=== PATIENT | male | born 1985 | race African-American/Black ===

== ENCOUNTER 2020-06-13 15:42 | Emergency (ER) | payer SELFPAY ==
--- NOTE | ~2020-06-13 | CT_ITS ---
EXAMINATION: CT abdomen pelvis wo con EXAM DATE: 06/13/2020 17:40 INDICATION: Left flank pain. TECHNIQUE: Spiral CT of the abdomen and pelvis was performed without contrast. Axial, coronal and sag ittal images were reviewed. The dose-length product (DLP) for this examination was 284.46 mGy-cm. T he exposure was tailored according to patient size (auto mA exposure control), and iterative reconstr uction (ASIR) was used as additional dose reduction technique. There is no prior study for compariso n. FINDINGS: Along the inner gluteal folds, buttock there is skin thickening. On the right this extends laterally along the posterior aspect of the subcutaneous fat, phlegmon and possibly with early develo ping fluid collection/abscess. This region measures about 1.5 cm in thickness by about 8 cm in transv erse dimensions, please clinically correlate. There is no nephrolithiasis or hydronephrosis. The prostate is unremarkable. The bladder is unrem arkable. The liver, spleen, adrenal glands and pancreas are unremarkable. Gallbladder is unremarkab le. No biliary obstruction. There is no retroperitoneal or pelvic lymphadenopathy. The appendix is normal. The stomach and small bowel are unremarkable. There is mild sigmoid colonic diverticulosis. There is no adjacent inflammatory change to suggest diverticulitis. No free intrape ritoneal gas. The heart is normal in size. There are no pericardial or pleural effusions. The delano g bases are unremarkable. The bones are unremarkable. IMPRESSION: 1. No nephrolithiasis, hydronephrosis or acute intra-abdominal findings. 2. Induration along the inner gluteal folds extending on the right posterior aspect of the pelvis nixon bcutaneous fat, phlegmon with possible developing early abscess. Clinical correlation. Reviewed, dictated and finalized at location [facility]. IMPRESSION: 1. No nephrolithiasis, hydronephrosis or acute intra-abdominal findings. 2. Induration along the inner gluteal folds extending on the right posterior a spect of the pelvis subcutaneous fat, phlegmon with possible developing early a bscess. Clinical correlation.
[2020-06-13 15:54] VITALS: BP 146/92; PULSE 93; RESP 16; TEMP 37.1; O2SAT 99
--- NOTE | 2020-06-13 16:18 | ED.BACK ---
HPI - Back Pain/Injury General Chief Complaint: Back Pain/Injury Stated Complaint: back pain Time Seen by Provider: 06/13/20 16:02 Source: patient Mode of arrival: ambulatory Limitations: no limitations History of Present Illness HPI Narrative: Patient is a 34-year-old male who presents complaining of left lower back pain that radiated to the left leg. He reports pain x1 week increasing today. He reports pain increases with movement. He denies known injury, but reports that he does lift frequently. He denies taking [id number] medications for pain. He denies problems with urination. MD elicited complaint: back pain Related Data Allergies Allergy/AdvReac Type Severity Reaction Status Date / Time Opioids - Morphine Analogues Allergy Intermediate Rash Verified 06/13/20 16:35 tramadol Allergy Intermediate Rash Verified 06/13/20 16:35 Review of Systems Review of Systems: Narrative: CONSTITUTIONAL: Denies fever, chills, or sweats. EYES: Denies visual changes, redness, or discharge. ENT: Denies rhinorrhea, congestion, sore throat, or otalgia. CARDIOVASCULAR: Denies chest pain, palpitations, or edema. RESPIRATORY: Denies cough or dyspnea. GASTROINTESTINAL: Denies abdominal pain, nausea, vomiting, or diarrhea. GENITOURINARY: Denies dysuria or hematuria. SKIN: Denies rash or itching. MUSCULOSKELETAL: Reports left lower back pain, denies joint pain, or myalgia. NEUROLOGIC: Denies headache, numbness, dizziness, or weakness. PSYCHIATRIC: Denies anxiety or depression. PMFSH Past Medical History Medical History No significant past medical history Surgical History Surgical History No significant past surgical history Family History Family History Other Hypertension Social History Social History (Updated 06/13/20 @ 16:23 by CHRISTIE Klein) Smoking status: Current every day smoker Tobacco type: cigarettes Alcohol intake: current Alcohol use details: occasional Substance use: never Living arrangements: with family Exam Narrative: Exam Narrative: GENERAL: Well-appearing, well-nourished, and in no acute distress. HEAD: Normocephalic, atraumatic. EYES: No redness or drainage. ENT: Mucous membranes pink and moist. N CHEST: No respiratory distress. Clear to auscultation. HEART: Regular rate and rhythm. No murmur appreciated. Normal peripheral pulses. GI: Soft, nontender without rebound, or guarding. No distention. Bowel sounds normal in all quadrants. MUSCULOSKELETAL: Left paraspinous tenderness with palpation. EXTREMITIES: Normal range of motion. No edema. SKIN: Warm, dry, no rash. NEURO: No focal deficits. Alert and oriented x3. Gait steady. PSYCH: Normal affect. No signs of depression or anxiety. Course Vital Signs Vital signs: Vital Signs Temperature 37.1 C 06/13/20 15:54 Pulse Rate 93 06/13/20 15:54 Respiratory Rate 16 06/13/20 15:54 Blood Pressure 146/92 H 06/13/20 15:54 Pulse Oximetry 99 06/13/20 15:54 Temperature 37.1 C 06/13/20 15:54 Pulse Rate 93 06/13/20 15:54 Respiratory Rate 16 06/13/20 15:54 Blood Pressure 146/92 H 06/13/20 15:54 Pulse Oximetry 99 06/13/20 15:54 MDM - Back Pain/Injury MDM Narrative Medical decision making narrative: Patient CT scan shows no abnormalities. Patient to be treated for UTI because of urine results. Discussed with patient the need to follow-up with PCP for repeat UA. Patient verbalizes agreement. Patient is stable for discharge to home with outpatient follow-up. Lab Data Result diagrams: 06/13/20 17:58 06/13/20 17:58 Labs: Lab Results 06/13/20 06/13/20 06/13/20 Range/Units 17:13 17:58 17:58 WBC 5.1 (4.5-10.0) K/mm3 RBC 4.29 L (4.6-6.20) M/mm3 Hgb 14.1 (14.0-18.0) g/dL Hct 40.6 L
[2020-06-13] MEDS: KETOROLAC (*BKC) 60 MG/2 ML VIAL IM (16:35)
[2020-06-13 17:24] LABS: Add Urine Microscopic? YES; Appearance Urine Clear (Clear); Bacteria Urine Trace /hpf; Bilirubin Urine Negative (Negative); Blood Urine 3+ (Negative); Color Urine Yellow (Yellow); Glucose Urine UA Negative (Negative); Ketones Urine Negative (Negative); Leukocyte Esterase Ur Trace LEU/UL (Negative); Mucus Urine Rare /lpf; Nitrate Urine Negative (Negative); Protein Urine Negative (Negative); RBC Urine 21-50 /hpf (0-2); Specific Grav Ur 1.014 (1.001-1.035); Squamous Epithelial Cell Urine Rare /hpf (Few); Urobilinogen Urine Negative mg/dL (<2.0)
[2020-06-13] MEDS: SODIUM CHLORIDE 0.9% IV 1,000 ML 999 ML IV CONT (17:59)
[2020-06-13 18:09] LABS: Basophils Percent Auto 0.4 % (0.2-1.2); Eosinophils Absolute Auto 0.1 K/mm3 (0-0.3); Eosinophils Percent Auto 1.4 % (0-4.4); Hematocrit 40.6 % (42.0-52.0); Hemoglobin 14.1 g/dL (14.0-18.0); Immature Granulocyte Absolute 0.02 K/mm3 (0.00-0.031); Immature Granulocyte Percent A 0.4 % (0-0.5); Lymphocytes Absolute Auto 1.43 K/mm3 (0.9-3.2); Lymphocytes Percent Auto 27.9 % (18.3-44.2); Mean Corpuscular HGB Conc 34.7 g/dl (32-36); Mean Corpuscular Hemoglobin 32.9 pg (26-34); Mean Corpuscular Volume 94.6 fl (80-100); Mean Platelet Volume 9.3 fl (7.4-10.4); Monocytes Absolute Auto 0.4 K/mm3 (0.1-0.6); Monocytes Percent Auto 7.4 % (2.6-8.5); Neutrophils Absolute Auto 3.2 K/mm3 (1.3-6.7); Neutrophils Percent Auto 62.5 % (45.5-73.1); Platelet Count Result 209 k/mm3 (150-375); Red Blood Count 4.29 M/mm3 (4.6-6.20); White Blood Count 5.1 K/mm3 (4.5-10.0)
[2020-06-13 18:19] LABS: Potassium 3.9 mmol/L (3.4-5.0)
[2020-06-13 18:22] LABS: Alanine Aminotransferase 15 U/L (4-50); Alkaline Phosphatase 78 U/L (38-126); Anion Gap 5 mmol/L (8-16); Aspartate Amino Transferase 32 U/L (17-59); Bilirubin,Total 0.4 mg/dL (0.2-1.3); Blood Urea Nitrogen 9 mg/dL (9-20); Carbon Dioxide 32 mmol/L (22-30); Chloride 102 mmol/L (98-107); Estimated CRCL calculation 97 ml/min; Estimated Glomerular Filt Rate > 60; Glucose 71 mg/dL (75-110); Sodium 139 mmol/L (137-145)
[2020-06-13 19:02] VITALS: BP 133/74; PULSE 63; RESP 17; O2SAT 100
== END 2020-06-13 19:04 | disposition home or self-care (01) ==
PROVIDERS: Emergency Provider Nurse Practitioner
DX: M54.16 Radiculopathy, lumbar region (principal); N39.0 Urinary tract infection, site not specified; M54.42 Lumbago with sciatica, left side
CPT/HCPCS: 36415; 74176; 80053; 81001; 85025; 87086; 96360; 96372; 99284; J1885; J7030

== ENCOUNTER 2020-06-24 16:32 | Emergency (ER) | payer SELFPAY ==
[2020-06-24 16:35] VITALS: BP 132/82; PULSE 94; RESP 16; TEMP 36.1; O2SAT 100
--- NOTE | 2020-06-24 16:49 | PC.NURSE ---
patient reports intermitted hives and shortness of breath since starting bactim last week. no symptoms now
--- NOTE | 2020-06-24 17:01 | ED.GENADULT ---
HPI - General Adult General Chief complaint: Allergic Reaction Stated complaint: allergic reaction to antibiotic Time Seen by Provider: 06/24/20 16:46 History of Present Illness HPI narrative: Patient is a 34-year-old male who presents ER with concerns for allergic reaction. Patient was prescribed Bactrim last week for a urinary infection. After taking for couple days he began to develop red raised rash that was pruritic. This would improve with Benadryl. He stopped the medication right away. He still has intermittent flares in the morning. No fevers or chills or sweats. No nausea/vomiting. Mild shortness of breath this morning but went away with Benadryl. No residual urinary symptoms. Had to miss work because of his symptoms. Related Data Allergies Allergy/AdvReac Type Severity Reaction Status Date / Time Opioids - Morphine Analogues Allergy Intermediate Rash Verified 06/13/20 16:35 tramadol Allergy Intermediate Rash Verified 06/13/20 16:35 sulfamethoxazole Allergy Rash Verified 06/24/20 16:41 [From Bactrim] trimethoprim [From Bactrim] Allergy Rash Verified 06/24/20 16:41 Review of Systems Constitutional: Constitutional: Denies chills and Denies fever(s) ENT: Denies nasal congestion and Denies sore throat Respiratory: Respiratory: Denies cough, Reports dyspnea and Denies wheezing Integumentary/Breasts: Skin/Breast: Reports pruritus, Denies erythema and Reports rash PMFSH Past Medical History Medical History (Updated 06/24/20 @ 17:14 by Nathaniel Bentley MD) Kidney stones Surgical History Surgical History No significant past surgical history Family History Family History Other Hypertension Social History Social History (Updated 06/13/20 @ 16:23 by CHRISTIE Klein) Smoking status: Current every day smoker Tobacco type: cigarettes Alcohol intake: current Substance use: never Gender identity (if verbalized by the patient): Male Exam Narrative: Exam Narrative: GENERAL: Well-appearing, well-nourished, and in no acute distress. HEAD: Normocephalic, atraumatic. ENT: Mucous membranes moist. No pharyngeal erythema, tonsillar hypertrophy or exudate. CHEST: Clear to auscultation. No respiratory distress. HEART: Regular rate and rhythm. Normal peripheral pulses. EXTREMITIES: Normal range of motion. No edema. SKIN: Warm, dry, right arm dark scabs and hair follicles itching. No red rash.. NEURO: Alert and oriented x3. Course Course Emergency Course: Recommended [id number] Benadryl or Claritin daily as well as twice a day Pepcid. No evidence of anaphylaxis or rash at this time. Patient has made no changes to his home laundry detergents or fabric softeners. No new soaps when bathing. Vital Signs Vital signs: Vital Signs Temperature 97 F L 06/24/20 16:35 Pulse Rate 94 06/24/20 16:35 Respiratory Rate 16 06/24/20 16:35 Blood Pressure 132/82 06/24/20 16:35 Pulse Oximetry 100 06/24/20 16:35 Temperature 97 F L 06/24/20 16:35 Pulse Rate 94 06/24/20 16:35 Respiratory Rate 16 06/24/20 16:35 Blood Pressure 132/82 06/24/20 16:35 Pulse Oximetry 100 06/24/20 16:35 Medical Decision Making Vital Signs Vital Signs: Vital Signs Temperature 97 F L 06/24/20 16:35 Pulse Rate 94 06/24/20 16:35 Respiratory Rate 16 06/24/20 16:35 Blood Pressure 132/82 06/24/20 16:35 Pulse Oximetry 100 06/24/20 16:35 Temperature 97 F L 06/24/20 16:35 Pulse Rate 94 06/24/20 16:35 Respiratory Rate 16 06/24/20 16:35 Blood Pressure 132/82 06/24/20 16:35 Pulse Oximetry 100 06/24/20 16:35 Discharge Plan Discharge Clinical Impression: Allergic reaction Patient Disposition: Home, Self-Care Condition: Stable Instructions: Antibiotic Medication Allergy (ED) Additional Instructions: Return the ER if you cannot
== END 2020-06-24 17:21 | disposition home or self-care (01) ==
PROVIDERS: Emergency Provider Emergency Medicine
DX: T78.40XA Allergy, unspecified, initial encounter (principal); Z87.442 Personal history of urinary calculi; Z87.440 Personal history of urinary (tract) infections
CPT/HCPCS: 99283

== ENCOUNTER 2020-06-27 04:07 | Inpatient (IN) | payer SELFPAY ==
[2020-06-27] VITALS (17 sets, daily range): BP systolic 96–138; BP diastolic 53–84; PULSE 97–146; RESP 14–20; TEMP 37.2–39.2; O2SAT 93–100; BMI 25.5; BMI 25.2
--- NOTE | ~2020-06-27 | CT_ITS ---
EXAMINATION: CT abdomen pelvis w con DATE: 06/27/2020 04:40 INDICATION: Severe abdominal pain. Fever. History of sickle cell disease. TECHNIQUE: Computed tomography (CT) of the abdomen and pelvis was performed with 100 cc Omnipaque 350 intravenous contrast. Automated exposure control and iterative reconstruction technique were employe d. Exam dose: 516.36 mGy-cm total exam DLP. COMPARISON: 06/13/2020 CT abdomen pelvis FINDINGS: The lung bases are clear. Normal heart size. No pericardial or pleural effusion. The liver, gallbladder, bile ducts, spleen, pancreas, pancreatic duct, and adrenal glands and kidneys are unremarkable. Normal caliber of the abdominal aorta. No intraperitoneal or retroperitoneal or pe lvic mass lesion or adenopathy or ascites. Normal caliber of the abdominal aorta. No intraperitoneal or retroperitoneal or pelvic mass lesion or adenopathy or ascites. No bowel obstruction, bowel wall thickening, pneumatosis or intraperitoneal free air. Normal appendix . The urinary bladder is unremarkable. Again noted is soft tissue thickening along the right gluteal fold and particularly prominent subcuta neous soft tissue thickening along the medial aspect of the right buttock, with subjacent fat strandi ng. Infection and cellulitis are suggested. IMPRESSION: Little interval change of prominent subcutaneous soft tissue thickening and fat strandin g along the right gluteal fold and medial aspect of the right buttock since 06/13/2020 Reviewed, dictated and finalized at [facility]. Reviewed, dictated and finalized at location [facility]. IMPRESSION: Little interval change of prominent subcutaneous soft tissue thick ening and fat stranding along the right gluteal fold and medial aspect of the r ight buttock since 06/13/2020
--- NOTE | ~2020-06-27 | XR_ITS ---
XR chest 2V DATE: 06/27/2020 04:46 INDICATION: Tachycardia, fever. Midline upper abdominal pain. History of sickle cell disease. TECHNIQUE: AP and lateral views COMPARISON: None FINDINGS: Normal heart size. No pulmonary infiltrate or consolidation, pleural effusion or pulmonary vascular congestion or pneumothorax. IMPRESSION: No active cardiopulmonary disease Reviewed, dictated and finalized at location [facility].
--- NOTE | ~2020-06-27 | US_ITS ---
US right upper quadrant DATE: 06/27/2020 09:28 INDICATION: Right upper quadrant abdominal pain. Sepsis. TECHNIQUE: Real-time imaging of liver, pancreas, gallbladder COMPARISON: 06/27/2020 CT abdomen pelvis FINDINGS: No hepatic or pancreatic space-occupying mass lesion is evident. No evidence of gallstones or gallbladder wall thickening or abnormal pericholecystic fluid collection. Negative sonographic Mur phy's sign. Common bile duct is of normal caliber. IMPRESSION: No significant abnormality; no evidence of cholelithiasis Reviewed, dictated and finalized at [facility]. Reviewed, dictated and finalized at location [facility].
--- NOTE | ~2020-06-27 | XR_ITS ---
XR UGI water soluble w sbs DATE: 06/28/2020 10:42 INDICATION: Abdominal pain TECHNIQUE: Single contrast examination with water-soluble contrast material (100 cc Omnipaque 350) DAP: 44.50; 2.1 minutes fluoroscopy time 57 images COMPARISON: None FINDINGS: Normal deglutition and esophageal peristalsis. No esophageal stricture, mucosal fold thicke tyrone or intraluminal mass lesion. There is mucosal fold thickening of the distal antrum with suggestion of small erosions. Likewise there are multiple prominent mucosal folds and suggestion of small erosions in apex of the d uodenal bulb. Contrast material reaches the colon within 90 minutes. No small bowel stricture, dilatation, obstruct ion, mucosal fold thickening. The terminal ileum appears normal. IMPRESSION: Mucosal fold thickening and small erosions are suggested at the distal antrum and the duo denal bulb apex Reviewed, dictated and finalized at [facility]. Reviewed, dictated and finalized at location [facility]. IMPRESSION: Mucosal fold thickening and small erosions are suggested at the dis genaro antrum and the duodenal bulb apex
--- NOTE | 2020-06-27 04:05 | ED.ABDPAIN ---
HPI - Abdominal Pain General Chief Complaint: Abdominal Pain Stated Complaint: ABD PAIN Source: patient and EMS Mode of arrival: EMS Limitations: no limitations History of Present Illness HPI narrative: Patient is a 34-year-old male who presents for evaluation of severe abdominal pain. Patient reports severe pain throughout his abdomen that awakened him suddenly from sleep approximately 1 hour ago. Described as sharp, cramping in nature throughout his abdomen, worse on the right side. He has had associated fever, denies nausea or vomiting. He denies history of abdominal surgeries. He denies diarrhea or constipation. Patient was recently seen in this emergency department for urinary tract infection on June 13 and started on Bactrim. Subsequently, patient developed a rash and was seen again in this emergency department and discharged home in stable condition. Patient denies any current cough, chest pain or shortness of breath. No pain history such as this in the past. Patient does report that he has a history of sickle cell trait and hidranitis suppuritiva, but this was not reported to other providers at previous visits to this facility. 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 He is not on any chronic pain medications. Related Data Allergies Allergy/AdvReac Type Severity Reaction Status Date / Time Opioids - Morphine Analogues Allergy Intermediate Rash Verified 06/13/20 16:35 tramadol Allergy Intermediate Rash Verified 06/13/20 16:35 sulfamethoxazole Allergy Rash Verified 06/24/20 16:41 [From Bactrim] trimethoprim [From Bactrim] Allergy Rash Verified 06/24/20 16:41 Review of Systems Review of Systems: Narrative: CONSTITUTIONAL: Reports fever and chills ENT: Denies rhinorrhea, congestion, sore throat, or otalgia. CARDIOVASCULAR: Denies chest pain RESPIRATORY: Denies cough or dyspnea. GASTROINTESTINAL: Reports abdominal pain GENITOURINARY: Denies dysuria or hematuria. SKIN: Denies rash or itching. MUSCULOSKELETAL: Denies back pain, joint pain, or myalgia. NEUROLOGIC: Denies headache, numbness, or weakness. [facility] Past Medical History Medical History (Updated 06/27/20 @ 07:29 by Yakelin Thomas MD) Abscess and cellulitis of gluteal region Hidradenitis suppurativa Kidney stones Sickle cell trait Surgical History Surgical History No significant past surgical history Family History Family History Other Hypertension Social History Social History Smoking status: Current every day smoker Tobacco type: cigarettes Alcohol intake: current Substance use: never Gender identity (if verbalized by the patient): Male Exam Narrative: Exam Narrative: GENERAL: Awake, alert, uncomfortable appearing, tearful HEAD: Normocephalic, atraumatic. EYES: PERRLA and EOMI. ENT: Nares clear, no rhinorrhea or epistaxis. Mucous membranes moist. NECK: Supple. CHEST: No respiratory distress, breathing even and non labored, lung sounds clear bilaterally HEART: Tachycardic rate, sinus rhythm ABDOMEN:Non distended, severe tenderness in all 4 quadrants even with light palpation, guarding present throughout : Induration overlying the right gluteus, incision sites clean, dry, intact, no erythema, no purulent discharge, no crepitus, mild tenderness with palpation EXTREMITIES: Normal range of motion. No edema. SKIN: Warm, dry, no rash. NEURO:No focal deficits. Alert and oriented x3 Course Vital Signs Vital signs: Vital Signs Temperature 39.2 C H 06/27/20 04:07 Pulse Rate 146 H 06/27/20 04:07 Respiratory Rate 18 06/27/20 04:07 Blood Pressure 138/78 06/27/20 04:07 Pulse Oximetry 100 06/27/20 04:07 Temperature 38.0 C H 06/27/20 06:17 Pulse Rate 131 H 06/27/20 05:47 Respiratory Rate 14 06/27/20 05:47 Blood Pressure 130/67 06/27/20
--- NOTE | 2020-06-27 04:14 | ECG_ITS ---
Measurements Intervals [place] Rate: 134 P: 77 [place]: 168 QRS: 88 QRSD: 86 T: 5 QT: 278 QTc: 416 Interpretive Statements SINUS TACHYCARDIA NONSPECIFIC T-WAVE ABNORMALITY- INFERIOR LEADS BASELINE ARTIFACT- V5 ABNORMAL ECG Electronically Signed On 06-27-2020 7:16:41 CDT by Tai Chaparro D.O.
[2020-06-27] MEDS: ONDANSETRON INJ 4 MG/2 ML VIAL IV PUSH (04:22)
[2020-06-27] MEDS: HYDROmorphone HCL INJ (*CRX) 1 MG/ML SYR IV PUSH (04:22)
[2020-06-27 04:41] LABS: Basophils Percent Auto 0.3 % (0.2-1.2); Eosinophils Percent Auto 0.5 % (0-4.4); Hematocrit 38.5 % (42.0-52.0); Hemoglobin 13.6 g/dL (14.0-18.0); Immature Granulocyte Absolute 0.02 K/mm3 (0.00-0.031); Immature Granulocyte Percent A 0.3 % (0-0.5); Lymphocytes Absolute Auto 0.48 K/mm3 (0.9-3.2); Lymphocytes Percent Auto 6.3 % (18.3-44.2); Mean Corpuscular HGB Conc 35.3 g/dl (32-36); Mean Corpuscular Hemoglobin 32.5 pg (26-34); Mean Corpuscular Volume 92.1 fl (80-100); Mean Platelet Volume 8.7 fl (7.4-10.4); Monocytes Absolute Auto 0.1 K/mm3 (0.1-0.6); Monocytes Percent Auto 1.1 % (2.6-8.5); Neutrophils Absolute Auto 6.9 K/mm3 (1.3-6.7); Neutrophils Percent Auto 91.5 % (45.5-73.1); Platelet Count Result 231 k/mm3 (150-375); Red Blood Count 4.18 M/mm3 (4.6-6.20); Red Cell Distribution Width 12.6 % (11.5-14.5); White Blood Count 7.6 K/mm3 (4.5-10.0)
[2020-06-27 04:46] LABS: Immature Reticulocyte Fraction 10.8 % (3.0-15.9); Reticulocyte Hemoglobin Conten 36.9 pg (28.2-35.7); Reticulocyte Percent 1.47 % (0.7-4.3); Reticulocytes Absolute 0.06 B/L (32.2-175.7)
[2020-06-27 04:50] LABS: Prothrombin Time 13.3 Seconds (11.1-14.7)
[2020-06-27 04:54] LABS: Lactate Dehydrogenase 615 U/L (313-618); Lactic Acid Reflex 2.4 mmol/L (0.7-2.1)
[2020-06-27 04:56] LABS: Alanine Aminotransferase 63 U/L (4-50); Albumin Level 4.1 g/dL (3.5-5.1); Alkaline Phosphatase 86 U/L (38-126); Anion Gap 13 mmol/L (8-16); Aspartate Amino Transferase 114 U/L (17-59); Bilirubin,Total 0.4 mg/dL (0.2-1.3); Blood Urea Nitrogen 10 mg/dL (9-20); CRP 4.1 mg/dL (<1.0); Calcium 8.9 mg/dL (8.4-10.2); Carbon Dioxide 26 mmol/L (22-30); Chloride 99 mmol/L (98-107); Estimated CRCL calculation 108 ml/min; Estimated Glomerular Filt Rate > 60; Glucose 96 mg/dL (75-110); Lipase 34 U/L (23-300); Sodium 138 mmol/L (137-145)
[2020-06-27] MEDS: SODIUM CHLORIDE 0.9% IV 2,300 ML/1,000 ML BAG 999 ML IV CONT (05:02)
[2020-06-27] MEDS: HYDROmorphone HCL INJ (*CRX) 1 MG/ML SYR 0.5 MG IV PUSH (05:45)
[2020-06-27 05:49] LABS: Add Urine Microscopic? YES; Appearance Urine Clear (Clear); Bilirubin Urine Negative (Negative); Blood Urine 1+ (Negative); Color Urine Yellow (Yellow); Glucose Urine UA Negative (Negative); Ketones Urine Negative (Negative); Leukocyte Esterase Ur Negative LEU/UL (Negative); Nitrate Urine Negative (Negative); Protein Urine Negative (Negative); RBC Urine 0-2 /hpf (0-2); WBC Urine 0-3 /hpf
[2020-06-27 07:38] LABS: Reflex Lactic Acid Yes or No Add Lactic
[2020-06-27 08:01] LABS: Lactic Acid 0.6 mmol/L (0.7-2.1)
--- NOTE | 2020-06-27 08:43 | PM.CNGS ---
Assessment and Plan Assessment and plan (1) Abdominal pain: Onset Date: ~06/27/20 Code(s): R10.9 - Unspecified abdominal pain Status: Acute Assessment and Plan: I have examined the patient in the emergency room and interviewed him and his . At this time is abdominal pain is somewhat of a pause 0. However, after some fluid resuscitation and some pain medicine his pain seems of localized in the right upper quadrant. Since he has sickle cell trait this is concerning for the possibility of gallstones which may have not been picked up by CT. Therefore, we will proceed with admission antibiotics and an ultrasound this morning to see if this shows shows anything regarding a probable the gallbladder. This seems to fit with his symptoms in view of a fatty meal 2-3 hours before his hep episode of severe abdominal pain and chills. Will await results of these blood cultures, labs, and a urine culture we sent before he got antibiotics. We have discussed this with in the ED and then also with Dr. Dumont from hospitalist service. Dr. Dumont will have the team do a COVID test because of the patient's fever and other symptoms. At some point it may be appropriate to get a consultation from the infectious disease service if we are having trouble determine the source of the patient's signs of sepsis. (2) Sepsis: Onset Date: ~06/27/20 Code(s): A41.9 - Sepsis, unspecified organism Status: Acute Assessment and Plan: This is suggested by his chills and fever. Blood cultures and urine culture been sent. We will start antibiotics and per Acosta and admit the patient for fluid resuscitation and following his lactic acid levels. Appreciate medicines help in evaluating for other sources. (3) Hidradenitis suppurativa: Onset Date: Unknown Code(s): L73.2 - Hidradenitis suppurativa Status: Inactive Assessment and Plan: Apparently this has been present for some time. Patient does have 1 area on the right buttock which seems to be somewhat indurated tender to touch and has only a small opening where there is some purulent drainage. If he can tolerate it we may use a little local anesthetic and consider opening this wider for better drainage and doing a culture. Will wait till his heart rate comes down and we know the results of the ultrasound. History of Present Illness Consult details Consult date: 06/27/20 Reason for consult: abdominal pain Requesting physician: Iglesia Ríos MD Narrative: This patient is a 34-year-old black male who presented To the [facility] early this morning for evaluation of severe abdominal pain, fever and chills. Patient reports severe pain throughout his abdomen that awakened him suddenly from sleep at approximately 3 - 4 AM. This is described as sharp, cramping in nature throughout his abdomen, worse on the right side. He has had associated fever. His who is with him states he did have 1 severe bout of nausea or vomiting prior to them: The ambulance and getting him to the hospital. He denies history of any previous abdominal surgeries. He denies diarrhea or constipation. Patient was recently seen in this emergency department for a possible urinary tract infection on June 13 final C & S was no growth and was started on Bactrim. Subsequently, patient developed a rash and was seen again in this emergency departmentm again, given a steroid injection, and discharged home in stable condition. Patient denies any current cough, chest pain or shortness of breath. does not believe he has been exposed to anybody with COVID. 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 None of them of been sick. No abdominal pain history such as this in the past. Patient does report that he has a history of sickle cell trait and hidranitis suppuritiva, but this was not reported to other p
[2020-06-27 08:56] LABS: Triglycerides 286 mg/dL (<150)
[2020-06-27] MEDS: SODIUM CHLORIDE 0.9% IV 1,000 ML 125 ML IV CONT ×2 (10:29→20:46)
--- NOTE | 2020-06-27 10:40 | ADMGEN ---
This patient, Sorin Barnhart, was admitted to 3 [facility] Surg Room 327-01. Patient/family oriented to hospital policies and general routines including ID bracelet, bed and alarms, visiting hours, pain management, procedures, bathroom and other care routines, personal items, smoking policy, room service/diet, and visiting hours. Information on how to activate the Rapid Response Team has been discussed. Patient/Family are encouraged to report perceived risks to care and to ask questions if they do not understand what they are told or what they should do.
[2020-06-27 17:44] LABS: SARS-CoV-2 RNA PCR Negative
--- NOTE | 2020-06-27 18:14 | PC.NURSE ---
1600 pt assisted up to shower, right buttocks cleansed and clean dry dressing applied
--- NOTE | 2020-06-27 19:00 | PM.IMHP ---
H&P: HPI History of Present Illness Date/Time: 06/27/20 19:00 Chief complaint: Abdominal pain. Narrative: Sorin Barnhart is a 34 year old male smoker with history of hidradenitis suppurativa and sickle cell trait presented to the emergency department earlier this morning via EMS from home for evaluation of abdominal pain and fever. He seemed to be in his usual state of health last evening and approximately 4 hours after eating dinner he developed acute chills, body aches, and right upper quadrant abdominal pain, which woke him from sleep. The pain is described as severe and cramping in nature, mainly in the right upper quadrant but did radiate somewhat throughout the abdomen. Associated symptoms include nausea and emesis. He was so weak that he was unable to get up to come to the hospital and EMS was summoned. On their arrival his temperature was 105.9?. He continues to have low-grade fevers but has chills are gone and his abdominal pain is significantly improved. His significant other ate the same dinner as he did, and had no similar symptoms. He no longer has nausea and fact he reports being hungry at this time. He has no history of GERD, peptic ulcers, gallbladder disease, or pancreatitis. He denies urinary tract symptoms but it is noted that he was treated for a possible UTI a couple of weeks ago however urine culture demonstrated no growth. Of note, he has a chronically enlarged area on his right buttock due to his hidradenitis which will drain on occasion. He denies any new symptoms with regards to that and denies purulence drainage. No recent travel or sick contacts. Review of Systems Review of Systems: Narrative: Twelve systems were reviewed with pertinent positives and negatives as per HPI. No headache or neck ache. He denies sinus congestion, rhinorrhea, otalgia, and odynophagia. No cough or shortness of breath. He denies chest pain. No diarrhea, in fact he has not had a bowel movement for nearly a week which is unusual for him. He denies UTI symptoms. As mentioned HPI he has a chronic area on his right buttock related to his hidradenitis suppurativa, which does have occasional serosanguineous drainage. He continues to Sitz baths with dressing changes. No history of MRSA. Except as documented, all other systems were reviewed and are negative. [facility] Past Medical History Medical History Abscess and cellulitis of gluteal region Hidradenitis suppurativa (Unknown) Sickle cell trait Tobacco use Surgical History Surgical History No significant past surgical history Family History Family History Mother Hypertension Social History Social History (Updated 06/27/20 @ 23:23 by Isabela Matias PA-C) Social History: Surrogate decision maker: Shanon English, significant other. Code status: Full code. Smoking packs per day: 1 Smoking cigarettes per day: 20.0 Smoking status: Current every day smoker Tobacco type: cigarettes Alcohol intake: current Drinks per week: 4 Substance use: never Substance use type: does not use Additional living arrangements comments: Lives with significant other in [place], [place]. 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 Gender identity (if verbalized by the patient): Male Spiritual care concerns: No Meds Home Medications and Allergies Home Medications Medication Instructions Recorded Confirmed Type No Home Medications 06/27/20 06/27/20 History Allergies Allergy/AdvReac Type Severity Reaction Status Date / Time Opioids - Morphine Analogues Allergy Intermediate Rash Verified 06/27/20 11:17 tramadol Allergy Intermediate Rash Verified 06/27/20 11:17 sulfamethoxazole Allergy Rash Verified 06/27/20 11:17 [From Bactrim] trimethoprim [From Bactrim] Allergy Rash Verified 06/27/20 11:17 Vital Signs V
[2020-06-28] VITALS (12 sets, daily range): BP systolic 117–132; BP diastolic 62–86; PULSE 68–84; RESP 18; TEMP 36.4–37.8; O2SAT 97–99
[2020-06-28] MEDS: SODIUM CHLORIDE 0.9% IV 1,000 ML 125 ML IV CONT ×2 (03:47→17:34)
[2020-06-28 06:13] LABS: Basophils Percent Auto 0.2 % (0.2-1.2); Eosinophils Absolute Auto 0.1 K/mm3 (0-0.3); Hematocrit 33.8 % (42.0-52.0); Hemoglobin 11.6 g/dL (14.0-18.0); Immature Granulocyte Absolute 0.03 K/mm3 (0.00-0.031); Immature Granulocyte Percent A 0.3 % (0-0.5); Lymphocytes Absolute Auto 1.36 K/mm3 (0.9-3.2); Lymphocytes Percent Auto 15.1 % (18.3-44.2); Mean Corpuscular HGB Conc 34.3 g/dl (32-36); Mean Corpuscular Volume 93.1 fl (80-100); Mean Platelet Volume 9.5 fl (7.4-10.4); Monocytes Absolute Auto 0.8 K/mm3 (0.1-0.6); Monocytes Percent Auto 8.6 % (2.6-8.5); Neutrophils Absolute Auto 6.7 K/mm3 (1.3-6.7); Neutrophils Percent Auto 74.8 % (45.5-73.1); Platelet Count Result 196 k/mm3 (150-375); Red Blood Count 3.63 M/mm3 (4.6-6.20); Red Cell Distribution Width 12.7 % (11.5-14.5)
[2020-06-28 06:26] LABS: Alanine Aminotransferase 62 U/L (4-50); Albumin Level 3.1 g/dL (3.5-5.1); Alkaline Phosphatase 72 U/L (38-126); Anion Gap 6 mmol/L (8-16); Aspartate Amino Transferase 88 U/L (17-59); Bilirubin,Total 0.4 mg/dL (0.2-1.3); Blood Urea Nitrogen 7 mg/dL (9-20); Calcium 7.8 mg/dL (8.4-10.2); Carbon Dioxide 30 mmol/L (22-30); Chloride 103 mmol/L (98-107); Estimated CRCL calculation 88 ml/min; Estimated Glomerular Filt Rate > 60; Glucose 94 mg/dL (75-110); Lipase 22 U/L (23-300); Magnesium 1.8 mg/dL (1.6-2.3); Potassium 3.1 mmol/L (3.4-5.0); Sodium 139 mmol/L (137-145)
--- NOTE | 2020-06-28 09:15 | PM.IMPN ---
Progress Note: A&P Assessment and Plan (1) Abdominal pain: Onset Date: ~06/27/20 Code(s): R10.9 - Unspecified abdominal pain Status: Acute Assessment and Plan: CT scan thickening of some of the small bowel wall in about the mid small bowel (findings of possible enteritis) Gastrografin upper GI and small-bowel follow-through to rule out a gastric or duodenal ulcer and any small bowel abnormalities. COVID test is negative small-bowel follow-through an upper GI were reviewed. b.i.d. Pepcid GI consultation upper GI endoscopy and/or colonoscopy may be needed. right upper quadrant ultrasound clear chest x-ray clear UA clear LFTs improving, AST down to 88, ALT down to 62, this may have been from dehydration. CRP 4.1, white count 9.0, no chills at this time, last known fever was 6:00 a.m. this morning No vomiting or acid reflux or diarrhea at this time. Right upper quadrant tenderness with palpation only. (2) Sepsis: Onset Date: ~06/27/20 Code(s): A41.9 - Sepsis, unspecified organism Status: Acute Assessment and Plan: Unknown etiology viral versus bacterial. high fever, tachycardia, and elevated lactic acid level with IV fluid rehydration his lactic acid level has normalized possible buttock wound and GI ulcerations causing fever CRP 4.1, white count 9.0, no chills at this time, last known fever was 6:00 a.m. this morning consider check a swab for strep and/or mononucleosis if not improving normal UA hemodynamically stable at this time blood cultures pending (3) Hidradenitis suppurativa: Onset Date: Unknown Code(s): L73.2 - Hidradenitis suppurativa Status: Acute Assessment and Plan: chronic problem. CT of the abdomen and pelvis does show suggestive of an infection cellulitis along the right gluteal fold in the region of hidradenitis suppurativa, which may be a source of infection. area of induration and drainage on the right buttock Continue empiric Zosyn, get wound cultures from I & D, as the wound was closed and dry and nursing staff was unable to get a culture. supportive care including IV fluid rehydration, antipyretics, and analgesics as needed. surgery planning to open and pack buttock wound and do a culture pain meds for comfort (4) Tobacco use: Code(s): Z72.0 - Tobacco use Status: Acute Assessment and Plan: completed patient Education encourage smoking cessation discussed how smoking affects the GI tract greatly increases risk of ulcerations may have nicotine patches p.r.n. Subjective Date/time seen: 06/28/20 09:15 Sorin and his for sitting on the bed when I entered to speak with and examine him this afternoon. I did inform them of the radiology findings and updated them as to the plan of care. His CT scan showed Nursing staff informed me that Dr. Arizmendi would be completing a bedside I&D on the patient's buttock wound. I also informed the patient that GI physician has been consulted due to ulcers found in the small bowel and that the GI physician may want to complete an EGD and/or colonoscopy. His COVID test is negative; his urinalysis is clear. His vital signs are hemodynamically stable. His hemoglobin is 11.6 and hematocrit 33.8. His triglycerides were elevated to 86. He and his admit to him having a poor diet, as well as smoking. Review of Systems Constitutional: Constitutional: Reports as per HPI, Reports no additional constitutional complaints, Reports chills ( Brief several days ago and then also with the onset of this abdominal harley) and Denies headache(s) Eyes: Eyes: Denies loss of vision and Denies eye pain ENT: Reports Normal hearing present, Denies change in voice, Denies dizziness, Denies headache(s) and Reports other (Mucous Membranes moist.) Cardiovascular: Cardiovascular: Denies chest pain and Denies dyspnea Respiratory: Respiratory: Denies pain on inspiration, Denies
--- NOTE | 2020-06-28 12:53 | PM.PNGS ---
Progress Note: A&P Assessment and Plan (1) Abdominal pain: Onset Date: ~06/27/20 Code(s): R10.9 - Unspecified abdominal pain Status: Acute Assessment and Plan: Unknown etiology. Of the seems to the resolved at this time. The only other thing slightly unusual on his CT scan was little bit of thickening of some of the small bowel wall in about the mid small bowel. Therefore, today I discussed with the patient possibly doing a Gastrografin upper GI and small-bowel follow-through to rule out a gastric or duodenal ulcer and any small bowel abnormalities. He was willing to proceed. COVID test is negative therefore he should be able to move about the hospital so we will do this this morning. The results of today's small-bowel follow-through an upper GI were reviewed. Will place a paced on b.i.d. Pepcid and would ask the hospitalist to consider GI consultation and possibly having him do a upper GI endoscopy prior to discharge to see if we can explain the patient's abdominal pain. (2) Sepsis: Onset Date: ~06/27/20 Code(s): A41.9 - Sepsis, unspecified organism Status: Acute Assessment and Plan: Unknown etiology viral versus bacterial. Patient still running a fever. Will leave it up to medicine whether not to check a swab for strep and/or mononucleosis. Still waiting preliminary results on the blood cultures and I do not see that a urine culture was done which may be reasonable. (Although he had a fairly normal UA at the time of admission). (3) Hidradenitis suppurativa: Onset Date: Unknown Code(s): L73.2 - Hidradenitis suppurativa Status: Acute Assessment and Plan: This is a chronic problem. The patient has a area of induration and drainage on the right buttock. As long as things are continue to go well I will try to probe this small opening and open it wider plus do a culture of that wound at the time will probably packed this with quarter-inch iodoform Nu Gauze. (4) Tobacco use: Code(s): Z72.0 - Tobacco use Status: Acute Subjective Subjective Date/Time Seen: 06/28/20 07:53 Patient lying in bed when I entered the room. He awakened easily. He denies abdominal pain today. He has not had a bowel movement since entering the hospital. He tolerated some liquids last night. Is still running a fever other than the last recorded temperature prior to which he had received some Tylenol. I discussed with the patient possibly this afternoon in opening up the small abscess area on his right buttock cheek wider since there is a small opening in still some purulent drainage. Try to do this under local anesthetic at the bedside and he consented to the same. Review of Systems Constitutional: Constitutional: Reports no additional constitutional complaints ENT: Reports other (Mucous Membranes moist.) Cardiovascular: Cardiovascular: Denies dyspnea Respiratory: Respiratory: Denies pain on inspiration and Denies dyspnea Gastrointestinal: Gastrointestinal: Reports as per HPI, Denies abdominal pain, Denies nausea and Denies vomiting Musculoskeletal: Musculoskeletal: Reports other (No calf swelling or edema) Integumentary/Breasts: Skin/Breast: Reports system reviewed and no additional complaints, except as docu Exam Const: General: cooperative, no acute distress, alert and awake Orientation/consciousness: patient oriented x3 HENMT: Mouth: Yes moist mucous membranes Neck: Neck: normal visual inspection Chest: Chest palpation & inspection: normal inspection of the chest Resp: Effort & Inspection: normal respiratory effort Auscultation: clear to auscultation bilaterally Cardio: Jugular venous distension: no JVD Rate: regular rate Rhythm: regular rhythm GI: Inspection: normal to inspection GI Palp: Yes Soft to palpation Auscultation: normal bowel sounds Rectal Exam: deferred Neuro: General: patient oriented x3 and moves all extremities
[2020-06-28] MEDS: SILVER NITRATE (*SP) STICK 1 EACH TOPICAL (17:27)
[2020-06-28] MEDS: HYDROmorphone HCL INJ (*CRX) 1 MG/ML SYR 0.5 MG IV PUSH ×2 (17:27→21:34)
--- NOTE | 2020-06-28 17:44 | P.OP_ITS ---
Procedure Note - Detailed Date of procedure: 06/28/20 Pre-op diagnosis: Abdominal pain. abscess of Right buttock evidence of hidradenitis Procedure performed: Incision and drainage of abscess of the right buttock area Description of procedure: The area of the abscess was marked and time-out performed confirming patient and site of required I and D. patient gave verbal and written permission for the procedure and was performed at bedside in his room on 3rd floor medical surgical unit. Patient was positioned lying on his left side well exposing the area of induration and suspected underlying abscess on the right buttock. Following this the area was prepped with Betadine. The area was draped and local anesthetic infiltrated directly over the area of swelling and abscess formation. I used approximately 5 cc of 2% xylocaine with epinephrine. Careful inspection of the area before the procedure revealed a small opening that I had seen purulence coming from when he 1st came in yesterday. An also on the dressing inferiorly where there was a scar there was some bloody colored thin drainage. I suspected there is some type of a indurated connection or tunnel between the 2 areas. After allowing the local anesthetic to work I probed the opening where I had seen purulence coming from more superiorly and this probed about 1 cm deep and an incision was made at this site with an 11 blade to open it further but there was no immediate gush of any certain amount of unusual, just some mild bleeding. I then infiltrated more local anesthetic around this and I started to see a little bit of fluid come out inferiorly at the site described above. This was about 5 cm inferiorly so I put local anesthetic between the 2 areas and I probed the area where the fluid was coming out inferiorly. It also seemed to probe about 1 cm deep superiorly so I then made a 1 cm incision in that area. Once an opening was established here a swab was used to obtain a Gram stain and C&S. Then I connected the 2 incisoin sites with an incision and the subcutaneous tissue was found to be very thick, scarred and indurated but there was no true abscess cavity found. The area bled easily and silver nitrate was used to stop bleeding. I held pressure on the area when it was bleeding and then when it seemed to be fairly well controlled, I packed it with some back and forth packing of quarter-inch iodoform Nu Gauze. I then ply a pressure dressing of 2 4x4s that were folded over in half and held in place by 3 pieces of Medipore tape. I think we should let this heal in by 2nd intention and tomorrow will have the patient shower than have the nurses put a silver gel dressing in the incision followed by covering it with 4x4s and tape. View of the patient's continuing hidradenitis if seems appropriate would be nice to send him home on doxycycline for 2 weeks as an antibiotic but will leave this up to the hospitalists since they will need to check the blood cultures this weekend before discharging him. Implants: none Anesthesia: local ( 2% xylocaine with epinephrine) Surgeon: Tirso Arizmendi MD Auto Glass Worker: Lori, floor nurse Estimated blood loss (mL): 10 Drains: No Packing: Yes ( quarter-inch iodoform, approximately 12 in.) Pathology: none sent Complications: No immediate complications Condition: stable Disposition: other ( patient remained in his room lying on his left side and the nurse will check him again 15 minutes to be sure there is not continuing bleeding.) Findings: Thick indurated soft tissue underneath skin and subcutaneous tissue affected by hidradenitis suppurativa.
[2020-06-28] MEDS: FAMOTIDINE 20 MG TABLET 40 MG PO (21:35)
[2020-06-29] VITALS (12 sets, daily range): BP systolic 116–144; BP diastolic 60–90; PULSE 63–94; RESP 16–21; TEMP 36.8–37.6; O2SAT 94–100
[2020-06-29] MEDS: HYDROmorphone HCL INJ (*CRX) 1 MG/ML SYR 0.5 MG IV PUSH ×3 (03:09→21:07)
[2020-06-29] MEDS: SODIUM CHLORIDE 0.9% IV 1,000 ML 125 ML IV CONT ×3 (03:10→21:07)
[2020-06-29 06:16] LABS: Hematocrit 33.6 % (42.0-52.0); Hemoglobin 11.5 g/dL (14.0-18.0); Mean Corpuscular HGB Conc 34.2 g/dl (32-36); Mean Corpuscular Hemoglobin 31.6 pg (26-34); Mean Corpuscular Volume 92.3 fl (80-100); Mean Platelet Volume 9.7 fl (7.4-10.4); Platelet Count Result 218 k/mm3 (150-375); Red Blood Count 3.64 M/mm3 (4.6-6.20); Red Cell Distribution Width 12.5 % (11.5-14.5); White Blood Count 7.2 K/mm3 (4.5-10.0)
[2020-06-29 06:32] LABS: Alanine Aminotransferase 57 U/L (4-50); Alkaline Phosphatase 68 U/L (38-126); Anion Gap 4 mmol/L (8-16); Aspartate Amino Transferase 51 U/L (17-59); Bilirubin,Total 0.3 mg/dL (0.2-1.3); Blood Urea Nitrogen 4 mg/dL (9-20); Calcium 8.3 mg/dL (8.4-10.2); Carbon Dioxide 31 mmol/L (22-30); Chloride 104 mmol/L (98-107); Estimated CRCL calculation 88 ml/min; Estimated Glomerular Filt Rate > 60; Glucose 93 mg/dL (75-110); Potassium 3.7 mmol/L (3.4-5.0); Sodium 139 mmol/L (137-145)
--- NOTE | 2020-06-29 07:08 | WPDANESEPP ---
Anes - Eval Pre Procedure Procedure: Operation Date: 06/29/20 07:30 Proposed Procedures p Esophagogastroduodenoscopy - Júnior New MD Date/Time: 06/29/20 07:08 Surgeon: Virgen Pre Op Diagnosis: Abdominal pain. Patient Data Age: 34 Gender: M Height: 1.7 m Weight: 73.1 kg Last Vital Signs Temp 37.3 C 06/29/20 06:00 Pulse 83 06/29/20 06:00 Resp 18 06/29/20 06:00 BP 121/81 06/29/20 06:00 Pulse Ox 94 06/29/20 06:00 Allergies Allergy/AdvReac Type Severity Reaction Status Date / Time Opioids - Morphine Analogues Allergy Intermediate Rash Verified 06/29/20 07:06 tramadol Allergy Intermediate Rash Verified 06/29/20 07:06 sulfamethoxazole Allergy Rash Verified 06/29/20 07:06 [From Bactrim] trimethoprim [From Bactrim] Allergy Rash Verified 06/29/20 07:06 Home Medications Medication Instructions Recorded Confirmed Type No Home Medications 06/27/20 06/27/20 History Laboratory Tests 06/29/20 06/29/20 05:20 05:20 WBC 7.2 K/mm3 K/mm3 (4.5-10.0) RBC 3.64 M/mm3 L M/mm3 (4.6-6.20) Hgb 11.5 g/dL L g/dL (14.0-18.0) Hct 33.6 % L % (42.0-52.0) MCV 92.3 fl fl (80-100) MCH 31.6 pg pg (26-34) MCHC 34.2 g/dl g/dl (32-36) RDW 12.5 % % (11.5-14.5) Plt Count 218 k/mm3 k/mm3 (150-375) MPV 9.7 fl fl (7.4-10.4) Sodium 139 mmol/L mmol/L (137-145) Potassium 3.7 mmol/L mmol/L (3.4-5.0) Chloride 104 mmol/L mmol/L (98-107) Carbon Dioxide 31 mmol/L H mmol/L (22-30) Anion Gap 4 mmol/L L mmol/L (8-16) BUN 4 mg/dL L mg/dL (9-20) Creatinine 1.00 mg/dL mg/dL (0.7-1.3) Estim Creat Clear Calc 88 ml/min ml/min Estimated GFR > 60 (59 - ) Glucose 93 mg/dL mg/dL (75-110) Calcium 8.3 mg/dL L mg/dL (8.4-10.2) Total Bilirubin 0.3 mg/dL mg/dL (0.2-1.3) AST 51 U/L U/L (17-59) ALT 57 U/L H U/L (4-50) Alkaline Phosphatase 68 U/L U/L (38-126) Total Protein 6.0 g/dL L g/dL (6.3-8.2) Albumin 3.0 g/dL L g/dL (3.5-5.1) Patient hx anesthesia problems: none Family hx anesthesia problems: none PMFSH Past Medical History Medical History Abscess and cellulitis of gluteal region Hidradenitis suppurativa (Unknown) Sickle cell trait Tobacco use Surgical History Surgical History No significant past surgical history Family History Family History Mother Hypertension Social History Social History (Updated 06/27/20 @ 23:23 by Isabela Matias PA-C) Social History: Surrogate decision maker: Shanon English, significant other. Code status: Full code. Smoking packs per day: 1 Smoking cigarettes per day: 20.0 Smoking status: Current every day smoker Tobacco type: cigarettes Alcohol intake: current Drinks per week: 4 Substance use: never Substance use type: does not use Additional living arrangements comments: Lives with significant other in [place], [place]. 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 Gender identity (if verbalized by the patient): Male Spiritual care concerns: No Exam Day of Procedure 06/29/20 07:08
--- NOTE | 2020-06-29 07:17 | WPDANESEFPP ---
Anes - Eval Final PreProcedure Day of Procedure 06/29/20 07:17 Patient weight: overweight Heart: regular rate and rhythm Lungs: clear to auscultation and normal air movement Airway: Mallampati scale class II Neurological: alert and oriented Last oral intake: >/= 8 hours ASA classification: III Emergent: yes Anesthetic plan: proceed Anesthesia type and monitoring: general GIVS and standard monitoring Informed Consent: The patient's anesthetic plan and its attendant risks and benefits were discussed with the patient/family/POA. Questions were solicited and answers provided to the satisfaction of the patient/family/POA.
[2020-06-29] MEDS: LACTATED RINGERS 1,000 ML 150 ML IV CONT (07:19)
--- NOTE | 2020-06-29 07:24 | SUR.PREOP ---
DR BARRAZA IN TO SPEAK WITH PT
--- NOTE | 2020-06-29 07:28 | WPDGICN ---
Assessment and Plan Assessment and plan (1) Abdominal pain: Onset Date: ~06/27/20 Code(s): R10.9 - Unspecified abdominal pain Status: Acute Assessment and Plan: Abdominal pain is improved. Plan is to continue proton pump inhibitor allow bland diet. Further recommendations after endoscopy. (2) Abnormal UGI series: Code(s): R93.3 - Abnormal findings on diagnostic imaging of other parts of digestive tract Status: Acute Assessment and Plan: Gastric erosions identified by upper GI. Plan is for bland diet avoid nonsteroidal anti-inflammatory agents proton pump inhibitor encouraged an EGD is been requested will be performed. (3) Hidradenitis suppurativa: Onset Date: Unknown Code(s): L73.2 - Hidradenitis suppurativa Status: Acute Assessment and Plan: Status post drainage of abscess by Dr. Arizmendi. GI Consult Note Consult date/time: 06/29/20 07:28 HPI: Sorin Barnhart is a 34 year old maleSeen in evaluation at the request of Dr. Thong Arizmendi. Surgery. Patient admitted to the hospital with abdominal pain. This gradually improved since admission. Upper GI was performed revealing thickening in erosions in the antrum of the stomach. An EGD is requested. Patient states pain is gradually improved. Patient has a history of sickle cell trait. He also has a history of hidradenitis Suppurativa. He underwent drainage of a perirectal abscess under the direction of Dr. Arizmendi yesterday. Request is made for endoscopy to evaluate for source of pain. Recent ultrasound of the right upper quadrant was unremarkable. Review of Systems Review of Systems: All systems reviewed & are unremarkable except as noted in HPI and below PMFSH Past Medical History Medical History Abscess and cellulitis of gluteal region Hidradenitis suppurativa (Unknown) Sickle cell trait Tobacco use Surgical History Surgical History No significant past surgical history Family History Family History Mother Hypertension Social History Social History (Updated 06/27/20 @ 23:23 by Isabela Matias PA-C) Social History: Surrogate decision maker: Shanon English, significant other. Code status: Full code. Smoking packs per day: 1 Smoking cigarettes per day: 20.0 Smoking status: Current every day smoker Tobacco type: cigarettes Alcohol intake: current Drinks per week: 4 Substance use: never Substance use type: does not use Additional living arrangements comments: Lives with significant other in [place], [place]. 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 Gender identity (if verbalized by the patient): Male Spiritual care concerns: No Meds Home Medications and Allergies Home Medications Medication Instructions Recorded Confirmed Type No Home Medications 06/27/20 06/27/20 History Allergies Allergy/AdvReac Type Severity Reaction Status Date / Time Opioids - Morphine Analogues Allergy Intermediate Rash Verified 06/29/20 07:06 tramadol Allergy Intermediate Rash Verified 06/29/20 07:06 sulfamethoxazole Allergy Rash Verified 06/29/20 07:06 [From Bactrim] trimethoprim [From Bactrim] Allergy Rash Verified 06/29/20 07:06 Vital Signs Vital Signs - 24 hr 06/28/20 08:00 06/28/20 12:00 06/28/20 14:00 Temperature 98.1 F Pulse Rate 73 84 80 Respiratory Rate 18 Blood Pressure 128/72 Pulse Oximetry 98 06/28/20 16:00 06/28/20 20:00 06/28/20 22:00 Temperature 97.5 F L Pulse Rate 77 72 69 Respiratory Rate 18 Blood Pressure 132/86 Pulse Oximetry 99 06/29/20 00:00 06/29/20 04:00 06/29/20 06:00 Temperature 99.1 F Pulse Rate 71 90 83 Respiratory Rate 18 Blood Pressure 121/81 Pulse Oximetry 94 06/29/20 07:15 Temperature 99.6 F Pulse Rate 71 Respiratory Rate
[2020-06-29] MEDS: BENZOCAINE (*SP) 60 ML SPRAY CAN (HURRICAINE) 1 SPRAY MUCOUS MEM (07:37)
[2020-06-29] MEDS: PANTOPRAZOLE 40 MG TABLET PO (09:50)
--- NOTE | 2020-06-29 10:35 | PM.IMPN ---
Progress Note: A&P Assessment and Plan (1) Gastric ulceration: Qualifiers: Gastric ulcer chronicity: acute Gastric ulcer complication status: without hemorrhage or perforation Qualified Code(s): K25.3 - Acute gastric ulcer without hemorrhage or perforation Code(s): K25.9 - Gastric ulcer, unspecified as acute or chronic, without hemorrhage or perforation Status: Acute Assessment and Plan: Possibly home (2) Tobacco use: Code(s): Z72.0 - Tobacco use Status: Acute Assessment and Plan: Encourage smoking cessation (3) Hidradenitis suppurativa: Onset Date: Unknown Code(s): L73.2 - Hidradenitis suppurativa Status: Acute Assessment and Plan: Doing well after I/D 06/28 Stop Zosyn 06/29 No outpatient antibx required (4) Sepsis: Onset Date: ~06/27/20 Qualifiers: Sepsis acute organ dysfunction status: without acute organ dysfunction Sepsis type: sepsis due to unspecified organism Qualified Code(s): A41.9 - Sepsis, unspecified organism Code(s): A41.9 - Sepsis, unspecified organism Status: Acute Assessment and Plan: Resolved (5) Elevated LFTs: Code(s): R79.89 - Other specified abnormal findings of blood chemistry Status: Acute Assessment and Plan: Likely due to sepsis Resolving Screen for Hep B & C (6) Anemia due to acute blood loss: Code(s): D62 - Acute posthemorrhagic anemia Status: Acute Assessment and Plan: No further evidence of acute GI bleeding Subjective Date/time seen: 06/29/20 10:35 Interval history: 06/29: Denied abd pain. Denied bleeding. Denied nausea. No diarrhea. No fever. No cough. Tolerated clear liquids this AM. Review of Systems Review of Systems: All systems reviewed & are unremarkable except as noted in HPI and below Exam Narrative: Exam Narrative: HEENT: PERRL, sclerae nonicteric, pharyngeal mucosa pink and intact NECK: No JVD, adenopathy, or thyromegaly CHEST: Clear to auscultation. Normal effort. HEART: NL S1/S2, regular, no murmur ABDOMEN: BS+, soft, nontender, no mass, no bruits EXTREMITIES: No cyanosis, edema, or clubbing NEUROLOGIC: CN intact and symmetric to inspection. MUSCULOSKELETAL: Tone and strength symmetric. PSYCH: Alert. Oriented to person, place, and time. Objective Data Vital Signs Vital Signs: Vital Signs - 24 hr 06/28/20 12:00 06/28/20 14:00 06/28/20 16:00 Temperature 98.1 F Pulse Rate 84 80 77 Respiratory Rate 18 Blood Pressure 128/72 Pulse Oximetry 98 06/28/20 20:00 06/28/20 22:00 06/29/20 00:00 Temperature 97.5 F L Pulse Rate 72 69 71 Respiratory Rate 18 Blood Pressure 132/86 Pulse Oximetry 99 06/29/20 04:00 06/29/20 06:00 06/29/20 07:15 Temperature 99.1 F 99.6 F Pulse Rate 90 83 71 Respiratory Rate 18 16 Blood Pressure 121/81 144/90 H Pulse Oximetry 94 96 06/29/20 07:38 06/29/20 07:48 06/29/20 07:58 Temperature Pulse Rate 84 94 74 Respiratory Rate 16 21 H 16 Blood Pressure 135/81 118/75 119/60 Pulse Oximetry 100 98 97 06/29/20 08:10 Temperature 98.6 F Pulse Rate 83 Respiratory Rate 20 Blood Pressure 121/86 Pulse Oximetry 99 Intake/Output Intake/Output: Intake & Output 06/26/20 06/27/20 06/28/20 06/29/20 23:59 23:59 23:59 23:59 Intake Total 2400 3940 2280 Output Total 800 1100 Balance 1600 2840 2280 Meds/Results Medications: Active Medications Generic Name Dose Route Start Last Admin Trade Name Freq PRN Reason Stop Dose Admin Acetaminophen 1,000 mg 06/28/20 18:00 Acetaminophen 500 Mg Tablet PO Q6H PRN Mild Pain (1-3) or Fever Hydrocodone Bitart/Acetaminophen 1 tab 06/28/20 18:00 Hydrocodone/Acetaminophen (*Crx) 5-325 Mg Tablet PO Q6H PRN Pain Rated 4-6 Hydromorphone HCl 0.5 mg 06/27/20 06:39 06/29/20 08:54 Hydromorphone Hcl Inj (*Crx) 1 Mg/Ml Syr IV PUSH 0.5 mg Q4H PRN
--- NOTE | 2020-06-29 14:21 | PM.PNGS ---
Progress Note: A&P Assessment and Plan (1) Hidradenitis suppurativa: Onset Date: Unknown Code(s): L73.2 - Hidradenitis suppurativa Status: Acute Assessment and Plan: Wound looks good after bedside incision and drainage of abscess yesterday by Dr. Arizmendi. Start showers and silver gel dressings daily. Patient can go home on this regimen when okay with other physicians. See Dr. Arizmendi in 2 weeks. No antibiotics necessary in regards to buttocks abscess. (2) Gastric ulceration: Qualifiers: Gastric ulcer chronicity: acute Gastric ulcer complication status: without hemorrhage or perforation Qualified Code(s): K25.3 - Acute gastric ulcer without hemorrhage or perforation Code(s): K25.9 - Gastric ulcer, unspecified as acute or chronic, without hemorrhage or perforation Status: Acute Assessment and Plan: Plan is to be discharged on Protonix as recommended by Dr. New. Possibly home tomorrow. Subjective Subjective Date/Time Seen: 06/29/20 14:21 Patient reports: no new complaints, pain is less, nausea and vomiting Interval history: Patient had EGD this morning which showed distal gastric erosions. Will probably go home on Protonix. Abdominal pain improved and he is anxious to eat. No complaints regarding abscess incision and drainage. A little sore but not bad. Review of Systems Review of Systems: All systems reviewed & are unremarkable except as noted in HPI and below Constitutional: Constitutional: Denies chills, Denies fever(s) and Denies headache(s) Gastrointestinal: Gastrointestinal: Reports as per HPI, Denies abdominal pain, Denies dyspepsia, Denies nausea and Denies vomiting Neurologic: Denies confusion and Denies headache(s) Exam Const: General: comfortable and no acute distress; No confusion Orientation/consciousness: patient oriented x3 and No confusion GI: GI Palp: Yes Soft to palpation, No Tenderness to palpation present (GI), No Guarding due to palpation present (GI) and No Rebound tenderness present Rectal Exam: other ( Right buttocks wound clean with no purulence and no necrotic tissue. ) Other: Packing removed from right buttocks wound as well. Healing well. Neuro: General: patient oriented x3, no focal motor deficits and No confusion Extrem: General: no calf tenderness and no edema Psych: Affect: normal affect Insight: Good insight present (Psych) Judgement: Good judgement present (Psych) Objective Data Vital Signs Vital Signs: Vital Signs - 24 hr 06/28/20 16:00 06/28/20 20:00 06/28/20 22:00 Temperature 36.4 C L Pulse Rate 77 72 69 Respiratory Rate 18 Blood Pressure 132/86 Pulse Oximetry 99 06/29/20 00:00 06/29/20 04:00 06/29/20 06:00 Temperature 37.3 C Pulse Rate 71 90 83 Respiratory Rate 18 Blood Pressure 121/81 Pulse Oximetry 94 06/29/20 07:15 06/29/20 07:38 06/29/20 07:48 Temperature 37.6 C Pulse Rate 71 84 94 Respiratory Rate 16 16 21 H Blood Pressure 144/90 H 135/81 118/75 Pulse Oximetry 96 100 98 06/29/20 07:58 06/29/20 08:00 06/29/20 08:10 Temperature 37.0 C Pulse Rate 74 83 83 Respiratory Rate 16 20 20 Blood Pressure 119/60 121/86 Pulse Oximetry 97 99 99 06/29/20 12:00 Temperature Pulse Rate 85 Respiratory Rate Blood Pressure Pulse Oximetry Intake/Output Intake/Output: Intake & Output 06/26/20 06/27/20 06/28/20 06/29/20 23:59 23:59 23:59 23:59 Intake Total 2400 3940 2330 Output Total 800 1100 Balance 1600 2840 2330 Meds/Results Medications: Active Medications Generic Name Dose Route Start Last Admin Trade Name Freq PRN Reason Stop Dose Admin Acetaminophen 1,000 mg 06/28/20 18:00 Acetaminophen 500 Mg Tablet PO Q6H PRN Mild Pain (1-3) or Fever Hydrocodone Bitart/Acetaminophen 1 tab 06/28/20 18:00 Hydrocodone/Acetaminophen (*Crx) 5-325 Mg Tablet PO Q6H PRN Pain Rated 4-6 Hydromorphone HCl 0.5 mg 10
[2020-06-29] MEDS: HYDROcodone/acetaminophen (*CRX) 5-325 MG TABLET 1 TAB PO (16:00)
[2020-06-29 17:35] LABS: Hepatitis B Surface Antigen Negative (Negative)
--- NOTE | 2020-06-29 19:29 | PC.NURSE ---
[address] Dunbar because pt is allergic to opioids,needed to verify what the doctor wanted to use as pain medication. Dr. Dunbar said it was ok to use hydromorphone and hydrocodone as they are ordered on the prn medication list. Pt stated he gets hives with morphine,hot skin with tramadol.He had no problems with the medications ordered for prn pain.Will continue to monitor.
[2020-06-30] MEDS: HYDROcodone/acetaminophen (*CRX) 5-325 MG TABLET 1 TAB PO (00:33)
--- NOTE | 2020-06-30 01:47 | PC.NURSE ---
Daylight Savings Time For Daylight Savings Time Ending in the Fall - Clocks are moved back. For Daylight Savings Time Beginning in the Spring - Clocks are moved ahead. For [facility], the time of change occurs at 0200 hrs. Time is taken from the a operator. This entry on the patient's chart recognizes the change in time reflected during documentation. Example: 2 entries for vital signs may be charted for 0200 hrs.
[2020-06-30 06:00] VITALS: BP 146/79; PULSE 52; RESP 20; TEMP 36.9; O2SAT 99
[2020-06-30 06:28] LABS: Hematocrit 31.8 % (42.0-52.0); Hemoglobin 10.8 g/dL (14.0-18.0); Mean Corpuscular Hemoglobin 31.5 pg (26-34); Mean Corpuscular Volume 92.7 fl (80-100); Mean Platelet Volume 9.5 fl (7.4-10.4); Platelet Count Result 219 k/mm3 (150-375); Red Blood Count 3.43 M/mm3 (4.6-6.20); Red Cell Distribution Width 12.5 % (11.5-14.5); White Blood Count 5.2 K/mm3 (4.5-10.0)
[2020-06-30] MEDS: SODIUM CHLORIDE 0.9% IV 1,000 ML 125 ML IV CONT (06:34)
[2020-06-30] MEDS: ACETAMINOPHEN 500 MG TABLET 1000 MG PO (06:35)
[2020-06-30 06:51] LABS: Alanine Aminotransferase 36 U/L (4-50); Albumin Level 2.8 g/dL (3.5-5.1); Alkaline Phosphatase 59 U/L (38-126); Anion Gap 4 mmol/L (8-16); Aspartate Amino Transferase 33 U/L (17-59); Bilirubin,Total 0.1 mg/dL (0.2-1.3); Blood Urea Nitrogen 3 mg/dL (9-20); Calcium 8.1 mg/dL (8.4-10.2); Carbon Dioxide 30 mmol/L (22-30); Chloride 105 mmol/L (98-107); Estimated CRCL calculation 108 ml/min; Estimated Glomerular Filt Rate > 60; Glucose 120 mg/dL (75-110); Potassium 3.8 mmol/L (3.4-5.0); Sodium 139 mmol/L (137-145)
[2020-06-30] MEDS: PANTOPRAZOLE 40 MG TABLET PO (09:03)
--- NOTE | 2020-06-30 09:26 | WPDGIPROGNO ---
Progress Note: A&P Additional Plan Patient alert and comfortable this morning. Tolerating diet with no pain or bleeding. Physical exam reveals patient to be alert. Vital signs stable. HEENT exam unremarkable. Lungs are clear. Heart without murmur. Abdomen is soft and nontender. Bandaged drain is noted in buttocks. Impression 1. Gastric erosions. Identified by EGD. Likely account for some of his discomfort. Plan is to continue proton pump inhibitors for at least 2 months. Avoid nonsteroidal anti-inflammatory agents. Diet as tolerated. Discharge today fall agree. 2. Hidradenitis suppurative. Status post drainage by Dr. Arizmendi. Disposition per surgical service. Subjective Date/time seen: 06/30/20 09:26 Objective Data Vital Signs Vital Signs: Vital Signs - 24 hr 06/29/20 12:00 06/29/20 14:00 06/29/20 22:00 Temperature 98.4 F 98.3 F Pulse Rate 85 80 63 Respiratory Rate 18 20 Blood Pressure 116/67 143/88 H Pulse Oximetry 97 100 06/30/20 06:00 Temperature 98.4 F Pulse Rate 52 L Respiratory Rate 20 Blood Pressure 146/79 H Pulse Oximetry 99 Intake/Output Intake/Output: Intake & Output 06/27/20 06/28/20 06/29/20 06/30/20 23:59 23:59 23:59 22:59 Intake Total 2400 3940 5650 2720 Output Total 800 1100 Balance 1600 2840 5650 2720 Meds/Results Medications: Active Medications Generic Name Dose Route Start Last Admin Trade Name Freq PRN Reason Stop Dose Admin Acetaminophen 1,000 mg 06/28/20 18:00 06/30/20 06:35 Acetaminophen 500 Mg Tablet PO 1,000 mg Q6H PRN Administration Mild Pain (1-3) or Fever Hydrocodone Bitart/Acetaminophen 1 tab 06/28/20 18:00 06/30/20 00:33 Hydrocodone/Acetaminophen (*Crx) 5-325 Mg Tablet PO 1 tab Q6H PRN Administration Pain Rated 4-6 Hydromorphone HCl 0.5 mg 06/27/20 06:39 06/29/20 21:07 Hydromorphone Hcl Inj (*Crx) 1 Mg/Ml Syr IV PUSH 0.5 mg Q4H PRN Administration Pain Rated 7-10 Ondansetron HCl 4 mg 06/27/20 06:39 Ondansetron Inj 4 Mg/2 Ml Vial IV PUSH Q4H PRN Nausea Pantoprazole Sodium 40 mg 06/29/20 09:00 06/30/20 09:03 Pantoprazole 40 Mg Tablet PO 40 mg QAM RADHA Administration Silver Nitrate 1 applic 06/28/20 09:00 06/28/20 18:57 Silvergel (Elta) 45 Ml TOPICAL Not Given Q72HR [facility] Radiology Results: ITS Impressions Abdomen/Pelvis CT 06/27/20 07:42 IMPRESSION: Little interval change of prominent subcutaneous soft tissue thickening and fat stranding along the right gluteal fold and medial aspect of the right buttock since 06/13/2020 Chest X-Ray 06/27/20 08:09 IMPRESSION: No active cardiopulmonary disease Upper Quadrant Ultrasound 06/27/20 09:33 IMPRESSION: No significant abnormality; no evidence of cholelithiasis Upper GI Series 06/28/20 12:33 IMPRESSION: Mucosal fold thickening and small erosions are suggested at the distal antrum and the duodenal bulb apex Labs Labs: Laboratory Results - last 24 hr 06/29/20 06/30/20 06/30/20 16:21 05:49 05:49 WBC 5.2 RBC 3.43 L Hgb 10.8 L Hct 31.8 L MCV 92.7 MCH 31.5 MCHC 34.0 RDW 12.5 Plt Count 219 MPV 9.5 Sodium 139 Potassium 3.8 Chloride 105 Carbon Dioxide 30 Anion Gap 4 L BUN 3 L Creatinine 0.80 Estim Creat Clear Calc 108 Estimated GFR > 60 Glucose 120 H Calcium 8.1 L Total Bilirubin 0.1 L AST 33 ALT 36 Alkaline Phosphatase 59 Total Protein 6.0 L Albumin 2.8 L Hep Bs Antigen Negative
--- NOTE | 2020-06-30 11:09 | PM.DS ---
DS: Admitting Diagnosis Admitting Diagnosis Admitting Diagnosis: Abdominal pain. DS: Discharge Diagnosis Discharge Diagnosis (1) Gastric ulceration: Qualifiers: Gastric ulcer chronicity: acute Gastric ulcer complication status: without hemorrhage or perforation Qualified Code(s): K25.3 - Acute gastric ulcer without hemorrhage or perforation Code(s): K25.9 - Gastric ulcer, unspecified as acute or chronic, without hemorrhage or perforation Status: Acute Assessment and Plan: Possibly home (2) Tobacco use: Code(s): Z72.0 - Tobacco use Status: Acute Assessment and Plan: Encourage smoking cessation (3) Hidradenitis suppurativa: Onset Date: Unknown Code(s): L73.2 - Hidradenitis suppurativa Status: Acute Assessment and Plan: Doing well after I/D 06/28 Stop Zosyn 06/29 No outpatient antibx required (4) Sepsis: Onset Date: ~06/27/20 Qualifiers: Sepsis acute organ dysfunction status: without acute organ dysfunction Sepsis type: sepsis due to unspecified organism Qualified Code(s): A41.9 - Sepsis, unspecified organism Code(s): A41.9 - Sepsis, unspecified organism Status: Acute Assessment and Plan: Resolved (5) Elevated LFTs: Code(s): R79.89 - Other specified abnormal findings of blood chemistry Status: Acute Assessment and Plan: Likely due to sepsis Resolving Screen for Hep B & C (6) Anemia due to acute blood loss: Code(s): D62 - Acute posthemorrhagic anemia Status: Acute Assessment and Plan: No further evidence of acute GI bleeding DS: Summary Time Spent with Patient Time attestation: Total time spent providing and/or coordinating discharge services: Exam Narrative: Exam Narrative: HEENT: PERRL, sclerae nonicteric, pharyngeal mucosa pink and intact NECK: No JVD, adenopathy, or thyromegaly CHEST: Clear to auscultation. Normal effort. HEART: NL S1/S2, regular, no murmur ABDOMEN: BS+, soft, nontender, no mass, no bruits EXTREMITIES: No cyanosis, edema, or clubbing NEUROLOGIC: CN intact and symmetric to inspection. MUSCULOSKELETAL: Tone and strength symmetric. PSYCH: Alert. Oriented to person, place, and time. Const: General: cooperative, comfortable, no acute distress, alert and awake; No confusion Nutritional Appearance: well nourished Orientation/consciousness: patient oriented x3 and No confusion Limitations: no limitations HENMT: Head: normal to inspection, normocephalic and atraumatic Ears: hearing grossly normal bilaterally General nose exam: Normal external nose present Face and sinus: normal facial exam Mouth: Yes Normal oral and palatal mucosa present, Yes tongue normal and Yes moist mucous membranes Eyes: General: appearance normal, both eyes and all related structures Pupils: Equal, round and reactive pupils present EOM: EOMs intact bilaterally Neck: Neck: normal visual inspection, no lymphadenopathy, trachea midline and supple Lymphatic: no lymphadenopathy noted Chest: Chest palpation & inspection: normal inspection of the chest Resp: Effort & Inspection: normal respiratory effort and able to speak in complete sentences Auscultation: clear to auscultation bilaterally Cardio: Jugular venous distension: no JVD Rate: regular rate Rhythm: regular rhythm Heart sounds: S1 normal heart sound present and S2 normal heart sound present GI: Inspection: normal to inspection Auscultation: normal bowel sounds Rectal Exam: deferred and other ( Right buttocks wound clean with no purulence and no necrotic tissue. ) Other: Packing removed from right buttocks wound as well. Healing well. : General: Yes no CVA tenderness Other: No burning with urination or urinary frequency. Back/Spine/Pelvis: Back: no CVA tenderness and No mass Cervical Spine: cervical ROM normal Skin: General skin exam: normal color and no rashes or lesions n
[2020-06-30 11:49] LABS: Hepatitis C Virus Antibody Negative (Negative)
--- NOTE | 2020-06-30 12:51 | PC.NURSE ---
at bedside, patient showered, instructed on dressing change w/silver cream and secure dressing, verbalizes understanding.
[2020-07-02 18:07] LABS: Hepatitis B Core Ab Total Nonreactive (Nonreactive)
[2020-07-03 07:42] LABS: H pylori Ag Stool Not Detected (Not Detected)
== END 2020-06-30 13:00 | disposition home or self-care (01) | DRG 720 ==
LOC: ANHED 08:28 → ANH3MEDSUR 09:31
PROVIDERS: Internal Medicine; Internal Medicine Gastroenterology; Nurse Practitioner; Surgery; Admitting Provider Family Medicine; Emergency Provider Emergency Medicine; Visit Provider Internal Medicine
PROC: 0DJ08ZZ Inspection of Upper Intestinal Tract, Via Natural or Artificial Opening Endoscopic (ICD-10-PCS; CPT 43235; principal; 2020-06-29 07:30)
DX: A41.9 Sepsis, unspecified organism (principal); L73.2 Hidradenitis suppurativa; F17.210 Nicotine dependence, cigarettes, uncomplicated; Z20.828 Contact with and (suspected) exposure to other viral communicable diseases; K25.3 Acute gastric ulcer without hemorrhage or perforation; D62 Acute posthemorrhagic anemia
CPT/HCPCS: 36415; 71046; 74177; 74240; 74248; 76705; 80053; 81001; 83605; 83615; 83690; 83735; 84478; 85025; 85027; 85046; 85610; 85730; 86140; 86704; 86803; 87040; 87070; 87081; 87205; 87338; 87340; 87635; 93005; 96361; 96365; 96375; 96376; 99285; A9270; C9803; G0378; G0379; J0131; J1170; J2001; J2405; J2543; J2704; J7030; J7120; Q9967; U0003

== ENCOUNTER 2021-02-09 23:57 | Emergency (ER) | payer SELFPAY ==
--- NOTE | ~2021-02-09 | CT_ITS ---
EXAMINATION: CTA chest PE protocol DATE: 02/10/2021 07:49 CDT INDICATION: Right-sided chest pain. Elevated d-dimer. TECHNIQUE: Computed tomographic angiography (CTA) of the chest was performed with 100 mL Omnipaque-35 0 intravenous contrast. The dose-length product was 281.28 mGy-cm. Maximum intensity projection 3D-re constructions of the aorta and other arteries were constructed by the technologist on a separate work station. Automated exposure control and iterative reconstruction technique were employed. COMPARISON: None. FINDINGS: Study is technically adequate without evidence for pulmonary embolism. No thoracic lymphade nopathy. Heart size normal. No significant pleural or pericardial effusion. The upper abdomen is unre markable. No pneumothorax. No endobronchial lesion. No focal airspace disease. No endobronchial lesio ns. No suspicious pulmonary nodules or masses. No evidence for thoracic aortic aneurysm or dissection . No acute osseous abnormality. IMPRESSION: 1. No acute cardiopulmonary disease. No evidence for pulmonary embolism. Reviewed, dictated and finalized at location A.
--- NOTE | ~2021-02-09 | XR_ITS ---
EXAMINATION: XR chest 2V 02/10/2021 00:32 INDICATION: Chest pain PROCEDURE: PA and lateral views of the chest COMPARISON: 06/27/2020 FINDINGS: The lungs are clear. The cardiomediastinal silhouette is within normal limits. There are no pleural effusions. There is no pneumothorax suspected. IMPRESSION: 1: NO ACUTE CARDIOPULMONARY DISEASE. Reviewed, dictated and finalized at location A.
[2021-02-10 00:07] VITALS: BP 137/95; PULSE 103; RESP 17; TEMP 36.7; O2SAT 98
--- NOTE | 2021-02-10 00:18 | ECG_ITS ---
Measurements Intervals [place] Rate: 110 P: 62 TX: 158 QRS: 62 QRSD: 93 T: 7 QT: 319 QTc: 433 Interpretive Statements SINUS TACHYCARDIA BORDERLINE ST-T WAVE ABNORMALITY- INFERIOR LEADS BASELINE ARTIFACT- I, II, III, AVL, AVF ABNORMAL ECG Electronically Signed On 02-10-2021 5:47:04 CDT by Tai Chaparro D.O.
[2021-02-10 00:22] VITALS: PULSE 98
[2021-02-10 00:33] VITALS: PULSE 100
[2021-02-10 00:34] LABS: Basophils Percent Auto 0.5 % (0.2-1.2); Eosinophils Absolute Auto 0.1 K/mm3 (0-0.3); Eosinophils Percent Auto 2.1 % (0-4.4); Hematocrit 38.3 % (42.0-52.0); Hemoglobin 12.8 g/dL (14.0-18.0); Immature Granulocyte Absolute 0.01 K/mm3 (0.00-0.031); Immature Granulocyte Percent A 0.2 % (0-0.5); Lymphocytes Absolute Auto 2.91 K/mm3 (0.9-3.2); Lymphocytes Percent Auto 44.4 % (18.3-44.2); Mean Corpuscular HGB Conc 33.4 g/dl (32-36); Mean Corpuscular Hemoglobin 31.8 pg (26-34); Monocytes Absolute Auto 0.6 K/mm3 (0.1-0.6); Monocytes Percent Auto 9.2 % (2.6-8.5); Neutrophils Absolute Auto 2.9 K/mm3 (1.3-6.7); Neutrophils Percent Auto 43.6 % (45.5-73.1); Platelet Count Result 209 k/mm3 (150-375); Red Blood Count 4.03 M/mm3 (4.6-6.20); Red Cell Distribution Width 13.8 % (11.5-14.5); White Blood Count 6.6 K/mm3 (4.5-10.0)
[2021-02-10 00:42] LABS: Alanine Aminotransferase 55 U/L (4-50); Albumin Level 4.1 g/dL (3.5-5.1); Alkaline Phosphatase 90 U/L (38-126); Anion Gap 12 mmol/L (8-16); Aspartate Amino Transferase 67 U/L (17-59); Bilirubin,Total 0.2 mg/dL (0.2-1.3); Blood Urea Nitrogen 10 mg/dL (9-20); Calcium 9.2 mg/dL (8.4-10.2); Carbon Dioxide 24 mmol/L (22-30); Chloride 108 mmol/L (98-107); Estimated Glomerular Filt Rate > 60; Glucose 98 mg/dL (75-110); Lipase 51 U/L (23-300); Potassium 3.6 mmol/L (3.4-5.0); Sodium 144 mmol/L (137-145)
[2021-02-10 00:43] LABS: INR 0.9; Lactic Acid Reflex 1.3 mmol/L (0.7-2.1)
[2021-02-10 00:44] LABS: Partial Thromboplastin Time 28.1 SECONDS (22.3-36.8)
--- NOTE | 2021-02-10 00:44 | ED.GENADULT ---
HPI - General Adult General Chief complaint: Chest Pain Stated complaint: chest pain, i have an infection somewhere. Time Seen by Provider: 02/10/21 00:01 History of Present Illness HPI narrative: Patient 35-year-old gentleman who presents the emergency department chief complaint of right-sided chest pain. Patient states that for several weeks has been having pain on the right side of his chest states is worse with inspiration and worse with movement. Patient states that he also thinks he has an infection somewhere states he has history of hidradenitis he had an incision and drainage in the right gluteal area that is followed by Dr. Arizmendi and also by plastic surgeon. Patient states that areas become tender and denies any drainage from the area. Patient states that he thinks like it is starting get infected again. Patient states symptoms are not improved by anything. Related Data Allergies Allergy/AdvReac Type Severity Reaction Status Date / Time Opioids - Morphine Analogues Allergy Intermediate Rash Verified 10/17/20 14:18 sulfamethoxazole Allergy Intermediate Rash Verified 02/10/21 00:31 [From Bactrim] tramadol Allergy Intermediate Rash Verified 10/17/20 14:18 trimethoprim [From Bactrim] Allergy Intermediate Rash Verified 02/10/21 00:31 Review of Systems Review of Systems: Narrative: A 10 system review of systems was completed on the patient and is negative except for what is stated in the HPI. Nursing and ancillary documentation was reviewed. [facility] Past Medical History Medical History Abscess and cellulitis of gluteal region Hidradenitis suppurativa (Unknown) Sickle cell trait Tobacco use Surgical History Surgical History Abscess on right buttock area Family History Family History Mother Hypertension Social History Social History Social History: Surrogate decision maker: Shanon English significant other. Code status: Full code. Smoking packs per day: 1 Smoking cigarettes per day: 20.0 Smoking status: Current every day smoker Tobacco type: cigarettes Alcohol intake: current Drinks per week: 4 Substance use: never Substance use type: does not use Additional living arrangements comments: Lives with significant other in [place], [place]. 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 Gender identity (if verbalized by the patient): Male Spiritual care concerns: No Exam Narrative: Exam Narrative: GENERAL: Well-appearing, well-nourished, and in no acute distress. HEAD: Normocephalic, atraumatic. EYES: PERRLA and EOMI. ENT: Nares clear, no rhinorrhea or epistaxis. Mucous membranes moist. NECK: Supple. CHEST: Clear to auscultation. No respiratory distress. Chest wall is tender to palpation on the right chest just inferior to the nipple line. HEART: Regular rate and rhythm. No murmur heard. Normal peripheral pulses. ABDOMEN: Soft, nontender, nondistended, normal active bowel sounds. EXTREMITIES: Normal range of motion. No edema. : There is an area of induration in the right gluteal region there is no fluctuance noted SKIN: Warm, dry, no rash. NEURO: No focal deficits. Alert and oriented x3. PSYCH: Normal mood and affect. Course Vital Signs Vital signs: Vital Signs Temperature 36.7 C 02/10/21 00:07 Pulse Rate 103 H 02/10/21 00:07 Respiratory Rate 17 02/10/21 00:07 Blood Pressure 137/95 H 02/10/21 00:07 Pulse Oximetry 98 02/10/21 00:07 Temperature 36.7 C 02/10/21 00:07 Pulse Rate 89 02/10/21 01:45 Respiratory Rate 18 02/10/21 01:45 Blood Pressure 126/82 02/10/21 01:45 Pulse Oximetry 97 02/10/21 01:45 Medical Decision Making Vital Signs Vital Signs: Vital Signs Temperature 36.7 C 02/10/21 00:07 Pulse Rate 10
[2021-02-10 00:46] LABS: D Dimer 1.04 ug/mL (<0.48)
[2021-02-10 00:54] LABS: Troponin I < 0.012 ng/mL (0.000-0.034)
[2021-02-10] MEDS: KETOROLAC 30 MG/ML VIAL (*BKC) IV PUSH (01:40)
[2021-02-10 01:45] VITALS: BP 126/82; PULSE 89; RESP 18; O2SAT 97
[2021-02-10] MEDS: CLINDAMYCIN HCL 150 MG CAP 300 MG PO (02:33)
[2021-02-10 02:38] VITALS: BP 108/78; PULSE 83; RESP 15; O2SAT 97
== END 2021-02-10 02:38 | disposition home or self-care (01) ==
PROVIDERS: Emergency Provider Emergency Medicine
DX: R07.89 Other chest pain (principal); L03.317 Cellulitis of buttock; F17.210 Nicotine dependence, cigarettes, uncomplicated
CPT/HCPCS: 36415; 71046; 71275; 80053; 83605; 83690; 84484; 85025; 85380; 85610; 85730; 93005; 96374; 99284; A9270; J1885; Q9967

== ENCOUNTER 2022-08-18 03:16 | Emergency (ER) | payer BC, SELFPAY ==
--- NOTE | ~2022-08-18 | XR_ITS ---
EXAMINATION: XR chest 2V DATE: 08/18/2022 04:17 INDICATION: Chest pain. TECHNIQUE: Frontal and lateral views of the chest were obtained. COMPARISON: Chest 2 views 02/10/2021, chest CT 02/10/2021 FINDINGS: The chest demonstrates clear lungs without pneumonia, pleural effusion, or pneumothorax. Th e heart size is normal. IMPRESSION: 1. No acute cardiopulmonary disease. Reviewed, dictated and finalized at location A. E ROOFER
--- NOTE | ~2022-08-18 | CT_ITS ---
EXAMINATION: CT chest abdomen pelvis w con DATE: 08/18/2022 07:48 INDICATION: Chest pain. Epigastric abdominal pain. TECHNIQUE: Computed tomography (CT) of the chest, abdomen, and pelvis was performed with 100 mL Omnip aque 350 intravenous contrast. Automated exposure control and iterative reconstruction technique were employed. The dose-length product was 436.63 mGy-cm. COMPARISON: Chest CT 02/10/2021, CT abdomen and pelvis 06/27/2020 FINDINGS: CHEST CT: There is mild dependent atelectasis bilaterally. There is a pneumatocele in left lower lobe. No pleur al effusion. The heart size is normal. No pericardial effusion. The thoracic aorta is normal. There i s mild bilateral gynecomastia. ABDOMEN/PELVIS CT: The liver demonstrates focal steatosis adjacent to the falciform ligament. The gallbladder, spleen, p ancreas, adrenal glands, and kidneys are normal. There are no dilated loops of bowel. The appendix is normal. There are no pathologically enlarged lymph nodes. There is no free intraperitoneal fluid. Th ere is subcutaneous fat stranding and soft tissue in the right buttock. Abdominal aorta is normal. Th ere is no significant stenosis of the mesenteric arteries or renal arteries. There is skin thickening in the anterior pelvis. There is a benign bone island in right parasymphyseal pubis. IMPRESSION: 1. Worsened chronic subcutaneous fat stranding and soft tissue in the right buttock and stable skin t hickening in the anterior pelvis, consistent with inflammation versus scarring. Reviewed, dictated and finalized at location A. RPRISE PROJECT MANAGER IMPRESSION: 1. Worsened chronic subcutaneous fat stranding and soft tissue in the right but tock and stable skin thickening in the anterior pelvis, consistent with inflamm ation versus scarring.
[2022-08-18] MEDS: ASPIRIN 81 MG CHEWABLE TABLET 324 MG PO (03:20)
--- NOTE | 2022-08-18 03:20 | ECG_ITS ---
Measurements Intervals [place] Rate: 71 P: 68 SD: 179 QRS: 66 QRSD: 85 T: 29 QT: 367 QTc: 401 Interpretive Statements SINUS RHYTHM WITH SINUS ARRHYTHMIA MINIMAL VOLTAGE CRITERIA FOR LVH, CONSIDER NORMAL VARIANT [MEETS CRITERIA IN ONE OF: R(aVL), S(V1), R(V5), R(V5/V6)+S(V1)] NONSPECIFIC ST ABNORMALITY ABNORMAL ECG Electronically Signed On 08-18-2022 15:31:42 MONITORING TECH by Chandana Lucero M.D.
[2022-08-18 03:23] VITALS: BP 150/93; PULSE 71; RESP 14; TEMP 37; O2SAT 99
[2022-08-18 03:42] LABS: Basophils Percent Auto 0.3 % (0.2-1.2); Eosinophils Absolute Auto 0.1 K/mm3 (0-0.3); Eosinophils Percent Auto 2.2 % (0-4.4); Hematocrit 39.5 % (42.0-52.0); Hemoglobin 13.2 g/dL (14.0-18.0); Immature Granulocyte Absolute 0.01 K/mm3 (0.00-0.031); Immature Granulocyte Percent A 0.2 % (0-0.5); Lymphocytes Absolute Auto 2.61 K/mm3 (0.9-3.2); Lymphocytes Percent Auto 40.8 % (18.3-44.2); Mean Corpuscular HGB Conc 33.4 g/dl (32-36); Mean Corpuscular Hemoglobin 31.8 pg (26-34); Mean Corpuscular Volume 95.2 fl (80-100); Monocytes Absolute Auto 0.5 K/mm3 (0.1-0.6); Monocytes Percent Auto 7.8 % (2.6-8.5); Neutrophils Absolute Auto 3.1 K/mm3 (1.3-6.7); Neutrophils Percent Auto 48.7 % (45.5-73.1); Platelet Count Result 236 k/mm3 (150-375); Red Blood Count 4.15 M/mm3 (4.6-6.20); White Blood Count 6.4 K/mm3 (4.5-10.0)
[2022-08-18 03:52] LABS: Alanine Aminotransferase 16 U/L (6-50); Albumin Level 4.2 g/dL (3.5-5.1); Alkaline Phosphatase 82 U/L (38-126); Anion Gap 3 mmol/L (8-16); Aspartate Amino Transferase 35 U/L (17-59); Bilirubin,Total 0.3 mg/dL (0.2-1.3); Blood Urea Nitrogen 9 mg/dL (9-20); Calcium 8.7 mg/dL (8.4-10.2); Carbon Dioxide 29 mmol/L (22-30); Chloride 103 mmol/L (98-107); Estimated CRCL calculation 106 ml/min; Estimated Glomerular Filt Rate > 60; Glucose 103 mg/dL (65-110); Lipase 81 U/L (23-300); Potassium 3.6 mmol/L (3.4-5.0); Sodium 135 mmol/L (137-145)
[2022-08-18 03:56] LABS: INR 1.1; Prothrombin Time 13.4 Seconds (11.1-14.7)
[2022-08-18 04:03] LABS: Troponin I < 0.012 ng/mL (0.000-0.034)
[2022-08-18 06:42] LABS: Troponin I < 0.012 ng/mL (0.000-0.034)
[2022-08-18 07:00] VITALS: PULSE 79; RESP 17
[2022-08-18 07:01] VITALS: BP 129/81; PULSE 63; RESP 14
[2022-08-18 07:07] LABS: Influenza A QL RT-PCR Negative (Negative); Influenza B QL RT-PCR Negative (Negative); SARS-CoV-2 RNA PCR Negative
[2022-08-18 07:15] VITALS: PULSE 61; RESP 14
[2022-08-18 07:16] VITALS: BP 128/82; PULSE 67; RESP 13
--- NOTE | 2022-08-18 07:18 | ED.CHESTPAIN ---
HPI - Chest Pain General Chief Complaint: Chest Pain Stated Complaint: epigastric pain/chest pain x 4 days Time Seen by Provider: 08/18/22 07:03 Source: patient Mode of arrival: ambulatory Limitations: no limitations History of Present Illness HPI narrative: Patient is a 36-year-old male with a history of hydradenitis suppurativa, peptic ulcer disease, history of GI bleed and anemia, presenting to the emergency department for evaluation of lower chest pain, upper abdominal pain as well as right-sided abdominal pain. Patient reports pain is moderate to severe and exacerbated with movement. Patient reports pain has been present over the past 48 hours, worsening in nature, described as sharp and cramping in the right upper quadrant and right lower quadrant. Patient reports radiation of pain to the back, but also states he has chronic back pain. He denies saddle anesthesia, difficulty with ambulation, focal numbness or weakness. He denies dysuria, hematuria, constipation or diarrhea. He denies fever, chills, nausea or vomiting. Patient denies history of pain such as this in the past. He denies history of pancreatitis or alcohol use. Per chart review, patient has followed with gastroenterology and seen Dr. New in the past. Related Data Allergies Allergy/AdvReac Type Severity Reaction Status Date / Time Opioids - Morphine Analogues Allergy Intermediate Rash Verified 08/18/22 03:18 sulfamethoxazole Allergy Intermediate Rash Verified 08/18/22 03:18 [From Bactrim] tramadol Allergy Intermediate Rash Verified 08/18/22 03:18 trimethoprim [From Bactrim] Allergy Intermediate Rash Verified 08/18/22 03:18 Review of Systems Review of Systems: CONSTITUTIONAL: Denies fever, chills, or sweats. EYES: Denies visual changes, redness, or discharge. ENT: Denies rhinorrhea, congestion, sore throat, or otalgia. CARDIOVASCULAR: Denies central chest pain, palpitations, or edema. RESPIRATORY: Denies cough or dyspnea. GASTROINTESTINAL: Reports upper abdominal pain, right upper quadrant pain, denies nausea, vomiting or diarrhea GENITOURINARY: Denies dysuria or hematuria. SKIN: Denies rash or itching. MUSCULOSKELETAL: Denies flank pain currently, denies other joint pain, or myalgia. NEUROLOGIC: Denies headache, numbness, or weakness. FOR[facility]LY [facility], [facility] Past Medical History Medical History Abscess and cellulitis of gluteal region Hidradenitis suppurativa (Unknown) Sickle cell trait Tobacco use Surgical History Surgical History Abscess on right buttock area Family History Family History Mother Hypertension Social History Social History Social History: Surrogate decision maker: Shanon English, significant other. Code status: Full code. Smoking packs per day: 1 Smoking cigarettes per day: 20.0 Smoking status: Current every day smoker Tobacco type: cigarettes Alcohol intake: current Drinks per week: 4 Alcohol use details: occasional Substance use: never Substance use type: does not use Additional living arrangements comments: Lives with significant other in [place], [place]. 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 Gender identity (if verbalized by the patient): Male Spiritual care concerns: No Exam Narrative: GENERAL: Awake, alert, conversant HEAD: Normocephalic, atraumatic. EYES: PERRLA and EOMI. ENT: Nares clear, no rhinorrhea or epistaxis. Mucous membranes moist. NECK: Supple. CHEST: No respiratory distress, breathing even and non labored HEART: Regular rate, sinus rhythm ABDOMEN:Non distended, tender in the right upper quadrant, epigastrium, right lower quadrant with guarding, no rebound, negative Rovsing sign, negative psoas sign Right buttock: Area of induration without crepitus or ecchymoses; two areas where wound is drainin
[2022-08-18] MEDS: SODIUM CHLORIDE 0.9% IV 1,000 ML 999 ML IV CONT (07:53)
[2022-08-18] MEDS: FAMOTIDINE 20 MG/2 ML VIAL IV PUSH (07:53)
[2022-08-18] MEDS: ONDANSETRON INJ 4 MG/2 ML VIAL IV PUSH (07:53)
[2022-08-18] MEDS: DICYCLOMINE HCL 10 MG CAPSULE PO (07:55)
== END 2022-08-18 10:03 | disposition home or self-care (01) ==
PROVIDERS: Emergency Medicine; Emergency Provider Emergency Medicine; PCP Nurse Practitioner Family
DX: R07.89 Other chest pain (principal); L03.317 Cellulitis of buttock; Z20.822 Contact with and (suspected) exposure to COVID-19; D64.9 Anemia, unspecified; Z87.11 Personal history of peptic ulcer disease; R94.31 Abnormal electrocardiogram [ECG] [EKG]; D57.3 Sickle-cell trait; F17.210 Nicotine dependence, cigarettes, uncomplicated
CPT/HCPCS: 36415; 71046; 71260; 74177; 80053; 83690; 84484; 85025; 85610; 85730; 87070; 87077; 87205; 87636; 93005; 96361; 96374; 96375; 99284; A9270; J2405; J7030; Q9967

== ENCOUNTER 2023-03-24 03:59 | Emergency (ER) | payer OTHER, SELFPAY ==
--- NOTE | ~2023-03-24 | CT_ITS ---
Clinical Indication: Pulmonary embolus CT Scan of the Chest with Contrast: Technique: Contiguous sections were acquired throughout the chest after intravenous administration of 100 cc of Omnipaque 350. Dose reduction technique was used on this scan by utilizing automated expos ure control and iterative reconstruction technique. The dose-length product (DLP) was 423.11 mGy-cm. COMPARISON: 08/18/2022 Findings: There is no evidence of any significant mediastinal, hilar or axillary lymphadenopathy. There is no f illing defect in the pulmonary arterial tree to suggest pulmonary embolus. There is no evidence of ao rtic dissection or aneurysm. There is no evidence of pleural or pericardial effusion. The lungs are clear. No pulmonary nodules or infiltrates are noted. Images through the upper abdomen reveal no abnormalities. Impression: No evidence of pulmonary embolus, aortic dissection, or aortic aneurysm. Clear lungs. Reviewed, dictated and finalized at [facility]. Impression: No evidence of pulmonary embolus, aortic dissection, or aortic aneurysm. Clear lungs.
--- NOTE | ~2023-03-24 | XR_ITS ---
Clinical Indication: Pain PA and lateral views of the chest: Comparison: 08/18/2022 Findings: The lungs are clear, without evidence of focal consolidation or pleural effusion. Cardiome diastinal silhouette is within normal limits. Bones and soft tissues are unremarkable. Impression: Normal chest. Reviewed, dictated and finalized at location . Impression: Normal chest.
[2023-03-24 04:02] VITALS: BP 139/84; PULSE 79; RESP 16; TEMP 37.1; O2SAT 98
--- NOTE | 2023-03-24 05:04 | ED.GENADULT ---
HPI - General Adult General Chief complaint: Abdominal Pain Stated complaint: abd pain Time Seen by Provider: 03/24/23 04:54 History of Present Illness HPI narrative: 37 year old male history of sickle cell trait presented with right upper quadrant abdominal pain. Per patient, he has been having right upper quadrant abdominal pain for the past week, non radiating, worsened with movement and direct palpation and with deep inspiration. Denied fevers/chills, chest pain, shortness of breath, hemoptysis, nausea/vomiting, hematuria, dysuria, sick contacts. Related Data Allergies Allergy/AdvReac Type Severity Reaction Status Date / Time Opioids - Morphine Analogues Allergy Intermediate Rash Verified 08/18/22 03:18 sulfamethoxazole Allergy Intermediate Rash Verified 08/18/22 03:18 [From Bactrim] tramadol Allergy Intermediate Rash Verified 08/18/22 03:18 trimethoprim [From Bactrim] Allergy Intermediate Rash Verified 08/18/22 03:18 PMFSH Past Medical History Medical History Abscess and cellulitis of gluteal region Hidradenitis suppurativa (Unknown) Sickle cell trait Tobacco use Surgical History Surgical History Abscess on right buttock area Family History Family History Mother Hypertension Social History Social History Social History: Surrogate decision maker: Shanon English, significant other. Code status: Full code. Smoking packs per day: 1 Smoking cigarettes per day: 20.0 Smoking status: Current every day smoker Tobacco type: cigarettes Alcohol intake: current Drinks per week: 4 Alcohol use details: occasional Substance use: never Substance use type: does not use Living arrangements: with family Additional living arrangements comments: Lives with significant other in [place], [place]. 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 Gender identity (if verbalized by the patient): Male Spiritual care concerns: No Exam Narrative: General: Alert, calm and cooperative, no acute distress, phonating, sitting comfortably during visit HEENT: Pupils equal round and reactive to light, extra ocular movements intact, no conjunctival injection, head atraumatic, neck supple without meningismus Cardiovascular: Regular rate and rhythm, no visible jugular venous distension Respiratory: Lungs clear to auscultation bilaterally, no wheezing/rales/rhonchi Abdominal: soft, non-tender, non-distended, no guarding, no rebound/peritoneal signs, no costovertebral tenderness to palpation Back: no midline tenderness to palpation, no step offs Extremities: No edema, palpable peripheral pulses, warm, well perfused, no tenderness to bilateral calves Neurological: Alert, moving all extremities symmetrically, ambulating without deficit Course Reevaluation(s) Reevaluation #1: Patient reassessed; reporting resolution of all symptoms. Physical exam benign, sitting comfortably, vitals stable. Date: 03/24/23 Time: 06:22 Vital Signs Vital signs: Vital Signs Temperature 98.8 F 03/24/23 04:02 Pulse Rate 79 03/24/23 04:02 Respiratory Rate 16 03/24/23 04:02 Blood Pressure 139/84 03/24/23 04:02 Pulse Oximetry 98 03/24/23 04:02 Oxygen Delivery Room Air 03/24/23 04:02 Temperature 98.8 F 03/24/23 04:02 Pulse Rate 59 L 03/24/23 07:15 Respiratory Rate 18 03/24/23 07:15 Blood Pressure 117/76 03/24/23 07:15 Pulse Oximetry 98 03/24/23 07:15 Oxygen Delivery Room Air 03/24/23 04:02 Medical Decision Making MDM Narrative Medical decision making narrative: 37 year old male history of sickle cell trait presented with left upper quadrant abdominal pain. Physical exam benign, abdomen soft, vitals stable. Differential diagnosis includes but not limited to: cholecystitis vs pancreatitis vs PE vs pneumonia. CXR juanjose
[2023-03-24] MEDS: KETOROLAC 15 MG/ML VIAL (*BKC) IV PUSH (05:16)
[2023-03-24] MEDS: ACETAMINOPHEN 500 MG TABLET 1000 MG PO (05:16)
[2023-03-24 05:33] LABS: Basophils Percent Auto 0.3 % (0.2-1.2); Eosinophils Absolute Auto 0.1 K/mm3 (0-0.3); Eosinophils Percent Auto 2.1 % (0-4.4); Hematocrit 40.1 % (42.0-52.0); Hemoglobin 13.4 g/dL (14.0-18.0); Immature Granulocyte Absolute 0.01 K/mm3 (0.00-0.031); Immature Granulocyte Percent A 0.2 % (0-0.5); Lymphocytes Absolute Auto 2.32 K/mm3 (0.9-3.2); Lymphocytes Percent Auto 36.8 % (18.3-44.2); Mean Corpuscular HGB Conc 33.4 g/dl (32-36); Mean Corpuscular Hemoglobin 31.5 pg (26-34); Mean Corpuscular Volume 94.1 fl (80-100); Mean Platelet Volume 9.2 fl (7.4-10.4); Monocytes Absolute Auto 0.5 K/mm3 (0.1-0.6); Monocytes Percent Auto 8.1 % (2.6-8.5); Neutrophils Absolute Auto 3.3 K/mm3 (1.3-6.7); Neutrophils Percent Auto 52.5 % (45.5-73.1); Platelet Count Result 283 k/mm3 (150-375); Red Blood Count 4.26 M/mm3 (4.6-6.20); Red Cell Distribution Width 14.1 % (11.5-14.5); White Blood Count 6.3 K/mm3 (4.5-10.0)
[2023-03-24 05:42] LABS: Alanine Aminotransferase 25 U/L (6-50); Albumin Level 4.1 g/dL (3.5-5.1); Alkaline Phosphatase 101 U/L (38-126); Anion Gap 7 mmol/L (8-16); Aspartate Amino Transferase 32 U/L (17-59); Bilirubin,Total 0.3 mg/dL (0.2-1.3); Blood Urea Nitrogen 10 mg/dL (9-20); Calcium 8.8 mg/dL (8.4-10.2); Carbon Dioxide 27 mmol/L (22-30); Chloride 104 mmol/L (98-107); Estimated CRCL calculation 105 ml/min; Estimated Glomerular Filt Rate > 60; Glucose 102 mg/dL (65-110); Lipase 60 U/L (23-300); Potassium 3.7 mmol/L (3.4-5.0); Sodium 138 mmol/L (137-145)
[2023-03-24] MEDS: MAG HYDROX/AL HYDROX/SIMETH 30 ML UDC PO (05:50)
[2023-03-24 06:19] VITALS: BP 124/91; PULSE 67; RESP 14; O2SAT 96
[2023-03-24 07:15] VITALS: BP 117/76; PULSE 59; RESP 18; O2SAT 98
--- NOTE | 2023-03-24 07:15 | PC.NURSE ---
Assumed care from Ana Paula at this time. Pt resting comfortably in bed at this time.
[2023-03-24 08:32] VITALS: BP 110/87; PULSE 69; RESP 19; O2SAT 98
== END 2023-03-24 08:35 | disposition home or self-care (01) ==
PROVIDERS: Emergency Provider Emergency Medicine; PCP Nurse Practitioner Family
DX: R10.11 Right upper quadrant pain (principal); F17.210 Nicotine dependence, cigarettes, uncomplicated
CPT/HCPCS: 36415; 71046; 71275; 80048; 80076; 83690; 85025; 85380; 96374; 99284; A9270; J1885; Q9967

== ENCOUNTER 2023-08-11 23:03 | Emergency (ER) | payer OTHER, SELFPAY ==
[2023-08-11 23:05] VITALS: BP 140/91; PULSE 88; RESP 16; TEMP 37.1; O2SAT 99
[2023-08-12] MEDS: ORPHENADRINE CITRATE 100 MG TABLET.ER PO (00:24)
[2023-08-12] MEDS: KETOROLAC (*BKC) 60 MG/2 ML VIAL IM (00:25)
--- NOTE | 2023-08-12 01:58 | ED.GENADULT ---
HPI - General Adult General Chief complaint: Extremity Problem,Nontraumatic Stated complaint: Right hip pain Time Seen by Provider: 08/11/23 23:48 History of Present Illness HPI narrative: patient is a 37-year-old gentleman who presents to emergency department with chief complaint of right hip pain. Patient reports that he started having pain several weeks ago and reports the pain has gotten progressively worse he did report there is a little bit of a tingly sensation but denies bowel or bladder dysfunction denies saddle anesthesia denies footdrop. The patient reports that he has seen his primary care provider and has actually had MRI of his lumbar spine the patient does not have the results of this the patient denies trauma does report that he had surgery on her right foot and ankle area and that was the trigger for these episodes. Related Data Allergies Allergy/AdvReac Type Severity Reaction Status Date / Time Opioids - Morphine Analogues Allergy Intermediate Rash Verified 08/11/23 23:18 sulfamethoxazole Allergy Intermediate Rash Verified 08/11/23 23:18 [From Bactrim] tramadol Allergy Intermediate Rash Verified 08/11/23 23:18 trimethoprim [From Bactrim] Allergy Intermediate Rash Verified 08/11/23 23:18 Review of Systems Review of Systems: A 10 system review of systems was completed on the patient and is negative except for what is stated in the HPI. Nursing and ancillary documentation was reviewed. [facility] Past Medical History Medical History Abscess and cellulitis of gluteal region Hidradenitis suppurativa (Unknown) Sickle cell trait Tobacco use Surgical History Surgical History Abscess on right buttock area Family History Family History Mother Hypertension Social History Social History Social History: Surrogate decision maker: Shanon English, significant other. Code status: Full code. Smoking packs per day: 1 Smoking cigarettes per day: 20.0 Smoking status: Current every day smoker Tobacco type: cigarettes Alcohol intake: current Drinks per week: 4 Alcohol use details: occasional Substance use: never Substance use type: does not use Living arrangements: with family Additional living arrangements comments: Lives with significant other in [place], [place]. 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 Gender identity (if verbalized by the patient): Male Spiritual care concerns: No Exam Narrative: GENERAL: Well-appearing, well-nourished, and in no acute distress. HEAD: Normocephalic, atraumatic. EYES: PERRLA and EOMI. ENT: Nares clear, no rhinorrhea or epistaxis. Mucous membranes moist. NECK: Supple. CHEST: Clear to auscultation. No respiratory distress. HEART: Regular rate and rhythm. No murmur heard. Normal peripheral pulses. ABDOMEN: Soft, nontender, nondistended, normal active bowel sounds. : No saddle anesthesia EXTREMITIES: Normal range of motion. No edema. No footdrop SKIN: Warm, dry, no rash. NEURO: No focal deficits. Alert and oriented x3. PSYCH: Normal mood and affect. Course Vital Signs Vital signs: Vital Signs Temperature 37.1 C 08/11/23 23:05 Pulse Rate 88 08/11/23 23:05 Respiratory Rate 16 08/11/23 23:05 Blood Pressure 140/91 H 08/11/23 23:05 Pulse Oximetry 99 08/11/23 23:05 Oxygen Delivery Room Air 08/11/23 23:05 Temperature 37.1 C 08/11/23 23:05 Pulse Rate 88 08/11/23 23:05 Respiratory Rate 16 08/11/23 23:05 Blood Pressure 140/91 H 08/11/23 23:05 Pulse Oximetry 99 08/11/23 23:05 Oxygen Delivery Room Air 08/11/23 23:05 Medical Decision Making [facility] Narrative Medical decision making narrative: differential diagnosis includes sciatica, lumbar radiculopathy, musculoskeletal
== END 2023-08-12 02:13 | disposition home or self-care (01) ==
PROVIDERS: Emergency Provider Emergency Medicine; PCP Nurse Practitioner Family
DX: M54.31 Sciatica, right side (principal); D57.3 Sickle-cell trait; F17.210 Nicotine dependence, cigarettes, uncomplicated
CPT/HCPCS: 96372; 99284; A9270; J1100; J1885

== ENCOUNTER 2024-02-24 19:45 | Emergency (ER) | payer OTHER, SELFPAY ==
[2024-02-24 20:04] VITALS: BP 150/86; PULSE 76; RESP 15; TEMP 36.6; O2SAT 98
--- NOTE | 2024-02-24 20:39 | ECG_ITS ---
Test Date: 2024-02-24 20:59:55 Measurements Intervals [place] Rate: 62 P: 53 HI: 189 QRS: 52 QRSD: 88 T: 10 QT: 365 QTc: 373 Interpretive Statements SINUS RHYTHM NORMAL ELECTROCARDIOGRAM No previous ECG available for comparison Electronically Signed On 02-25-2024 07:23:21 CDT by Jhonathan Mederos M.D.
[2024-02-24] MEDS: KETOROLAC 15 MG/ML VIAL (*BKC) IM (21:00)
--- NOTE | 2024-02-24 21:09 | ED.BACK ---
HPI - Back Pain/Injury General Chief Complaint: Back Pain/Injury Stated Complaint: back pain, dental pain Time Seen by Provider: 02/24/24 20:33 History of Present Illness HPI Narrative: Patient is a 41-year-old male who presents to the emergency department this evening complaining of worsening of his chronic back pain. Patient admits that he has multiple herniated lumbar disc and is currently pending as surgery which is yet to be scheduled for his chronic back pain. Patient states that within the last few days he has been having a flare-up of a toothache and his chronic back pain and today it has gotten so bad making it harder for him to catch his breath. patient denies any recent falls or trauma, denies any urinary symptoms, any flank pain, and denies any fevers or chills at home. No additional symptoms or concerns at this time. Related Data Allergies Allergy/AdvReac Type Severity Reaction Status Date / Time Opioids - Morphine Analogues Allergy Intermediate Rash Verified 02/24/24 21:01 sulfamethoxazole Allergy Intermediate Rash Verified 02/24/24 21:01 [From Bactrim] tramadol Allergy Intermediate Rash Verified 02/24/24 21:01 trimethoprim [From Bactrim] Allergy Intermediate Rash Verified 02/24/24 21:01 Review of Systems Review of Systems: All systems are reviewed and are negative unless stated otherwise in the HPI. [facility] Past Medical History Medical History Abscess and cellulitis of gluteal region Hidradenitis suppurativa (Unknown) Sickle cell trait Tobacco use Surgical History Surgical History Abscess on right buttock area Family History Family History Mother Hypertension Social History Social History Social History: Surrogate decision maker: Shanon English, significant other. Code status: Full code. Smoking packs per day: 1 Smoking cigarettes per day: 20.0 Smoking status: Current every day smoker Tobacco type: cigarettes Alcohol intake: current Drinks per week: 4 Alcohol use details: occasional Substance use: never Substance use type: does not use Living arrangements: with family Additional living arrangements comments: Lives with significant other in [place], [place]. 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 Gender identity (if verbalized by the patient): Male Spiritual care concerns: No Exam Narrative: General: Alert, awake, afebrile, in no acute distress, anxious. HEENT: PERRL, no rhinorrhea, no post nasal drip, oropharynx clear. Cardiovascular: Regular rate and rhythm, no murmurs, rubs or gallops, no peripheral edema. Respiratory: Clear to auscultation bilaterally, no tachypnea, no wheezing, no rhonchi, no rubs, no respiratory distress. Abdomen: Soft, nontender, nondistended, no rebound, no guarding, no peritoneal signs. Musculoskeletal: No joint swelling or deformity, normal muscle tone. Back: Midline lumbar spine tenderness to palpation. Skin: No rashes or petechia, no signs of infection. Neurological: Alert and oriented to person, place, and time. Follows all commands. No focal deficits, speech is clear and fluent. Course Vital Signs Vital signs: Vital Signs Temperature 97.8 F 02/24/24 20:04 Pulse Rate 76 02/24/24 20:04 Respiratory Rate 15 02/24/24 20:04 Blood Pressure 150/86 H 02/24/24 20:04 Pulse Oximetry 98 02/24/24 20:04 Oxygen Delivery Room Air 02/24/24 20:04 Temperature 97.8 F 02/24/24 20:04 Pulse Rate 76 02/24/24 20:04 Respiratory Rate 15 02/24/24 20:04 Blood Pressure 150/86 H 02/24/24 20:04 Pulse Oximetry 98 02/24/24 20:04 Oxygen Delivery Room Air 02/24/24 20:04 MDM - Back Pain/Injury MDM Narrative Medical decision making narrative: The patient was evaluated by myself in the emergency department.
== END 2024-02-24 21:14 | disposition home or self-care (01) ==
PROVIDERS: Emergency Provider Emergency Medicine; PCP Nurse Practitioner Family
DX: M54.50 Low back pain, unspecified (principal); G89.29 Other chronic pain; D57.3 Sickle-cell trait; F17.210 Nicotine dependence, cigarettes, uncomplicated
CPT/HCPCS: 93005; 96372; 99283; J1885

== ENCOUNTER 2024-09-13 17:30 | Emergency (ER) | payer OTHER, SELFPAY ==
--- NOTE | ~2024-09-13 | XR_ITS ---
EXAMINATION: XR chest 1V portable 09/13/2024 18:24 INDICATION: Sepsis PROCEDURE: AP portable chest COMPARISON: Comparison to multiple prior studies sequentially, with oldest reviewed study dated 05/31. FINDINGS: The lungs are clear. The cardiomediastinal silhouette is within normal limits. There are no pleural effusions. There is no pneumothorax suspected. IMPRESSION: 1: NO ACUTE CARDIOPULMONARY DISEASE. Reviewed, dictated and finalized at location A. 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
[2024-09-13 17:36] VITALS: BP 118/55; PULSE 117; RESP 22; TEMP 39.5; O2SAT 96
--- NOTE | 2024-09-13 17:42 | ECG_ITS ---
Test Date: 2024-09-13 17:43:40 Measurements Intervals [place] Rate: 118 P: 139 MA: 148 QRS: 148 QRSD: 88 T: -31 QT: 302 QTc: 424 Interpretive Statements SINUS TACHYCARDIA possible limb lead reversal MARKED RIGHT AXIS DEVIATION [QRS AXIS > 100] NONSPECIFIC T-WAVE ABNORMALITY Compared to ECG 02/24/2024 20:59:55 Right-axis deviation now present T-wave abnormality now present Sinus rhythm no longer present Electronically Signed On 09-14-2024 09:18:53 RATE ANALYST by Jamie Sahu M.D.
[2024-09-13 17:56] LABS: Basophils Percent Auto 0.3 % (0.2-1.2); Eosinophils Percent Auto 0.4 % (0-4.4); Hematocrit 37.3 % (42.0-52.0); Hemoglobin 12.7 g/dL (14.0-18.0); Immature Granulocyte Absolute 0.03 K/mm3 (0.00-0.031); Immature Granulocyte Percent A 0.3 % (0-0.5); Lymphocytes Absolute Auto 1.17 K/mm3 (0.9-3.2); Lymphocytes Percent Auto 11.9 % (18.3-44.2); Mean Corpuscular Hemoglobin 30.2 pg (26-34); Mean Corpuscular Volume 88.8 fl (80-100); Mean Platelet Volume 8.9 fl (7.4-10.4); Monocytes Absolute Auto 0.1 K/mm3 (0.1-0.6); Monocytes Percent Auto 1.3 % (2.6-8.5); Neutrophils Absolute Auto 8.5 K/mm3 (1.3-6.7); Neutrophils Percent Auto 85.8 % (45.5-73.1); Platelet Count Result 245 k/mm3 (150-375); Red Cell Distribution Width 14.9 % (11.5-14.5); White Blood Count 9.9 K/mm3 (4.5-10.0)
[2024-09-13 18:00] VITALS: O2SAT 100
[2024-09-13 18:06] LABS: Alanine Aminotransferase 55 U/L (6-50); Albumin Level 4.3 g/dL (3.5-5.1); Alkaline Phosphatase 89 U/L (38-126); Anion Gap 7 mmol/L (4-12); Aspartate Amino Transferase 61 U/L (17-59); Bilirubin,Total 0.8 mg/dL (0.2-1.3); Blood Urea Nitrogen 12 mg/dL (9-20); Calcium 8.8 mg/dL (8.4-10.2); Carbon Dioxide 29 mmol/L (22-30); Chloride 102 mmol/L (98-107); Estimated CRCL calculation 76 ml/min; Estimated Glomerular Filt Rate > 60; Glucose 113 mg/dL (65-110); Potassium 3.5 mmol/L (3.4-5.0); Sodium 138 mmol/L (137-145)
[2024-09-13] MEDS: ACETAMINOPHEN 500 MG TABLET 1000 MG PO (18:10)
[2024-09-13] MEDS: SODIUM CHLORIDE 0.9% IV 1,000 ML 999 ML IV CONT ×3 (18:11→21:10)
[2024-09-13 18:13] LABS: INR 1.1; Prothrombin Time 14.8 Seconds (11.1-14.7)
[2024-09-13 18:14] LABS: Partial Thromboplastin Time 26.7 Seconds (22.3-36.8)
[2024-09-13 18:34] LABS: Lactic Acid Reflex 1.3 mmol/L (0.7-2.0)
--- NOTE | 2024-09-13 18:43 | PC.NURSE ---
Pt. states I don't have to pee. Bladder scan revealed 0mL in bladder. IV fluids currently infusing.
[2024-09-13 19:00] LABS: Influenza A QL RT-PCR Negative (Negative); Influenza B QL RT-PCR Negative (Negative); RSV RNA, RT-PCR Negative (Negative); SARS-CoV-2 RNA PCR Negative (Negative)
[2024-09-13 19:39] VITALS: BP 109/67; PULSE 104; RESP 16; TEMP 39.1; O2SAT 100
--- NOTE | 2024-09-13 20:54 | ED.GENADULT ---
HPI - General Adult General Chief complaint: Altered Mental Status Stated complaint: confused with sickle cell pain Time Seen by Provider: 09/13/24 18:04 Source: patient and family Mode of arrival: EMS Limitations: altered mental status History of Present Illness HPI narrative: 38-year-old with a history of sickle cell was brought in from home by EMS with the complaints of altered mental status, fever since last night. are adamant about of shaking. Upon arrival patient was febrile. He complains of generalized pain. Denies any head injury. Onset (ago): hour(s) (1) Severity: moderate Pain Consistency: constant Relieving factors: none Exacerbating factors: none Associated symptoms: denies other symptoms Treatments prior to arrival: none Related Data Allergies Allergy/AdvReac Type Severity Reaction Status Date / Time Opioids - Morphine Analogues Allergy Intermediate Rash Verified 02/24/24 21:01 sulfamethoxazole (From Allergy Intermediate Rash Verified 02/24/24 21:01 Bactrim) tramadol Allergy Intermediate Rash Verified 02/24/24 21:01 trimethoprim (From Bactrim) Allergy Intermediate Rash Verified 02/24/24 21:01 Review of Systems Review of Systems: All systems reviewed & are unremarkable except as noted in HPI and below Constitutional: Constitutional: Reports no additional constitutional complaints Eyes: Eyes: Reports no additional eye complaints ENT: Reports system reviewed and no additional complaints, except as documented Cardiovascular: Cardiovascular: Reports no additional cardiovascular complaints Respiratory: Respiratory: Reports no additional respiratory complaints Gastrointestinal: Gastrointestinal: Reports no additional gastrointestinal complaints Musculoskeletal: Musculoskeletal: Reports as per HPI Integumentary/Breasts: Skin/Breast: Reports system reviewed and no additional complaints, except as docu Neurologic: Reports system reviewed and no additional complaints, except as documented Psychiatric: Psychiatric: Reports no additional psychiatric complaints [facility]LY [facility], [facility] Past Medical History Medical History Tobacco use Abscess and cellulitis of gluteal region Sickle cell trait Hidradenitis suppurativa (Unknown) Surgical History Surgical History Abscess on right buttock area Family History Family History Mother Hypertension Social History Social History Social History: Surrogate decision maker: Shanon English, significant other. Code status: Full code. Smoking packs per day: 1 Smoking cigarettes per day: 20.0 Smoking status: Current every day smoker Tobacco type: cigarettes Alcohol intake: current Drinks per week: 4 Alcohol use details: occasional Substance use: never Substance use type: does not use Living arrangements: with family Additional living arrangements comments: Lives with significant other in [place], [place]. 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 Gender identity (if verbalized by the patient): Male Spiritual care concerns: No Exam Narrative: GENERAL: Well-appearing, well-nourished, febrile , confused HEAD: Normocephalic, atraumatic. EYES: PERRLA and EOMI. ENT: Nares clear, NECK: Supple. CHEST: Clear to auscultation. No respiratory distress. HEART: Regular rate and rhythm. No murmur heard. Normal peripheral pulses. ABDOMEN: Soft, nontender, nondistended, normal active bowel sounds. EXTREMITIES: Normal range of motion. No edema. SKIN: Warm, dry, no rash. NEURO: No focal deficits. Alert and oriented x3. PSYCH: Normal mood and affect. Course Course Emergency Course: Patient was given IV fluids, Tylenol his temperature has come down. He is much more alert states he is feeling fine. I did inform her about his lab work and x-ray findings to him and his . Vital Signs Vital signs: Vital Signs Temperature 39.5 C H 09/13/24 17:36 Pulse Rate 117 H 09/13/24 17:36 Respiratory Rate 22 H 09/13/24 17:36 Blood Pressure 118/55 L 09/13/24 17:36 Pulse Oximetry 96 09/13/24 17:36 Oxygen Delivery Room Air 09/13/24 17:36 Temperature 39.1 C H 09/13/24 19:39 Pulse Rate 104 H 09/13/24 19:39 Respiratory Rate 16 09/13/24 19:39 Blood Pressure 109/67 09/13/24 19:39 Pulse Oximetry 100 09/13/24 19:39 Oxygen Delivery Nasal Cannula 09/13/24 18:00 Oxygen Flow Rate 2 09/13/24 18:00 Medical Decision Making Medical Records Medical records reviewed: Yes I reviewed the external patient's medical records. Vital Signs Vital Signs: Vital Signs Temperature 39.5 C H 09/13/24 17:36 Pulse Rate 117 H 09/13/24 17:36 Respiratory Rate 22 H 09/13/24 17:36 Blood Pressure 118/55 L 09/13/24 17:36 Pulse Oximetry 96 09/13/24 17:36 Oxygen Delivery Room Air 09/13/24 17:36 Temperature 39.1 C H 09/13/24 19:39 Pulse Rate 104 H 09/13/24 19:39 Respiratory Rate 16 09/13/24 19:39 Blood Pressure 109/67 09/13/24 19:39 Pulse Oximetry 100 09/13/24 19:39 Oxygen Delivery Nasal Cannula 09/13/24 18:00 Oxygen Flow Rate 2 09/13/24 18:00 Lab Data 09/13/24 17:51 09/13/24 17:51 Labs: Lab Results 09/13/24 09/13/24 Range/Units 17:51 18:20 WBC 9.9 (4.5-10.0) K/mm3 RBC 4.20 L (4.6-6.20) M/mm3 Hgb 12.7 L (14.0-18.0) g/dL Hct 37.3 L (42.0-52.0) % MCV 88.8 (80-100) fl MCH 30.2 (26-34) pg MCHC 34.0 (32-36) g/dl RDW 14.9 H (11.5-14.5) % Plt Count 245 (150-375) k/mm3 MPV 8.9 (7.4-10.4) fl Immature Gran % (Auto) 0.3 (0-0.5) % Neut % (Auto) 85.8 H (45.5-73.1) % Lymph % (Auto) 11.9 L (18.3-44.2) % [place] % (Auto) 1.3 L (2.6-8.5) % Eos % (Auto) 0.4 (0-4.4) % Baso % (Auto) 0.3 (0.2-1.2) % Lymph # (Auto) 1.17 (0.9-3.2) K/mm3 [place] # (Auto) 0.1 (0.1-0.6) K/mm3 Eos # (Auto) 0.0 (0-0.3) K/mm3 Baso # (Auto) 0.0 (0.0-0.1) K/mm3 Abs Immat Gran (auto) 0.03 (0.00-0.031) K/mm3 Absolute Neuts (auto) 8.5 H (1.3-6.7) K/mm3 Absolute Nucleated RBC 0.000 (0.0-0.012) K/mm3 Nucleated RBC % 0.0 (0.0-0.2) % PT 14.8 H (11.1-14.7) Seconds INR 1.1 APTT 26.7 (22.3-36.8) Seconds Sodium 138 (137-145) mmol/L Potassium 3.5 (3.4-5.0) mmol/L Chloride 102 (98-107) mmol/L Carbon Dioxide 29 (22-30) mmol/L Anion Gap 7 (4-12) mmol/L BUN 12 (9-20) mg/dL Creatinine 1.11 (0.7-1.3) mg/dL Estim Creat Clear Calc 76 ml/min Estimated GFR > 60 (59 - ) Glucose 113 H (65-110) mg/dL Lactic Acid 1.3 (0.7-2.0) mmol/L Calcium 8.8 (8.4-10.2) mg/dL Total Bilirubin 0.8 (0.2-1.3) mg/dL AST 61 H (17-59) U/L ALT 55 H (6-50) U/L Alkaline Phosphatase 89 (38-126) U/L Total Protein 8.0 (6.3-8.2) g/dL Albumin 4.3 (3.5-5.1) g/dL Influenza A (RT-PCR) Negative (Negative) Influenza B (RT-PCR) Negative (Negative) RSV (RT-PCR) Negative (Negative) SARS-CoV-2 RNA (RT-PCR) Negative (Negative) Imaging Data Radiologist's impression: ITS Impressions Chest X-Ray 09/13/24 18:26 IMPRESSION: 1: NO ACUTE CARDIOPULMONARY DISEASE. Discharge Plan Discharge Clinical Impression: Acute viral syndrome Patient Disposition: Home, Self-Care Condition: Stable Instructions: Fever in Adults (ED), Viral Syndrome (ED) Patient Language: Kittitian Prescriptions: No Action silver 200 mcg/gram gel 1 applic topical DAILY 14 Days Qty: 45 0RF Rx Instructions: Apply to right buttock wound after daily shower. Dress with dry gauze & tape. Over the counter medicine. acetaminophen 500 mg Tablet 1,000 mg PO Q6H PRN (Reason: Mild Pain (1-3) Or Fever) 14 Days 0RF ibuprofen 800 mg tablet 800 mg PO TID PRN (Reason: pain) Qty: 30 0RF clindamycin HCl 300 mg capsule 300 mg PO Q6H 10 Days Qty: 40 0RF doxycycline hyclate 100 mg capsule 100 mg PO Q12H 10 Days Qty: 20 0RF diclofenac potassium 50 mg tablet 50 mg PO TID PRN (Reason: pain) Qty: 30 0RF cyclobenzaprine 10 mg tablet 10 mg PO TID PRN (Reason: muscle spasm) Qty: 21 0RF prednisone 20 mg tablet 40 mg PO DAILY 5 Days Qty: 10 0RF hydrocodone-acetaminophen 5-325 mg tablet 1 tablet PO Q8H PRN (Reason: pain) Qty: 10 0RF Follow-up/Referrals: Rehan,Camelia Kapadia, [facility] REPORT DEVELOPER[employer] [Primary Care Provider] -
[2024-09-13 21:12] VITALS: BP 106/76; PULSE 100; RESP 18; TEMP 37.3; O2SAT 96
--- NOTE | 2024-09-13 21:12 | PC.NURSE ---
Pt. able to stand at bedside independently.
[2024-09-13 21:28] LABS: Add Urine Microscopic? YES; Appearance Urine Clear (Clear); Bacteria Urine None Seen /hpf; Bilirubin Urine Negative (Negative); Blood Urine Negative (Negative); Color Urine Yellow (Yellow); Glucose Urine UA Negative (Negative); Hyaline Casts Urine Present /lpf; Ketones Urine 1+ mg/dL (Negative); Leukocyte Esterase Ur Negative LEU/UL (Negative); Need Manual Microscopic Reviewed; Nitrate Urine Negative (Negative); Protein Urine Trace mg/dL (Negative); RBC Urine 0-2 /hpf (0-2); Specific Grav Ur 1.021 (1.001-1.035); Squamous Epithelial Cell Urine Occasional /hpf (Few); WBC Urine 0-5 /hpf (0-3); pH Urine 5.5 (5.0-9.0)
[2024-09-13 22:20] VITALS: BP 110/78; PULSE 90; RESP 16; O2SAT 98
== END 2024-09-13 22:23 | disposition home or self-care (01) ==
PROVIDERS: Emergency Medicine; Emergency Provider Family Medicine; PCP Nurse Practitioner Family
DX: B34.9 Viral infection, unspecified (principal); Z20.822 Contact with and (suspected) exposure to COVID-19; F17.210 Nicotine dependence, cigarettes, uncomplicated
CPT/HCPCS: 36415; 71045; 80053; 81001; 83605; 85025; 85610; 85730; 87637; 93005; 96361; 96374; 99284; A9270; J7030; J7120

== ENCOUNTER 2025-01-28 08:09 | Emergency (ER) | payer OTHER, SELFPAY ==
[2025-01-28] VITALS (7 sets, daily range): BP systolic 127–139; BP diastolic 79–91; PULSE 74–80; RESP 13–19; O2SAT 97–100
--- NOTE | ~2025-01-28 | XR_ITS ---
EXAMINATION: XR chest 1V portable DATE: 01/28/2025 08:53 INDICATION: Chest pain and shortness of breath TECHNIQUE: frontal view of the chest was obtained. COMPARISON: Chest radiograph dated 09/13/2024 FINDINGS: The lungs remain clear with no focal airspace opacities, pulmonary edema, pleural effusion or pneumot horax. The cardiomediastinal silhouette is normal. Visualized bones and soft tissues are unremarkable . IMPRESSION: 1. No acute cardiopulmonary disease. Reviewed, dictated and finalized at location A.
--- NOTE | ~2025-01-28 | CT_ITS ---
EXAMINATION: CTA chest abdomen pelvis DATE: 01/28/2025 09:08 INDICATION: Sickle cell anemia. Right chest and right upper quadrant pain. TECHNIQUE: Computed tomographic angiography (CTA) of the chest, abdomen and pelvis was performed with 150 cc of Omnipaque-350 intravenous contrast. Automated exposure control and iterative reconstructio n technique were employed. The dose-length product was 782.39 mGy-cm. COMPARISON: CT studies dated 03/24/2023 and 08/18/2022 FINDINGS: Chest: Small pneumatocele in the left lower lobe. Minimal dependent atelectasis in bilateral lower lobes. No suspicious pulmonary nodules, pneumonia, pulmonary edema pleural effusion or pneumothorax. Heart siz e is normal. No pericardial effusion. Thoracic aorta is normal in caliber with no dissection. No path ologically enlarged thoracic lymphadenopathy. Bones are unremarkable. Abdomen and pelvis: Liver, gallbladder, spleen, pancreas, bilateral adrenal glands and kidneys are normal. Bowels includi ng the appendix are normal. Bladder is normal. Abdominal aorta is normal in caliber with no dissectio n. No free intraperitoneal gas or fluid. There is a large region of skin thickening and underlying nixon bcutaneous soft tissue density with hyperemia at the right buttock which could be infectious, inflamm atory or potentially malignant in etiology. There are a couple mildly enlarged lymph nodes at the rig ht inguinal region and along the right external iliac chains measuring up to 1.5 cm maximal short axi s diameter which could be either reactive or metastatic in the appropriate clinical setting. No other pathologically enlarged abdominal or pelvic lymphadenopathy. IMPRESSION: 1. No acute cardiopulmonary disease or acute intra-abdominal/pelvic process. 2. Large region of skin thickening and subcutaneous soft tissue density with associated hyperemia at the right buttock most likely infectious/inflammatory in etiology although differential includes kelin gnancy. Correlate with clinical history and physical exam. 3. Mild right inguinal and right external iliac chain lymphadenopathy most likely secondary reactive lymphadenopathy although differential would include metastatic disease in the setting of known primar y malignancy. Reviewed, dictated and finalized at location A. IMPRESSION: 1. No acute cardiopulmonary disease or acute intra-abdominal/pelvic process. 2. Large region of skin thickening and subcutaneous soft tissue density with as sociated hyperemia at the right buttock most likely infectious/inflammatory in etiology although differential includes malignancy. Correlate with clinical his tory and physical exam. 3. Mild right inguinal and right external iliac chain lymphadenopathy most like ly secondary reactive lymphadenopathy although differential would include metas tatic disease in the setting of known primary malignancy.
--- OUTSIDE RECORDS SUMMARY | 2025-01-28 08:12 | XMS_ITS | Continuity of Care Document ---
Author Organization [facility] Address [address] [place] [address] Phone Care Team Providers Care Quality Internship Name Role Phone Benjie WHITE MD, Dean [...] Date Provider Providers Copied on Encounter [facility], [address] [place] [address], [id number], tel:[phone] [facility] No Information Benjie rodriguez. [address] [facility], [place], [place], [id number] , [place]. tel:[phone] [employer], [address] [place] [address], [id number], tel:[phone] [facility] No Information 4 Benjie WHITE Armaan er. [address], [address], [place], [place], [id number] , [place]. tel: [phone] [facility] [employer] [facility], [address] [facility] [address], [place], [place], [id number], [place] [phone] [facility] Lumbar (chief complaint) Low back pain, unspecified 4 Benjie Crook er. [address], [address], [place], [place], [id number] , [place]. tel: [phone] [facility] [employer] [facility], [address] [address], [place], [place], [id number], [place] tel:[phone] [facility] No Information 4 Benjie WHITE [facility] er. [address] [place] [address], [place], [place], [id number] , [place]. tel: [phone] Family History Family Member Type Diagnosis Age At Onset No Information Immunizations Vaccine Date Status Comments Pneumo (2 yrs or older)(PPV) administered Note: pt declined ; Source: Source Unspecified influenza, injectable, quadrivalent, (3 years or older) administered Note: pt declined ; Source: Source Unspecified Payers Payer name Insurance type Covered republican ID Authoriza tion(s) No Information Social History [...]
--- OUTSIDE RECORDS SUMMARY | 2025-01-28 08:12 | XMS_ITS | Referral Summary ---
Author Organization [facility] Address [address] [place] [address] Care Team Providers Care Sprayer Leather Name Role Phone Unknown, Notinfile Primary Care Provider Unavail able Encounters Date Type Department Care Team Description 01/24/2025 2:18 PM CDT - 01/24/2025 4:40 PM CDT Emergency [facility] Emergency Department [address] [place] [address] Júnior Callaway MD Nguyen, Sheila Read MD Chest pain, unspecified type (Primary Dx) Discharge Disposition: Discharge to home or self care from Last 3 Months Allergies Active Allergy Reactions Criticality Noted Date Comments Morphine Itching Low 12/02/2021 Tramadol Hives Medium 12/02/2021 Medications cyclobenzaprine (FLEXERIL) 10 mg tablet Take 1 tablet (10 mg total) by mouth 2 (two) times a day as needed for muscle spasms 20 tablet 12/03/2021 Active ibuprofen (ADVIL,MOTRIN) 400 mg tablet Take 1.5 tablets (600 mg total) by mouth every 6 (six) hours as needed for pain 120 tablet 01/24/2025 Active Social History Tobacco Use Types Packs/Day Years Used Date Smoking Tobacco: Never Assessed Personal Safety Answer Date Recorded Have you ever been in or are you currently in a harmful physical or emotional relationship or is someone making you feel afraid or unsafe? 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 Gender Identity Not on file Sexual Orientation Not on file Last Filed Vital Signs Vital Sign Reading Time Taken Comments Blood Pressure 147/91 01/24/2025 2:35 PM CDT Pulse 76 01/24/2025 2:35 PM CDT Temperature 36.1 C (96.9 F) 01/24/2025 1:02 PM CDT Respiratory Rate 16 01/24/2025 2:35 PM CDT Oxygen Saturation 98% 01/24/2025 1:02 PM CDT Inhaled Oxygen Concentration - - Weight 77.1 kg (170 lb) 01/24/2025 1:02 PM CDT Height 172 cm (5' 7.72) 01/24/2025 1:02 PM CDT Body Mass Index 26.06 01/24/2025 1:02 PM CDT Plan of Treatment Not on file Procedures Procedure Name Priority Date/Time Associated Diagnosis Comments XR CHEST PA LATERAL 2 VIEWS ED 01/24/2025 2:52 PM CDT POCT RAPID HIV ANTIBODY COMMUNITY SCREENING-STEFANY ELIGIBLE Routine 01/24/2025 2:41 PM CDT EGFR STAT 01/24/2025 2:37 PM CDT DIFFERENTIAL AUTO STAT 01/24/2025 2:3 7 PM CDT TROPONIN I HIGH-SENSITIVITY SERIES (BASELINE, 2HR, 4HR, 6HR) STAT 01/24/2025 2:37 PM CDT BASIC METABOLIC PANEL STAT 01/24/2025 2:37 PM CDT CBC WITH AUTO DIFFERENTIAL STAT 01/24/2025 2:37 PM CDT ECG 12-LEAD STAT 01/24/2025 1:46 PM CDT from Last 3 Months Results * XR Chest Pa Lateral 2 Vw (01/24/2025 2:52 PM CDT) Anatomical Region Laterality Modality Body, Chest N/A Computed Radiogr aphy 01/24/2025 4:41 PM CDT Impressions 01/24/2025 5:59 PM CDT No prior radiographs are available for comparison. The heart and mediastinal contours are normal. Small lung volumes. Peribronchial thickening suggestive of bronchitis. No consolidation or pulmonary edema. No pleural effusion or pneumothorax.. Dictated by: Zak Case M.D. The radiology attending physician has personally reviewed this study, and had reviewed and/or edited this written report and agrees with it. Electronically signed by: Noemí Cohen M.D. Narrative 01/24/2025 5:59 PM CDT EXAMINATION: 2 view chest radiograph Procedure Note Noemí Cohen MD - 01/24/2025 EXAMINATION: 2 view chest radiograph IMPRESSION: No prior radiographs are available for comparison. The heart and mediastinal contours are normal. Small lung volumes. Peribronchial thickening suggestive of bronchitis. No consolidation or pulmonary edema. No pleural effusion or pneumothorax.. Dictated by: Zak Case M.D. The radiology attending physician has personally reviewed this study, and had reviewed and/or edited this written report and agrees with it. Electronically signed by: Noemí Cohen M.D. Juvencio Gonzalez MD IMG XR PROCEDURES Fin al Result * POCT Rapid HIV Antibody Community Screening-Stefany Eligible (01/24/2025 2:41 PM CDT) [facility] Rapid HIV, POC Negative Negative Lot Number [id number] QC Control Line Acceptable Blood 01/24/2025 2:41 PM CDT us Vargas Griffiths MD POINT OF CARE TEST ORDE AVNI Final Result * Troponin I high-sensitivity series (baseline, 2hr, 4hr, 6hr) (01/24/2025 2:37 PM CDT) Trop I hs 14 <=35 ng/L Comment: Interpretive Data For further hscTnI resources including the diagnostic algorithm and an aid in interpretation, copy and paste this link: [email or web address].testcatalog.org/show/[email or web address] Current Interpretive Data last revised 2020. Blood 01/24/2025 2:37 PM CDT 01/24/2025 3:02 PM CDT Juvencio Gonzalez MD LAB BLOOD ORDERABLES Final Result [facility] [employer] [place] [address] * eGFR (01/24/2025 2:37 PM CDT) eGFR >90 >=60 mL/min/1. 73 m2 Comment: Interpretive Data Reference Interval Normal >/= 90 mL/min/1.73m2 Mildly decreased* 60 - 89 mL/min/1.73m2 Mildly to moderately decreased 45 - 59 mL/min/1.73m2 Moderately to severely decreased 30 - 44 mL/min/1.73m2 Severely decreased 15 - 29 mL/min/1.73m2 Kidney Failure < 15 mL/min/1.73m2 *Relative to young adult level Estimated glomerular filtration rate is determined by the 2020 CKD-EPI equation recommended by the National Kidney Foundation (A Unifying Approach to GFR Estimation: Recommendations of the NKF-ASK Task Force on Reassessing the Inclusion of Race in Diagnosing Kidney Disease, JASN 2020). The CKD-EPI equation should not be used for patients with unstable renal function and has not been validated in children and those over 70. Current interpretive data was last reviewed 2021. Blood 01/24/2025 2:37 PM CDT 01/24/2025 3:02 PM CDT Juvencio Gonzalez MD LAB BLOOD ORDERABLES Final Result Performing Organization Address City/[facility]/ZIP Co de Phone Number [facility] [place] [address] * Differential, auto (01/24/2025 2:37 PM CDT) Neutrophil abs 5.51 1.50 - 6.50 K/cumm Imm gran abs 0.04 0.00 - 0.10 K/cumm [facility] Lymphocyte abs 2.06 0.80 - 3.30 K/cumm [facility] Monocyte abs 0.52 0.20 - 0.80 K/cumm [facility] Eosinophil abs 0.07 0.00 - 0.50 K/cumm [facility] Basophil abs 0.03 0.00 - 0.10 K/cumm [facility] Neutrophil pct 66.9 % [facility] Comment: Interpretive Data Percent cell count reference ranges are not reported, since discordance with absolute values may lead to misinterpretation of CBC data. Current Interpretive Data was last revised on 2017. Imm gran pct 0.5 % [facility] Comment: Interpretive Data Percent cell count reference ranges are not reported, since discordance with absolute values may lead to misinterpretation of CBC data. Current Interpretive Data was last revised on 2017. Lymphocyte pct 25.0 % [facility] Comment: Interpretive Data Percent cell count reference ranges are not reported, since discordance with absolute values may lead to misinterpretation of CBC data. Current Interpretive Data was last revised on 2017. Monocyte pct 6.3 % [facility] Comment: Interpretive Data Percent cell count reference ranges are not reported, since discordance with absolute values may lead to misinterpretation of CBC data. Current Interpretive Data was last revised on 2017. Eosinophil pct 0.9 % [facility] Comment: Interpretive Data Percent cell count reference ranges are not reported, since discordance with absolute values may lead to misinterpretation of CBC data. Current Interpretive Data was last revised on 2017. Basophil pct 0.4 % [facility] Comment: Interpretive Data Percent cell count reference ranges are not reported, since discordance with absolute values may lead to misinterpretation of CBC data. Current Interpretive Data was last revised on 2017. Blood 01/24/2025 2:37 PM CDT 01/24/2025 3:02 PM CDT Juvencio Gonzalez MD LAB BLOOD ORDERABLES Final Result Performing Organization Address City/[facility]/ZIP Co de Phone Number [facility] Department [place] [address] * (ABNORMAL) CBC with auto differential (01/24/2025 2:37 PM CDT) [facility] WBC 8.23 3.80 - 9.90 K/cumm Hgb 12.3(L) 13.0 - 17.5 g/dL [facility] Hct 36.3(L) 38.9 - 50.3 % [facility] Plt 331 150 - 400 K/cumm [facility] MPV 8.3(L) 9.1 - 12.[address] [facility] RBC 4.16(L) 4.30 - 5.80 M/cumm [facility] MCV 87.3 81.3 - 96.[address] [facility] MCH 29.6 27.1 - 33.[address] [facility] MCHC 33.9 32.3 - 35.7 g/dL [facility] RDW CV 15.2(H) 11.1 - 14.9 % [facility] RDW SD 48.9(H) 35.7 - 48.[address] [facility] NRBC abs 0.02(H) 0.00 - 0.01 K/cumm [facility] Blood 01/24/2025 2:37 PM CDT 01/24/2025 3:02 PM CDT Juvencio Gonzalez MD LAB BLOOD ORDERABLES Final Result [facility] Department of Laboratories [place], [place] [id number] * (ABNORMAL) Basic metabolic panel (01/24/2025 2:37 PM CDT) Pathologist [facility] Sodium 140 135 - 145 mmol/L Potassium, pl 3.9 3.3 - 4.9 mmol/L [facility] Chloride 103 97 - 110 mmol/L [facility] CO2 29 22 - 32 mmol/L [facility] Anion gap 8 2 - 15 mmol/L [facility] BUN 8 6 - 25 mg/dL [facility] Creatinine 0.77(L) 0.80 - 1.30 mg/dL [facility] Glucose 89 70 - 199 mg/dL [facility] Comment: Interpretive Data Fasting glucose >/= 126 mg/dl is diagnostic for diabetes. Fasting is defined as no caloric intake for at least 8 hours. Fasting glucose between 100 mg/dl to 125 mg/dl is diagnostic of prediabetes. In a patient with classic symptoms of hyperglycemia or hyperglycemic crisis, a random glucose >/= 200 mg/dl is diagnostic for diabetes. In the absence of unequivocal hyperglycemia, results should be confirmed by repeat testing. The classification and Diagnosis of Diabetes Diabetes Care 2021; 46: S19-S40. Current interpretive data was last revised 2022. Calcium 9.3 8.5 - 10.3 mg/dL [facility] Blood 01/24/2025 2:37 PM CDT 01/24/2025 3:02 PM CDT Juvencio Gonzalez MD LAB BLOOD ORDERABLES Final Result [facility] [place] [address] * ECG 12-LEAD (01/24/2025 1:46 PM CDT) Narrative [facility] - 01/24/2025 1:46 PM CDT Te Morgan MD 01/24/2025 1:46 PM ECG 12 lead Date/Time: 01/24/2025 1:46 PM Performed by: Te Morgan MD Authorized by: Ximena Parker MD Rate: ECG rate: 82 beats per minute ECG rate assessment: normal Rhythm: Rhythm: sinus rhythm Ectopy: Ectopy: none QRS: QRS axis: Normal QRS intervals: Normal Conduction: Conduction: normal ST segments: ST segments: Normal T waves: T waves: normal Previous ECG: Previous ECG: Unavailable Interpretation: Interpretation: No acute injury pattern Recommended Follow-up: Recommended follow up: further workup in the ED us Júnior Callaway MD ECG ORDERABLES Final Result [facility] from Last 3 Months Insurance [facility] Care Teams Sprayer Leather Relationship Specialty Start Date End Date Unknown, Notinfile PCP - General 07/05/17
--- OUTSIDE RECORDS SUMMARY | 2025-01-28 08:12 | XMS_ITS | Clinical Summary ---
Author Organization [facility] Address [address] [place] [address] Care Team Providers Care Dental Professional Name Role Phone Unavailable Primary Care Provider Unavailabl e Source Comments [facility],non-owned Affiliates and Associated Physician Practices is amultiple site organization consisting of ambulatory clinics and hospital sitesin [place], [place], [place] and [place]. This disclosure is being madepursuant to the Care Everywhere program and may not contain all information available regarding this patient. Last updated 18.[facility] Allergies Active Allergy Reactions Criticality Noted Date Comments Morphine Urticaria Medium 07/23/2018 Sulfamethoxazole W-Trimethoprim Urticaria Medium 11/29 Tramadol Urticaria Medium 07/23/2018 Medications * Be aware that medications may not be up to date on this document. Alwaysverify current medications with the patient. HYDROcodone-acet aminophen (NORCO) 5-325 MG tablet Take 1 tablet by mouth every 4 hours as needed for Pain 12 tablet 0 Active amLODIPine (Norvasc) 10 MG tablet Take 1 (one) tablet by mouth 3 Active clobetasol (Temovate) 0.05 % ointment 3 Active doxycycline monohydrate 100 MG capsuleIndicatio ns:Hidradenitis suppurativa TAKE 1 CAPSULE BY MOUTH EVERY 12 HOURS 180 capsule 1 4 Active doxycycline hyclate 100 MG tabletIndication s:Hidradenitis suppurativa Take 1 (one) tablet by mouth every 12 hours 60 tablet 11 5 Active clindamycin (Cleocin T) 1 % solutionIndicati ons:Hidradenitis suppurativa Apply to affected area 2 times daily 60 mL 5 Active clindamycin (Cleocin) 1 % lotionIndication s:Hidradenitis suppurativa Apply to affected area on buttock daily. 30 day supply. 60 mL 11 5 Active Active Problems Problem Noted Date Diagnosed Date Eczema 04/24/2022 07/28/2023 History of sickle cell anemia 12/05/2021 Hidradenitis suppurativa 11/03/2019 Overview (11/03/2019): 34 y/o male with persistent induration and sinus tracts of hidradenitis in right buttocks. Patient has had the area I&D'd previously and still has induration of 5 cm x 4 cm x 1 cm. Three sinus tract openings in which a small amount of purulence can be expressed. The rest of the are is indurated without fluctuance. Lb Mcgill MD 11/03/2019 9:54 AM Dept. Of Surgery, [facility] phone: [phone] Beeper: [phone] Abscess 09/01/2019 Overview (09/01/2019): 33 y/o male with chronic right medial buttocks abscess with significant induration who he states has been present for ~5 years--a carbuncle/folliculitis with induration and sinus tracts. Area of involvement with induration 8 cm x 8 cm x 4 cm (deep). Obtained a permit. Infiltrated area with 1% lidocaine, opened up two area overlying cavities (depth ~4 cm), irrigated, and packed with iodoform. Patient has been instructed to begin sitting in bath in warm water tomorrow and then twice or three times a day for ~10 minutes. First bath, removed iodoform from both areas. After bath, pat dry, and dress with 4x4s, ABDs, and medipore tape. Lb Mcgill MD 09/01/2019 10:10 AM Dept. Of Surgery, [facility] phone: [phone] Beeper: [phone] Encounters Date Type Department Care Team Description 12/22/2024 Telephone [facility] - Dermatology [address] [place] [id number] Zak Elliott MD Med Question 12/21/2024 1:30 PM CDT Office Visit [facility] - Dermatology [address] [place] [phone] Colin Alvarez MD Hidradenitis suppurativa (Primary Dx); Other acne 12/21/2024 Travel 11/22/2024 Telephone [facility] - Dermatology [address] [place] [phone] Colin Alvarez MD Question from Last 3 Months Social History Tobacco Use Types Packs/Day Years Used Date Smoking Tobacco: Every Day Cigarettes Smokeless Tobacco: Never Alcohol Use Standard Drinks/Week Comments Yes 0 (1 standard drink = 0.6 oz pur e alcohol) occasionally Sex and Gender Information Value Date Recorded Sex Assigned at Not on file Legal Sex Male 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 Gender Identity Not on file Sexual Orientation Not on file Last Filed Vital Signs Vital Sign Reading Time Taken Comments Blood Pressure 121/74 11/03/2019 9:10 AM PAINTER SPRAY Pulse 77 11/03/2019 9:10 AM PAINTER SPRAY Temperature 36.2 C (97.1 F) 11/03/2019 9:10 AM PAINTER SPRAY Respiratory Rate 18 07/31/2019 5:24 PM PAINTER SPRAY Oxygen Saturation 96% 11/03/2019 9:10 AM PAINTER SPRAY Inhaled Oxygen Concentration - - Weight 71.7 kg (158 lb) 11/03/2019 9:10 AM PAINTER SPRAY Height 170.2 cm (5' 7) 11/03/2019 9:10 AM PAINTER SPRAY Body Mass Index 24.75 11/03/2019 9:10 AM PAINTER SPRAY Plan of Treatment Health Maintenance Due Date Last Done Comments HIV SCREENING 2002 HEPATITIS C SCREENING 09/14/2005 DTAP/TDAP/TD VACCINES (1 - Tdap) 2006 HEPATITIS B VACCINE (1 of 3 - 19+ 3-dose series) 2006 PNEUMOCOCCAL VACCINE (1 of 2 - PCV) 2006 COVID-19 VACCINE (3 - 2023-2 5 season) 2024 06/12/2021, 03/22/2021 DEPRESSION SCREENING 08/30/2024 INFLUENZA VACCINE (Season Ended) 2025 02/18/2024 ZOSTER VACCINE (1 of 2) 2037 HIB VACCINE Aged Out No longer eligi ble based on patient's age to complete this topic HPV VACCINE Aged Out No longer eligi ble based on patient's age to complete this topic MENINGOCOCCAL (Group B) VACCINE SHARED DECISION-MAKING Aged Out No longer eligible based on patient's age to complete this topic MENINGOCOCCAL GROUPS A/C/Y/W VACCINE Aged Out No longer eligible b ased on patient's age to complete this topic Insurance [facility]
--- OUTSIDE RECORDS SUMMARY | 2025-01-28 08:12 | XMS_ITS | Clinical Summary ---
Author Organization [facility] Address [address] [place] [address] Care Team Providers Care Bulb Brander Name Role Phone Unavailable Primary Care Provider Unavailabl e Immunizations Immunization Administration Dates Next Due Covid-19, Mrna, Lnp-s, Pf, 30 Mcg/0.3 Ml Dose (P rosy) 06/12/2021 Social History Tobacco Use Types Packs/Day Years Used Date Smoking Tobacco: Never Assessed Sex and Gender Information Value Date Recorded Sex Assigned at Not on file Legal Sex Male 9:20 AM CDT Gender Identity Not on file Sexual Orientation Not on file Plan of Treatment Health Maintenance Due Date Last Done Comments Hepatitis C Virus (HCV) Screening 1987 TdaP Immunization 1987 Influenza Immunization (#1) 2024 SARS-COV-2 Immunization ( season) 2024 06/12/2021, 03/22/2021 Respiratory Syncytial Virus (RSV) Immunization (Adult) (1 - 1-dose 75+ series) 2062 DTaP/Tdap/Td Immunization Discontinued 1995, 08/28/1993, 07/04/1990, Additional history exists Hepatitis B Immunization Completed 997, 06/12/1996, 03/23/1996 Meningococcal Immunization (ACWY) Aged Out No longer eligible based on patient's age to complete this topic Pneumococcal Immunization Combined Aged Out No longer eligible based on patient's age to complete this topic Rotavirus Immunization Aged Out No lo nger eligible based on patient's age to complete this topic
--- OUTSIDE RECORDS SUMMARY | 2025-01-28 08:12 | XMS_ITS | Clinical Summary ---
Author Organization [facility] Address [address] [place] [address] Care Team Providers Care Desilverizer Name Role Phone Unknown, Notinfile Primary Care Provider Unavail able Allergies Active Allergy Reactions Criticality Noted Date [...] needed for pain 120 tablet 01/24/2025 Active Encounters Date Type Department Care Team Description 01/24/2025 2:18 PM CDT - 01/24/2025 4:40 PM CDT Emergency [facility] Emergency Department [address] [place] [address] Júnior Callaway MD Nguyen, Kim-Long Richard, MD Chest pain, unspecified type (Primary Dx) Discharge Disposition: Discharge to home or self care from Last 3 Months Social History Tobacco [...] on file 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 Gender Identity Not on file Sexual Orientation Not on file Obstetrics History Last Filed Vital Signs Vital Sign Reading [...] 01/24/2025 1:02 PM CDT Plan of Treatment Health Maintenance Due Date Last Done Comments Depression Screening 1987 Hepatitis C Screening 1987 Varicella Vaccines (1 of 2 - 13+ 2-dose series) 2000 Regular Well Visit/Exam 18-64 2005 Covid-19 Vaccine ( - season) 2024 06/12/2021, 03/22/2021 Influenza Vaccine (Season Ended) 2025 02/18/2024 DTaP/Tdap/Td Vaccine (7 - Td or Tdap) 06/18/2032 06/18/2022, 03/23/1996, 08/28/1993, Additional history exists Hepatitis B Screening Completed 11/06/1996 , 11/06/1996, 06/12/1996, Additional history exists Pneumococcal vaccine <65 Aged Out 02/18/2024 No longer eligible based on patient's age to complete this topic HPV Vaccines Aged Out No longer eligi ble based on patient's age to complete this topic Procedures Procedure Name Priority Date/Time Associated Diagnosis [...] pleural effusion or pneumothorax.. Dictated by: Zak Case, M.D. The radiology attending physician has personally reviewed this study, and had reviewed and/or edited this written report and agrees with it. Electronically signed by: Noemí Cohen M.D. us Juvencio Gonzalez MD IMG XR PROCEDURES Fin al Result * POCT Rapid HIV Antibody Community Screening-Stefany Eligible (01/24/2025 2:41 PM CDT) Pathologist [facility] Rapid HIV, POC Negative Negative Lot Number [id number] QC Control Line Acceptable Blood 01/24/2025 2:41 PM CDT Vargas Griffiths MD POINT OF CARE TEST ORDE AVNI Final Result * Troponin I high-sensitivity series (baseline, 2hr, 4hr, 6hr) (01/24/2025 2:37 PM CDT) [facility] Trop I hs 14 <=35 ng/L Comment: Interpretive Data For further hscTnI resources including the diagnostic algorithm and an aid in interpretation, copy and paste this link: https://bjhlab.testcatalog.org/show/[email or web address] Current Interpretive Data last revised 2020. Blood 01/24/2025 2:37 PM CDT 01/24/2025 3:02 PM CDT Juvencio Gonzalez MD LAB BLOOD ORDERABLES Final Result Performing Organization Address City/State/ZIP Co ok Phone Number [facility] [place] [address] * eGFR (01/24/2025 2:37 PM CDT) [facility] eGFR >90 >=60 mL/min/1. 73 m2 Comment: [...] 2:37 PM CDT 01/24/2025 3:02 PM CDT us Juvencio Gonzalez MD LAB BLOOD ORDERABLES Final Result [facility] [place] [address] * Differential, auto (01/24/2025 2:37 PM CDT) Pathologist [facility] Neutrophil abs 5.51 1.50 - 6.50 K/cumm Imm gran abs 0.04 0.00 - 0.10 K/cumm [facility] Lymphocyte abs 2.06 0.80 - 3.30 K/cumm [facility] Monocyte abs 0.52 0.20 - 0.80 K/cumm [facility] Eosinophil abs 0.07 0.00 - 0.50 K/cumm [facility] Basophil abs 0.03 0.00 - 0.10 K/cumm [facility] Neutrophil pct 66.9 % [facility] Comment: Interpretive Data Percent cell count reference ranges are not reported, since discordance with absolute values may lead to misinterpretation of CBC data. Current Interpretive Data was last revised on 2017. Imm gran pct 0.5 % [facility] Comment: Interpretive Data Percent cell count reference ranges are not reported, since discordance with absolute values may lead to misinterpretation of CBC data. Current Interpretive Data was last revised on 2017. Lymphocyte pct 25.0 % [facility] Comment: Interpretive Data Percent cell count reference ranges are not reported, since discordance with absolute values may lead to misinterpretation of CBC data. Current Interpretive Data was last revised on 2017. Monocyte pct 6.3 % [facility] Comment: Interpretive Data Percent cell count reference ranges are not reported, since discordance with absolute values may lead to misinterpretation of CBC data. Current Interpretive Data was last revised on 2017. Eosinophil pct 0.9 % [facility] Comment: Interpretive Data Percent cell count reference ranges are not reported, since discordance with absolute values may lead to misinterpretation of CBC data. Current Interpretive Data was last revised on 2017. Basophil pct 0.4 % [facility] Comment: Interpretive Data Percent cell count reference ranges are not reported, since discordance with absolute values may lead to misinterpretation of CBC data. Current Interpretive Data was last revised on 2017. Blood 01/24/2025 2:37 PM CDT 01/24/2025 3:02 PM CDT Juvencio Gonzalez MD LAB BLOOD ORDERABLES Final Result [facility] [place] [address] * (ABNORMAL) CBC with auto differential (01/24/2025 2:37 PM CDT) WBC 8.23 3.80 - 9.90 K/cumm Hgb 12.3(L) 13.0 - 17.5 g/dL [facility] Hct 36.3(L) 38.9 - 50.3 % [facility] Plt 331 150 - 400 K/cumm [facility] MPV 8.3(L) 9.1 - 12.3 fL [facility] RBC 4.16(L) 4.30 - 5.80 M/cumm [facility] MCV 87.3 81.3 - 96.4 fL [facility] MCH 29.6 27.1 - 33.3 pg [facility] MCHC 33.9 32.3 - 35.7 g/dL [facility] RDW CV 15.2(H) 11.1 - 14.9 % [facility] RDW SD 48.9(H) 35.7 - 48.1 fL [facility] NRBC abs 0.02(H) 0.00 - 0.01 K/cumm [facility] Blood 01/24/2025 2:37 PM CDT 01/24/2025 3:02 PM CDT Juvencio Gonzalez MD LAB BLOOD ORDERABLES Final Result [facility] [place] [address] * (ABNORMAL) Basic metabolic panel (01/24/2025 2:37 PM CDT) Sodium 140 135 - 145 mmol/L Potassium, pl 3.9 3.3 - 4.9 mmol/L [facility] Chloride 103 97 - 110 mmol/L [facility] CO2 29 22 - 32 mmol/L [facility] Anion gap 8 2 - 15 mmol/L [facility] BUN 8 6 - 25 mg/dL [facility] Creatinine 0.77(L) 0.80 - 1.30 mg/dL [facility] Glucose 89 70 - 199 mg/dL [facility] Comment: Interpretive Data Fasting glucose >/= 126 [...] 2022. Calcium 9.3 8.5 - 10.3 mg/dL [facility] Blood 01/24/2025 2:37 PM CDT 01/24/2025 3:02 PM CDT Juvnecio Gonzalez MD LAB BLOOD ORDERABLES Final Result [facility] [place] [address] * ECG 12-LEAD (01/24/2025 1:46 PM CDT) Narrative [facility] - 01/24/2025 1:46 PM CDT Te [...] Júnior Callaway MD ECG ORDERABLES Final Result [facility] from Last 3 Months Insurance [facility] Care Teams Desilverizer Relationship Specialty Start Date End Date Unknown, Notinfile PCP - General 07/05/17
--- OUTSIDE RECORDS SUMMARY | 2025-01-28 08:12 | XMS_ITS | CONTINUITY OF CARE DOCUMENT ---
Author Name stacey ibarra Address Unknown Organization [facility] Address [address] [place] [address] Phone [phone] Care Team Providers Care Bridge Engineer Name Role Phone David Sosa MD Unavailable [phone] David Sosa MD Unavailable [phone] INSURANCE PROVIDERS Payer name Policy type / Coverage type Tommie red green party ID [place] [employer] Medicaid [id number]
--- OUTSIDE RECORDS SUMMARY | 2025-01-28 08:13 | XMS_ITS | Data Portability ---
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 Continue regimen. had imaging done at imaging place in [place] d/t increasing hip pain. Having such now and requesting records Signs and symptoms of when to seek further care reviewed with patient/caregive r/family/facilit y staff. Patient to follow up with primary care provider or return to clinic for any worsening signs and symptoms. Always present to ER or Urgent Care with any progression of/alarming symptoms, significant changes in symptoms or any concerning or urgent matters. Patient/caregive r/family/facilit y staff verbalized agreement and understanding of treatment plan. F/U 6 months, sooner if needed My total encounter time was 30 minutes which was spent in the activities documented in the note. This includes time spent prior to the visit, performing a medically appropriate examination with evaluation, and after the visit in direct care of the patient (history and exam; ordering prescriptions/la bs/imaging/home health/therapy/s pecialists; communicating results to patient and/or other relative individuals; counseling/educa ting patient; documenting clinical information in patient s chart; coordination of care for the patient). This time does not include time spent in any separately reportable services. Not available 08/05/2023 12:39:39 11/29/2023 11/29/2023 Medication Changes labs taken. BP doing good on medication. Signs and symptoms of when to seek further care reviewed with patient/caregive r/family/facilit y staff. Patient to follow up with primary care provider or return to clinic for any worsening signs and symptoms. Always present to ER or Urgent Care with any progression of/alarming symptoms, significant changes in symptoms or any concerning or urgent matters. Patient/caregive r/family/facilit y staff verbalized agreement and understanding of treatment plan. F/U 6 months, sooner if needed [email or web address] Not available 11/29/2023 15:06:04 02/22/2024 02/22/2024 Medication Changes Doxycycline - Antibiotics are used to decrease inflammation in acne. - You can take this medication with food but avoid milk and milk products an hour or so before and after you take doxycycline. - Taking with food can decrease the chances of getting nausea and/or heartburn. - Common side effects: - Do not lie down for 1 hour after you take the medication because it can irritate your esophagus (swallowing tube). - Up to 40% of patients on become more sensitive to the sun than before and therefore could sunburn easier. The higher the dose, the higher the risk. Please practice good sun protection and reapply sunblock frequently. Hidradenitis Suppurativa Hidradenitis suppurativa (or-afdw-bd-NI-t is mmz-r-oj-TI-va, HS) is a chronic skin inflammation in the skin around oil (sebaceous) glands and hair follicles featuring blackheads and one or more red, tender bumps. The bumps often enlarge, break open and drain pus. Scarring may result after several recurrences. Some consider HS to be a severe form of acne, because acne also involves sebaceous glands and people with HS often have acne. The cause of HS is unclear, but a number of factors -- including hormones, genetics, cigarette smoking and excess weight -- may all play a role. Based on what's currently known, the other following factors are more commonly associated with the disease: Being female. Women are more likely to develop hidradenitis suppurativa. Why this occurs is unknown. Being between puberty and age 40. Hidradenitis suppurativa rarely affects children, but can occur in adults older than 40. Family history. Having a family history of hidradenitis suppurativa increases your risk of developing the disease. Treatments depend on the extent of the affected areas and whether the sores are painful or infected. Mild cases can be controlled with prevention and self-care measures, but these are safe approaches that can help anyone with HS. These include: low glycemic diet and weight loss avoid exposure to cigarette smoke warm compresses regular use of a gentle antibacterial cleansing product minimize friction avoid complex topical products (e.g. scented deodorants) Moderate-severe cases may require medications, such as those applied directly to affected areas (topical medications) or those you take by mouth (oral medications). Possible medications include: Antibiotics (e.g. doxycycline) taken on a daily basis. If standard-dose doxycycline causes stomache upset, alternative formulations might be more well-tolerated: 20 mg twice a day, or a long-acting/ente miguel ángel-coated product (e.g. Acticlate). Note: these products can be more expensive. Oral retinoid medication (e.g. isotretinoin); this medication is a very effective treatment for severe acne, less so for HS. It is taken once a day for several months and requires regular blood test monitoring. Nonsteroidal anti-inflammator y drugs (e.g. Advil, Aleve, and/or Motrin) taken as needed to help alleviate pain and swelling. Biologics (e.g. anti-tumor necrosis factor- alpha medications Enbrel, Humira or Remicade; anti-IL1 medications anakinra or canakinumab; anti IL-12/23 ustekinumab). These newer medications show promise in the treatment of HS but are very expensive and may not be covered by insurance. Hormonal therapy (e.g. control pills such as Twyla); this type of medication may be most helpful for young women who also have infrequent and irregular periods, and also helps acne. For severe or persistent cases or for deep lesions, surgical treatment is an option. Incision and drainage. Surgical drainage or removal of the lesions may be an option when the disease involves a single small area. However, this treatment won't prevent the disease from returning and is generally used for short-term relief. Uncovering the tunnels or tracts. Cutting away skin and flesh that cover any tunnels or tracts can increase healing of the lesions and minimize scarring. This doesn't prevent the disease from returning in the treated area or another area of the body, however. Surgical removal. Surgical treatment of recurrent or severe symptoms involves removal of all involved skin followed by direct closure with skin flaps or with skin grafting (removing skin from one area of your body and attaching it to another). Full surgical removal of the affected areas can treat the disease that is present but doesn't prevent the disease from occurring in other areas. Liposuction. Surgical suction removal of affected glands is a newer of treatment that may be effective. Insurance rarely covers this procedure. Signs and symptoms of when to seek further care reviewed with patient/caregive r/family/facilit y staff. Patient to follow up with primary care provider or return to clinic for any worsening signs and symptoms. Always present to ER or Urgent Care with any progression of/alarming symptoms, significant changes in symptoms or any concerning or urgent matters. Patient/caregive r/family/facilit y staff verbalized agreement and understanding of treatment plan. F/U 6 months, sooner if needed My total encounter time was 30 minutes which was spent in the activities documented in the note. This includes time spent prior to the visit, performing a medically appropriate examination with evaluation, and after the visit in direct care of the patient (history and exam; ordering prescriptions/la bs/imaging/home health/therapy/s pecialists; communicating results to patient and/or other relative individuals; counseling/educa ting patient; documenting clinical information in patient s chart; coordination of care for the patient). This time does not include time spent in any separately reportable services. [email or web address] Not available 02/22/2024 18:57:22 09/11/2024 09/11/2024 Eczema flare-up: - Patient reports a recent severe flare-up with involvement of arms, back, and stomach, causing skin pain. - Prescribed six refills of clobetasol cream. Patient reported improvement within 2 days of using the medication. Hidradenitis suppurativa: - Patient completed six months of doxycycline treatment. - Instructed the patient to call [facility] for a follow-up appointment with dermatology to discuss further treatment options, including potential new medications. Number for [facility] given to Sorin. Hypertension: - Patient reports high blood pressure during a recent visit to a surgeon in [place]. Current BP reading of 128/85 noted as acceptable. - Continue amlodipine for blood pressure management. Encouraged the patient to follow up with the specialist and surgeon for workers' comp-related issues. Pain management: - Follow up with specialist regarding pain. Sleep disturbance: - Patient reports difficulty sleeping, staying up for 3 days at a time, and taking melatonin 10 mg without success. - Instructed the patient to take melatonin 2-3 hours before bedtime to allow time for it to take effect. Encouraged the patient to establish a consistent sleep schedule. Workers' compensation: - Patient reports winning their case, with a 30-day appeal period in effect. - Advised the patient to follow up with the workers' comp doctor and surgeon regarding ongoing pain management and potential surgery. No medication changes Signs and symptoms of when to seek further care reviewed with patient/caregive r/family/facilit y staff. Patient to follow up with primary care provider or return to clinic for any worsening signs and symptoms. Always present to ER or Urgent Care with any progression of/alarming symptoms, significant changes in symptoms or any concerning or urgent matters. Patient/caregive r/family/facilit y staff verbalized agreement and understanding of treatment plan. F/U 6 months, sooner if needed My total encounter time was 30 minutes which was spent in the activities documented in the note. This includes time spent prior to the visit, performing a medically appropriate examination with evaluation, and after the visit in direct care of the patient (history and exam; ordering prescriptions/la bs/imaging/home health/therapy/s pecialists; communicating results to patient and/or other relative individuals; counseling/educa ting patient; documenting clinical information in patient s chart; coordination of care for the patient). This time does not include time spent in any separately reportable services. [email or web address] Not available 09/11/2024 16:39:19 11/28/2024 11/28/2024 Hypertension: - Patient reports elevated blood pressure (170/101 mmHg) on the day of scheduled surgery, leading to cancellation. - Taking amlodipine as prescribed. - Blood pressure readings have been variable, with recent home readings of 170/90 mmHg, but in-office measurement today was 109/72. - Previous clinic visits and ER visits have shown normal blood pressure readings. - Elevated blood pressure may be related to pre-surgical anxiety or stress. - Continue current amlodipine regimen. - Advise patient to follow up with surgical team to reschedule surgery. - Recommend home blood pressure monitoring and keeping a log. - Educate on stress management techniques. Headaches - Recommend combination of Tylenol and Aleve (naproxen) for pain management. - Educate patient on migraine triggers and lifestyle modifications. Decrease stress - Consider prophylactic treatment if worsens. Return to office if no improvement. Signs and symptoms of when to seek further care reviewed with patient/caregive r/family/facilit y staff. Patient to follow up with primary care provider or return to clinic for any worsening signs and symptoms. Always present to ER or Urgent Care with any progression of/alarming symptoms, significant changes in symptoms or any concerning or urgent matters. Patient/caregive r/family/facilit y staff verbalized agreement and understanding of treatment plan. F/U as directed, sooner if needed My total encounter time was 30-39 minutes which was spent in the activities documented in the note. This includes time spent prior to the visit, performing a medically appropriate examination with evaluation, and after the visit in direct care of the patient (history and exam; ordering prescriptions/la bs/imaging/home health/therapy/s pecialists; communicating results to patient and/or other relative individuals; counseling/educa ting patient; documenting clinical information in patient s chart; coordination of care for the patient). This time does not include time spent in any separately reportable services. [email or web address] Not available 11/28/2024 15:46:30 Plan of Treatment Reminders Order Date Submit Date Provider Last Modified By Organization Details Last Modified Time Details Appointments F/U 15 - Primary Care 2024 01:55P M Crystal Stone, ACTIVITY DIRECTOR-BC Not available Not available Not available Lab CMP, serum or plasma 2024 025 [facility], [address] [place], [address], 09/12/2024 12:28:43 CBC 2024 025 [email or web address] [facility], [address] [place], [address], 09/12/2024 12:36:37 magnesium , serum or plasma 2024 025 [email or web address], [address] [place], [address], 09/12/2024 12:28:42 CMP, serum or plasma 2023 024 [email or web address] [facility], [address] [place] [address], [id number], 11/30/2023 09:53:22 magnesium , serum or plasma 2023 024 [facility], [address] [place] [address], [id number], 11/30/2023 09:53:21 CBC 2023 024 [facility], [address] [place] [address], [id number], 11/30/2023 08:05:54 HIV 1+2 Ab + HIV1 p24 Ag, quantitat christine immunoass ay, serum 2023 024 [email or web address] [facility], [address] [place] [address], [id number], 11/30/2023 11:41:50 RPR (rapid plasma reagin), serum 2023 024 [facility], [address] [place] [address], [id number], 11/30/2023 12:06:01 genetic screen, unspecifi ed specimen 2023 024 [facility], [address], [address], 12/01/2023 08:26:31 lipid panel, serum 2023 024 [email or web address], [address] [place] [address], [address], 11/30/2023 09:53:20 HbA1c (hemoglob in A1c), blood 2023 024 [email or web address], [address] [place], [address], 11/30/2023 11:24:34 TSH, serum or plasma 2023 024 [email or web address] [facility], [address] [place] [address], [address], 11/30/2023 11:41:51 vitamin D, 25-hydrox y, total, serum 2023 024 [email or web address] [facility], [address] [place] [address], [id number], 11/30/2023 10:56:59 vitamin B12 + folate, serum or blood 2023 024 [email or web address], [address] [place] [address], [id number], 11/30/2023 11:41:50 iron + TIBC + ferritin, serum 2023 024 [email or web address] [facility], [address] [place] [address], [id number], 11/30/2023 09:53:20 Referral None recorded. Procedures None recorded. Surgeries None recorded. Imaging None recorded. Medication Orders amlodipin e 10 mg tablet 2024 025 [facility] #[facility]365, [address] [place], [place], [id number], 09/11/2024 15:16:58 clobetaso l 0.05 % topical ointment 2024 025 [facility]92445, [address] [place], [place], [id number], 09/11/2024 15:16:26 doxycycli ne hyclate 100 mg tablet 2023 025 ahmet Bryan [facility] #87853, [address] [place] [address], [id number], 11/28/2024 14:11:52 amlodipin e 10 mg tablet 2023 024 [facility] #00243, [address] [place] [address], [id number], 02/22/2024 19:00:05 clobetaso l 0.05 % topical ointment 2023 024 [facility] #90517, [address], [place], [id number], 02/22/2024 19:00:06 amlodipin e 10 mg tablet 2023 024 [facility] #82618, [address], [place], [id number], 11/29/2023 15:59:59 amlodipin e 10 mg tablet [address] [facility] #[facility]313, [address] [place] [address], [id number], 08/05/2023 12:00:40 Patient TargetsNo targets recorded. Patient Instructions Encounter Date Encounter Id Patient Instructions Last Modified By Organization Details Last Modified Time 11/29/2023 [id number] safer sex: care instructions Not available 11/29/2023 15:07:09 resistance training with free weights: exercises [email or web address] Not available 11/29/2023 15:07:09 learning about dietary guidelines [email or web address] Not available 11/29/2023 15:07:10 nutrition tips - healthy start on eating smart [email or web address] Not available 11/29/2023 15:07:09 Reason for Referral None Reported. Results Created Date Observation Date Name Description Value Unit Range Abnormal Flag Note LastModifiedBy Organization Detail LastModifiedTime 11/29/19 24 11/30/2023 IRON, TIBC AND SAURAV TIN PANEL iron, total 92 mcg/d L 50-180 normal Not Available [address], [address], 11/30/2023 12:01:59 11/29/19 24 11/30/2023 IRON, TIBC AND SAURAV TIN PANEL iron binding capacity 259 mcg/d L_(ca lc) 250-42 5 normal Not Available [address], [address], 11/30/2023 12:01:59 11/29/19 24 11/30/2023 IRON, TIBC AND SAURAV TIN PANEL % saturation 36 %_(ca lc) 20-48 normal Not Available [address], [address], 11/30/2023 12:01:59 11/29/19 24 11/30/2023 IRON, TIBC AND SAURAV TIN PANEL ferritin 61 NG/mL 38-380 normal Not Available [address], [address], 11/30/2023 12:01:59 11/29/19 24 11/30/2023 LIPID PANEL , STAND PATY cholesterol, total 172 mg/dL <200 normal Not Available [address], [address], 11/30/2023 10:53:24 11/29/19 24 11/30/2023 LIPID PANEL , STAND PATY HDL cholesterol 59 mg/dL > or = 40 normal Not Available [address], [address], 11/30/2023 10:53:24 11/29/19 24 11/30/2023 LIPID PANEL , STAND PATY triglyceride s 145 mg/dL <150 normal Not Available [address], [address], 11/30/2023 10:53:24 11/29/19 24 11/30/2023 LIPID PANEL , STAND PATY LDL-choleste rol 88 mg/dL _(avtar c) normal Refer ence range : <100 Wilder able range <100 mg/dL for prima ry preve ntion ; <70 mg/dL for patie nts with CHD or diabe tic patie nts with > or = 2 CHD risk facto rs. LDL-C is now calcu lated using the Mel n-Hop kins calcu latio n, which is a valid ated novel metho d provi ding sierra r accur acy than the Fried ricardo equat ion in the estim ation of LDL-C . Mel miles SS et al. BRANDI. 2013; 310(1 9): 2061- 2068 (http ://ed ucati on.[employer]. Tu Otro Super/f aq/FA Q164) Not Available [facility] [address] [address] [place], [address], 11/30/2023 10:53:24 11/29/19 24 11/30/2023 LIPID PANEL , STAND PATY chol/HDLC ratio 2.9 (calc ) <5.0 normal Not Available [facility] [address] [place], [address], 11/30/2023 10:53:24 11/29/19 24 11/30/2023 LIPID PANEL , STAND PATY non HDL cholesterol 113 mg/dL _(avtar c) <130 normal For patie nts with diabe wayne plus 1 major ASCVD risk facto r, treat ing to a non-H DL-C goal of <100 mg/dL (LDL- C of <70 mg/dL ) is makenzie earl c optio n. Not Available [facility] [address] [place], [address], 11/30/2023 10:53:24 11/29/19 24 11/30/2023 HIV 1/2 ANTIG EN/AN TIBOD Y,FOU RTH GENER ATION W/RFL HIV Ag/Ab, 4TH gen NON-RE ACTIVE non-re active normal HIV-1 antig en and HIV-1 /HIV- 2 antib odies were not detec marine. There is no labor atory evide nce of HIV infec tion. PLEAS E NOTE: This infor matio n has been discl osed to you from recor ds whose confi denti ality may be prote cted by state law. If your state requi res such prote ction , then the state law prohi bits you from jairo belcher lara furth er discl osure of the infor matio n witho ut the speci fic writt en conse nt of the perso n to whom it perta ins, or as other manning permi tted by law. A gener al autho rizat ion for the relea se of medic al or other infor matio n is NOT suffi cient for this purpo se. For addit ional infor matio n pleas e refer to http: //[facility] brad bergque stdia gnost ics.c om/fa q/FAQ 106 (This link is being provi ded for infor matio nal/ educa nazario l purpo ses only. ) The perfo rmanc e of this assay has not been clini usman valid ated in patie nts less than 2 years old. Not Available [address] [address] [place], [address], 11/30/2023 12:02:05 11/29/19 24 11/30/2023 MAGNE SIUM magnesium 1.8 mg/dL 1.5-2. 5 normal Not Available [facility] [address] [address] [place], [address], 11/30/2023 10:53:25 11/29/19 24 11/30/2023 COMPR EHENS CHRISTINE METAB OLIC PANEL glucose 88 mg/dL 65-99 normal Fasti ng refer ence inter yun Not Available [facility] [address] [address] [place], [address], 11/30/2023 10:53:26 11/29/19 24 11/30/2023 COMPR EHENS CHRISTINE METAB OLIC PANEL urea nitrogen (BUN) 9 mg/dL 7-25 normal Not Available [address], [address], 11/30/2023 10:53:26 11/29/19 24 11/30/2023 COMPR EHENS CHRISTINE METAB OLIC PANEL creatinine 0.94 mg/dL 0.60-1 .26 normal Not Available [address], [address], 11/30/2023 10:53:26 11/29/19 24 11/30/2023 COMPR EHENS CHRISTINE METAB OLIC PANEL eGFR 108 mL/mi n/1.7 3m2 > or = 60 normal Not Available [address], [address], 11/30/2023 10:53:26 11/29/19 24 11/30/2023 COMPR EHENS CHRISTINE METAB OLIC PANEL BUN/creatini ne ratio SEE NOTE: (calc ) 6-22 Not Repor marine: BUN and Creat inine are withi n refer ence range . Not Available [address], [address], 11/30/2023 10:53:26 11/29/19 24 11/30/2023 COMPR EHENS CHRISTINE METAB OLIC PANEL sodium 140 mmol/ L 135-14 6 normal Not Available [address], [address], 11/30/2023 10:53:26 11/29/19 24 11/30/2023 COMPR EHENS CHRISTINE METAB OLIC PANEL potassium 3.7 mmol/ L 3.5-5. 3 normal Not Available [address], [address], 11/30/2023 10:53:26 11/29/19 24 11/30/2023 COMPR EHENS CHRISTINE METAB OLIC PANEL chloride 103 mmol/ L 98-110 normal Not Available [address], [address], 11/30/2023 10:53:26 11/29/19 24 11/30/2023 COMPR EHENS CHRISTINE METAB OLIC PANEL carbon dioxide 26 mmol/ L 20-32 normal Not Available [address], [address], 11/30/2023 10:53:26 11/29/19 24 11/30/2023 COMPR EHENS CHRISTINE METAB OLIC PANEL calcium 9.4 mg/dL 8.6-10 .3 normal Not Available [address], [address], 11/30/2023 10:53:26 11/29/19 24 11/30/2023 COMPR EHENS CHRISTINE METAB OLIC PANEL protein, total 7.3 g/dL 6.1-8. 1 normal Not Available [address], [address], 11/30/2023 10:53:26 11/29/19 24 11/30/2023 COMPR EHENS CHRISTINE METAB OLIC PANEL albumin 4.3 g/dL 3.6-5. 1 normal Not Available [address], [address], 11/30/2023 10:53:26 11/29/19 24 11/30/2023 COMPR EHENS CHRISTINE METAB OLIC PANEL globulin 3.0 g/dL_ (calc ) 1.9-3. 7 normal Not Available [address], [address], 11/30/2023 10:53:26 11/29/19 24 11/30/2023 COMPR EHENS CHRISTINE METAB OLIC PANEL albumin/glob ulin ratio 1.4 (calc ) 1.0-2. 5 normal Not Available [address], [address], 11/30/2023 10:53:26 11/29/19 24 11/30/2023 COMPR EHENS CHRISTINE METAB OLIC PANEL bilirubin, total 0.3 mg/dL 0.2-1. 2 normal Not Available [address], [address], 11/30/2023 10:53:26 11/29/19 24 11/30/2023 COMPR EHENS CHRISTINE METAB OLIC PANEL alkaline phosphatase 80 U/L 36-130 normal Not Available [facility] [address], [address], 11/30/2023 10:53:26 11/29/19 24 11/30/2023 COMPR EHENS CHRISTINE METAB OLIC PANEL AST 22 U/L 10-40 normal Not Available [address], [address], 11/30/2023 10:53:26 11/29/19 24 11/30/2023 COMPR EHENS CHRISTINE METAB OLIC PANEL ALT 17 U/L 9-46 normal Not Available [address], [address], 11/30/2023 10:53:26 11/29/19 24 11/30/2023 CBC (H/H, RBC, INDIC ES, WBC, PLT) white blood cell count 6.8 thous and/u L 3.8-10 .8 normal Not Available [address], [address], 11/30/2023 09:38:25 11/29/19 24 11/30/2023 CBC (H/H, RBC, INDIC ES, WBC, PLT) red blood cell count 4.42 mariola on/uL 4.20-5 .80 normal Not Available [address], [address], 11/30/2023 09:38:25 11/29/19 24 11/30/2023 CBC (H/H, RBC, INDIC ES, WBC, PLT) hemoglobin 14.9 g/dL 13.2-1 7.1 normal Not Available [address], [address], 11/30/2023 09:38:25 11/29/19 24 11/30/2023 CBC (H/H, RBC, INDIC ES, WBC, PLT) hematocrit 42.8 % 38.5-5 0.0 normal Not Available [address], [address], 11/30/2023 09:38:25 11/29/19 24 11/30/2023 CBC (H/H, RBC, INDIC ES, WBC, PLT) MCV 96.8 fL 80.0-1 00.0 normal Not Available [address], [address], 11/30/2023 09:38:25 11/29/19 24 11/30/2023 CBC (H/H, RBC, INDIC ES, WBC, PLT) MCH 33.7 pg 27.0-3 3.0 high Not Available [address], [address], 11/30/2023 09:38:25 11/29/19 24 11/30/2023 CBC (H/H, RBC, INDIC ES, WBC, PLT) MCHC 34.8 g/dL 32.0-3 6.0 normal Not Available [address], [address], 11/30/2023 09:38:25 11/29/19 24 11/30/2023 CBC (H/H, RBC, INDIC ES, WBC, PLT) RDW 14.4 % 11.0-1 5.0 normal Not Available [facility] [address], [address], 11/30/2023 09:38:25 11/29/19 24 11/30/2023 CBC (H/H, RBC, INDIC ES, WBC, PLT) platelet count 336 thous and/u L 140-40 0 normal Not Available [address], [address], 11/30/2023 09:38:25 11/29/19 24 11/30/2023 CBC (H/H, RBC, INDIC ES, WBC, PLT) MPV 9.3 fL 7.5-12 .5 normal Not Available [facility] [address], [address], 11/30/2023 09:38:25 11/29/19 24 11/30/2023 EXTRA URINE SPECI MEN extra urine specimen Not Available [address], [address], 11/30/2023 11:19:30 11/29/19 24 11/30/2023 EXTRA URINE SPECI MEN comment An extra tube was recei keith witho ut a test speci fied. We will hold this speci men in our cold stora ge in the event addit ional testi ng is reque sted. Pleas e conta ct your local clien t servi ce repre senta tive for [facility] aline tangeraldo withi n 72 hours due to speci men stabi lity. Not Available [address], [address], 11/30/2023 11:19:30 11/29/19 24 11/30/2023 VITAM IN B12/F OLATE , SERUM PANEL vitamin B12 414 pg/mL 200-11 00 normal Not Available [facility] [address], [address], 11/30/2023 12:02:11 11/29/19 24 11/30/2023 VITAM IN B12/F OLATE , SERUM PANEL folate, serum 10.1 NG/mL normal Refer ence Range Low: <3.4 Borde rline : 3.4-5 .4 Elena l: >5.4 Not Available [facility] [address] [place], [address], 11/30/2023 12:02:11 11/29/19 24 11/30/2023 TSH W/REF MATIAS TO FT4 TSH w/reflex to FT4 0.75 mIU/L 0.40-4 .50 normal Not Available [facility] [address], [place], [address], 11/30/2023 12:02:12 11/29/19 24 11/30/2023 HEMOG LOBIN A1C hemoglobin A1C 5.4 %_of_ total _HGB <5.7 normal For the purpo se of scree tyrone for the prese nce of diabe wayne: <5.7% Consi stent with the absen ce of diabe wayne 5.7-6 .4% Consi stent with incre ased risk for diabe wayne (pred iabet es) > or =6.5% Consi stent with diabe wayne This assay resul t is consi stent with a decre ased risk of diabe wayne. Curre ntly, no conse nsus exist s starr burroughs use of hemog lobin A1c for diagn osis of diabe wayne in child ying. Accor ding to Ameri can Diabe wayne Assoc iatio n (ADA) guide lines , hemog lobin A1c <7.0% repre sents optim al contr ol in non-p regna nt diabe tic patie nts. Diffe rent metri cs may apply to speci fic patie nt popul ation s. Stand ards of Medic al Care in Diabe wayne(A DA). This test was perfo rmed on the Jeff carrol c503 platf orm. Effec tive , a dasha butler in test platf orms from the [facility] Ar[facility] tect to the Jeff carrol c503 may have shift ed HbA1c resul ts ken red to histo rical resul ts. Based on labor atory valid ation testi ng condu cted at [facility] , the Jeff platf orm relat christine to the [facility] platf orm had an avera ge incre ase in HbA1c value of < or = 0.3%. This diffe rence is withi n accep marine varia bilit y estab lishe d by the Joaquin gomez Glyco hemog lobin Stand reena alcarazion Progr am. Note that not all indiv idual s will have had a shift in their resul ts and direc t ken rison s betwe en histo rical and curre nt resul ts for testi ng condu cted on diffe rent platf orms is not recom dontae d. Not Available [facility] [address] [place], [address], 11/30/2023 11:39:09 11/29/19 24 11/30/2023 RPR (DX) W/REF L TITER AND T. PALLI DUM AB, IA RPR (DX) w/refl titer and confirmatory testing NON-RE ACTIVE non-re active normal No labor atory evide nce of syphi lis. If recen t expos ure is suspe cted, submi t a new sampl e in 2-4 weeks . Not Available [facility] [address] [address] [place], [address], 11/30/2023 16:16:39 11/29/19 24 12/01/2023 TEST AUTHO RIZAT ION test name: URINAL YSIS, COMPLE TE Not Available [facility] [address] [address] [place], [address], 12/01/2023 15:29:57 11/29/19 24 12/01/2023 TEST AUTHO RIZAT ION test code: 5463SB Not Available [facility] [address] [place], [address], 12/01/2023 15:29:57 11/29/19 24 12/01/2023 TEST AUTHO RIZAT ION client contact: ESTEPHANIA COOPER ON Not Available [facility] [address] [address] [place], [address], 12/01/2023 15:29:57 11/29/19 24 12/01/2023 TEST AUTHO RIZAT ION report always message signature The labor atory testi ng on this patie nt was verba lly reque sted or confi rmed by the order ing physi sergey or his or her autho rized repre senta tive after conta ct with an emplo [facility]ristofer Esha al regul ation s requi re that we maint ain on file writt en autho rizat ion for all labor atory testi ng. Accor dingl y we are askin g that the order ing physi sergey or his or her autho rized repre senta tive sign a copy of this repor t and promp tly retur n it to the clien t servi ce repre senta tive. Signa ture: __ Not Available [facility] [address] [address] [place], [address], 12/01/2023 15:29:57 11/29/19 24 12/01/2023 TEST AUTHO RIZAT ION comment Fax minerva r: [phone] Not Available [facility] [address] [place], [address], 12/01/2023 15:29:57 11/29/19 24 12/02/2023 URINA LYSIS , COMPL ETE color YELLOW yellow normal Not Available [facility] [address] [address] [place], [address], 12/02/2023 03:39:09 11/29/19 24 12/02/2023 URINA LYSIS , COMPL ETE appearance CLEAR clear normal Not Available [facility] [address] [address] [place], [address], 12/02/2023 03:39:09 11/29/19 24 12/02/2023 URINA LYSIS , COMPL ETE specific gravity 1.013 1.001- 1.035 normal Not Available [address], [address], 12/02/2023 03:39:09 11/29/19 24 12/02/2023 URINA LYSIS , COMPL ETE pH 5.5 5.0-8. 0 normal Not Available [address], [address], 12/02/2023 03:39:09 11/29/19 24 12/02/2023 URINA LYSIS , COMPL ETE glucose NEGATI VE negati ve normal Not Available [address], [address], 12/02/2023 03:39:09 11/29/19 24 12/02/2023 URINA LYSIS , COMPL ETE bilirubin NEGATI VE negati ve normal Not Available [facility] [address], [address], 12/02/2023 03:39:09 11/29/19 24 12/02/2023 URINA LYSIS , COMPL ETE ketones NEGATI VE negati ve normal Not Available [facility] [address], [address], 12/02/2023 03:39:09 11/29/19 24 12/02/2023 URINA LYSIS , COMPL ETE occult blood NEGATI VE negati ve normal Not Available [facility] [address], [address], 12/02/2023 03:39:09 11/29/19 24 12/02/2023 URINA LYSIS , COMPL ETE protein NEGATI VE negati ve normal Not Available [facility] [address], [address], 12/02/2023 03:39:09 11/29/19 24 12/02/2023 URINA LYSIS , COMPL ETE nitrite NEGATI VE negati ve normal Not Available [address], [address], 12/02/2023 03:39:09 11/29/19 24 12/02/2023 URINA LYSIS , COMPL ETE leukocyte esterase NEGATI VE negati ve normal Not Available [address], [address], 12/02/2023 03:39:09 11/29/19 24 12/02/2023 URINA LYSIS , COMPL ETE WBC NONE SEEN /hpf < or = 5 normal Not Available [address], [address], 12/02/2023 03:39:09 11/29/19 24 12/02/2023 URINA LYSIS , COMPL ETE RBC NONE SEEN /hpf < or = 2 normal Not Available [address], [address], 12/02/2023 03:39:09 11/29/19 24 12/02/2023 URINA LYSIS , COMPL ETE squamous epithelial cells NONE SEEN /hpf < or = 5 normal Not Available [address], [address], 12/02/2023 03:39:09 11/29/19 24 12/02/2023 URINA LYSIS , COMPL ETE bacteria NONE SEEN /hpf none seen normal Not Available [address], [address], 12/02/2023 03:39:09 11/29/19 24 12/02/2023 URINA LYSIS , COMPL ETE hyaline cast NONE SEEN /lpf none seen normal Not Available [address], [address], 12/02/2023 03:39:09 09/11/19 25 09/12/2024 MAGNE SIUM magnesium 2.0 mg/dL 1.5-2. 5 normal Not Available [address], [address], 09/12/2024 12:28:41 09/11/19 25 09/12/2024 COMPR EHENS CHRISTINE METAB OLIC PANEL glucose 100 mg/dL 65-99 high Fasti ng refer ence inter yun For someo ne witho ut known diabe wayne, a gluco se value betwe en 100 and 125 mg/dL is consi stent with predi abete s and shoul d be confi rmed with a follo w-up test. Not Available [address], [address], 09/12/2024 12:28:43 09/11/19 25 09/12/2024 COMPR EHENS CHRISTINE METAB OLIC PANEL urea nitrogen (BUN) 9 mg/dL 7-25 normal Not Available [address], [address], 09/12/2024 12:28:43 09/11/19 25 09/12/2024 COMPR EHENS CHRISTINE METAB OLIC PANEL creatinine 0.82 mg/dL 0.60-1 .26 normal Not Available [address], [address], 09/12/2024 12:28:43 09/11/19 25 09/12/2024 COMPR EHENS CHRISTINE METAB OLIC PANEL eGFR 117 mL/mi n/1.7 3m2 > or = 60 normal Not Available [address], [address], 09/12/2024 12:28:43 09/11/19 25 09/12/2024 COMPR EHENS CHRISTINE METAB OLIC PANEL BUN/creatini ne ratio SEE NOTE: (calc ) 6-22 Not Repor marine: BUN and Creat inine are withi n refer ence range . Not Available [address], [address], 09/12/2024 12:28:43 09/11/1909/12/2024 COMPR EHENS CHRISTINE METAB OLIC PANEL sodium 139 mmol/ L 135-14 6 normal Not Available [address], [address], 09/12/2024 12:28:43 09/11/1909/12/2024 COMPR EHENS CHRISTINE METAB OLIC PANEL potassium 4.0 mmol/ L 3.5-5. 3 normal Not Available [address], [address], 09/12/2024 12:28:43 09/11/1909/12/2024 COMPR EHENS CHRISTINE METAB OLIC PANEL chloride 105 mmol/ L 98-110 normal Not Available [address], [address], 09/12/2024 12:28:43 09/11/1909/12/2024 COMPR EHENS CHRISTINE METAB OLIC PANEL carbon dioxide 26 mmol/ L 20-32 normal Not Available [address], [address], 09/12/2024 12:28:43 09/11/19 25 09/12/2024 COMPR EHENS CHRISTINE METAB OLIC PANEL calcium 9.4 mg/dL 8.6-10 .3 normal Not Available [address], [address], 09/12/2024 12:28:43 09/11/1909/12/2024 COMPR EHENS CHRISTINE METAB OLIC PANEL protein, total 7.7 g/dL 6.1-8. 1 normal Not Available [address], [address], 09/12/2024 12:28:43 09/11/19 09/12/2024 COMPR EHENS CHRISTINE METAB OLIC PANEL albumin 4.6 g/dL 3.6-5. 1 normal Not Available [address], [address], 09/12/2024 12:28:43 09/11/19 25 09/12/2024 COMPR EHENS CHRISTINE METAB OLIC PANEL globulin 3.1 g/dL_ (calc ) 1.9-3. 7 normal Not Available [address], [address], 09/12/2024 12:28:43 09/11/1909/12/2024 COMPR EHENS CHRISTINE METAB OLIC PANEL albumin/glob ulin ratio 1.5 (calc ) 1.0-2. 5 normal Not Available [address], [address], 09/12/2024 12:28:43 09/11/19 25 09/12/2024 COMPR EHENS CHRISTINE METAB OLIC PANEL bilirubin, total 0.3 mg/dL 0.2-1. 2 normal Not Available [address], [address], 09/12/2024 12:28:43 09/11/19 25 09/12/2024 COMPR EHENS CHRISTINE METAB OLIC PANEL alkaline phosphatase 100 U/L 36-130 normal Not Available [address], [address], 09/12/2024 12:28:43 09/11/19 25 09/12/2024 COMPR EHENS CHRISTINE METAB OLIC PANEL AST 22 U/L 10-40 normal Not Available [address], [address], 09/12/2024 12:28:43 09/11/19 25 09/12/2024 COMPR EHENS CHRISTINE METAB OLIC PANEL ALT 20 U/L 9-46 normal Not Available [address] [place], [address], 09/12/2024 12:28:43 09/11/1909/12/2024 CBC (H/H, RBC, INDIC ES, WBC, PLT) white blood cell count 6.0 thous and/u L 3.8-10 .8 normal Not Available [facility] [address], [address], 09/12/2024 13:37:01 09/11/1909/12/2024 CBC (H/H, RBC, INDIC ES, WBC, PLT) red blood cell count 4.21 mariola on/uL 4.20-5 .80 normal Not Available [facility] [address], [address], 09/12/2024 13:37:01 09/11/1909/12/2024 CBC (H/H, RBC, INDIC ES, WBC, PLT) hemoglobin 12.9 g/dL 13.2-1 7.1 low Not Available [facility] [address], [address], 09/12/2024 13:37:09/11/1909/12/2024 CBC (H/H, RBC, INDIC ES, WBC, PLT) hematocrit 37.0 % 38.5-5 0.0 low Not Available [facility] [address], [address], 09/12/2024 13:37:01 09/11/1909/12/2024 CBC (H/H, RBC, INDIC ES, WBC, PLT) MCV 87.9 fL 80.0-1 00.0 normal Not Available [facility] [address], [address], 09/12/2024 13:37:01 09/11/19 25 09/12/2024 CBC (H/H, RBC, INDIC ES, WBC, PLT) MCH 30.6 pg 27.0-3 3.0 normal Not Available [facility] [address] [address], [place], [address], 09/12/2024 13:37:09/11/1909/12/2024 CBC (H/H, RBC, INDIC ES, WBC, PLT) MCHC 34.9 g/dL 32.0-3 6.0 normal For adult s, a sligh t decre ase in the calcu lated MCHC value (in the range of 30 to 32 g/dL) is most likel y not clini usman signi fican t; viral er, it shoul d be inter prete d with cauti on in corre lat n with other red cell ana eters and the patie nt's clini avtar condi tion. Not Available [address], [address], 09/12/2024 13:37:09/11/1909/12/2024 CBC (H/H, RBC, INDIC ES, WBC, PLT) RDW 13.8 % 11.0-1 5.0 normal Not Available [address], [address], 09/12/2024 13:37:09/11/1909/12/2024 CBC (H/H, RBC, INDIC ES, WBC, PLT) platelet count 339 thous and/u L 140-40 0 normal Not Available [address], [address], 09/12/2024 13:37:09/11/1909/12/2024 CBC (H/H, RBC, INDIC ES, WBC, PLT) MPV 9.7 fL 7.5-12 .5 normal Not Available [address], [address], 09/12/2024 13:37:08/11/20 23 07/26/2023 MRI, lumba r spine , w/o contr ast No observ ation record ed. [facility] [address], [place], [address], 08/11/2023 10:47:27 09/14/19 25 09/13/2024 XR, chest , 1 view No observ ation record ed. [address], [place], [address], 09/14/2024 09:28:48 10/17/19 25 10/17/2024 XR, chest , 2 view No observ ation record ed. [email or web address] [address], [place], [address], 10/17/2024 12:52:45 Result Notes None recorded. Problems Name Problem SNOMED Code Status Onset Date Resolution Date Notes Provider Name and Address Organization Details Recorded Time History of sickle cell anemia 265288900 Active 2021 CHAYO Gill, PMHNP-BC [address] [place], [address], [facility] [place] [facility] 3 15:54:14 Tobacco dependence caused by cigarettes [id number] 9107 Active 2021 CHAYO Gill, PMHNP-BC [address] [place], [address], [facility] [place] [facility] 3 15:54:14 Eczema 96149890 Active 2021 CHAYO Gill, PMHNP-BC [address] [place], [address], [facility] 3 15:54:14 Gastroesoph ageal reflux disease without esophagitis 012019238 Active 2022 CHAYO Gill, PMHNP-BC [address] [place], [address], [facility] 3 15:54:14 Essential hypertensio n 00840328 Active 2022 CHAYO Gill, PMHNP-BC [address] [place], [address], [facility] 3 14:38:41 Problem Notes None recorded. Procedures Surgical History Date Name Laterality Status Provider Name and Address Organization Details Recorded Time drainage of abscess completed India Garcia [facility] [place] [facility] 08/25/2022 16:42:21 Imaging Results None recorded. Procedure Notes None recorded. Medical Equipment None Reported. Allergies Allergen ID Allergen Name Allergen Category Reaction Reaction Severity Criticality Documentation Date Start Date Code Code System Note Provider Name and Address Organization Details Recorded Time 4776 morphine medicatio n hives Not available Not available 12/05/2021 7052 RxNorm Dannielle Sernanton [facility] [place] [facility] 2 15:42:55 4777 tramadol medicatio n hives Not available Not available 12/05/2021 77764 RxNorm Dannielle Estrada [facility], [facility] [place] [facility] 2 15:44:03 5629 Bactrim medicatio n hives Not available low 08/25/2022 83257 9 RxNorm India Garcia [facility] [place] [facility] 2 16:39:33 Medications Name Sig Start Date Stop Date Status Note LastModified by Organization Details LastModified Time cyclobenzap rine 10 mg tablet TAKE 1 TABLET BY MOUTH THREE TIMES DAILY NEEDED FOR MUSCLE SPASM 11/28 completed Not Available Not Available Not Available prednisone 10 mg tablet PLEASE SEE ATTACHED FOR DETAILED DIRECTION S 12/05 completed Not Available Not Available Not Available doxycycline hyclate 100 mg capsule Take 1 capsule twice a day by oral route as directed for 10 days. 11/28 completed Not Available Not Available Not Available clindamycin HCl 300 mg capsule Take 1 capsule every 6 hours by oral route as directed for 10 days. 02/21 completed Not Available Not Available Not Available ibuprofen 800 mg tablet TAKE 1 TABLET BY MOUTH EVERY 12 HOURS FOR 10 DAYS 11/28 completed Not Available Not Available Not Available Lidocaine Viscous 2 % mucosal solution SWISH AND SPIT 15 ML BY MOUTH EVERY 6 TO 8 HOURS NEEDED 02/21 completed Not Available Not Available Not Available hydrocodone 5 mg-acetamin ophen 325 mg tablet TAKE 1 TABLET BY MOUTH EVERY 6 HOURS NEEDED FOR ACUTE PAIN 11/28 completed Not Available Not Available Not Available ondansetron HCl 4 mg tablet TAKE ONE TABLET BY MOUTH EVERY 6 HOURS NEEDED FOR NAUSEA 05/26 completed Not Available Not Available Not Available prednisone 20 mg tablet TAKE 2 TABLETS BY MOUTH DAILY FOR 5 DAYS 11/28 completed Not Available Not Available Not Available amlodipine 5 mg tablet TAKE 1 TABLET BY MOUTH EVERY DAY AT BEDTIME 05/26 completed Not Available Not Available Not Available hydrocodone 10 mg-acetamin ophen 325 mg tablet TAKE 1 OR 2 TABLETS BY MOUTH EVERY 4 TO 6 HOURS NEEDED FOR PAIN 11/28 completed Not Available Not Available Not Available omeprazole 40 mg capsule,del ayed release Take 1 capsule every day by oral route before meals for 90 days. 02/25 completed Not Available Not Available Not Available acetaminoph en 500 mg tablet TAKE 1 TABLET BY MOUTH EVERY 8 HOURS FOR 10 DAYS active Not Available Not Available No t Available triamcinolo ne acetonide 0.1 % topical cream APPLY THIN LAYER TOPICALLY TO THE AFFECTED AREA TWICE DAILY FOR 14 DAYS 04/24 completed Not Available Not Available Not Available amoxicillin 500 mg tablet TAKE 1 TABLET BY MOUTH EVERY 8 HOURS FOR 10 DAYS 09/11 completed Not Available Not Available Not Available aspirin 325 mg tablet,cele yed release TAKE ONE TABLET BY MOUTH TWICE DAILY 05/26 completed Not Available Not Available Not Available amlodipine 10 mg tablet TAKE 1 TABLET BY MOUTH EVERY DAY AT BEDTIME active Not Available Not Available No t Available doxycycline monohydrate 100 mg capsule TAKE 1 CAPSULE BY MOUTH EVERY 12 HOURS 11/28 completed Not Available Not Available Not Available cephalexin 500 mg capsule TAKE 1 CAPSULE BY MOUTH FOUR TIMES DAILY FOR 10 DAYS 08/05 completed Not Available Not Available Not Available erythromyci n 5 mg/gram (0.5 %) eye ointment APPLY A 1 CM STRIP INTO RIGHT LOWER EYELID THREE TIMES DAILY FOR 10 DAYS 06/18 completed Not Available Not Available Not Available tobramycin 0.3 % eye drops INSTILL 2 DROPS INTO THE RIGHT EYE EVERY 4 HOURS FOR 5 DAYS 03/25 completed Not Available Not Available Not Available diclofenac potassium 50 mg tablet 11/28 completed Not Available Not Available Not Available hydroxyzine HCl 25 mg tablet TAKE ONE TABLET BY MOUTH EVERY 8 HOURS 05/26 completed Not Available Not Available Not Available clobetasol 0.05 % topical ointment APPLY THIN LAYER TOPICALLY TO THE AFFECTED AREA TWICE DAILY FOR 14 DAYS active Not Available Not Available No t Available methylpredn isolone 4 mg tablets in a dose pack FOLLOW PACKAGE DIRECTION S 06/18 completed Not Available Not Available Not Available acetaminoph en 500 mg capsule Take 2 capsules every 6 hours by oral route as needed. 02/21 completed Not Available Not Available Not Available doxycycline hyclate 100 mg tablet TAKE 1 TABLET BY MOUTH EVERY 12 HOURS 11/28 completed Not Available Not Available Not Available amoxicillin 875 mg-potassiu m clavulanate 125 mg tablet TAKE 1 TABLET BY MOUTH TWICE DAILY 02/21 completed Not Available Not Available Not Available clindamycin phosphate 1 % topical solution APPLY TOPICALLY TO THE AFFECTED AREA TWICE DAILY active Not Available Not Available No t Available nitrofurant oin monohydrate /macrocryst als 100 mg capsule TAKE 1 CAPSULE BY MOUTH TWICE DAILY WITH FULL GLASS OF WATER 12/05 completed Not Available Not Available Not Available chlorhexidi ne gluconate 0.12 % mouthwash SWISH AND SPIT 15 ML BY MOUTH TWICE DAILY FOR 10 DAYS 02/21 completed Not Available Not Available Not Available silver 200 mcg/gram topical gel apply to R buttock wound daily after shower 02/03 completed Not Available Not Available Not Available Eucrisa 2 % topical ointment APPLY A THIN LAYER TO THE AFFECTED AREA(S) BY TOPICAL ROUTE 2 TIMES PER DAY 02/25 completed Not Available Not Available Not Available Vitals Date Recorded Body height Body temperature Oxygen saturation Oxygen saturation in Arterial blood by Pulse oximetry Respiratory rate Heart rate Body mass index (BMI) Body weight Systolic blood pressure Diastolic blood pressure Provider Name and Address Organization Details Last Updated DateTime 5 171.45 cm 98.1 [degF] 98 % 98 % 18 /min 80 /min 26.5 kg/m2 03289.1 7 g 128 mm[Hg] 85 mm[Hg] Estephania GAMEZ - [facility] 5 15:04:24 Date Recorded Body height Body mass index (BMI) Body weight Heart rate Respiratory rate Oxygen saturation Oxygen saturation in Arterial blood by Pulse oximetry Body temperature Systolic blood pressure Diastolic blood pressure Provider Name and Address Organization Details Last Updated DateTime 4 171.45 cm 25.8 kg/m2 24098.3 6 g 76 /min 20 /min 99 % 99 % 98.1 [degF] 103 mm[Hg] 71 mm[Hg] Estephania Estrada [facility] 4 14:37:25 Date Recorded Body height Body mass index (BMI) Body weight Oxygen saturation Oxygen saturation in Arterial blood by Pulse oximetry Heart rate Respiratory rate Body temperature Systolic blood pressure Diastolic blood pressure Provider Name and Address Organization Details Last Updated DateTime 5 171.45 cm 25.9 kg/m2 81570.5 2 g 98 % 98 % 94 /min 16 /min 97.9 [degF] 109 mm[Hg] 72 mm[Hg] Estephania Hernandez [facility] 5 14:14:24 Date Recorded Body height Body temperature Oxygen saturation Oxygen saturation in Arterial blood by Pulse oximetry Heart rate Respiratory rate Body mass index (BMI) Body weight Systolic blood pressure Diastolic blood pressure Provider Name and Address Organization Details Last Updated DateTime 4 171.45 cm 97.9 [degF] 99 % 99 % 87 /min 18 /min 26.2 kg/m2 25404.7 g 117 mm[Hg] 81 mm[Hg] Estephania Hernandez [facility] 4 16:00:52 Date Recorded Body height Body mass index (BMI) Body weight Body temperature Heart rate Oxygen saturation Oxygen saturation in Arterial blood by Pulse oximetry Respiratory rate Systolic blood pressure Diastolic blood pressure Provider Name and Address Organization Details Last Updated DateTime 3 171.45 cm 27.5 kg/m2 65801.1 6 g 97.8 [degF] 69 /min 98 % 98 % 18 /min 128 mm[Hg] 83 mm[Hg] Bebo Peter [facility] 3 11:39:40 Social History Question Answer Notes LastModified by Organizat ion Details LastModified Time Tobacco Smoking Status Former Smoker Estephania green [facility] 09/11/2024 15:05:56 Do You Have An Advance Directive? No [email or web address] Information n ot available 12/05/2021 How Many Years Have You Consumed Alcohol? 21 [email or web address] Information not available 12/05/2021 Are You Currently Sexually Active With Anyone Who Has Traveled (within The Last 12 Weeks) To A Zika-affected Area? No [email or web address] Information not available 12/05/2021 Do You Wear A Helmet When Biking? Yes [email or web address] Information not available 12/05/2021 Are You Blind Or Do You Have Difficulty Seeing? No [email or web address] Information n ot available 12/05/2021 What Is Your Level Of Caffeine Consumption? Moderate [email or web address] Information not available 12/05/2021 What Type Of Medical Grade Shoemaker Do You Use? None [email or web address] Information not available 12/05/2021 What Is Your Code Status? Full Code [email or web address] Information not available 12/05/2021 In The 14 Days Before Symptom Onset, Have You Had Close Contact With A Laboratory-confirm ed COVID-19 While That Case Was Ill? No wpzpexrrr04 Information n ot available 12/05/2021 In The 14 Days Before Symptom Onset, Have You Had Close Contact With A Person Who Is Under Investigation For COVID-19 While That Person Was Ill? No rsazxsfpr12 Information not available 12/05/2021 Have You Been To An Area Known To Be High Risk For COVID-19? No rxevvlvsh43 Information not available 12/05/2021 Are You Deaf Or Do You Have Serious Difficulty Hearing? No vimoespfn94 Information not available 12/05/2021 What Type Of Diet Are You Following? REGULAR Information n ot available 12/05/2021 Have You Processed Blood Or Body Fluids From An Ebola Virus Disease Patient Without Appropriate PPE? No Information not available 12/05/2021 Do You Reside In Or Have You Traveled To An Area Where Ebola Virus Transmission Is Active? No vkgudnwmv15 Information not available 12/05/2021 What Is The Highest Grade Or Level Of School You Have Completed Or The Highest Degree You Have Received? [id number] sigehnrdc07 Information not available 12/05/2021 How Many Days Of Moderate To Strenuous Exercise, Like A Brisk Walk, Did You Do In The Last 7 Days? 5 iusyokdfx89 Information not available 12/05/2021 Have There Been Any Changes To Your Family Or Social Situation? No ehgikxrja33 Information no t available 12/05/2021 What Is The Fluoride Status Of Your Home? Unknown iuoxgqnqy75 Information not available 12/05/2021 Are There Any Guns Present In Your Home? No ptfxcyeie84 Information not available 12/05/2021 Which Of Your Hands Is Dominant? Right gurppbrqu17 Information n ot available 12/05/2021 Have You Recently Or Are You Planning To Travel To An Area With Zika Virus? No jpivteluj37 Information not available 12/05/2021 Do You Use Insect Repellent Routinely? Yes tyyqklpex99 Information not available 12/05/2021 Have You [place] Unsteady Or Fallen More Than Once In The Past Year? Yes Information not available 11/28/2024 Can You Switch A Light On/off Easily From Your Bed Without Fear Of Falling? Yes uzsezvlgzs764 Information not available 11/28/2024 Are Floors And Walkways In Your Home Safe And In Good Repair? Yes Information not available 11/28/2024 Is It Difficult To Get Out Of Bed Without Assistance? No ibewnpsuje663 Information not available 11/28/2024 Is It Difficult To Get Up From Sitting In A Chair Without Assistance? No xaawxgdnvn158 Information not available 11/28/2024 Is It Difficult To Get Up From Sitting On The Toilet Without Assistance? No stlewltrru531 Information not available 11/28/2024 Is The Lighting In Your Home Sufficient To See Safely? Yes ntltziojpk452 Information not available 11/28/2024 Do You Have A History Of Falling? No hytzwbiztz924 Information not available 11/28/2024 Is Your Gait (walking Style) Regular? Yes kpncyszoes058 Information not available 11/28/2024 Have You Had A Colonoscopy Or Colorectal Cancer Screening? If So What Was The Date? No qtawimbeaa315 Information n ot available 11/28/2024 Have You Had A Dexa (bone Density) Scan? If So What Was The Date? No abddpuovzm214 Information not available 11/28/2024 Have You Had A Prostate Exam? If So What Was The Date? No Information not available 11/28/2024 Have You Had A Full Body Skin Cancer Exam? If So What Was The Date? No fwfhmkjhei985 Information n ot available 11/28/2024 Have You Had A Hepatitis C Screening? If So What Was The Date? No dmzwatvngt360 Information n ot available 11/28/2024 Have You Had An Eye Exam? If So What Was The Date? No vckpmihsmk103 Information n ot available 11/28/2024 Do You Have A Medical Power Of User Support Analyst? No gruhduezn38 Information not available 12/05/2021 What Was The Date Of Your Most Recent Tobacco Screening? 11/28/2024 rvuvxirgun437 Information not available 11/28/2024 How Many Children Do You Have? 8 dkahhnjkh95 Information not available 12/05/2021 Have You Ever Been Counseled For Unhealthy Alcohol Use? No qtkaoy52 Information not available 02/03/2023 Do You Have Any Pets? No etdwhoseu29 Information not available 12/05/2021 Do You Use Protection During Sex? Always ojvwtmjcg54 Information not available 12/05/2021 What Is Your Relationship Status? bvpcyn09 Information not available 02/03/2023 Do You Use Your Seat Belt Or Car Seat Routinely? Yes ugfnwcpoq39 Information not available 12/05/2021 Are You Sexually Active? Yes vtsenxynt14 Information not available 12/05/2021 Do You Have Smoke And Carbon Monoxide Detectors In Your Home? Yes vddafqlok71 Information not available 12/05/2021 At What Age Did You Start Smoking Tobacco? 14 bxlbafyzju065 Information not available 02/22/2024 Are You Passively Exposed To Smoke? No yvxqyywqt76 Information no t available 12/05/2021 How Much Tobacco Do You Smoke? 0.5 PPD hagkbiygm06 Information not available 12/05/2021 Do You Participate In Social Media? Yes tkbyytdqkj729 Information not available 09/11/2024 What Types Of Sporting Activities Do You Participate In? Walking eydzlufoe33 Information not available 12/05/2021 Do You Use Sunscreen Routinely? No gewiuhpnc70 Information not available 12/05/2021 How Many Years Have You Smoked Tobacco? 21 zlriikwmi86 Information not available 12/05/2021 Have You Recently Traveled Abroad? No ryndlfvzg19 Information not available 12/05/2021 Do You Have Difficulty Walking Or Climbing Stairs? No vzpqulkmo61 Information not available 12/05/2021 Are You Currently In School? No rkckzavoh48 Information not available 12/05/2021 Do You Have Any Dietary Restrictions? No vgmfahppx36 Information not available 12/05/2021 Sex: Male Functional Status Question Answer Note LastModified by Organizat ion Details LastModified Time How many times per week do you consume alcohol? Less than 1 time per week fgluzr43 Information not available 02/03/2023 Do you use any illicit or recreational drugs? No fhiziwhyj73 Information not available 12/05/2021 Do you or have you ever used any other forms of tobacco or nicotine? No ukmuoekhs65 Information not available 12/05/2021 What is your level of alcohol consumption? Occasional ckjmbudtc12 Information not available 12/05/2021 Are you currently employed? Yes ogxlaplmh00 Information not available 12/05/2021 Do you have transportation difficulties? No fyqipnjou68 Information not available 12/05/2021 Are you able to walk? YESWOREST utvrkorak95 Information not available 12/05/2021 Do you have difficulty doing errands alone? No Information not available 12/05/2021 Are you able to care for yourself? 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 No tijeogzvo80 Information not available 12/05/2021 What is your exercise level? Moderate qycwetwtu40 Information not available 12/05/2021 Mental Status Question Answer Note LastModified by Organizat ion Details LastModified Time Do you feel stressed (tense, restless, nervous, or anxious, or unable to sleep at night)? AE5628-2 ircmrpjki19 Information not available 12/05/2021 Do you have difficulty concentrating, remembering or making decisions? No ntcgtbozl91 Information no t available 12/05/2021 Family History Relationship Description Onset Age of this Age Resolved Age Notes LastModified by Organization Details LastModified Time Mother Hypertensive disorder uxewzlxiq30 Not available 03/2022 11:20:16 Brother Diabetes mellitus dpkykhknm10 Not available 03/2022 11:20:24 Paternal Aunt Sickle cell-hemoglo bin SS disease rzniyhysa52 Not available 03/2022 11:20:44 Medical History Condition Response Cellulitis Y Nicotine / Tobacco Dependence Y Cardiac Diseases / Disorders Y Hematological Diseases / Disorders Y Hospitalizations Y Musculoskeletal Diseases / Disorders Y Infectious Disease/Disorders/Virus Skin Diseases / Disorders Y Immunizations Vaccine Type Date Status Note Provider Nam e and Address Organization Details Recorded Time Tdap 2 completed Not Available [facility] 06/18/2022 17:11:23 DTP 8 completed Rae Robles null, [place] - [facility] 06/02/2022 10:26:20 DTP 9 [place] [facility] 06/02/2022 10:26:40 DTP 9 [place] [facility] 06/02/2022 10:26:51 DTP 0 completed [place] [facility] 06/02/2022 10:27:07 DTP 3 completed [place] [facility] 06/02/2022 10:27:18 Hib, unspecified formulation 9 completed [place] [facility] 06/02/2022 10:28:01 Hep B, unspecified formulation 6 completed [place] [facility] 06/02/2022 10:28:45 Hep B, unspecified formulation 6 completed [place] [facility] 06/02/2022 10:28:57 Hep B, unspecified formulation 7 completed Rae Robles null, [place] - [facility] 06/02/2022 10:29:11 MMR 9 completed Rae [place] [facility] 06/02/2022 10:29:50 MMR 6 completed [place] [facility] 06/02/2022 10:30:04 polio, unspecified formulation 8 completed [place] [facility] 06/02/2022 10:30:31 polio, unspecified formulation 9 completed Rae Robles [place] [facility] 06/02/2022 10:30:46 polio, unspecified formulation 0 completed Rae [place] [facility] 06/02/2022 10:31:14 polio, unspecified formulation 6 completed Rae [place] [facility] 06/02/2022 10:31:42 Td (adult), 2 Lf tetanus toxoid, preservative free, adsorbed 6 completed Rae [place] [facility] 06/02/2022 10:32:55 COVID-19, mRNA, LNP-S, PF, 30 mcg/0.3 mL dose 1 completed Rae Robles [place] [facility] 06/02/2022 10:33:30 COVID-19, mRNA, LNP-S, PF, 30 mcg/0.3 mL dose 1 completed Rae Robles [place] [facility] 06/02/2022 10:33:41 Past Encounters Encounter ID Performer Location Encounter Start Date Encounter Closed Date Diagnosis/Indication Diagnosis SNOMED-CT Code Diagnosis ICD10 Code Diagnosis Note [id number] Camelia Van, ACTIVITY DIRECTOR-BC, PMHNP-BC Main Office [address] [place] [address] 12/05/2021 11:09:13 12/05/2021 13:40:48 Adult health examination 592019644 Z00.00 labs ordered to evaluate levels. Glucose le alec outside reference range 289863350 R73.09 labs ordered to evaluate levels. History of sickle cell anemia 162897254 Z86.2 Anemia 292471680 D64.9 labs ordered to evaluate levels. Tobacco de pendence caused by cigarettes 5176301159 6328064 F17.210 Does not want to quit [id number] [facility] Main Office [address] [place] [address] 02/05/2022 13:58:54 02/05/2022 15:32:44 Staphylococcal infection of skin 684793127 B95.8 Counseled on using plain dove to cleanse skin. Do not use anything with additives, perfumes, lotions. Eczema 29362021 L30.9 Counseled on using plain dove to cleanse skin. Do not use anything with additives, perfumes, lotions. Body mass index 25-29 - overweight 597395292 Z68.25 [id number] [facility] Main Office [address] [place] [address] 04/24/2022 09:14:23 04/24/2022 11:10:51 Eczema 83164408 L30.9 Counseled on using plain dove to cleanse skin. Do not use anything with additives, perfumes, lotions.Co unseled on using the Clobetasol no more than 2 weeks. Taking a break for 1-2 weeks before starting again. If does not help to contact office. He v/u Allergic reaction 929887 005 T78.40XA Allergic reaction noted of R eye. Was fine before work. Walked into bathroom and eye started bothering, rubbed it, and worsened. Given ABX given the pain and redness.Me drol dose pack given and explained. Swelling o f structure of right eye [id number] 3884311 R22.0 [id number] [facility] Main Office [address] [place] [address] 06/18/2022 13:59:06 06/18/2022 15:15:19 Eczema 66299324 L30.9 Has had to use the Clobetasol more frequent and once stop using it worsens. Will do Eucrisa as this can be given daily without thinning the skin. Sickle cell trait 498549 00 D57.3 labs to evaluate levels. Hidradenit is suppurativa 45610823 L73.2 has tried ABX and multiple other modalities without success. Administra tion of diphtheria, pertussis, and tetanus vaccine 216024558 Z23 Hypoglycemia 753052433 E 16.2 labs to eval [id number] GUCCI Gill, [facility] Main Office [address] [place] [address] 09/25/2022 09:00:20 09/25/2022 14:58:24 Gastroesophageal reflux disease without esophagitis 466332806 K21.9 Lifestyle modificati ons with wt loss, avoid meals 2-3h before HS. Consider eliminatin g food triggers: chocolate, caffeine, ETOH, acid/spicy food. Started Omeprazole and referring to GI. Patient has history of peptic ulcer disease. Had previously seen Dr. New. Eczema 15307127 L30.9 History of peptic ulcer 122762566 Z87.11 [id number] [facility] Main Office [address] [place] [address] 02/03/2023 15:32:03 02/03/2023 19:16:07 Eczema 57124362 L30.9 Left upper quadrant pain 059713720 R10.12 Body mass index 25-29 - overweight 592898053 Z68.27 Tobacco de pendence caused by cigarettes 8615279532 8632812 F17.210 [id number] [facility] Main Office [address] [place] [address] 02/25/2023 08:55:58 02/25/2023 10:51:59 Eczema 78416382 L30.9 Essential hypertension 35866322 I10 Steatotic liver disease 798767773 K76.0 Printed out fatty liver patient education booklet [email or web address]/ sites/lurdes weber/files/ a-guide-to -what-and- how-to-eat -non-alcoh olic-fatty -liver-dis ease.pdf [id number] [facility] Main Office [address] [address] 4 05/26/2023 14:26:41 05/26/2023 18:40:57 Eczema 71237170 L30.9 Postoperative care 33177 9007 Z48.89 Essential hypertension 08610314 I10 [id number] Camelia Kapadia Rehan [facility], [facility] Main Office [address] [address] 4 08/05/2023 11:35:00 08/05/2023 14:31:51 Essential hypertension 00791716 I10 [id number] Camelia Van [facility], [facility] Main Office [address] [address] 4 11/29/2023 14:19:51 11/29/2023 15:13:47 Essential hypertension 06292176 I10 Venereal d isease screening 024518140 Z11.3 Adult heal th examination 572793647 Z00.00 [id number] Camelia Kapadia Rehan [facility], [facility] Main Office [address] [address] 4 02/22/2024 15:34:50 02/22/2024 22:42:37 Essential hypertension 84313532 I10 at goal with BP. Continue Amlodipine . Eczema 67224092 L30.9 has been helpful to clear up areas. Hidradenit is suppurativa 91221983 L73.2 has tried ABX and multiple other modalities without success. [id number] Camelia Kapadia Rehan [facility], [facility] Main Office [address] [address] 09/11/2024 14:58:20 09/11/2024 16:43:20 Essential hypertension 02842002 I10 Eczema 95845905 L30.9 [id number] Camelia Kapadia Rehan [facility], [facility] Main Office [address] [address] 4 11/28/2024 14:04:26 11/28/2024 16:13:44 Essential hypertension 77868017 I10 Headache 35139034 R51.9 Health Concerns Section Related Observation LastModified by Organization Detai ls LastModified Time None Recorded Concern Status LastModified by Organization Details LastModified Time None Recorded Advance Directives Directive N: Payers Encounter Date Sequence Insurance Name Policy Number Policy Baez Covered Member ID Baez Member ID Guarantor Name 08/05/2023 1 [facility] (MEDICAID HMO) [id number] Sorin aBrnhart [id number] Sorin Barnhart 11/29/2023 1 [facility] (MEDICAID HMO) [id number] Sorin Barnhart [id number] Sorin Barnhart 02/22/2024 1 [facility] (MEDICAID HMO) [id number] Sorin Barnhart [id number] Sorin Barnhart 09/11/2024 1 [facility] (MEDICAID HMO) [id number] Sorin Barnhart [id number] Sorin Barnhart 11/28/2024 1 [facility] (MEDICAID HMO) [id number] 0003 Sorin Barnhart [id number] Sorin Barnhart Notes Date Note Type Note Provider Name and Address Organization Details Recorded Time 08/05/2023 text/html HTN - Compliant with medications. Does not report any blurry vision, dizziness, CP, SOB, or palpitations. CHAYO Gill, [facility] [address] [place], [address] [place] [address] Primary [facility] 08/05/2023 12:39:43 11/29/2023 text/html Annual WellnessReported bypatient.Diet and Nutrition:discussed vitamin and supplement use; discussed maintaining calcium balance Fracture Risk:no sudden unexplained fractures;previous musculoskeletal injuries Physical Activity:discussed weightbearing activities; discussed exercise habits Additional Lifestyle Factors:tobacco use; drinks alcohol (mild-moderate); discussed safe sex and STI risk Depression Risk:never feels sad, empty, or tearful; no loss of interest in activities; no significant changes in weight; no sleep disturbances or insomnia; no agitation; no loss of energy; no feelings of worthlessness or guilt; no thoughts of suicide; no history of depression; no history of mood disorders Hearing:no loss of hearing Vision:no vision problems HTN - Compliant with medications. Does not report any blurry vision, dizziness, CP, SOB, or palpitations. CHAYO Gill, [facility] [address] [place], [address] 11/29/2023 15:08:26 02/22/2024 text/html HTN - Compliant with medications. Does not report any blurry vision, dizziness, CP, SOB, or palpitations. Eczema - has been out of medication and thus having flare up. Hidradenitis suppurativa - having some starting flare ups and out of medication from dermatology at [facility]. CHRISTIE Gill-, [facility] [address] [place], [address], [facility] 02/22/2024 18:59:59 09/11/2024 text/html Sorin is a 38-yea r-old male presenting for a follow-up appointment for eczema, essential hypertension, GERD, sickle cell anemia, and tobacco dependence. He reports a recent flare-up of eczema, which worsened significantly over the past few weeks. The rash affected multiple areas, including both arms, back, and stomach, with associated skin pain, which he describes as unusual. The flare-up was severe enough that he was unable to apply topical treatments. He ran out of clobetasol and had difficulty refilling the medication at the pharmacy despite multiple attempts. The flare-up improved after he obtained the medication, with resolution of symptoms within 2 days. He also reports ongoing issues with hidradenitis suppurativa (HS), which was initially treated with doxycycline for six months, but he is unsure about further management, as the cadd technician has not followed up. He has had trouble reaching the dermatology office and is advised to contact them again for further evaluation and follow-up. He has essential hypertension, but his blood pressure has been stable. The most recent blood pressure reading was 128/85 mmHg. He is currently taking amlodipine. Additionally, he has been struggling with sleep disturbances, which exacerbated by pain. He reports irregular sleep patterns, staying awake for extended periods before taking melatonin, which did not seem to help. He continues to smoke, indicating ongoing tobacco dependence but has not yet sought formal cessation support. Camelia GigiCHAYO Lopez, [facility]- [address] [place], [address], [facility] 09/11/2024 16:39:32 11/28/2024 text/html Sorin is a 39-yea r-old male who presents for an acute primary care visit due to concerns regarding his elevated blood pressure, which led to the postponement of his surgery. On the day of surgery, his blood pressure was measured at 170/101 mmHg, despite taking his prescribed amlodipine in the morning around 5 AM. The day before his surgery, it was 170/90 mmHg. Today, his blood pressure was normal at 109/72 mmHg. Sorin reports that amlodipine typically controls his hypertension, but he has noticed some recent fluctuations but he was told about some significant issues associated with his back prior to surgery which causes a lot of stress and anxiety. He also mentions being under a considerable amount of stress due to the delay in surgery and the complications surrounding it. His stress level was heightened when he was informed of additional health issues during pre-surgical workup, including unexpected findings from an MRI and x-rays that revealed lumbar spine issues. This news, combined with the delay in surgery, has caused significant emotional distress. He acknowledges a history of chronic pain in his lower back, specifically at the L4-5-6 levels. He has been having intermittent headaches since his stress level has increased. He reported he had seizures and sought hospital care, treated for such, but reviewing Jerome's documentation no mention of seizures noted. Sorin has also been using black seed oil pills along with doxycycline, which he takes with meals to avoid gastrointestinal discomfort. Camelia Van, ACTIVITY DIRECTOR-BC, PMHNP-BC [address] [place], [address], [place] [facility] 11/28/2024 15:46:49
--- NOTE | 2025-01-28 08:14 | ECG_ITS ---
Test Date: 2025-01-28 08:21:02 Measurements Intervals [place] Rate: 76 P: 60 CO: 179 QRS: 68 QRSD: 93 T: 6 QT: 361 QTc: 407 Interpretive Statements SINUS RHYTHM NONSPECIFIC ST-T WAVE ABNORMALITY- ANTERIOR LEADS BORDERLINE ECG Compared to ECG 09/13/2024 17:43:40 HEART RATE HAS DECREASED Electronically Signed On 01-28-2025 08:30:05 CDT by Tai Chaparro D.O.
--- NOTE | 2025-01-28 08:29 | ED.CHESTPAIN ---
HPI - Chest Pain General Chief Complaint: Chest Pain Stated Complaint: R. sided chest pain x2 weeks Time Seen by Provider: 01/28/25 08:24 39 years old male came to the ED by private car with his daughter from home complaining of chest pain, start on the left side then spread back on force between right chest and left chest, no radiation to the back or arms. Patient denies any fever, chills, nausea, vomiting, shortness of breath, coughing or recent trauma. Pain worse with sleeping and moving, slightly better on standing position. Patient does not take medications or pain medication for sickle cell anemia. Last time was seen by his it help desk technician over 2 months ago at [facility]. Source: patient Related Data Allergies Allergy/AdvReac Type Severity Reaction Status Date / Time Opioids - Morphine Analogues Allergy Intermediate Rash Verified 01/28/25 08:11 sulfamethoxazole (From Allergy Intermediate Rash Verified 01/28/25 08:11 Bactrim) tramadol Allergy Intermediate Rash Verified 01/28/25 08:11 trimethoprim (From Bactrim) Allergy Intermediate Rash Verified 01/28/25 08:11 Review of Systems Review of Systems: All systems reviewed & are unremarkable except as noted in HPI and below PMFSH Past Medical History Medical History Tobacco use Abscess and cellulitis of gluteal region Sickle cell trait Hidradenitis suppurativa (Unknown) Surgical History Surgical History Abscess on right buttock area Family History Family History Mother Hypertension Social History Social History Social History: Surrogate decision maker: Shanon English, significant other. Code status: Full code. Smoking packs per day: 1 Smoking cigarettes per day: 20.0 Smoking status: Current every day smoker Tobacco type: cigarettes Alcohol intake: current Drinks per week: 4 Alcohol use details: occasional Substance use: never Substance use type: does not use Living arrangements: with family Additional living arrangements comments: Lives with significant other in [place], [place]. 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 Gender identity (if verbalized by the patient): Male Spiritual care concerns: No Exam Narrative: General appearance: Well-developed, well-nourished Skin: Normal color Head: Normocephalic, nontraumatic Eyes: Clear conjunctiva ENT: Oropharynx normal, ears normal, nose normal Neck: Supple, nontender Chest and respiratory: Airway patent, no respiratory distress, no accessory muscle use, severe tenderness right chest with light palpation, no bruises, no swelling or rash Heart: Regular rate/rhythm Abdomen: Soft, severe tenderness right upper quadrant, no organomegaly, quiet bowel sounds Vascular: Normal peripheral pulses, normal capillary refill. Musculoskeletal: Normal range of motion, nontender back Neurologic: Alert and oriented ?3, BUZZSAW OPERATOR is normal as tested, no gross motor deficit Course Vital Signs Vital signs: Vital Signs Pulse Rate 79 01/28/25 08:18 Respiratory Rate 19 01/28/25 08:18 Pulse Rate 78 01/28/25 11:26 Respiratory Rate 16 01/28/25 11:26 Blood Pressure 128/79 01/28/25 11:26 Pulse Oximetry 99 01/28/25 11:26 MDM - Chest Pain MDM Narrative Medical decision making narrative: Patient presents with steady chest pain for over 1 month, history of sickle cell anemia not on any medication, never been seen by a it help desk technician with official diagnosis. Vital signs showing blood pressure 139/91 otherwise within normal limit Physical examination showing severe tenderness right upper and right upper quadrant Differential diagnosis includes: Chest wall pain, costochondritis, pleurisy, pneumonia, stress related symptoms Blood workup today includes CBC, CMP, troponin , coags, D-dimer showed elevated D-dimer of 1.2, otherwise within normal limit CTA chest abdomen and pelvis showed no cardiopulmonary abnormalities. Right buttock skin abnormality consistent with patient history of hidradentitis suppurativa and currently on antibiotic EKG showed normal sinus rhythm, no acute abnormalities Diagnosis chest wall pain The pt was discharged to home.the pt,s condition upon discharge was fair,education was provided to the pt in reference to the final impression,discharge study results,treatment,prognosis and need for follow up . Differential Diagnosis Differential diagnosis: Likely other (As above) Medical Records Data Attestation: I reviewed the patient's medical records. Lab Data Attestation: I reviewed the patient's lab results. 01/28/25 08:20 01/28/25 08:20 Labs: Lab Results 01/28/25 01/28/25 Range/Units 08:20 11:05 WBC 9.9 (4.5-10.0) K/mm3 RBC 3.97 L (4.6-6.20) M/mm3 Hgb 11.8 L (14.0-18.0) g/dL Hct 36.2 L (42.0-52.0) % MCV 91.2 (80-100) fl MCH 29.7 (26-34) pg MCHC 32.6 (32-36) g/dl RDW 15.6 H (11.5-14.5) % Plt Count 348 (150-375) k/mm3 MPV 8.6 (7.4-10.4) fl Immature Gran % (Auto) 0.2 (0-0.5) % Neut % (Auto) 63.2 (45.5-73.1) % Lymph % (Auto) 29.1 (18.3-44.2) % [place] % (Auto) 5.9 (2.6-8.5) % Eos % (Auto) 1.3 (0-4.4) % Baso % (Auto) 0.3 (0.2-1.2) % Lymph # (Auto) 2.87 (0.9-3.2) K/mm3 [place] # (Auto) 0.6 (0.1-0.6) K/mm3 Eos # (Auto) 0.1 (0-0.3) K/mm3 Baso # (Auto) 0.0 (0.0-0.1) K/mm3 Abs Immat Gran (auto) 0.02 (0.00-0.031) K/mm3 Absolute Neuts (auto) 6.2 (1.3-6.7) K/mm3 Absolute Nucleated RBC 0.000 (0.0-0.012) K/mm3 Nucleated RBC % 0.0 (0.0-0.2) % ESR 87 H (0-20) mm/hr Absolute Retic 0.06 (0.02-0.10) 10^6/uL Percent Retic 1.56 (0.7-4.3) % Immature Retic Fraction 14.7 (3.0-15.9) % Retic Hgb Content 34.0 (28.2-36.6) pg PT 12.7 (11.1-14.7) Seconds INR 1.0 APTT 28.0 (22.3-36.8) Seconds D-Dimer 1.23 H (<0.48) ug/mL Sodium 144 (137-145) mmol/L Potassium 3.5 (3.4-5.0) mmol/L Chloride 106 (98-107) mmol/L Carbon Dioxide 29 (22-30) mmol/L Anion Gap 9 (4-12) mmol/L BUN 9 (9-20) mg/dL Creatinine 0.80 (0.7-1.3) mg/dL Estim Creat Clear Calc 103 ml/min Estimated GFR > 60 (59 - ) Glucose 125 H (65-110) mg/dL Calcium 9.1 (8.4-10.2) mg/dL Total Bilirubin 0.2 (0.2-1.3) mg/dL AST 36 (17-59) U/L ALT 11 (6-50) U/L Alkaline Phosphatase 98 (38-126) U/L Troponin I < 0.012 < 0.012 (0.000-0.034) ng/mL Total Protein 8.0 (6.3-8.2) g/dL Albumin 4.0 (3.5-5.1) g/dL Lipase 40 (23-300) U/L Imaging Data Radiologist's impression: CTA chest, abdomen and pelvis showed no acute cardiopulmonary abnormality ECG Data EKG #1: Attestation: I personally reviewed and interpreted this ECG as follows: Interpretation: EKG showed normal sinus rhythm at 76 beats per minute, nonspecific ST T-wave abnormality, borderline EKG compared to EKG on September 13, 2024 no acute abnormality Critical Care Time Critical Care Time Critical Care Time: No Discharge Plan Discharge Clinical Impression: Atypical chest pain Patient Disposition: Home Condition: Stable Instructions: Chest Wall Pain (ED) Additional Instructions: Return if symptoms are worsening , call your family physician for appointment, take Tylenol, ibuprofen as as needed for aches and pain, continue home medications. Patient Language: Swedish Prescriptions: No Action silver 200 mcg/gram gel 1 applic topical DAILY 14 Days Qty: 45 0RF Rx Instructions: Apply to right buttock wound after daily shower. Dress with dry gauze & tape. Over the counter medicine. acetaminophen 500 mg Tablet 1,000 mg PO Q6H PRN (Reason: Mild Pain (1-3) Or Fever) 14 Days 0RF ibuprofen 800 mg tablet 800 mg PO TID PRN (Reason: pain) Qty: 30 0RF clindamycin HCl 300 mg capsule 300 mg PO Q6H 10 Days Qty: 40 0RF doxycycline hyclate 100 mg capsule 100 mg PO Q12H 10 Days Qty: 20 0RF diclofenac potassium 50 mg tablet 50 mg PO TID PRN (Reason: pain) Qty: 30 0RF cyclobenzaprine 10 mg tablet 10 mg PO TID PRN (Reason: muscle spasm) Qty: 21 0RF prednisone 20 mg tablet 40 mg PO DAILY 5 Days Qty: 10 0RF hydrocodone-acetaminophen 5-325 mg tablet 1 tablet PO Q8H PRN (Reason: pain) Qty: 10 0RF Follow-up/Referrals: Rehan,Camelia Kapadia, X RAY ELECTRONICS WIRING TECHNICIAN-BC [Primary Care Provider] - Stand Alone Forms: Work/School Release IP
--- OUTSIDE RECORDS SUMMARY | 2025-01-28 08:29 | XMS_ITS | Continuity of Care Document ---
Author Organization [facility] Address [address] [place] [address] Phone Care Team Providers Care Machinist Helper Name Role Phone Benjie WHITE MD, Dean [...] Date Provider Providers Copied on Encounter [facility], [address] [place] [address], [id number], tel:[phone] [facility] No Information Benjie rodriguez. [address] [facility] [address], [place], [place], [id number] , [place]. tel:[phone] [employer], [address] [place] [address], [id number], tel:[phone] [facility] No Information 4 Benjie WHITE Armaan er. [address], [place], [place], [id number] , [place]. tel: [phone] [facility], [address], [place], [place], [id number], [place] [phone] [facility] Lumbar (chief complaint) Low back pain, unspecified 4 Benjie Crook er. [address], [place], [place], [id number] , [place]. tel: [phone] [facility], [address] [address], [place], [place], [id number], [place] tel:[phone] [facility] No Information 4 Benjie WHITE [facility] er. [address] [facility] [address], [place], [place], [id number] , [place]. tel: [phone] Family History Family Member Type Diagnosis Age [...]
--- OUTSIDE RECORDS SUMMARY | 2025-01-28 08:29 | XMS_ITS | CONTINUITY OF CARE DOCUMENT ---
Author Name stacey ibarra Address Unknown Organization [facility] Address [address] [place] [address] Phone [phone] Care Team Providers Care Business Continuity Planning Director Name Role Phone David Sosa MD Unavailable [phone] David Sosa MD Unavailable [phone] INSURANCE PROVIDERS Payer name Policy type / Coverage type Tommie red constitution party ID [place] [employer] Medicaid [id number]
[2025-01-28 08:32] LABS: Basophils Percent Auto 0.3 % (0.2-1.2); Eosinophils Absolute Auto 0.1 K/mm3 (0-0.3); Eosinophils Percent Auto 1.3 % (0-4.4); Hematocrit 36.2 % (42.0-52.0); Hemoglobin 11.8 g/dL (14.0-18.0); Immature Granulocyte Absolute 0.02 K/mm3 (0.00-0.031); Immature Granulocyte Percent A 0.2 % (0-0.5); Lymphocytes Absolute Auto 2.87 K/mm3 (0.9-3.2); Lymphocytes Percent Auto 29.1 % (18.3-44.2); Mean Corpuscular HGB Conc 32.6 g/dl (32-36); Mean Corpuscular Hemoglobin 29.7 pg (26-34); Mean Corpuscular Volume 91.2 fl (80-100); Mean Platelet Volume 8.6 fl (7.4-10.4); Monocytes Absolute Auto 0.6 K/mm3 (0.1-0.6); Monocytes Percent Auto 5.9 % (2.6-8.5); Neutrophils Absolute Auto 6.2 K/mm3 (1.3-6.7); Neutrophils Percent Auto 63.2 % (45.5-73.1); Platelet Count Result 348 k/mm3 (150-375); Red Blood Count 3.97 M/mm3 (4.6-6.20); Red Cell Distribution Width 15.6 % (11.5-14.5); White Blood Count 9.9 K/mm3 (4.5-10.0)
[2025-01-28 08:35] LABS: Alanine Aminotransferase 11 U/L (6-50); Alkaline Phosphatase 98 U/L (38-126); Anion Gap 9 mmol/L (4-12); Aspartate Amino Transferase 36 U/L (17-59); Bilirubin,Total 0.2 mg/dL (0.2-1.3); Blood Urea Nitrogen 9 mg/dL (9-20); Calcium 9.1 mg/dL (8.4-10.2); Carbon Dioxide 29 mmol/L (22-30); Chloride 106 mmol/L (98-107); Estimated CRCL calculation 103 ml/min; Estimated Glomerular Filt Rate > 60; Glucose 125 mg/dL (65-110); Lipase 40 U/L (23-300); Potassium 3.5 mmol/L (3.4-5.0); Sodium 144 mmol/L (137-145)
[2025-01-28 08:47] LABS: Troponin I < 0.012 ng/mL (0.000-0.034)
[2025-01-28 08:50] LABS: Prothrombin Time 12.7 Seconds (11.1-14.7)
[2025-01-28 09:05] LABS: D Dimer 1.23 ug/mL (<0.48)
[2025-01-28 09:09] LABS: Immature Reticulocyte Fraction 14.7 % (3.0-15.9); Reticulocyte Percent 1.56 % (0.7-4.3); Reticulocytes Absolute 0.06 10^6/uL (0.02-0.10)
[2025-01-28 09:37] LABS: Erythrocyte Sedimentation Rate 87 mm/hr (0-20)
[2025-01-28 11:30] LABS: Troponin I < 0.012 ng/mL (0.000-0.034)
== END 2025-01-28 11:31 | disposition home or self-care (01) ==
PROVIDERS: Emergency Provider Emergency Medicine; PCP Nurse Practitioner Family
DX: R07.89 Other chest pain (principal); D57.1 Sickle-cell disease without crisis; F17.210 Nicotine dependence, cigarettes, uncomplicated; R94.31 Abnormal electrocardiogram [ECG] [EKG]
CPT/HCPCS: 36415; 71045; 71275; 74174; 80053; 83690; 84484; 85025; 85046; 85380; 85610; 85652; 85730; 93005; 99284; Q9967

== ENCOUNTER 2025-05-23 16:08 | Inpatient (IN) | payer OTHER, SELFPAY ==
--- OUTSIDE RECORDS SUMMARY | 2024-06-07 19:00 | XMS_ITS | Continuity of Care Document ---
Author Organization [facility] Address [address] [place] [address] Phone Care Team Providers Care Network Operations Analyst Name Role Phone Benjie WHITE MD, Dean Unavailable Simi vailable Allergies, Adverse Reactions, Alerts Substance Reaction Status Criticality morphine Rash, Swelling, ItchyEyes Active No Information Medications Medication Instructions Dosage Effective Dates (start - stop) Status Comments amlodipine 2.5 mg tablet take 1 tablet by oral route every day 2.5 MG - Active Procedures Procedure Date Medical Testimony Deposition Pre Payment X-ray exam Lumbar 4+ views BMI Documented Above Normal Limit F/U Pl an Doc Pre Payment Advance Directives Directive Yes / No Effective Date File Name No Information Encounters Encounter Description Practice Location Reason(s) For Visit Diagnoses Date Provider Providers Copied on Encounter [facility], [address] [place] [address], [id number], tel:[phone] [facility] No Information Benjie rodriguez. [address] [facility] [address], [place], [place], [id number] , [place]. [phone] [place], [address] [place] [address], [id number], tel:[phone] [facility] No Information 4 Benjie WHITE Armaan er. [address], [address], [place], [place], [id number] , [place]. tel: [phone] [facility], [address], [place], [place], [id number], [place] [phone] [facility] Lumbar (chief complaint) Low back pain, unspecified 4 Benjie Crook er. [address] [facility] [address] [facility], [address], [place], [place], [id number] , [place]. tel: [phone] [facility], [address] [address], [place], [place], [id number], [place] tel:[phone] [facility] No Information 4 Benjie WHITE [facility] er. [address] [facility] [address], [place], [place], [id number] , [place]. tel: [phone] Family History Family Member Type Diagnosis Age At Onset No Information Immunizations Vaccine Date Status Comments Pneumo (2 yrs or older)(PPV) administered Note: pt declined ; Source: Source Unspecified influenza, injectable, quadrivalent, (3 years or older) administered Note: pt declined ; Source: Source Unspecified Payers Payer name Insurance type Covered democrat ID Authoriza tion(s) No Information Social History Type Description Quantity Date Captured Comments Sex Male Smoking Status No Information Chief Complaint And Reason For Visit No Information Reason For Referral Reason For Referral No Information Plan Of Treatment Date Type Action Status Referral Ordered: X-ray exam Lumbar 4+ views spine, lumbar ordered History Of Present Illness Encounter Date Complaint History Of Prese nt Illness Lumbar Sorin comes into the office for an MICHAEL. Functional Status Date Functional Assessmen t No Information Instructions Date Instruction Additional Infor mation No Information Assessments Type Assessment Date No Information Patient Care Teams Name Effective Dates (start - stop) Status Members No Information
--- NOTE | ~2025-05-23 | XR_ITS ---
EXAMINATION: XR chest 1V portable COMPARISON: No comparisons available. HISTORY: shortness of breath, hypoxia FINDINGS: Bilateral infiltrates most marked in the left upper lobe. No pneumothorax. Heart is normal size. Mediastinal and hilar contours are within normal limits. Bony thorax no acute abnormality. Miscellaneous: None Impression: Bilateral pneumonia Reviewed, dictated and finalized at location P. Impression: Bilateral pneumonia
--- NOTE | ~2025-05-23 | XR_ITS ---
Examination: XR chest 1V portable Clinical History: hypoxia Comparison: 2 days prior Technique: Portable AP Findings: Heart size unchanged, mildly enlarged. Improving but persistent left lung airspace disease. No acute bony abnormality. IMPRESSION: 1. Improving but persistent left lung airspace disease. Reviewed, dictated and finalized at location R.
--- NOTE | ~2025-05-23 | CT_ITS ---
EXAMINATION: CT chest abdomen pelvis w con DATE: 05/23/2025 18:44 CDT INDICATION: Rigid abdomen TECHNIQUE: Computed tomography (CT) of the chest, abdomen, and pelvis was performed with intravenous contrast. The dose-length product was 593.62 mGy-cm. COMPARISON: CT dated 01/28/2025 FINDINGS: CHEST CT: Heart size normal. No thoracic lymphadenopathy. No significant vascular abnormality. No significant pleural or pericardial effusion. No focal airspace consolidation. Dependent atelectasis. No pneumothorax. No suspicious pulmonary nodules. ABDOMEN/PELVIS CT: The liver, spleen, pancreas, adrenal glands and kidneys are unremarkable. Gallbladder is present. There is persistent right inguinal lymphadenopathy, largest lymph node measures 2.8 x 1.5 cm without significant change from prior study. There are are enlarged lymph nodes in the external iliac chain and obturator location. There is persistent abnormal skin thickening which is partially included on this study. This abnormal skin thickening extends to the gluteal region centrally. There is no discrete drainable abscess or fluid collection. There is no abnormal gas formation or underlying osseous destruc tion. IMPRESSION: 1. Extensive abnormal skin thickening and subcutaneous fatty infiltration of the right gluteal region extending to the gluteal cleft. Findings most consistent with cellulitis and panniculitis, possibly due to bacterial soft tissue infection. No organized or drainable abscess identified. Differential diagnosis includes malignancy. 2: Right inguinal and pelvic lymphadenopathy, likely reactive in the setting of adjacent soft tissue inflammation/infection. Reviewed, dictated and finalized at location O. IMPRESSION: 1. Extensive abnormal skin thickening and subcutaneous fatty infiltration of th e right gluteal region extending to the gluteal cleft. Findings most consistent with cellulitis and panniculitis, possibly due to bacterial soft tissue infect ion. No organized or drainable abscess identified. Differential diagnosis inclu sunny malignancy. 2: Right inguinal and pelvic lymphadenopathy, likely reactive in the setting of adjacent soft tissue inflammation/infection.
--- NOTE | ~2025-05-23 | XR_ITS ---
EXAMINATION: XR chest 1V portable COMPARISON: No comparisons available. HISTORY: Fevers FINDINGS: The lungs are clear, no effusion. No pneumothorax. Heart is normal size. Mediastinal and hilar contours are within normal limits. Bony thorax no acute abnormality. Miscellaneous: None Impression: No acute cardiopulmonary abnormality. Reviewed, dictated and finalized at location A. Impression: No acute cardiopulmonary abnormality.
[2025-05-23 16:11] VITALS: BP 164/83; PULSE 117; RESP 25; TEMP 38.7; O2SAT 100
--- NOTE | 2025-05-23 16:48 | ECG_ITS ---
Test Date: 2025-05-23 16:58:40 Measurements Intervals [place] Rate: 123 P: 25 MD: 142 QRS: 24 QRSD: 75 T: 27 QT: 302 QTc: 433 Interpretive Statements SINUS TACHYCARDIA VOLTAGE CRITERIA FOR LVH [MEETS CRITERIA IN ONE OF: R(aVL), S(V1), R(V5), R(V5/V6)+S(V1)] NONSPECIFIC T-WAVE ABNORMALITY Electronically Signed On 05-23-2025 17:05:43 CDT by Erwin Lowry M.D.
--- OUTSIDE RECORDS SUMMARY | 2025-05-23 17:01 | XMS_ITS | Clinical Summary ---
Author Organization [facility] Address [address] [place] [address] Care Team Providers Care Oil Separator Name Role Phone Unknown, Notinfile Primary Care [...] on file Legal Sex Male 12:56 PM APPLICATION SUPPORT ADMINISTRATOR Gender Identity Not on file Sexual Orientation [...] series) 2000 Regular Well Visit/Exam 18-64 2005 HPV Vaccines (1 - 3-dose SCDM series) 2014 Covid-19 Vaccine (3 - season) 2025 06/12/2021, 03/22/2021 Influenza Vaccine (#1) 2025 02/18/2024 DTaP/Tdap/Td Vaccine (7 - Td or Tdap) 06/18/2032 06/18/2022, 03/23/1996, 08/28/1993, Additional history exists Hepatitis B Screening Completed 11/06/1996 , 11/06/1996, 06/12/1996, Additional history exists Pneumococcal vaccine <65 Aged Out 02/18/2024 No longer eligible based on patient's age to complete this topic Insurance [facility] Care Teams Oil Separator Relationship Specialty Start Date End Date Unknown, Notinfile PCP - General 07/05/17
--- OUTSIDE RECORDS SUMMARY | 2025-05-23 17:01 | XMS_ITS | Clinical Summary ---
Author Organization [facility] Address [address] [place] [address] Care Team Providers Care Information Clerk Name Role Phone Camelia Van [facility] Primary Care Provider [phone] Allergies Active Allergy Reactions Criticality Noted Date Comments Morphine Hives 07/23/2018 Tramadol Hives 07/23/2018 Medications predniSONE 20 MG tablet Take 1 tablet (20 mg total) by mouth daily. Take 3 tabs x 3 days, then 2 tabs x 3 days, then 1 tab x 3 days 18 tablet 02/20/2019 Active methocarbamol 500 MG tablet Take 1 tablet (500 mg total) by mouth 3 (three) times daily. 20 tablet 02/20/2019 Active HYDROcodone-acet aminophen (NORCO) 5-325 MG tabletIndication s:Acute Pain < 3 Day Supply Take 1 tablet by mouth every 6 (six) hours as needed. Indications : Acute Pain < 3 Day Supply 10 tablet 10/19/2024 Active Social History Tobacco Use Types Packs/Day Years Used Date Smoking Tobacco: Every Day Cigarettes Smokeless Tobacco: Never Alcohol Use Standard Drinks/Week Comments Yes 0 (1 standard drink = 0.6 oz pur e alcohol) Sex and Gender Information Value Date Recorded Sex Assigned at Male 10/19/2024 11:05 AM RUBBER AND PLASTICS WORKER Legal Sex Male 6:04 PM CDT Gender Identity Not on file Sexual Orientation Not on file Last Filed Vital Signs Vital Sign Reading Time Taken Comments Blood Pressure 109/78 10/19/2024 12:09 PM RUBBER AND PLASTICS WORKER Pulse 74 10/19/2024 12:09 PM RUBBER AND PLASTICS WORKER Temperature 36.6 C (97.8 F) 10/19/2024 11:10 AM RUBBER AND PLASTICS WORKER Respiratory Rate 18 10/19/2024 12:0 9 PM RUBBER AND PLASTICS WORKER Oxygen Saturation 95% 10/19/2024 12: 09 PM RUBBER AND PLASTICS WORKER Inhaled Oxygen Concentration - - Weight 76.1 kg (167 lb 12.3 oz) 025 11:10 AM RUBBER AND PLASTICS WORKER Height 170.2 cm (5' 7) 10/19/2024 11:1 0 AM RUBBER AND PLASTICS WORKER Body Mass Index 26.28 10/19/2024 11:10 AM RUBBER AND PLASTICS WORKER Plan of Treatment Health Maintenance Due Date Last Done Comments Annual Physical 1990 Hepatitis C 2005 HPV Vaccines (1 - 3-dose SCDM series) 2014 Pneumococcal Vaccine: Pediatrics (0 to 5 Years) and At-Risk Patients (6 to 49 Years) (2 of 2 - PCV) 02/17/2025 02/18/2024 COVID-19 Vaccine (3 - season) 2025 06/12/2021, 03/22/2021 DTaP, Tdap and Td Vaccines (7 - Td or Tdap) 06/18/2032 06/18/2022, 03/23/1996, 08/28/1993, Additional history exists Hepatitis B Vaccines Completed 11/06/1996, 06/12/1996, 03/23/1996 Meningococcal B Vaccine Aged Out No l onger eligible based on patient's age to complete this topic Meningococcal Vaccine Aged Out No severo tiffany eligible based on patient's age to complete this topic RSV Immunizations Under 20 Months Aged Out No longer eligible based on patient's age to complete this topic Insurance [employer] Care Teams Information Clerk Relationship Specialty Start Date End Date Camelia Van, PIPE SMOKING MACHINE OPERATOR- [address] [place] [address] PCP - General NURSE PRACTITIONER 10/19/24
--- OUTSIDE RECORDS SUMMARY | 2025-05-23 17:01 | XMS_ITS | Encounter Summary ---
Author Organization [facility] Address [facility] [place] [address] Care Team Providers Care Farmworker Poultry Name Role Phone Jesus Manuel Stern MD Primary Care Provider [phone] Camelia Van-CORONA Primary Care Provider [phone] Encounter Details Date Type Department Care Team (Late st Contact Info) Description 08/17/2017 Pre-Procedure [facility] Diagnostic Imaging [address] [address] Juan Rao MD [address] [place] [id number] Social History Tobacco Use Types Packs/Day Years Used Date Smoking Tobacco: Never Assessed Sex and Gender Information Value Date Recorded Sex Assigned at Male 10/19/2024 11:05 AM BULL DRIVER Legal Sex Male 6:04 PM CDT Gender Identity Not on file Sexual Orientation Not on file documented as of this encounter Plan of Treatment Not on file documented as of this encounter Visit Diagnoses Not on filedocumented in this encounter Care Teams Farmworker Poultry Relationship Specialty Start Date End Date Jesus Manuel Stern MD [address] [address] PCP - General 11/18/16 10/18/24 Camelia Van FNP-BC [address] [place] [id number] PCP - General NURSE PRACTITIONER 10/19/24 documented as of this encounter
--- OUTSIDE RECORDS SUMMARY | 2025-05-23 17:01 | XMS_ITS | Clinical Summary ---
Author Organization [facility] Address [address] [place] [address] Care Team Providers Care Wall Steamer Name Role Phone Unavailable Primary Care Provider Unavailabl e Immunizations Immunization Administration Dates Next Due Covid-19, Mrna, Lnp-s, Pf, 30 Mcg/0.3 Ml Dose (P fizer) 06/12/2021 Social History Tobacco Use Types Packs/Day Years Used Date Smoking Tobacco: Never Assessed Sex and Gender Information Value Date Recorded Sex Assigned at Not on file Legal Sex Male 9:20 AM CDT Gender Identity Not on file Sexual Orientation Not on file Plan of Treatment Health Maintenance Due Date Last Done Comments Hepatitis C Virus (HCV) Screening 1987 TdaP Immunization 1987 Human Papillomavirus (HPV) Immunization (1 - 3-dose SCDM series) 2014 SARS-COV-2 Immunization ( - season) 2024 06/12/2021, 03/22/2021 Influenza Immunization (#1) 2025 Respiratory Syncytial Virus (RSV) Immunization (Adult) (1 [...]
--- OUTSIDE RECORDS SUMMARY | 2025-05-23 17:01 | XMS_ITS | Clinical Summary ---
Author Organization [facility] Address [address] [place] [address] Care Team Providers Care Cone Baker Machine Name Role Phone Unavailable Primary Care Provider Unavailabl e Source Comments [facility],non-owned Affiliates and Associated Physician Practices is amultiple site organization consisting of ambulatory clinics and hospital sitesin [place], [place], [place] and [place]. This disclosure is being madepursuant to the Care Everywhere program and may not contain all information available regarding this patient. Last updated 18.[facility] Allergies Active Allergy Reactions Criticality Noted Date [...] MD 11/03/2019 9:54 AM Dept. Of Surgery, [facility] phone: [phone] Beeper: [phone] Abscess 09/01/2019 Overview (09/01/2019): 33 y/o male [...] MD 09/01/2019 10:10 AM Dept. Of Surgery, [facility] phone: [phone] Beeper: [phone] Social History Tobacco Use Types Packs/Day Years Used Date Smoking Tobacco: Every Day Cigarettes Smokeless Tobacco: Never Alcohol Use Standard Drinks/Week Comments Yes 0 (1 standard drink = 0.6 oz pur e alcohol) occasionally Sex and Gender Information Value Date Recorded Sex Assigned at Not on file Legal Sex Male 6:20 AM SPREAD CUTTER Gender Identity Not on file Sexual Orientation Not on file Last Filed Vital Signs Vital Sign Reading Time Taken Comments Blood Pressure 121/74 11/03/2019 9:10 AM SPREAD CUTTER Pulse 77 11/03/2019 9:10 AM SPREAD CUTTER Temperature 36.2 C (97.1 F) 11/03/2019 9:10 AM SPREAD CUTTER Respiratory Rate 18 07/31/2019 5:24 PM SPREAD CUTTER Oxygen Saturation 96% 11/03/2019 9:10 AM SPREAD CUTTER Inhaled Oxygen Concentration - - Weight 71.7 kg (158 lb) 11/03/2019 9:10 AM SPREAD CUTTER Height 170.2 cm (5' 7) 11/03/2019 9:10 AM SPREAD CUTTER Body Mass Index 24.75 11/03/2019 9:10 AM SPREAD CUTTER Plan of Treatment Health Maintenance Due Date Last Done Comments HIV SCREENING 2002 HEPATITIS C SCREENING 09/14/2005 DTAP/TDAP/TD VACCINES (1 - Tdap) 2006 HEPATITIS B VACCINE (1 of 3 - 19+ 3-dose series) 2006 PNEUMOCOCCAL VACCINE (1 of 2 - PCV) 2006 HPV VACCINE (1 - 3-dose SCDM series) 2014 DEPRESSION SCREENING 08/30/2024 COVID-19 VACCINE (3 - 2024-2 6 season) 2025 06/12/2021, 03/22/2021 INFLUENZA VACCINE (#1) 2025 02/18/2024 ZOSTER VACCINE (1 of 2) 2037 HIB VACCINE Aged Out No longer eligi ble based on patient's age to complete this topic MENINGOCOCCAL (Group B) VACCINE SHARED DECISION-MAKING Aged Out No longer eligible based on patient's age to complete this topic MENINGOCOCCAL GROUPS A/C/Y/W VACCINE Aged Out No longer eligible b ased on patient's age [place] [id number] [facility]
[2025-05-23] MEDS: SODIUM CHLORIDE 0.9% IV 1,000 ML 999 ML IV CONT (17:18)
[2025-05-23] MEDS: LACTATED RINGERS 1,000 ML 999 ML IV CONT ×2 (17:23→18:03)
[2025-05-23] MEDS: HYDROmorphone HCL INJ (*CRX) 1 MG/ML SYR IV PUSH ×2 (17:24→22:31)
--- NOTE | 2025-05-23 17:26 | ED_ITS ---
HPI - General Adult General Chief complaint: Recheck/Abnormal Lab/Rx Stated complaint: Total body pain Time Seen by Provider: 05/23/25 16:35 History of Present Illness HPI narrative: This is a 39-year-old male history of chronic pain, possibly due to sickle cell although that diagnosis has not been confirmed. Patient said he developed total body pain as starting earlier today. It is associated with significant shaking. He has had this happen several times in the past. The pain is throughout his whole body without any focal findings. He used to follow with Hematology in [place] but has not seen him for several months. He is not taking any sickle cell medications. Patient has a history of hidradenitis suppurativa and has multiple small draining wounds over his right glute. This has been present for years. This is being managed by a plastic surgeon from [place]. Related Data Allergies Allergy/AdvReac Type Severity Reaction Status Date / Time Opioids - Morphine Analogues Allergy Intermediate Rash Verified 05/23/25 16:15 sulfamethoxazole (From Allergy Intermediate Rash Verified 05/23/25 16:15 Bactrim) tramadol Allergy Intermediate Rash Verified 05/23/25 16:15 trimethoprim (From Bactrim) Allergy Intermediate Rash Verified 05/23/25 16:15 PMFSH Past Medical History Medical History Tobacco use Abscess and cellulitis of gluteal region Sickle cell trait Hidradenitis suppurativa (Unknown) Surgical History Surgical History Abscess on right buttock area Family History Family History Mother Hypertension Social History Social History Social History: Surrogate decision maker: Shanon English, significant other. Code status: Full code. Smoking packs per day: 1 Smoking cigarettes per day: 20.0 Smoking status: Current every day smoker Tobacco type: cigarettes Alcohol intake: current Drinks per week: 4 Alcohol use details: occasional Substance use: never Substance use type: does not use Living arrangements: with family Additional living arrangements comments: Lives with significant other in [place], [place]. 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 Gender identity (if verbalized by the patient): Male Spiritual care concerns: No Exam 2 Narrative: APPEARANCE: Patient appears to be in severe pain, he is shaking, he will not let me examine him as every time I touch him he grabs my hand Head: atraumatic. EYES: EOMI, NOSE: Atraumatic NECK: Trachea midline RESPIRATORY: No increased rate of breathing, CTAB CARDIOVASCULAR: tachycardic, No edema ABDOMINAL: Rigid MUSCULOSKELETAl: No obvious deformities NEURO: Alert. Moving 4/4 extremities SKIN:: The right glute has multiple chronic appearing draining abscesses PSYCHIATRIC: Normal affect Course Vital Signs Vital signs: Vital Signs Temperature 101.6 F H 05/23/25 16:11 Pulse Rate 117 H 05/23/25 16:11 Respiratory Rate 25 H 05/23/25 16:11 Blood Pressure 164/83 H 05/23/25 16:11 Pulse Oximetry 100 05/23/25 16:11 Oxygen Delivery Room Air 05/23/25 16:11 Temperature 101.6 F H 05/23/25 16:11 Pulse Rate 112 H 05/23/25 18:10 Respiratory Rate 21 H 05/23/25 18:10 Blood Pressure 133/78 05/23/25 18:10 Pulse Oximetry 96 05/23/25 18:10 Oxygen Delivery Room Air 05/23/25 16:11 Medical Decision Making [facility] Narrative Medical decision making narrative: -Course: 39-year-old male with history of chronic pain presenting for a pain crisis. Patient is tachycardic and febrile on arrival. Patient initial presentation is quite dramatic with significant shaking and moaning and not allowing anyone to him. Pain does not have any focal area and is all over his body. Chaivs scan ordered. Patient given pain control and 30 cc/kilogram bolus, patient started on pip/tazo/vanco. Blood cultures ordered. Patient has hydradenitis suppurativa of the right glute with purulent drainage from several sites. Chavis scan showed cellulitis of the right glute. No intra thoracic or abdominal processes. White count 7.3. Lactic normal. The rest of his workup was unremarkable. On re-evaluation the patient's pain is improved. Vital signs improved although he still mildly tachycardic and febrile. Patient is SIRS+ with source of infection being in his right glute. Patient will be admitted the hospital for further management. Vital Signs Vital Signs: Vital Signs Temperature 101.6 F H 05/23/25 16:11 Pulse Rate 117 H 05/23/25 16:11 Respiratory Rate 25 H 05/23/25 16:11 Blood Pressure 164/83 H 05/23/25 16:11 Pulse Oximetry 100 05/23/25 16:11 Oxygen Delivery Room Air 05/23/25 16:11 Temperature 101.6 F H 05/23/25 16:11 Pulse Rate 112 H 05/23/25 18:10 Respiratory Rate 21 H 05/23/25 18:10 Blood Pressure 133/78 05/23/25 18:10 Pulse Oximetry 96 05/23/25 18:10 Oxygen Delivery Room Air 05/23/25 16:11 Lab Data 05/23/25 17:17 05/23/25 17:17 Labs: Lab Results 05/23/25 Range/Units 17:17 WBC 7.3 (4.5-10.0) K/mm3 RBC 3.48 L (4.6-6.20) M/mm3 Hgb 9.9 L (14.0-18.0) g/dL Hct 31.0 L (42.0-52.0) % MCV 89.1 (80-100) fl MCH 28.4 (26-34) pg MCHC 31.9 L (32-36) g/dl RDW 16.2 H (11.5-14.5) % Plt Count 347 (150-375) k/mm3 MPV 8.6 (7.4-10.4) fl Immature Gran % (Auto) Not Reportable Neut % (Auto) Not Reportable Lymph % (Auto) Not Reportable [place] % (Auto) Not Reportable Eos % (Auto) Not Reportable Baso % (Auto) Not Reportable Lymph # (Auto) Not Reportable [place] # (Auto) Not Reportable Eos # (Auto) Not Reportable Baso # (Auto) Not Reportable Abs Immat Gran (auto) Not Reportable Absolute Neuts (auto) Not Reportable Absolute Nucleated RBC Not Reportable Total Counted 100 Neutrophils % (Manual) 93 H (46-73) % Band Neutrophils % 2 (0-6) % Lymphocytes % (Manual) 4 L (18-44) % Monocytes % (Manual) 1 L (3-9) % Nucleated RBC % Not Reportable Abs Neuts (Manual) 6.93 H (1.3-6.7) K/mm3 Abs Lymphs (Manual) 0.29 L (1.1-4.5) K/mm3 Abs Monocytes (Manual) 0.07 L (0.1-0.90) K/mm3 Atypical Lymphocytes Present Platelet Estimate Adequate (Adequate) Schistocytes None seen Sickle Cell Screen Cancelled Hemoglobin Solubility Pending Sodium 137 (137-145) mmol/L Potassium 3.4 (3.4-5.0) mmol/L Chloride 106 (98-107) mmol/L Carbon Dioxide 25 (22-30) mmol/L Anion Gap 6 (4-12) mmol/L BUN 7 L (9-20) mg/dL Creatinine 0.86 (0.7-1.3) mg/dL Estim Creat Clear Calc 96 ml/min Estimated GFR > 60 (59 - ) Glucose 97 (65-110) mg/dL Lactic Acid 1.7 (0.7-2.0) mmol/L Calcium 8.4 (8.4-10.2) mg/dL Total Bilirubin 0.7 (0.2-1.3) mg/dL AST 34 (17-59) U/L ALT 18 (6-50) U/L Alkaline Phosphatase 91 (38-126) U/L Total Protein 8.3 H (6.3-8.2) g/dL Albumin 3.4 L (3.5-5.1) g/dL Lipase 25 (23-300) U/L Urine Color Yellow (Yellow) Urine Appearance Clear (Clear) Urine pH 6.5 (5.0-9.0) Ur Specific [place] 1.016 (1.001-1.035) Urine Protein Negative (Negative) mg/dL Urine Glucose (UA) Negative (Negative) mg/dL Urine Ketones Negative (Negative) mg/dL Ur Blood (Man) 1+ H (Negative) Urine Nitrate Negative (Negative) Urine Bilirubin Negative (Negative) Urine Urobilinogen 0.2 (<2.0) mg/dL Leukocyte Esterase Rfl Negative (Negative) SILVERIO/UL Urine RBC 11-20 H (0-2) /hpf Urine WBC 0-5 (0-3) /hpf Ur Squamous Epith Cells None seen (Few) /hpf Urine Bacteria None seen /hpf Urine Casts 0-2 Influenza A (RT-PCR) Negative (Negative) Influenza B (RT-PCR) Negative (Negative) RSV (RT-PCR) Negative (Negative) SARS-CoV-2 RNA (RT-PCR) Negative (Negative) Discharge Plan Discharge Clinical Impression: Chronic pain, Hidradenitis suppurativa Sepsis Qualifiers: Sepsis type: sepsis due to unspecified organism Sepsis acute organ dysfunction status: without acute organ dysfunction Qualified Code(s): A41.9 - Sepsis, unspecified organism Patient Disposition: Still a Patient Condition: Stable Patient Language: Danish Prescriptions: No Action silver 200 mcg/gram gel 1 applic topical DAILY 14 Days Qty: 45 0RF Rx Instructions: Apply to right buttock wound after daily shower. Dress with dry gauze & tape. Over the counter medicine. acetaminophen 500 mg Tablet 1,000 mg PO Q6H PRN (Reason: Mild Pain (1-3) Or Fever) 14 Days 0RF ibuprofen 800 mg tablet 800 mg PO TID PRN (Reason: pain) Qty: 30 0RF clindamycin HCl 300 mg capsule 300 mg PO Q6H 10 Days Qty: 40 0RF doxycycline hyclate 100 mg capsule 100 mg PO Q12H 10 Days Qty: 20 0RF diclofenac potassium 50 mg tablet 50 mg PO TID PRN (Reason: pain) Qty: 30 0RF cyclobenzaprine 10 mg tablet 10 mg PO TID PRN (Reason: muscle spasm) Qty: 21 0RF prednisone 20 mg tablet 40 mg PO DAILY 5 Days Qty: 10 0RF hydrocodone-acetaminophen 5-325 mg tablet 1 tablet PO Q8H PRN (Reason: pain) Qty: 10 0RF Follow-up/Referrals: Rehan,Camelia Kapadia, FURNITURE [employer]SEMBLY SUPERVISOR[employer] [Primary Care Provider, Unknown]
[2025-05-23 17:27] LABS: Hematocrit 31.0 % (42.0-52.0); Hemoglobin 9.9 g/dL (14.0-18.0); Mean Corpuscular HGB Conc 31.9 g/dl (32-36); Mean Corpuscular Hemoglobin 28.4 pg (26-34); Mean Corpuscular Volume 89.1 fl (80-100); Platelet Count Result 347 k/mm3 (150-375); Red Blood Count 3.48 M/mm3 (4.6-6.20); White Blood Count 7.3 K/mm3 (4.5-10.0)
[2025-05-23 17:39] LABS: Alanine Aminotransferase 18 U/L (6-50); Albumin Level 3.4 g/dL (3.5-5.1); Alkaline Phosphatase 91 U/L (38-126); Anion Gap 6 mmol/L (4-12); Aspartate Amino Transferase 34 U/L (17-59); Bilirubin,Total 0.7 mg/dL (0.2-1.3); Blood Urea Nitrogen 7 mg/dL (9-20); Calcium 8.4 mg/dL (8.4-10.2); Carbon Dioxide 25 mmol/L (22-30); Chloride 106 mmol/L (98-107); Estimated CRCL calculation 96 ml/min; Estimated Glomerular Filt Rate > 60; Glucose 97 mg/dL (65-110); Lipase 25 U/L (23-300); Potassium 3.4 mmol/L (3.4-5.0); Sodium 137 mmol/L (137-145); Total Protein 8.3 g/dL (6.3-8.2)
[2025-05-23] MEDS: ACETAMINOPHEN 500 MG TABLET 1000 MG PO (17:40)
[2025-05-23 17:43] LABS: Band Neutrophils Percent 2 % (0-6); Lymphocytes Absolute Manual 0.29 K/mm3 (1.1-4.5); Lymphocytes Percent Manual 4 % (18-44); Monocytes Absolute Manual 0.07 K/mm3 (0.1-0.90); Monocytes Percent Manual 1 % (3-9); Neutrophils Absolute Manual 6.93 K/mm3 (1.3-6.7); Neutrophils Percent Manual 93 % (46-73); Total Cells Counted 100
[2025-05-23 17:44] LABS: Schistocytes None Seen
[2025-05-23 17:53] LABS: Add Urine Microscopic? YES; Appearance Urine Clear (Clear); Glucose Urine UA Negative (Negative); Leukocyte Esterase Ur Negative LEU/UL (Negative); Nitrate Urine Negative (Negative); Non Pathogenic Casts 0-2; Specific Grav Ur 1.016 (1.001-1.035)
[2025-05-23] MEDS: LACTATED RINGERS 500 ML 999 ML IV CONT (18:03)
[2025-05-23 18:10] VITALS: BP 133/78; PULSE 112; RESP 21; O2SAT 96
[2025-05-23 18:13] LABS: Influenza A QL RT-PCR Negative (Negative); Influenza B QL RT-PCR Negative (Negative); RSV RNA, RT-PCR Negative (Negative); SARS-CoV-2 RNA PCR Negative (Negative)
[2025-05-23] MEDS: KETOROLAC 15 MG/ML VIAL (*BKC) IV PUSH (18:39)
[2025-05-23 21:34] LABS: Immature Reticulocyte Fraction 25.5 % (3.0-15.9); Reticulocyte Hemoglobin Conten 31.5 pg (28.2-36.6); Reticulocytes Absolute 0.07 10^6/uL (0.02-0.10)
--- NOTE | 2025-05-23 22:25 | P.HP_ITS ---
H&P: HPI History of Present Illness Date/Time: 05/23/25 22:25 Chief Complaint: ?Sickle cell crisis? Narrative: 39-year-old male with a past medical history of sickle cell trait and hidradenitis suppurative who presented to the ER with having extreme pain everywhere. On arrival to the ER the patient was found to have a fever with T- max 103.1. The patient reported that he has not felt good for 2 or 3 days. He has been slightly nauseous and staying in bed. He has been having night sweats and then to day started having severe chills. He reports that it is not unusual for and to have a little bit of drainage from his buttock wound. Wounds of been an ongoing issue and intermittent in nature since 2005. His at bedside reports that the drainage has been significantly worse. The patient does report acutely worsening pain to the right buttock. He noticed an area of increased tenderness about 3 days ago and area opened up and started draining shortly thereafter. The drainage became more severe today. He reports that he has had I and D's of the area for but no need for deeper debridement. He states that he did have a staph bacteremia several years ago but denies known history of MRSA. The patient's helps provide some of the history with the patient's permission. Review of Systems 2 Review of Systems: 12 systems were reviewed with pertinent positives and negatives per HPI. Except as documented in the HPI, all other systems were reviewed and are negative. [facility] Past Medical History Medical History (Updated 05/23/25 @ 22:40 by Yohana Ly DO) Anemia due to acute blood loss Gastric ulceration Gastritis and gastric erosions noted on EGD 05/2020 Tobacco use Sickle cell trait Hidradenitis suppurativa (Unknown) Surgical History Surgical History (Updated 05/23/25 @ 22:38 by Yohana Ly DO) History of esophagogastroduodenoscopy (EGD) (05/2020) Abscess on right buttock area Family History Family History Mother Hypertension Social History Social History (Updated 05/24/25 @ 00:33 by Yohana Ly DO) Social History: Patient presents with his of 3 years at bedside. He has 2 children from a prior and 5 step children. He is currently on workman's comp. He has smoked up to a pack of cigarettes per day since he was a teenager but switched to vaping proximally 2022. He smokes marijuana daily. He drinks alcohol about once a month in moderation. Surrogate decision maker: Code status: Full code. Smoking packs per day: 1 Smoking cigarettes per day: 20.0 Years smoked: 20 Smoking pack-years: 20.00 Smoking status: Current every day smoker Tobacco type: cigarettes Alcohol intake: current Drinks per week: 9 Alcohol use details: occasional Substance use: current Substance use type: marijuana Last use: Daily Lack of Transportation: No Lack of Food: Never True Current Housing: I Have Housing Concerned About Future Housing: No Difficulty Paying Gas/Electric Bills: No Difficulty Paying for Meds: No Currently Unemployed: No Education: High School Diploma/GED Difficulty w/ Childcare or Family Care: No Living arrangements: with family 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 Gender identity (if verbalized by the patient): Male Spiritual care concerns: No Meds Home Medications and Allergies Home Medications ?Medication ?Instructions ?Recorded ?Confirmed ?Type amlodipine 10 mg tablet 10 mg PO BID 05/23/25 History clobetasol 0.05 % topical ointment 1 applic topical DA CELI 05/23/25 05/23/25 History doxycycline hyclate 100 mg tablet mg 05/23/25 History gabapentin 300 mg capsule 300 mg PO DAILY 05/23/25 History Allergies Allergy/AdvReac Type Severity Reaction Status Date / Time Opioids - Morphine Analogues Allergy Intermediate Rash Verified 05/23/25 22:46 sulfamethoxazole (From Allergy Intermediate Rash Verified 05/23/25 22:46 Bactrim) tramadol Allergy Intermediate Rash Verified 05/23/25 22:46 trimethoprim (From Bactrim) Allergy Intermediate Rash Verified 05/23/25 22:46 flu shot Allergy Intermediate Hives Uncoded 05/23/25 23:11 Vital Signs Vital Signs - 24 hr 05/23/25 16:11 05/23/25 18:10 Temperature 101.6 F H Pulse Rate 117 H 112 H Respiratory Rate 25 H 21 H Blood Pressure 164/83 H 133/78 Pulse Oximetry 100 96 Oxygen Delivery Room Air Exam 2 Narrative: Weight 80.5 kg BMI 27.8 Const: Other: Mildly ill-appearing, well-developed well-nourished, appears stated age HENMT: Other: Mucous membranes are moist, no oral pharyngeal erythema, mild oral pharyngeal pallor, pupils are equal and reactive Resp: Other: Clear to auscultation bilaterally, no increased work of breathing Cardio: Other: Mild sinus tachycardia, 2+ bilateral radial pedal pulses, no JVD, no murmur GI: Other: Nondistended Back/Spine/Pelvis: Other: Induration, marked tenderness to palpation and copious amounts of purulent drainage from the right buttock extending into the gluteal cleft with multiple areas of old scarring Skin: Other: Erythema and induration of the right buttock as discussed above with overt purulence, few scattered type 2, skin is hot to touch Neuro: Other: Alert oriented, speech is clear, no facial asymmetry, moves all extremities equally Extrem: Other: No clubbing, cyanosis or edema Psych: Other: Pleasant and cooperative, fair judgment and insight H&P: Results Labs Labs: Laboratory Tests 05/23/25 17:17 05/23/25 17:17 05/23/25 17:17 WBC 7.3 RBC 3.48 L Hgb 9.9 L Hct 31.0 L MCV 89.1 MCH 28.4 MCHC 31.9 L RDW 16.2 H Plt Count 347 MPV 8.6 Immature Gran % (Auto) Not Reportable Neut % (Auto) Not Reportable Lymph % (Auto) Not Reportable [place] % (Auto) Not Reportable Eos % (Auto) Not Reportable Baso % (Auto) Not Reportable Lymph # (Auto) Not Reportable [place] # (Auto) Not Reportable Eos # (Auto) Not Reportable Baso # (Auto) Not Reportable Abs Immat Gran (auto) Not Reportable Absolute Neuts (auto) Not Reportable Absolute Nucleated RBC Not Reportable Total Counted 100 Neutrophils % (Manual) 93 H Band Neutrophils % 2 Lymphocytes % (Manual) 4 L Monocytes % (Manual) 1 L Nucleated RBC % Not Reportable Abs Neuts (Manual) 6.93 H Abs Lymphs (Manual) 0.29 L Abs Monocytes (Manual) 0.07 L Atypical Lymphocytes Present Platelet Estimate Adequate Schistocytes None seen Absolute Retic 0.07 Percent Retic 1.95 Immature Retic Fraction 25.5 H Retic Hgb Content 31.5 Sickle Cell Screen Cancelled Hemoglobin Solubility Pending Sodium 137 Potassium 3.4 Chloride 106 Carbon Dioxide 25 Anion Gap 6 BUN 7 L Creatinine 0.86 Estim Creat Clear Calc 96 Estimated GFR > 60 Glucose 97 Lactic Acid 1.7 Calcium 8.4 Total Bilirubin 0.7 AST 34 ALT 18 Alkaline Phosphatase 91 Total Protein 8.3 H Albumin 3.4 L Lipase 25 Urine Color Yellow Urine Appearance Clear Urine pH 6.5 Ur Specific [place] 1.016 Urine Protein Negative Urine Glucose (UA) Negative Urine Ketones Negative Ur Blood (Man) 1+ H Urine Nitrate Negative Urine Bilirubin Negative Urine Urobilinogen 0.2 Leukocyte Esterase Rfl Negative Urine RBC 11-20 H Urine WBC 0-5 Ur Squamous Epith Cells None seen Urine Bacteria None seen Urine Casts 0-2 Influenza A (RT-PCR) Negative Influenza B (RT-PCR) Negative RSV (RT-PCR) Negative SARS-CoV-2 RNA (RT-PCR) Negative Impressions Chest X-Ray 05/23/25 17:15 Impression: No acute cardiopulmonary abnormality. Chest/Abdomen/Pelvis CT 05/23/25 18:44 IMPRESSION: 1. Extensive abnormal skin thickening and subcutaneous fatty infiltration of the right gluteal region extending to the gluteal cleft. Findings most consistent with cellulitis and panniculitis, possibly due to bacterial soft tissue infection. No organized or drainable abscess identified. Differential diagnosis includes malignancy. 2: Right inguinal and pelvic lymphadenopathy, likely reactive in the setting of adjacent soft tissue inflammation/infection. EKG:Test Date: 2025-05-23 16:58:40 Measurements Intervals [place] Rate: 123 P: 25 WV: 142 QRS: 24 QRSD: 75 T: 27 QT: 302 QTc: 433 Interpretive Statements SINUS TACHYCARDIA VOLTAGE CRITERIA FOR LVH [MEETS CRITERIA IN ONE OF: R(aVL), S(V1), R(V5), R(V5/V6)+S(V1)] NONSPECIFIC T-WAVE ABNORMALITY Assessment and Plan Assessment and plan (1) Sepsis: Qualifiers: Sepsis acute organ dysfunction status: without acute organ dysfunction Sepsis type: sepsis due to unspecified organism Qualified Code(s): A41.9 - Sepsis, unspecified organism Code(s): A41.9 - Sepsis, unspecified organism Status: Acute (2) Abscess, gluteal, right: Code(s): L02.31 - Cutaneous abscess of buttock Status: Acute (3) Hidradenitis suppurativa: Onset Date: Unknown Code(s): L73.2 - Hidradenitis suppurativa Status: Acute (4) Chronic pain: Qualifiers: Chronic pain type: other chronic pain Qualified Code(s): G89.29 - Other chronic pain Code(s): G89.29 - Other chronic pain Status: Acute (5) Tobacco use: Code(s): Z72.0 - Tobacco use Status: Acute Plan Patient has sepsis due to infected hidradenitis suppurative lesion with large amount of purulence drainage suggesting underlying abscess. Blood cultures have been obtained and are pending. Patient has been started on empiric antibiotic therapy with Zosyn and vancomycin. Patient received a little bit over 30 mL/kilos fluid bolus in the ER. Will continue maintenance IV fluids with normal saline at 125 mL an hour. Will repeat CBC and CMP in a.m.. Patient will be made NPO at midnight and General surgery will be consulted for possible debridement as I feel it is area of infection is what is causing the patient's acute sepsis. The patient reports diagnosis of sickle cell anemia but in the past has been documented as sickle cell trait previously. Reticulocyte count does not suggest findings consistent with sickle cell, CBC with diff does not suggest sick going and bilirubin is normal. Patient's pain is likely due to chronic pain exacerbated by fever and sepsis. Tylenol, Toradol and Dilaudid have been ordered to be given per pain scale. Patient does have acute on chronic anemia. Will check TIBC, ferritin, B12, folic acid, LDH and haptoglobin. Given his chronic hidradenitis I would not be surprised if he did have some anemia of chronic disease. 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 Will place patient on stress ulcer prophylaxis while hospitalized. Tobacco cessation education has been provided. Nicotine patch has been offered but patient declined. Patient has been educated that he cannot vape while he is in the hospital. MEDICAL DECISION MAKING NARRATIVE -Spoke with the ED provider in detail regarding patient's evaluation, workup and management -Patient seen and examined at bedside -Collaborated with patient's nurse at the bedside in detail and addressed all concerns -Labs, electrolytes, radiology, investigations and test results personally reviewed and interpreted unless otherwise specified -ED/Consult/Nursing/Ancilliary notes on the chart reviewed and appreciated -Spoke with patient and his at bedside and diagnosis and plan of care was discussed. All questions answered. Quality VTE Prophylaxis VTE prophylaxis: pharmacologic ordered (Lovenox 40 mg subQ daily.) Hospitalist MIPS Advance Care Plan I have confirmed that the patient's Advanced Care Plan is present, code status is documented, or surrogate decision maker is listed in patient medical record.: Yes Medication Reconciliation I have utilized all available resources to obtain, update and review the patients current medications (includes all prescriptions, OTC, herbals, cannabis, and nutritional supplements).: Yes
[2025-05-23] MEDS: PIPERACILLIN/TAZOBACTAM SOD 3.375 GM in SODIUM CHLORIDE 0.9% IV 50 ML 100 ML IVPB (22:41)
[2025-05-23 22:46] VITALS: BP 100/76; PULSE 102; RESP 18; TEMP 37.7; O2SAT 98
[2025-05-23 22:47] VITALS: BMI 27.0
[2025-05-23] MEDS: VANCOMYCIN 2,000 MG/NS 500 ML 2,000 MG/500 ML BAG 250 MG IVPB (23:17)
[2025-05-23] MEDS: SODIUM CHLORIDE 0.9% IV 1,000 ML 125 ML IV CONT (23:17)
[2025-05-23 23:30] LABS: Iron 61 ug/dL (49-181)
[2025-05-23 23:39] LABS: Percent Iron Saturation 35 % (20-50)
[2025-05-24] VITALS (16 sets, daily range): BP systolic 116–147; BP diastolic 64–83; PULSE 79–110; RESP 14–20; TEMP 36.5–38.4; O2SAT 90–100
[2025-05-24 00:02] LABS: Thyroid Stimulating Hormone Reflex 0.321 uIU/mL (0.465-4.68)
[2025-05-24 00:06] LABS: Ferritin 148.00 ng/mL (17.9-464)
[2025-05-24 00:49] LABS: Vitamin B12 585.0 pg/mL (239-931)
[2025-05-24 01:06] LABS: Free T4 Free Thyroxine Reflex 1.24 ng/dL (0.78-2.19)
[2025-05-24 01:22] LABS: Total Triiodothyronine (T3) 0.96 NG/ML (0.82-1.58)
[2025-05-24] MEDS: KETOROLAC 30 MG/ML VIAL (*BKC) IV PUSH ×3 (01:42→21:36)
[2025-05-24] MEDS: HYDROmorphone HCL INJ (*CRX) 1 MG/ML SYR IV PUSH (03:44)
[2025-05-24] MEDS: PIPERACILLIN/TAZOBACTAM SOD 3.375 GM in SODIUM CHLORIDE 0.9% IV 50 ML 100 ML IVPB ×3 (04:46→17:56)
[2025-05-24] MEDS: ACETAMINOPHEN 325 MG TABLET 650 MG PO ×2 (04:46→12:38)
[2025-05-24] MEDS: PANTOPRAZOLE SODIUM IV 40 MG VIAL IV PUSH (07:34)
[2025-05-24 07:48] LABS: Hematocrit 28.4 % (42.0-52.0); Hemoglobin 8.9 g/dL (14.0-18.0); Mean Corpuscular HGB Conc 31.3 g/dl (32-36); Mean Corpuscular Hemoglobin 29.2 pg (26-34); Mean Corpuscular Volume 93.1 fl (80-100); Platelet Count Result 315 k/mm3 (150-375); Red Blood Count 3.05 M/mm3 (4.6-6.20); White Blood Count 16.0 K/mm3 (4.5-10.0)
[2025-05-24 08:08] LABS: Alanine Aminotransferase 18 U/L (6-50); Albumin Level 2.9 g/dL (3.5-5.1); Alkaline Phosphatase 103 U/L (38-126); Anion Gap 5 mmol/L (4-12); Aspartate Amino Transferase 66 U/L (17-59); Bilirubin,Total 0.5 mg/dL (0.2-1.3); Blood Urea Nitrogen 7 mg/dL (9-20); Calcium 7.5 mg/dL (8.4-10.2); Carbon Dioxide 28 mmol/L (22-30); Chloride 102 mmol/L (98-107); Estimated CRCL calculation 72 ml/min; Estimated Glomerular Filt Rate > 60; Glucose 91 mg/dL (65-110); Potassium 3.1 mmol/L (3.4-5.0); Sodium 135 mmol/L (137-145); Total Protein 7.1 g/dL (6.3-8.2)
[2025-05-24 08:09] LABS: Band Neutrophils Percent 17 % (0-6); Lymphocytes Absolute Manual 0.80 K/mm3 (1.1-4.5); Lymphocytes Percent Manual 5 % (18-44); Monocytes Absolute Manual 0.32 K/mm3 (0.1-0.90); Monocytes Percent Manual 2 % (3-9); Neutrophils Absolute Manual 15.04 K/mm3 (1.3-6.7); Neutrophils Percent Manual 77 % (46-73); Total Cells Counted 100
[2025-05-24 08:10] LABS: Anisocytosis 1+; Schistocytes None Seen; Smudge Cells PRESENT
--- NOTE | 2025-05-24 08:45 | PM.CNGS ---
Assessment and Plan Assessment and plan (1) Abscess, gluteal, right: Code(s): L02.31 - Cutaneous abscess of buttock Status: Acute Assessment and Plan: The patient has extensive right gluteal hidradenitis disease with an associated right buttock abscess. There is at least another small area of fluctuance more inferior to the larger abscess that could be another small abscess. The patient stopped taking his doxycycline as an outpatient and his symptoms seem to have gotten worse over the past few days. This could be the source for his sepsis. There are no other infectious sources identifiable on exam or on his workup. We would recommend proceeding with incision and drainage of right buttock abscess by Dr. Johnson today. Description of the procedure, risks, benefits, and alternatives were discussed with the patient in detail. He agrees to proceed. Will switch his antibiotics to provide more appropriate coverage for his HS. Spoke with ID pharmacist and will switch to IV Zosyn and doxycycline, stop the Vancomycin. Continue local wound care with gauze dressings for now. (2) Hidradenitis suppurativa: Onset Date: Unknown Code(s): L73.2 - Hidradenitis suppurativa Status: Acute Assessment and Plan: Continue IV antibiotics. Will need to follow-up with Plastics and Dermatology at [facility] once he is eventually discharged for longer term management of his HS. (3) Sepsis: Qualifiers: Sepsis acute organ dysfunction status: without acute organ dysfunction Sepsis type: sepsis due to unspecified organism Qualified Code(s): A41.9 - Sepsis, unspecified organism Code(s): A41.9 - Sepsis, unspecified organism Status: Acute Assessment and Plan: Criteria met with tachycardia, fever, leukocytosis. Right buttock HS with associated abscess is possible source. Will proceed to the OR for source control. Continue IV antibiotics as mentioned above Blood cultures pending (4) Chronic pain: Qualifiers: Chronic pain type: other chronic pain Qualified Code(s): G89.29 - Other chronic pain Code(s): G89.29 - Other chronic pain Status: Acute Assessment and Plan: Patient is undergoing workup for possible sickle cell disease through Hematology at [facility]. (5) Vapes non-nicotine containing substance: Code(s): Z72.89 - Other problems related to lifestyle Status: Acute (6) Borderline diabetes: Code(s): R73.03 - Prediabetes Status: Acute Assessment and Plan: Reports a history of borderline diabetes, but has not had a recent hemoglobin A1c. Will add this to today's labs. If this is elevated and he is diabetic, then this could be playing a role in his hidradenitis disease. Plan I have discussed the patient's case and plan of care with Dr. Johnson. History of Present Illness Consult details Consult date: 05/24/25 Reason for consult: other (Hidradenitis suppurativa) Requesting physician: Yohana Ly, Narrative: This is a 39-year-old with a history of chronic pain undergoing workup by Hematology at [facility] for sickle cell, longstanding history of hidradenitis suppurative, and borderline diabetes, who we have been asked to see in surgical consultation for hidradenitis. The patient reports having a sudden onset of chills and generalized diffuse pain yesterday. He cannot localize the pain and reports that typically when he feels pain has a crisis, this is what occurs. He came in for evaluation. In the ED he was febrile with a temp of a 103.1? F and tachycardic. Labs showed a white blood cell count of 7300. CT scan of the chest, abdomen, and pelvis showed right inguinal and pelvic lymphadenopathy with adjacent soft tissue inflammation/infection, and extensive abnormal skin thickening and subcutaneous fat infiltration of the right gluteal region extending to the gluteal cleft, consistent with cellulitis/panniculitis, no organized or drainable abscess identified. He was admitted and started on IV Zosyn and vancomycin. He reports a history of borderline diabetes, but has not had a hemoglobin A1c checked in quite a while. He follows with dermatology at [facility], who recently referred him to Plastic surgery, who he saw 3 days ago in their office as an outpatient. He is a poor historian and is difficult to get details, but does report they were planning a surgery, but he does not know when or what type of surgery. He denies ever having a surgery for his hidradenitis in the past. His starch treating assistant previously had him on doxycycline, which he stopped taking recently as he felt it was not helping his symptoms. Over the past few days he has noticed increased swelling, increased pain, and more drainage from his right gluteal hidradenitis. He did not recall any previous surgeries for his HS, but review of this chart showed a previous incision and drainage of right buttock abscess related to his hidradenitis in 2019. Review of Systems Review of Systems: All systems reviewed & are unremarkable except as noted in HPI and below [facility] Past Medical History Medical History Borderline diabetes Anemia due to acute blood loss Gastric ulceration Gastritis and gastric erosions noted on EGD 05/2020 Tobacco use Sickle cell trait Hidradenitis suppurativa (Unknown) Surgical History Surgical History History of esophagogastroduodenoscopy (EGD) (05/2020) Family History Family History Mother Hypertension Social History Social History Social History: Patient presents with his of 3 years at bedside. He has 2 children from a prior and 5 step children. He is currently on workman's comp. He has smoked up to a pack of cigarettes per day since he was a teenager but switched to vaping proximally 2022. He smokes marijuana daily. He drinks alcohol about once a month in moderation. Surrogate decision maker: Code status: Full code. Smoking packs per day: 1 Smoking cigarettes per day: 20.0 Years smoked: 20 Smoking pack-years: 20.00 Smoking status: Current every day smoker Tobacco type: cigarettes Alcohol intake: current Drinks per week: 9 Alcohol use details: occasional Substance use: current Substance use type: marijuana Last use: Daily Lack of Transportation: No Lack of Food: Never True Current Housing: I Have Housing Concerned About Future Housing: No Difficulty Paying Gas/Electric Bills: No Difficulty Paying for Meds: No Currently Unemployed: No Education: High School Diploma/GED Difficulty w/ Childcare or Family Care: No Living arrangements: with family 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 Gender identity (if verbalized by the patient): Male Spiritual care concerns: No Meds Home Medications and Allergies Home Medications ?Medication ?Instructions ?Recorded ?Confirmed ?Type amlodipine 10 mg tablet 10 mg PO BID 05/23/25 05/23/25 History clobetasol 0.05 % topical ointment 1 applic topical DAILY 05/23/25 05/23/25 History doxycycline hyclate 100 mg tablet mg 05/23/25 History gabapentin 300 mg capsule 300 mg PO DAILY 05/23/25 05/23/25 History Allergies Allergy/AdvReac Type Severity Reaction Status Date / Time Opioids - Morphine Analogues Allergy Intermediate Rash Verified 05/23/25 22:46 sulfamethoxazole (From Allergy Intermediate Rash Verified 05/23/25 22:46 Bactrim) tramadol Allergy Intermediate Rash Verified 05/23/25 22:46 trimethoprim (From Bactrim) Allergy Intermediate Rash Verified 05/23/25 22:46 flu shot Allergy Intermediate Hives Uncoded 05/23/25 23:11 Vital Signs Vital Signs - 24 hr 05/23/25 16:11 05/23/25 18:10 05/23/25 22:46 Temperature 101.6 F H 99.8 F H Pulse Rate 117 H 112 H 102 H Respiratory Rate 25 H 21 H 18 Blood Pressure 164/83 H 133/78 100/76 Pulse Oximetry 100 96 98 Oxygen Delivery Room Air 05/24/25 04:46 05/24/25 06:00 05/24/25 06:14 Temperature 101.2 F H 101.2 F H 100.6 F H Pulse Rate 98 Respiratory Rate 16 Blood Pressure 147/79 H Pulse Oximetry 91 Oxygen Delivery Exam Const: General: comfortable and no acute distress Nutritional Appearance: average body habitus Orientation/consciousness: patient oriented x3 HENMT: Head: normocephalic and atraumatic Ears: hearing grossly normal bilaterally Mouth: Yes moist mucous membranes Eyes: General: appearance normal, both eyes and all related structures Pupils: Equal, round and reactive pupils present Neck: Neck: normal visual inspection and full ROM Resp: Effort & Inspection: no respiratory distress Auscultation: clear to auscultation bilaterally Cardio: Rate: regular rate Rhythm: regular rhythm Peripheral pulses: Peripheral pulses 2+ throughout GI: Inspection: non-distended GI Palp: Yes Soft to palpation, Yes Tenderness to palpation present (GI) (Diffuse), No Guarding due to palpation present (GI) and No Rebound tenderness present Percussion: Yes normal to percussion Auscultation: normal bowel sounds Rectal Exam: deferred Skin: General skin exam: normal color Other: Entire right gluteal area with pitting and tunnels and multiple areas of purulent lara drainage, consistent with hidradenitis disease. There was one localized fluctuant area that is about 3-4 cm on the upper buttock with 2 openings that are draining purulent drainage. There is another smaller fluctuant area inferior to the larger abscess that is also draining purulent drainage. Neuro: General: moves all extremities and no focal motor deficits Speech: normal speech Motor exam (neuro): 5/5 motor strength present throughout Extrem: General: normal to inspection and no edema Psych: Mental Status: mental status grossly normal Attitude: cooperative Insight: Good insight present (Psych) Judgement: Good judgement present (Psych) Results Labs 05/24/25 07:16 05/24/25 07:16 Labs: Abnormal lab results 05/23/25 05/24/25 Range/Units 17:17 07:16 WBC 16.0 H (4.5-10.0) K/mm3 RBC 3.48 L 3.05 L (4.6-6.20) M/mm3 Hgb 9.9 L 8.9 L (14.0-18.0) g/dL Hct 31.0 L 28.4 L (42.0-52.0) % MCHC 31.9 L 31.3 L (32-36) g/dl RDW 16.2 H 16.5 H (11.5-14.5) % Neutrophils % (Manual) 93 H 77 H (46-73) % Band Neutrophils % 17 H (0-6) % Lymphocytes % (Manual) 4 L 5 L (18-44) % Monocytes % (Manual) 1 L 2 L (3-9) % Abs Neuts (Manual) 6.93 H 15.04 H (1.3-6.7) K/mm3 Abs Lymphs (Manual) 0.29 L 0.80 L (1.1-4.5) K/mm3 Abs Monocytes (Manual) 0.07 L (0.1-0.90) K/mm3 Immature Retic Fraction 25.5 H (3.0-15.9) % Sodium 135 L (137-145) mmol/L Potassium 3.1 L (3.4-5.0) mmol/L BUN 7 L 7 L (9-20) mg/dL Calcium 7.5 L (8.4-10.2) mg/dL TIBC 176 L (265-497) ug/dL AST 66 H (17-59) U/L Total Protein 8.3 H (6.3-8.2) g/dL Albumin 3.4 L 2.9 L (3.5-5.1) g/dL TSH (Reflex) 0.321 L (0.465-4.68) uIU/mL Ur Blood (Man) 1+ H (Negative) Urine RBC 11-20 H (0-2) /hpf Diabetes panel 05/23/25 05/24/25 Range/Units 17:17 07:16 Sodium 137 135 L (137-145) mmol/L Potassium 3.4 3.1 L (3.4-5.0) mmol/L Chloride 106 102 (98-107) mmol/L Carbon Dioxide 25 28 (22-30) mmol/L BUN 7 L 7 L (9-20) mg/dL Creatinine 0.86 1.21 (0.7-1.3) mg/dL Glucose 97 91 (65-110) mg/dL Calcium 8.4 7.5 L (8.4-10.2) mg/dL AST 34 66 H (17-59) U/L ALT 18 18 (6-50) U/L Alkaline Phosphatase 91 103 (38-126) U/L Total Protein 8.3 H 7.1 (6.3-8.2) g/dL Albumin 3.4 L 2.9 L (3.5-5.1) g/dL Calcium panel 05/23/25 05/24/25 Range/Units 17:17 07:16 Calcium 8.4 7.5 L (8.4-10.2) mg/dL Albumin 3.4 L 2.9 L (3.5-5.1) g/dL Pituitary panel 05/23/25 05/24/25 Range/Units 17:17 07:16 Sodium 137 135 L (137-145) mmol/L Potassium 3.4 3.1 L (3.4-5.0) mmol/L Chloride 106 102 (98-107) mmol/L Carbon Dioxide 25 28 (22-30) mmol/L BUN 7 L 7 L (9-20) mg/dL Creatinine 0.86 1.21 (0.7-1.3) mg/dL Glucose 97 91 (65-110) mg/dL Calcium 8.4 7.5 L (8.4-10.2) mg/dL Total T3 0.96 (0.82-1.58) NG/ML Adrenal panel 05/23/25 05/24/25 Range/Units 17:17 07:16 Sodium 137 135 L (137-145) mmol/L Potassium 3.4 3.1 L (3.4-5.0) mmol/L Chloride 106 102 (98-107) mmol/L Carbon Dioxide 25 28 (22-30) mmol/L BUN 7 L 7 L (9-20) mg/dL Creatinine 0.86 1.21 (0.7-1.3) mg/dL Glucose 97 91 (65-110) mg/dL Calcium 8.4 7.5 L (8.4-10.2) mg/dL Total Bilirubin 0.7 0.5 (0.2-1.3) mg/dL AST 34 66 H (17-59) U/L ALT 18 18 (6-50) U/L Alkaline Phosphatase 91 103 (38-126) U/L Total Protein 8.3 H 7.1 (6.3-8.2) g/dL Albumin 3.4 L 2.9 L (3.5-5.1) g/dL All other labs normal. Imaging Additional studies: ITS Impressions Chest X-Ray 05/23/25 17:15 Impression: No acute cardiopulmonary abnormality. Chest/Abdomen/Pelvis CT 05/23/25 18:44 IMPRESSION: 1. Extensive abnormal skin thickening and subcutaneous fatty infiltration of the right gluteal region extending to the gluteal cleft. Findings most consistent with cellulitis and panniculitis, possibly due to bacterial soft tissue infection. No organized or drainable abscess identified. Differential diagnosis includes malignancy. 2: Right inguinal and pelvic lymphadenopathy, likely reactive in the setting of adjacent soft tissue inflammation/infection.
[2025-05-24 09:34] LABS: Hemoglobin A1C 4.8 % (<5.7)
[2025-05-24] MEDS: DOXYCYCLINE IV 100 MG in SODIUM CHLORIDE 0.9% IV 100 ML IVPB ×2 (10:40→21:37)
--- NOTE | 2025-05-24 11:49 | PM.IMPN ---
Progress Note: A&P Assessment and Plan (1) Sepsis: Qualifiers: Sepsis acute organ dysfunction status: without acute organ dysfunction Sepsis type: sepsis due to unspecified organism Qualified Code(s): A41.9 - Sepsis, unspecified organism Code(s): A41.9 - Sepsis, unspecified organism Status: Acute Assessment and Plan: Sepsis present on admission due to infected hidradenitis suppurative lesion with large amount of purulence drainage from right gluteal wound suggesting underlying abscess. Patient received a little bit over 30 mL/kilos fluid bolus in the ER. BCx pending. Patient was started on Zosyn and vancomycin. GenSurg consulted with plans for debridement Continue maintenance IV fluids. Continue IV abx. Check MRSA nasal swab (2) Abscess, gluteal, right: Code(s): L02.31 - Cutaneous abscess of buttock Status: Acute Assessment and Plan: As above (3) TRAE (acute kidney injury): Code(s): N17.9 - Acute kidney failure, unspecified Status: Acute Assessment and Plan: Cr increased to 1.2 today. Voiding normally per patient. [place] related to sepsis. [place] related to ab as well. Follow for now. Continue IV fluids (4) Hidradenitis suppurativa: Onset Date: Unknown Code(s): L73.2 - Hidradenitis suppurativa Status: Acute Assessment and Plan: As above. (5) Chronic pain: Qualifiers: Chronic pain type: other chronic pain Qualified Code(s): G89.29 - Other chronic pain Code(s): G89.29 - Other chronic pain Status: Acute Assessment and Plan: Stable. Pain management as written (6) Tobacco use: Code(s): Z72.0 - Tobacco use Status: Acute Assessment and Plan: Tobacco cessation education has been provided. Nicotine patch has been offered but patient declined. Patient has been educated that he cannot vape while he is in the hospital. (7) Anemia: Code(s): D64.9 - Anemia, unspecified Status: Acute Assessment and Plan: Patient does have acute on chronic anemia. Iron studies normal except for low TIBC at 176. B12, foalte levels normal. probable anemia of chronic disease. 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 Continue PPI. Follow HH (8) Sickle cell trait: Code(s): D57.3 - Sickle-cell trait Status: Acute Assessment and Plan: The patient reports diagnosis of sickle cell anemia but in the past has been documented as sickle cell trait previously. Reticulocyte count does not suggest findings consistent with sickle cell, CBC with diff does not suggest this and bilirubin is normal. Patient's pain is likely due to chronic pain exacerbated by fever and sepsis. Tylenol, Toradol and Dilaudid have been ordered to be given per pain scale. Plan DVT Prophylaxis - lovenox Code status - full Subjective Date/time seen: 05/24/25 11:49 Interval history: 39-year-old male with a past medical history of sickle cell trait and hidradenitis suppurative who presented to the ER with having extreme pain everywhere. Complains of headache. Has throbbing buttock pain.Normal UOP. No fevers but having chills. No CP or abd pain. Exam Narrative: Tm 101.6 100.6 147/79 98 16 94% ra Gen - NARD Chest - CTA bilaterally, nml RR CV - RRR S1/S2 Abd - Soft, NT/ND, Positive BS Ext - No pedal edema Psych - Nml mood and affect Skin - right buttock dressing clean and dry. Objective Data Vital Signs Vital Signs: Vital Signs - 24 hr 05/23/25 16:11 05/23/25 18:10 05/23/25 22:46 Temperature 101.6 F H 99.8 F H Pulse Rate 117 H 112 H 102 H Respiratory Rate 25 H 21 H 18 Blood Pressure 164/83 H 133/78 100/76 Pulse Oximetry 100 96 98 Oxygen Delivery Room Air 05/24/25 04:46 05/24/25 06:00 05/24/25 06:14 Temperature 101.2 F H 101.2 F H 100.6 F H Pulse Rate 98 Respiratory Rate 16 Blood Pressure 147/79 H Pulse Oximetry 91 Oxygen Delivery 05/24/25 08:00 Temperature Pulse Rate Respiratory Rate Blood Pressure Pulse Oximetry 94 Oxygen Delivery Room Air Intake/Output Intake/Output: Intake & Output 05/21/25 05/22/25 05/23/25 05/24/25 23:59 23:59 23:59 23:59 Intake Total 3500 0 Output Total 0 Balance 3500 0 Meds/Results Medications: Active Medications Generic Name Dose Route Start Last Admin Trade Name Freq PRN Reason Stop Dose Admin Acetaminophen 650 mg 05/23/25 21:23 05/24/25 04:46 Acetaminophen 325 Mg Tablet PO 650 mg Q4H PRN Administration Mild Pain (1-3) or Fever Amlodipine Besylate 10 mg 05/24/25 09:00 Amlodipine Besylate 10 Mg Tablet PO Q12HR RADHA Enoxaparin Sodium 40 mg 05/24/25 09:00 Enoxaparin 40 Mg/0.4 Ml Syringe SUB-Q On Hold: 05/24/25 09:00 DAILY RADHA Gabapentin 300 mg 05/24/25 09:00 Gabapentin 300 Mg Capsule PO DAILY RADHA Hydromorphone HCl 1 mg 05/23/25 21:13 05/24/25 03:44 Hydromorphone Hcl Inj (*Crx) 1 Mg/Ml Syr IV PUSH 1 mg Q3H PRN Administration Breakthrough Pain Piperacillin Sod/Tazobactam 50 mls @ 100 mls/hr 05/24/25 05:00 05/24/25 04:46 Sod 3.375 gm/ Sodium Chloride IVPB 100 mls/hr Q6HR RADHA Administration Sodium Chloride 1,000 mls @ 125 mls/hr 05/23/25 22:45 05/23/25 23:17 Normal Saline Iv IV CONT 125 mls/hr .Q8H RADHA Administration Doxycycline Hyclate 100 mg/ 100 mls @ 100 mls/hr 05/24/25 09:20 05/24/25 10:40 Sodium Chloride IVPB 100 mls/hr Q12HR RADHA Administration Potassium Chloride 40 meq/ 520 mls @ 130 mls/hr 05/24/25 11:30 Sodium Chloride IVPB 05/24/25 15:29 ONCE ONE Ketorolac Tromethamine 30 mg 05/23/25 21:23 05/24/25 07:33 Ketorolac 30 Mg/Ml Vial (*Bkc) IV PUSH 30 mg Q6H PRN Administration Pain Rated 4-10 or fever Ondansetron HCl 4 mg 05/24/25 00:18 Ondansetron Inj 4 Mg/2 Ml Vial IV PUSH Q4H PRN Nausea And Vomiting Pantoprazole Sodium 40 mg 05/24/25 09:00 05/24/25 07:34 Pantoprazole Sodium Iv 40 Mg Vial IV PUSH 40 mg QAM RADHA Administration Radiology Results: ITS Impressions Chest X-Ray 05/23/25 17:15 Impression: No acute cardiopulmonary abnormality. Chest/Abdomen/Pelvis CT 05/23/25 18:44 IMPRESSION: 1. Extensive abnormal skin thickening and subcutaneous fatty infiltration of the right gluteal region extending to the gluteal cleft. Findings most consistent with cellulitis and panniculitis, possibly due to bacterial soft tissue infection. No organized or drainable abscess identified. Differential diagnosis includes malignancy. 2: Right inguinal and pelvic lymphadenopathy, likely reactive in the setting of adjacent soft tissue inflammation/infection. Labs Labs: Laboratory Results - last 24 hr 05/23/25 05/24/25 05/24/25 17:17 07:13 07:16 WBC 7.3 16.0 H RBC 3.48 L 3.05 L Hgb 9.9 L 8.9 L Hct 31.0 L 28.4 L MCV 89.1 93.1 MCH 28.4 29.2 MCHC 31.9 L 31.3 L RDW 16.2 H 16.5 H Plt Count 347 315 MPV 8.6 8.7 Immature Gran % (Auto) Not Reportable Not Reportable Neut % (Auto) Not Reportable Not Reportable Lymph % (Auto) Not Reportable Not Reportable [place] % (Auto) Not Reportable Not Reportable Eos % (Auto) Not Reportable Not Reportable Baso % (Auto) Not Reportable Not Reportable Lymph # (Auto) Not Reportable Not Reportable [place] # (Auto) Not Reportable Not Reportable Eos # (Auto) Not Reportable Not Reportable Baso # (Auto) Not Reportable Not Reportable Abs Immat Gran (auto) Not Reportable Not Reportable Absolute Neuts (auto) Not Reportable Not Reportable Absolute Nucleated RBC Not Reportable Not Reportable Total Counted 100 100 Neutrophils % (Manual) 93 H 77 H Band Neutrophils % 2 17 H Lymphocytes % (Manual) 4 L 5 L Monocytes % (Manual) 1 L 2 L Nucleated RBC % Not Reportable Not Reportable Abs Neuts (Manual) 6.93 H 15.04 H Abs Lymphs (Manual) 0.29 L 0.80 L Abs Monocytes (Manual) 0.07 L 0.32 Atypical Lymphocytes Present Smudge Cells Present Platelet Estimate Adequate Adequate Anisocytosis 1+ Schistocytes None seen None seen Absolute Retic 0.07 Percent Retic 1.95 Immature Retic Fraction 25.5 H Retic Hgb Content 31.5 Sickle Cell Screen Cancelled Sodium 137 135 L Potassium 3.4 3.1 L Chloride 106 102 Carbon Dioxide 25 28 Anion Gap 6 5 BUN 7 L 7 L Creatinine 0.86 1.21 Estim Creat Clear Calc 96 72 Estimated GFR > 60 > 60 Glucose 97 91 Hemoglobin A1c 4.8 Lactic Acid 1.7 Calcium 8.4 7.5 L Iron 61 TIBC 176 L % Saturation 35 Ferritin 148.00 Total Bilirubin 0.7 0.5 AST 34 66 H ALT 18 18 Alkaline Phosphatase 91 103 Lactate Dehydrogenase 159 Total Protein 8.3 H 7.1 Albumin 3.4 L 2.9 L Lipase 25 Vitamin B12 585.0 Folate 4.8 TSH (Reflex) 0.321 L Free T4 1.24 Total T3 0.96 Urine Color Yellow Urine Appearance Clear Urine pH 6.5 Ur Specific [place] 1.016 Urine Protein Negative Urine Glucose (UA) Negative Urine Ketones Negative Ur Blood (Man) 1+ H Urine Nitrate Negative Urine Bilirubin Negative Urine Urobilinogen 0.2 Leukocyte Esterase Rfl Negative Urine RBC 11-20 H Urine WBC 0-5 Ur Squamous Epith Cells None seen Urine Bacteria None seen Urine Casts 0-2 Influenza A (RT-PCR) Negative Influenza B (RT-PCR) Negative RSV (RT-PCR) Negative SARS-CoV-2 RNA (RT-PCR) Negative
[2025-05-24] MEDS: POTASSIUM CHLORIDE INJ 40 MEQ in SODIUM CHLORIDE 0.9% IV 500 ML 130 MEQ IVPB (12:34)
--- NOTE | 2025-05-24 13:29 | WPDHPUPDATE1 ---
History and Physical Update Update Date/Time: 05/24/25 13:29 History and Physical has been reviewed, including an updated exam of the patient. There are NO changes in the patient's condition. Risks, benefits, and alternatives have been discussed and questions answered. Patient agrees to proceed with procedure.
[2025-05-24] MEDS: POTASSIUM CHLORIDE 20 MEQ ER TABLET PO (13:48)
--- NOTE | 2025-05-24 14:27 | WPDANESEPPF ---
Anes - Initial Pre Proc Eval Procedure: Operation Date: 05/24/25 15:00 Proposed Procedures p Incision And Drainage Right Buttock Abscess - Lb Johnson MD Date/Time: 05/24/25 14:27 Surgeon: Yohana Ly DO Pre Op Diagnosis: Hidranitisis suppurtiva Patient Data Age: 39 Gender: M Height: 1.73 m Weight: 80.7 kg Last Vital Signs Temp 37.4 C 05/24/25 14:05 Pulse 85 05/24/25 14:05 Resp 14 05/24/25 14:05 BP 135/70 05/24/25 14:05 Pulse Ox 94 05/24/25 14:05 O2 Del Method Room Air 05/24/25 14:05 Allergies Allergy/AdvReac Type Severity Reaction Status Date / Time Opioids - Morphine Analogues Allergy Intermediate Rash Verified 05/23/25 22:46 sulfamethoxazole (From Allergy Intermediate Rash Verified 05/23/25 22:46 Bactrim) tramadol Allergy Intermediate Rash Verified 05/23/25 22:46 trimethoprim (From Bactrim) Allergy Intermediate Rash Verified 05/23/25 22:46 flu shot Allergy Intermediate Hives Uncoded 05/23/25 23:11 Home Medications ?Medication ?Instructions ?Recorded ?Confirmed ?Type amlodipine 10 mg tablet 10 mg PO BID 05/23/25 05/23/25 History clobetasol 0.05 % topical ointment 1 applic topical DAILY 05/23/25 05/23/25 History doxycycline hyclate 100 mg tablet mg 05/23/25 History gabapentin 300 mg capsule 300 mg PO DAILY 05/23/25 05/23/25 History Laboratory Tests 05/23/25 05/24/25 05/24/25 17:17 07:13 07:16 WBC 7.3 K/mm3 16.0 H K/mm3 (4.5-10.0) (4.5-10.0) RBC 3.48 L M/mm3 3.05 L M/mm3 (4.6-6.20) (4.6-6.20) Hgb 9.9 L g/dL 8.9 L g/dL (14.0-18.0) (14.0-18.0) Hct 31.0 L % 28.4 L % (42.0-52.0) (42.0-52.0) MCV 89.1 fl 93.1 fl (80-100) (80-100) MCH 28.4 pg 29.2 pg (26-34) (26-34) MCHC 31.9 L g/dl 31.3 L g/dl (32-36) (32-36) RDW 16.2 H % 16.5 H % (11.5-14.5) (11.5-14.5) Plt Count 347 k/mm3 315 k/mm3 (150-375) (150-375) MPV 8.6 fl 8.7 fl (7.4-10.4) (7.4-10.4) Immature Gran % (Auto) Not Reportable Not Reportable Neut % (Auto) Not Reportable Not Reportable Lymph % (Auto) Not Reportable Not Reportable [place] % (Auto) Not Reportable Not Reportable Eos % (Auto) Not Reportable Not Reportable Baso % (Auto) Not Reportable Not Reportable Lymph # (Auto) Not Reportable Not Reportable [place] # (Auto) Not Reportable Not Reportable Eos # (Auto) Not Reportable Not Reportable Baso # (Auto) Not Reportable Not Reportable Abs Immat Gran (auto) Not Reportable Not Reportable Absolute Neuts (auto) Not Reportable Not Reportable Absolute Nucleated RBC Not Reportable Not Reportable Total Counted 100 100 Neutrophils % (Manual) 93 H % 77 H % (46-73) (46-73) Band Neutrophils % 2 % 17 H % (0-6) (0-6) Lymphocytes % (Manual) 4 L % 5 L % (18-44) (18-44) Monocytes % (Manual) 1 L % 2 L % (3-9) (3-9) Nucleated RBC % Not Reportable Not Reportable Abs Neuts (Manual) 6.93 H K/mm3 15.04 H K/mm3 (1.3-6.7) (1.3-6.7) Abs Lymphs (Manual) 0.29 L K/mm3 0.80 L K/mm3 (1.1-4.5) (1.1-4.5) Abs Monocytes (Manual) 0.07 L K/mm3 0.32 K/mm3 (0.1-0.90) (0.1-0.90) Atypical Lymphocytes Present Smudge Cells Present Platelet Estimate Adequate Adequate (Adequate) (Adequate) Anisocytosis 1+ Schistocytes None seen None seen Absolute Retic 0.07 10^6/uL (0.02-0.10) Percent Retic 1.95 % (0.7-4.3) Immature Retic Fraction 25.5 H % (3.0-15.9) Retic Hgb Content 31.5 pg (28.2-36.6) Sickle Cell Screen Cancelled Hemoglobin Solubility Pending Haptoglobin Pending Sodium 137 mmol/L 135 L mmol/L (137-145) (137-145) Potassium 3.4 mmol/L 3.1 L mmol/L (3.4-5.0) (3.4-5.0) Chloride 106 mmol/L 102 mmol/L (98-107) (98-107) Carbon Dioxide 25 mmol/L 28 mmol/L (22-30) (22-30) Anion Gap 6 mmol/L 5 mmol/L (4-12) (4-12) BUN 7 L mg/dL 7 L mg/dL (9-20) (9-20) Creatinine 0.86 mg/dL 1.21 mg/dL (0.7-1.3) (0.7-1.3) Estim Creat Clear Calc 96 ml/min 72 ml/min Estimated GFR > 60 > 60 (59 - ) (59 - ) Glucose 97 mg/dL 91 mg/dL (65-110) (65-110) Hemoglobin A1c 4.8 % (<5.7) Lactic Acid 1.7 mmol/L (0.7-2.0) Calcium 8.4 mg/dL 7.5 L mg/dL (8.4-10.2) (8.4-10.2) Iron 61 ug/dL (49-181) TIBC 176 L ug/dL (265-497) % Saturation 35 % (20-50) Ferritin 148.00 ng/mL (17.9-464) Total Bilirubin 0.7 mg/dL 0.5 mg/dL (0.2-1.3) (0.2-1.3) AST 34 U/L 66 H U/L (17-59) (17-59) ALT 18 U/L 18 U/L (6-50) (6-50) Alkaline Phosphatase 91 U/L 103 U/L (38-126) (38-126) Lactate Dehydrogenase 159 U/L (120-246) Total Protein 8.3 H g/dL 7.1 g/dL (6.3-8.2) (6.3-8.2) Albumin 3.4 L g/dL 2.9 L g/dL (3.5-5.1) (3.5-5.1) Lipase 25 U/L (23-300) Vitamin B12 585.0 pg/mL (239-931) Folate 4.8 ng/mL (2.76->20) TSH (Reflex) 0.321 L uIU/mL (0.465-4.68) Free T4 1.24 ng/dL (0.78-2.19) Total T3 0.96 NG/ML (0.82-1.58) Urine Color Yellow (Yellow) Urine Appearance Clear (Clear) Urine pH 6.5 (5.0-9.0) Ur Specific [place] 1.016 (1.001-1.035) Urine Protein Negative mg/dL (Negative) Urine Glucose (UA) Negative mg/dL (Negative) Urine Ketones Negative mg/dL (Negative) Ur Blood (Man) 1+ H (Negative) Urine Nitrate Negative (Negative) Urine Bilirubin Negative (Negative) Urine Urobilinogen 0.2 mg/dL (<2.0) Leukocyte Esterase Rfl Negative SILVERIO/UL (Negative) Urine RBC 11-20 H /hpf (0-2) Urine WBC 0-5 /hpf (0-3) Ur Squamous Epith Cells None seen /hpf (Few) Urine Bacteria None seen /hpf Urine Casts 0-2 Influenza A (RT-PCR) Negative (Negative) Influenza B (RT-PCR) Negative (Negative) RSV (RT-PCR) Negative (Negative) SARS-CoV-2 RNA (RT-PCR) Negative (Negative) Patient hx anesthesia problems: none Family hx anesthesia problems: none Results Review: All pre-operative results and documents have been reviewed as part of the pre-operative evaluation. [facility] Past Medical History Medical History Borderline diabetes Anemia due to acute blood loss Gastric ulceration Gastritis and gastric erosions noted on EGD 05/2020 Tobacco use Sickle cell trait Hidradenitis suppurativa (Unknown) Surgical History Surgical History History of esophagogastroduodenoscopy (EGD) (05/2020) Family History Family History Mother Hypertension Social History Social History Social History: Patient presents with his of 3 years at bedside. He has 2 children from a prior and 5 step children. He is currently on workman's comp. He has smoked up to a pack of cigarettes per day since he was a teenager but switched to vaping proximally 2022. He smokes marijuana daily. He drinks alcohol about once a month in moderation. Surrogate decision maker: Code status: Full code. Smoking packs per day: 1 Smoking cigarettes per day: 20.0 Years smoked: 20 Smoking pack-years: 20.00 Smoking status: Current every day smoker Tobacco type: cigarettes Alcohol intake: current Drinks per week: 9 Alcohol use details: occasional Substance use: current Substance use type: marijuana Last use: Daily Lack of Transportation: No Lack of Food: Never True Current Housing: I Have Housing Concerned About Future Housing: No Difficulty Paying Gas/Electric Bills: No Difficulty Paying for Meds: No Currently Unemployed: No Education: High School Diploma/GED Difficulty w/ Childcare or Family Care: No Living arrangements: with family 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 Gender identity (if verbalized by the patient): Male Spiritual care concerns: No Anes - Eval Final PreProcedure Day of Procedure 05/24/25 14:27 Patient weight: overweight Heart: regular rate and rhythm Lungs: clear to auscultation Airway: Mallampati scale class II Neurological: alert and oriented Last oral intake: >/= 8 hours ASA classification: III Emergent: no Anesthetic plan: proceed Anesthesia type and monitoring: general ETT and standard monitoring Results Review: All pre-operative results and documents have been reviewed as part of the pre-operative evaluation. Informed Consent: The patient's anesthetic plan and its attendant risks and benefits were discussed with the patient/family/POA. Questions were solicited and answers provided to the satisfaction of the patient/family/POA.
[2025-05-24] MEDS: BUPIVACAINE/EPINEPHRINE 0.5% 50 ML VIAL 30 ML INFILTRATE (16:19)
[2025-05-24] MEDS: LACTATED RINGERS 1,000 ML 30 ML IV CONT (16:42)
--- NOTE | 2025-05-24 17:00 | W.PM.PROC2 ---
Procedure Note - Detailed Date of Procedure 05/24/25 Pre-op Diagnosis Hidradenitis suppurativa with right buttock carbuncle Post-op Diagnosis Same Procedure Performed Incision and drainage right buttock carbuncle Surgeon Lb Johnson MD Automatic Spinning Lathe Operator Renée Callaway Anesthesia General Indications Patient has history of longstanding chronic infection in his right buttock thought to be hidradenitis. This has been present for years and has had purulent drainage off and on with multiple scars from recurrent infection. Lately he has been having more drainage from this area and was admitted from the emergency room yesterday with fever. He was seen in consultation and multiple purulent draining sites on the right buttocks were noted consistent with a large carbuncle. He has been admitted to [facility] and is taken to surgery now for incision and drainage of at least part of this large carbuncle. Findings Two main areas had infectious openings that communicated under the skin. One was in the upper right buttocks closer to the midline. The other was farther lateral. Numerous infected openings were investigated but only these were found to tunnel with 1 another. Description of Procedure Patient was taken to surgery and induced into general anesthesia. He was placed in a prone position. The buttocks area was cleaned prepped and draped. A fine tipped curved clamp was then used to explore the several of the multiple purulent draining sites. Each site would drain with pressure although none were really draining spontaneously. In the upper buttocks, it was then discovered that several of these were close enough together that, on probing, they communicated with 1 another. I and removed the communication between several of these small abscesses. There was granulation tissue in the wound tracks which was removed. Cautery was used for hemostasis. Cultures of 1 of the purulent abscesses was sent for Gram stain a row beak and anaerobic culture. I probed several other draining sites but there did not appear to be any tracking with these. I went ahead and packed the to wound tracts that I created to establish hemostasis. We then dressed the entire right buttocks with fluffs, ABDs, and Medipore tape. Patient was returned to a supine position, awakened, and taken to recovery in good condition. Sponge and needle counts were correct x2. Estimated Blood Loss -20 Urine Output 0 Drains No Packing Yes (1/2 inch iodoform Nu Gauze) Pathology Other (Cultures for aerobes anaerobes and Gram stain) Complications None Condition Stable Disposition PACU [facility] Billing Surgery - Charge Forward: Surgery Billing (Incision and drainage right buttocks carbuncle, complicated)
[2025-05-24] MEDS: GABAPENTIN 300 MG CAPSULE PO (17:56)
[2025-05-24] MEDS: oxyCODONE/ACETAMINOPHEN (*CRX) 5-325 MG TABLET 1 TABLET PO (18:17)
[2025-05-24] MEDS: SODIUM CHLORIDE 0.9% IV 1,000 ML 80 ML IV CONT (18:18)
[2025-05-24 19:46] LABS: MRSA (PCR) NOT DETECTED (NOT DETECTE)
[2025-05-24] MEDS: FAMOTIDINE 20 MG TABLET PO (21:36)
[2025-05-25] VITALS (8 sets, daily range): BP systolic 116–135; BP diastolic 73–83; PULSE 82–106; RESP 16–22; TEMP 36.4–39.4; O2SAT 91–97
--- NOTE | 2025-05-25 | ECHO_ITS ---
Patient Info Name: Sorin Barnhart Age: 39 years : 1985 Gender: Male Ht: 68 in Wt: 177 lbs BSA: 1.98 m2 HR: 92 bpm BP: 134 / 82 mmHg Heart Rhythm: Sinus Rhythm Technical Quality: Good Exam Date: 05/25/2025 12:00 PM Patient Status: I Admit Date: 05/23/2025 Exam Type: CA echo doppler color flow Complete two-dimensional, color flow and Doppler transthoracic echocardiogram is performed. Staff Referring Physician: Lobo Schwab MD Refinish Technician: Tena Yost Attending Provider: Yohana Schafer Sherinejd DO Summary 1. Complete two-dimensional, color flow and Doppler transthoracic echocardiogram is performed. 2. Small amount of tricuspid valve regurgitation seen. 3. Otherwise unremarkable echocardiogram. Left Ventricle Left ventricular chamber dimension is normal. Left ventricular systolic function is normal, estimated at 60-65. The left ventricular diastolic function is normal. Right Ventricle Right ventricular chamber dimension is normal. Left Atria Left atrial chamber dimension is normal. Right Atria Right atrial chamber dimension is normal. Aortic Valve The aortic valve is normal. Pulmonic Valve The pulmonic valve is normal. Mitral Valve The mitral valve has normal leaflets. Tricuspid Valve The tricuspid valve leaflets are normal. There is mild tricuspid valve regurgitation. Pericardium/Pleural The pericardium appears normal. Aorta The aortic root size at the sinus of Valsalva is normal. Left Ventricular Outflow Tract Name Value Normal LVOT 2D LVOT Diameter 2.0 cm LVOT Doppler LVOT Peak Velocity 118 cm/s LVOT Peak Gradient 6 mmHg LVOT Mean Gradient 3 mmHg LVOT VTI 23 cm LVOT VTI/AV VTI Ratio 0.7 LVOT Stroke Volume 75 ml LVOT CO 16.6 l/min LVOT CI 8.4 l/min/m2 Pulmonic Valve Name Value Normal PV Doppler PV Peak Velocity 115 cm/s PV Peak Gradient 5 mmHg Mitral Valve Name Value Normal MV Diastolic Function MV E Peak Velocity 108 cm/s MV A Peak Velocity 72 cm/s MV E/A 1.5 MV Decel Time (PW) 167 ms MV Annular TDI MV E/e' (Septal) 7.0 MV E/e' (Lateral) 5.3 MV E/e' (Average) 6.1 Tricuspid Valve Name Value Normal TV Regurgitation Doppler TR Peak Velocity 290 cm/s TR Peak Gradient 34 mmHg Estimated PAP/RSVP RA Pressure 10 mmHg <=5 PA Systolic Pressure 44 mmHg <36 RV Systolic Pressure 44 mmHg <36 TV Annular TDI TV Lateral Susan s' Velocity 14.7 cm/s >=9.5 Aorta Name Value Normal Ascending Aorta Ao Root Diameter (MM) 3.3 cm Ao Root Diam Index (MM) 1.7 cm/m2 Aortic Valve Name Value Normal AV Doppler AV Peak Velocity 193 cm/s AV Peak Gradient 15 mmHg AV Mean Gradient 8 mmHg AV VTI 33 cm AV Area (Cont Eq VTI) 2.3 cm2 >=3.0 AV Area (Cont Eq Joaquin) 2.0 cm2 AV DI (Joaquin) 0.61 AV Regurgitation 2D LVOT Area 3.2 cm2 Ventricles Name Value Normal LV Dimensions 2D/MM IVS Diastolic Thickness (2D) 1.0 cm 0.6-1.0 LVID Diastole (2D) 5.0 cm 4.2-5.8 LVIW Diastolic Thickness (2D) 0.9 cm 0.6-1.0 LVID Systole (2D) 3.5 cm 2.5-4.0 LVOT Diameter 2.0 cm LV Mass (2D Cubed) 160.28 g 88.00-224.00 LV Mass Index (2D Cubed) 81 g/m2 49-115 Relative Wall Thickness (2D) 0.36 <=0.42 LV Fractional Shortening/Ejection Fraction 2D/MM LV Fractional Shortening (2D) 29 % 25-43 LV EF (2D Teichholz) 56 % LV Diastolic Volume (4C MOD) 108 ml LV EF (4C MOD) 63 % LV Diastolic Volume (2C MOD) 134 ml LV EF (2C MOD) 65 % LV Diastolic Volume (BP MOD) 122 ml 62-150 LV Diastolic Volume Index (BP MOD) 62 ml/m2 34-74 LV Systolic Volume (BP MOD) 44 ml 21-61 LV Systolic Volume Index (BP MOD) 22 ml/m2 11-31 LV EF (BP MOD) 64 % 52-72 LV Diastolic Length (4C) 8.5 cm LV Systolic Length (4C) 6.8 cm LV Stroke Volume (4C MOD) 68 ml RV Dimensions 2D/MM RVID Diastole (2D) 4.2 cm 2.1-3.5 Atria Name Value Normal LA Dimensions LA Dimension (MM) 3.4 cm 3.0-4.0 LA Volume (4C A-L) 47 ml LA Volume (BP A-L) 51 ml RA Dimensions RA Systolic Major [place] Length (4C) 5.3 cm 2.1-2.7 RA Area (4C) 17.8 cm2 <=18.0 Report Signatures
[2025-05-25] MEDS: PIPERACILLIN/TAZOBACTAM SOD 3.375 GM in SODIUM CHLORIDE 0.9% IV 50 ML 100 ML IVPB ×5 (00:15→23:19)
[2025-05-25 06:15] LABS: Hematocrit 31.7 % (42.0-52.0); Hemoglobin 9.5 g/dL (14.0-18.0); Immature Granulocyte Percent A 0.5 % (0-0.5); Lymphocytes Absolute Auto 1.39 K/mm3 (0.9-3.2); Mean Corpuscular HGB Conc 30.0 g/dl (32-36); Mean Corpuscular Hemoglobin 28.2 pg (26-34); Mean Corpuscular Volume 94.1 fl (80-100); Nucleated Red Blood Cells Absolute Auto 0.000 K/mm3 (0.0-0.012); Nucleated Red Blood Cells Perc 0.0 % (0.0-0.2); Platelet Count Result 304 k/mm3 (150-375); Red Blood Count 3.37 M/mm3 (4.6-6.20); White Blood Count 10.7 K/mm3 (4.5-10.0)
[2025-05-25 06:47] LABS: Alanine Aminotransferase 50 U/L (6-50); Albumin Level 3.0 g/dL (3.5-5.1); Alkaline Phosphatase 208 U/L (38-126); Anion Gap 5 mmol/L (4-12); Aspartate Amino Transferase 158 U/L (17-59); Bilirubin,Total 0.5 mg/dL (0.2-1.3); Blood Urea Nitrogen 5 mg/dL (9-20); Calcium 7.4 mg/dL (8.4-10.2); Carbon Dioxide 28 mmol/L (22-30); Chloride 104 mmol/L (98-107); Estimated CRCL calculation 86 ml/min; Estimated Glomerular Filt Rate > 60; Glucose 105 mg/dL (65-110); Potassium 3.5 mmol/L (3.4-5.0); Sodium 137 mmol/L (137-145); Total Protein 7.4 g/dL (6.3-8.2)
--- NOTE | 2025-05-25 08:27 | PM.IMPN ---
Progress Note: A&P Assessment and Plan (1) Acute respiratory failure with hypoxia: Code(s): J96.01 - Acute respiratory failure with hypoxia Status: Acute Assessment and Plan: Patietn developed hypoxia overnight and return of high fevers. WBC trending down 16 -> 10K. CT chest on admission (05/23) showing no focal airspace disease. MRSA nasal swab negative. Currently on Doxycycline and Zosyn. CXR reviewed personally showing bilateral infiltrates worsein the left upper lobe. No CMG. Fluid positive +3.3L. DiffDx; PNA, pulmonary edema, ARDS. PE seems less likely since abnormal CXR Severe condition given how quickly his CXR changed. Moniotr closely. Stop IV fluids. Continue IV abx. Check PCT, Lactic, BNP Check ABG and Echo (2) Sepsis: Qualifiers: Sepsis type: sepsis due to unspecified organism Sepsis acute organ dysfunction status: without acute organ dysfunction Qualified Code(s): A41.9 - Sepsis, unspecified organism Code(s): A41.9 - Sepsis, unspecified organism Status: Acute Assessment and Plan: Sepsis present on admission due to infected hidradenitis suppurative lesion with large amount of purulence drainage from right gluteal wound suggesting underlying abscess. Patient received 30 mL/kg fluid bolus in the ER. BCx pending. Patient was started on Zosyn and vancomycin. GenSurg consulted now s/p debridement 05/24 WCx pending. Stop IV fluids. Continue IV abx. Otherwise as above. (3) Pneumonia: Code(s): J18.9 - Pneumonia, unspecified organism Status: Acute Assessment and Plan: Possible new PNA vs pulm edema. As above (4) Abscess, gluteal, right: Code(s): L02.31 - Cutaneous abscess of buttock Status: Acute Assessment and Plan: As above (5) TRAE (acute kidney injury): Code(s): N17.9 - Acute kidney failure, unspecified Status: Acute Assessment and Plan: Cr increased to 1.2 but was voiding normally per patient. UOP good since midnight at 1300mL and Cr trending down to 1.0 Angela TRAE related to sepsis. Consider also contrast induced nephropathy since no UOP documented until this morning Consider related to abx as well (Vanco changed to Doxy). Pulm edema related to poor UOP? Follow for now. Stop IV fluids (6) Hidradenitis suppurativa: Onset Date: Unknown Code(s): L73.2 - Hidradenitis suppurativa Status: Acute Assessment and Plan: As above. (7) Chronic pain: Qualifiers: Chronic pain type: other chronic pain Qualified Code(s): G89.29 - Other chronic pain Code(s): G89.29 - Other chronic pain Status: Acute Assessment and Plan: Stable. Pain management as written (8) Tobacco use: Code(s): Z72.0 - Tobacco use Status: Acute Assessment and Plan: Tobacco cessation education has been provided. Nicotine patch has been offered but patient declined. Patient has been educated that he cannot vape while he is in the hospital. (9) Anemia: Code(s): D64.9 - Anemia, unspecified Status: Acute Assessment and Plan: Patient does have acute on chronic anemia. Iron studies normal except for low TIBC at 176. Normal urine protein. B12, foalte levels normal. Probable anemia of chronic disease. 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 Continue PPI. Follow HH (10) Sickle cell trait: Code(s): D57.3 - Sickle-cell trait Status: Acute Assessment and Plan: The patient reports diagnosis of sickle cell anemia but in the past has been documented as sickle cell trait previously. Reticulocyte count does not suggest findings consistent with sickle cell, CBC with diff does not suggest this and bilirubin is normal. Patient's pain is likely due to chronic pain exacerbated by fever and sepsis. Tylenol, Toradol and Dilaudid have been ordered to be given per pain scale. Plan Elevated LFT - mostly just elevated AST. Check TCK and hepatits panel. DVT Prophylaxis - lovenox Code status - full 40 minutes spent on critical care time Subjective Date/time seen: 05/25/25 08:27 Interval history: 39-year-old male with a past medical history of sickle cell trait and hidradenitis suppurative who presented to the ER with having extreme pain everywhere. Patient was more SOB overnight requiring increasing amount of oxygen to 3L. Fever to 103 this morning. Symptoms worse with sitting forward.No hx of BENJAMÍN, COPD, emphysema, CHF. Denies chest pain but does have some mid chest pleuritic pain with deep breaths. No tongue or throat swelling. Has a nonproductive cough. Passing flatus Exam Narrative: Tm 103 134/82 106 22 91% 2L Gen - mildly tachypneic lying semi-recumbent in bed Chest - inspiratory crackles mid and lower left lung field and mild right base. CV - tachycardic, regular Abd - Soft, ND, +BS, mild diffuse tenderness without guarding or rebound Ext - No pedal edema. Negative Homans Psych - appears uncomfortable. Skin - right buttock dressing clean and dry. Hot to touch Objective Data Vital Signs Vital Signs: Vital Signs - 24 hr 05/24/25 12:38 05/24/25 14:05 05/24/25 16:42 Temperature 100.0 F H 99.3 F 97.7 F Pulse Rate 85 97 Respiratory Rate 14 16 Blood Pressure 135/70 126/76 Pulse Oximetry 94 100 Oxygen Delivery Room Air Simple Face Mask Oxygen Flow Rate 8 05/24/25 16:55 05/24/25 16:59 05/24/25 17:10 Temperature Pulse Rate 92 79 Respiratory Rate 16 20 Blood Pressure 133/81 146/82 H Pulse Oximetry 100 92 98 Oxygen Delivery Room Air Nasal Cannula Nasal Cannula Oxygen Flow Rate 2 2 05/24/25 17:25 05/24/25 17:57 05/24/25 18:12 Temperature 98.3 F 99.1 F Pulse Rate 80 91 85 Respiratory Rate 19 18 18 Blood Pressure 133/83 125/64 129/75 Pulse Oximetry 98 95 95 Oxygen Delivery Nasal Cannula Oxygen Flow Rate 2 05/24/25 19:42 05/24/25 20:00 05/25/25 03:42 Temperature 99.2 F 99.3 F Pulse Rate 104 H 96 Respiratory Rate 17 22 H Blood Pressure 130/73 135/81 Pulse Oximetry 90 90 97 Oxygen Delivery Nasal Cannula Oxygen Flow Rate 2 05/25/25 07:42 Temperature 103.0 F H Pulse Rate 106 H Respiratory Rate 22 H Blood Pressure 134/82 Pulse Oximetry 91 Oxygen Delivery Oxygen Flow Rate Intake/Output Intake/Output: Intake & Output 05/22/25 05/23/25 05/24/25 05/25/25 23:59 23:59 23:59 23:59 Intake Total 3500 250 840 Output Total 0 1300 Balance 3500 250 -460 Meds/Results Medications: Active Medications Generic Name Dose Route Start Last Admin Trade Name Freq PRN Reason Stop Dose Admin Acetaminophen 650 mg 05/23/25 21:23 05/24/25 12:38 Acetaminophen 325 Mg Tablet PO 650 mg Q4H PRN Administration Mild Pain (1-3) or Fever Amlodipine Besylate 10 mg 05/24/25 09:00 05/24/25 21:36 Amlodipine Besylate 10 Mg Tablet PO 10 mg Q12HR RADHA Administration Enoxaparin Sodium 40 mg 05/24/25 09:00 Enoxaparin 40 Mg/0.4 Ml Syringe SUB-Q DAILY RADHA Famotidine 20 mg 05/24/25 21:00 05/24/25 21:36 Famotidine 20 Mg Tablet PO 20 mg Q12HR RADHA Administration Gabapentin 300 mg 05/24/25 09:00 05/24/25 17:56 Gabapentin 300 Mg Capsule PO 300 mg DAILY RADHA Administration Hydromorphone HCl 1 mg 05/23/25 21:13 05/24/25 03:44 Hydromorphone Hcl Inj (*Crx) 1 Mg/Ml Syr IV PUSH 1 mg Q3H PRN Administration Breakthrough Pain Piperacillin Sod/Tazobactam 50 mls @ 100 mls/hr 05/24/25 05:00 05/25/25 05:44 Sod 3.375 gm/ Sodium Chloride IVPB 100 mls/hr Q6HR RADHA Administration Doxycycline Hyclate 100 mg/ 100 mls @ 100 mls/hr 05/24/25 09:20 05/24/25 21:37 Sodium Chloride IVPB 100 mls/hr Q12HR RADHA Administration Ketorolac Tromethamine 30 mg 05/23/25 21:23 05/24/25 21:36 Ketorolac 30 Mg/Ml Vial (*Bkc) IV PUSH 30 mg Q6H PRN Administration Pain Rated 4-10 or fever Ondansetron HCl 4 mg 05/24/25 00:18 Ondansetron Inj 4 Mg/2 Ml Vial IV PUSH Q4H PRN Nausea And Vomiting Oxycodone/Acetaminophen 1 tablet 05/24/25 17:51 05/24/25 18:17 Oxycodone/Acetaminophen (*Crx) 5-325 Mg Tablet PO 1 tablet Q4H PRN Administration Pain Rated 4-6 Radiology Results: ITS Impressions Chest/Abdomen/Pelvis CT 05/23/25 18:44 IMPRESSION: 1. Extensive abnormal skin thickening and subcutaneous fatty infiltration of the right gluteal region extending to the gluteal cleft. Findings most consistent with cellulitis and panniculitis, possibly due to bacterial soft tissue infection. No organized or drainable abscess identified. Differential diagnosis includes malignancy. 2: Right inguinal and pelvic lymphadenopathy, likely reactive in the setting of adjacent soft tissue inflammation/infection. Chest X-Ray 05/25/25 08:15 Impression: Bilateral pneumonia Labs Labs: Laboratory Results - last 24 hr 05/24/25 05/24/25 05/25/25 07:13 18:30 05:34 WBC 10.7 H RBC 3.37 L Hgb 9.5 L Hct 31.7 L MCV 94.1 MCH 28.2 MCHC 30.0 L RDW 16.6 H Plt Count 304 MPV 9.4 Immature Gran % (Auto) 0.5 Neut % (Auto) 81.2 H Lymph % (Auto) 13.1 L [place] % (Auto) 4.3 Eos % (Auto) 0.7 Baso % (Auto) 0.2 Lymph # (Auto) 1.39 [place] # (Auto) 0.5 Eos # (Auto) 0.1 Baso # (Auto) 0.0 Abs Immat Gran (auto) 0.05 H Absolute Neuts (auto) 8.7 H Absolute Nucleated RBC 0.000 Nucleated RBC % 0.0 Sodium 137 Potassium 3.5 Chloride 104 Carbon Dioxide 28 Anion Gap 5 BUN 5 L Creatinine 1.01 Estim Creat Clear Calc 86 Estimated GFR > 60 Glucose 105 Hemoglobin A1c 4.8 Calcium 7.4 L Total Bilirubin 0.5 AST 158 H ALT 50 Alkaline Phosphatase 208 H Total Protein 7.4 Albumin 3.0 L Nasal MRSA (PCR) Not detected
[2025-05-25] MEDS: GABAPENTIN 300 MG CAPSULE PO (09:30)
[2025-05-25] MEDS: FAMOTIDINE 20 MG TABLET PO ×2 (09:30→20:25)
[2025-05-25] MEDS: DOXYCYCLINE IV 100 MG in SODIUM CHLORIDE 0.9% IV 100 ML IVPB ×2 (09:31→20:24)
[2025-05-25] MEDS: ENOXAPARIN 40 MG/0.4 ML SYRINGE SUB-Q (09:31)
[2025-05-25 09:44] LABS: Creatine Kinase 106 U/L (55-170)
[2025-05-25 09:50] LABS: Hepatitis B Surface Antigen Negative (Negative)
[2025-05-25 09:54] LABS: CRP 28.4 mg/dL (<1.0)
[2025-05-25 09:54] LABS: Procalcitonin 28.7 ng/mL
[2025-05-25 09:56] LABS: HAV RESULT Negative (Negative); Hepatitis B Core IgM Result Negative (Negative)
[2025-05-25 10:56] LABS: Alveolar/Arterial O2 Gradient 122.6 mmHg; Fractional Inspired Oxygen 32 %; HCO3 ABG 24.7 mEq/l (22.0-26.0); Modified Allen's Test Pass; Oxygen Content ABG 12.7 %vol (16.0-22.0); Oxygen Saturation ABG 93.5 % (95.0-100.0); PCO2 ABG 35.8 mmHg (35.0-45.0); PO2 ABG 63.7 mmHg (80.0-100.0); PO2 FiO2 Ratio Arterial Blood 1.99 %; Site Drawn LEFT RADIAL
[2025-05-25 10:57] LABS: Liters per Minute 3.0 LPM
[2025-05-25] MEDS: ACETAMINOPHEN 325 MG TABLET 650 MG PO ×3 (11:45→20:26)
--- NOTE | 2025-05-25 12:28 | P.PNGS_ITS ---
Progress Note: A&P Assessment and Plan (1) Fever: Qualifiers: Fever type: post-procedural Qualified Code(s): R50.82 - Postprocedural fever Code(s): R50.9 - Fever, unspecified Status: Acute Assessment and Plan: high fever this morning following debridement procedure yesterday, probably from right buttocks infection (2) Abscess, gluteal, right: Code(s): L02.31 - Cutaneous abscess of buttock Status: Acute Assessment and Plan: Really more of a large carbuncle, limited to the skin. Etiology supposedly Hidradenitis per patient. wounds from unroofing abscess tracts yesterday look good, no bleeding, no purulent fluid. Has several other pinpoint areas where purulent fluid can be expressed. I checked several of these and found no tracking. Will start dressing changes and packing daily. If fevers persist over weekend, can take patient back to search for more undermined or tunneled abscesses. (3) Hidradenitis suppurativa: Onset Date: Unknown Code(s): L73.2 - Hidradenitis suppurativa Status: Chronic Assessment and Plan: diagnosis per patient, not sure how this was diagnosed--biopsy? Subjective Subjective Date/Time Seen: 05/25/25 12:28 Post Op day: 1 Patient reports: still having pain (All over, no particular complaints regarding right buttocks.), tolerating a regular diet and fever (Temp to 39.4? at 7:45 a.m. this morning. This decreased to normal by 11:00 a.m..) Review of Systems Review of Systems: All systems reviewed & are unremarkable except as noted in HPI and below (HPI) Exam Const: General: comfortable, alert, awake and tired appearing Nutritional Appearance: well nourished GI: Rectal Exam: buttock abscess (Unroofed 2 areas fine, no bleeding or purulence. Repacked with Nu Gauze) Other: Still has several other pinpoint areas where squeezing or pressure will cause purulent fluid to express. Two of the more significant were cleaned with a Q- tip and peroxide. Two areas where tracking unroofed show no purulent fluid at all. Objective Data Vital Signs Vital Signs: Vital Signs - 24 hr 05/24/25 12:38 05/24/25 14:05 05/24/25 16:42 Temperature 37.8 C H 37.4 C 36.5 C Pulse Rate 85 97 Respiratory Rate 14 16 Blood Pressure 135/70 126/76 Pulse Oximetry 94 100 Oxygen Delivery Room Air Simple Face Mask Oxygen Flow Rate 8 05/24/25 16:55 05/24/25 16:59 05/24/25 17:10 Temperature Pulse Rate 92 79 Respiratory Rate 16 20 Blood Pressure 133/81 146/82 H Pulse Oximetry 100 92 98 Oxygen Delivery Room Air Nasal Cannula Nasal Cannula Oxygen Flow Rate 2 2 05/24/25 17:25 05/24/25 17:57 05/24/25 18:12 Temperature 36.8 C 37.3 C Pulse Rate 80 91 85 Respiratory Rate 19 18 18 Blood Pressure 133/83 125/64 129/75 Pulse Oximetry 98 95 95 Oxygen Delivery Nasal Cannula Oxygen Flow Rate 2 05/24/25 19:42 05/24/25 20:00 05/25/25 03:42 Temperature 37.3 C 37.4 C Pulse Rate 104 H 96 Respiratory Rate 17 22 H Blood Pressure 130/73 135/81 Pulse Oximetry 90 90 97 Oxygen Delivery Nasal Cannula Oxygen Flow Rate 2 05/25/25 07:42 05/25/25 09:02 05/25/25 10:22 Temperature 39.4 C H 38.0 C H Pulse Rate 106 H Respiratory Rate 22 H Blood Pressure 134/82 Pulse Oximetry 91 92 Oxygen Delivery Nasal Cannula Oxygen Flow Rate 3 05/25/25 11:42 Temperature 36.9 C Pulse Rate 94 Respiratory Rate 22 H Blood Pressure 131/82 Pulse Oximetry 91 Oxygen Delivery Oxygen Flow Rate Intake/Output Intake/Output: Intake & Output 05/22/25 05/23/25 05/24/25 05/25/25 23:59 23:59 23:59 23:59 Intake Total 3500 350 890 Output Total 0 2150 Balance 3500 350 -1260 Meds/Results Medications: Active Medications Generic Name Dose Route Start Last Admin Trade Name Freq PRN Reason Stop Dose Admin Acetaminophen 650 mg 05/23/25 21:23 05/25/25 11:45 Acetaminophen 325 Mg Tablet PO 650 mg Q4H PRN Administration Mild Pain (1-3) or Fever Amlodipine Besylate 10 mg 05/24/25 09:00 05/25/25 09:30 Amlodipine Besylate 10 Mg Tablet PO 10 mg Q12HR RADHA Administration Enoxaparin Sodium 40 mg 05/24/25 09:00 05/25/25 09:31 Enoxaparin 40 Mg/0.4 Ml Syringe SUB-Q 40 mg DAILY RADHA Administration Famotidine 20 mg 05/24/25 21:00 05/25/25 09:30 Famotidine 20 Mg Tablet PO 20 mg Q12HR RADHA Administration Gabapentin 300 mg 05/24/25 09:00 05/25/25 09:30 Gabapentin 300 Mg Capsule PO 300 mg DAILY RADHA Administration Hydromorphone HCl 1 mg 05/23/25 21:13 05/24/25 03:44 Hydromorphone Hcl Inj (*Crx) 1 Mg/Ml Syr IV PUSH 1 mg Q3H PRN Administration Breakthrough Pain Piperacillin Sod/Tazobactam 50 mls @ 100 mls/hr 05/24/25 05:00 05/25/25 11:46 Sod 3.375 gm/ Sodium Chloride IVPB 100 mls/hr Q6HR RADHA Administration Doxycycline Hyclate 100 mg/ 100 mls @ 100 mls/hr 05/24/25 09:20 05/25/25 09:31 Sodium Chloride IVPB 100 mls/hr Q12HR RADHA Administration Ketorolac Tromethamine 30 mg 05/23/25 21:23 05/24/25 21:36 Ketorolac 30 Mg/Ml Vial (*Bkc) IV PUSH 30 mg Q6H PRN Administration Pain Rated 4-10 or fever Ondansetron HCl 4 mg 05/24/25 00:18 Ondansetron Inj 4 Mg/2 Ml Vial IV PUSH Q4H PRN Nausea And Vomiting Oxycodone/Acetaminophen 1 tablet 05/24/25 17:51 05/24/25 18:17 Oxycodone/Acetaminophen (*Crx) 5-325 Mg Tablet PO 1 tablet Q4H PRN Administration Pain Rated 4-6 Perflutren Lipid Microsphere 0 ml 05/25/25 08:50 Perflutren Lipid Microspheres 1.5 Ml Vial Diluted To 10 Ml Total Volume IV PUSH 05/28/25 08:50 ONCE PRN adequate visualization Protocol Radiology Results: ITS Impressions Chest/Abdomen/Pelvis CT 05/23/25 18:44 IMPRESSION: 1. Extensive abnormal skin thickening and subcutaneous fatty infiltration of the right gluteal region extending to the gluteal cleft. Findings most consistent with cellulitis and panniculitis, possibly due to bacterial soft tissue infection. No organized or drainable abscess identified. Differential diagnosis includes malignancy. 2: Right inguinal and pelvic lymphadenopathy, likely reactive in the setting of adjacent soft tissue inflammation/infection. Chest X-Ray 05/25/25 08:15 Impression: Bilateral pneumonia Labs Labs: Laboratory Results - last 24 hr 05/24/25 05/24/25 05/25/25 07:16 18:30 05:34 WBC 10.7 H RBC 3.37 L Hgb 9.5 L Hct 31.7 L MCV 94.1 MCH 28.2 MCHC 30.0 L RDW 16.6 H Plt Count 304 MPV 9.4 Immature Gran % (Auto) 0.5 Neut % (Auto) 81.2 H Lymph % (Auto) 13.1 L [place] % (Auto) 4.3 Eos % (Auto) 0.7 Baso % (Auto) 0.2 Lymph # (Auto) 1.39 [place] # (Auto) 0.5 Eos # (Auto) 0.1 Baso # (Auto) 0.0 Abs Immat Gran (auto) 0.05 H Absolute Neuts (auto) 8.7 H Absolute Nucleated RBC 0.000 Nucleated RBC % 0.0 Haptoglobin 284 Puncture Site ABG pH ABG pCO2 ABG pO2 ABG PO2/FiO2 Ratio ABG HCO3 ABG O2 Saturation ABG O2 Content ABG Base Excess A-a Gradient Oxyhemoglobin Total Hemoglobin O2 Delivery Device O2 Liters/Min FiO2 Sodium 137 Potassium 3.5 Chloride 104 Carbon Dioxide 28 Anion Gap 5 BUN 5 L Creatinine 1.01 Estim Creat Clear Calc 86 Estimated GFR > 60 Glucose 105 Lactic Acid Calcium 7.4 L Total Bilirubin 0.5 AST 158 H ALT 50 Alkaline Phosphatase 208 H Total Creatine Kinase 106 C-Reactive Protein 28.4 H Total Protein 7.4 Albumin 3.0 L Procalcitonin Nasal MRSA (PCR) Not detected Hepatitis A IgM Ab Negative Hep Bs Antigen Negative Hep B Core IgM Ab Negative Hepatitis C Ab Screen Negative 05/25/25 05/25/25 05/25/25 09:05 09:09 10:44 WBC RBC Hgb Hct MCV MCH MCHC RDW Plt Count MPV Immature Gran % (Auto) Neut % (Auto) Lymph % (Auto) [place] % (Auto) Eos % (Auto) Baso % (Auto) Lymph # (Auto) [place] # (Auto) Eos # (Auto) Baso # (Auto) Abs Immat Gran (auto) Absolute Neuts (auto) Absolute Nucleated RBC Nucleated RBC % Haptoglobin Puncture Site Left radial ABG pH 7.457 H ABG pCO2 35.8 ABG pO2 63.7 L ABG PO2/FiO2 Ratio 1.99 ABG HCO3 24.7 ABG O2 Saturation 93.5 L ABG O2 Content 12.7 L ABG Base Excess 1.0 A-a Gradient 122.6 Oxyhemoglobin 91.8 Total Hemoglobin 9.8 L O2 Delivery Device Nasal cannula O2 Liters/Min 3.0 FiO2 32 Sodium Potassium Chloride Carbon Dioxide Anion Gap BUN Creatinine Estim Creat Clear Calc Estimated GFR Glucose Lactic Acid 0.6 L Calcium Total Bilirubin AST ALT Alkaline Phosphatase Total Creatine Kinase C-Reactive Protein Total Protein Albumin Procalcitonin 28.7 Nasal MRSA (PCR) Hepatitis A IgM Ab Hep Bs Antigen Hep B Core IgM Ab Hepatitis C Ab Screen
[2025-05-25] MEDS: IBUPROFEN 400 MG TABLET PO (17:53)
[2025-05-25] MEDS: ONDANSETRON INJ 4 MG/2 ML VIAL IV PUSH (17:59)
[2025-05-26] VITALS (8 sets, daily range): BP systolic 119–147; BP diastolic 73–81; PULSE 72–103; RESP 18–20; TEMP 36.6–38.6; O2SAT 92–97
[2025-05-26] MEDS: PIPERACILLIN/TAZOBACTAM SOD 3.375 GM in SODIUM CHLORIDE 0.9% IV 50 ML 100 ML IVPB ×4 (05:33→23:53)
[2025-05-26] MEDS: ACETAMINOPHEN 325 MG TABLET 650 MG PO ×2 (05:34→17:53)
[2025-05-26 06:22] LABS: Hematocrit 29.3 % (42.0-52.0); Hemoglobin 9.2 g/dL (14.0-18.0); Immature Granulocyte Percent A 0.6 % (0-0.5); Lymphocytes Absolute Auto 1.18 K/mm3 (0.9-3.2); Mean Corpuscular HGB Conc 31.4 g/dl (32-36); Mean Corpuscular Hemoglobin 28.6 pg (26-34); Mean Corpuscular Volume 91.0 fl (80-100); Nucleated Red Blood Cells Absolute Auto 0.020 K/mm3 (0.0-0.012); Nucleated Red Blood Cells Perc 0.2 % (0.0-0.2); Platelet Count Result 289 k/mm3 (150-375); Red Blood Count 3.22 M/mm3 (4.6-6.20); White Blood Count 9.4 K/mm3 (4.5-10.0)
[2025-05-26 06:43] LABS: Anion Gap 5 mmol/L (4-12); Calcium 7.9 mg/dL (8.4-10.2); Carbon Dioxide 29 mmol/L (22-30); Chloride 103 mmol/L (98-107); Estimated CRCL calculation 94 ml/min; Estimated Glomerular Filt Rate > 60; Glucose 111 mg/dL (65-110); Potassium 3.1 mmol/L (3.4-5.0); Sodium 137 mmol/L (137-145)
[2025-05-26 06:52] LABS: Blood Urea Nitrogen < 2 mg/dL (9-20)
[2025-05-26 07:11] LABS: CRP 24.7 mg/dL (<1.0)
[2025-05-26 08:04] LABS: Magnesium 1.7 mg/dL (1.6-2.3)
[2025-05-26] MEDS: GABAPENTIN 300 MG CAPSULE PO (08:29)
[2025-05-26] MEDS: DOXYCYCLINE IV 100 MG in SODIUM CHLORIDE 0.9% IV 100 ML IVPB ×2 (08:29→21:49)
[2025-05-26] MEDS: FAMOTIDINE 20 MG TABLET PO ×2 (08:29→21:49)
[2025-05-26] MEDS: POTASSIUM CHLORIDE 20 MEQ ER TABLET 40 MEQ PO (08:31)
[2025-05-26] MEDS: MAGNESIUM SULF 2 GM/WATER 50ML 2 GM/50 ML BAG IVPB (09:58)
[2025-05-26] MEDS: IBUPROFEN 400 MG TABLET PO ×2 (11:51→21:20)
--- NOTE | 2025-05-26 12:10 | P.PNGS_ITS ---
Progress Note: A&P Assessment and Plan (1) Fever: Qualifiers: Fever type: post-procedural Qualified Code(s): R50.82 - Postprocedural fever Code(s): R50.9 - Fever, unspecified Status: Acute Assessment and Plan: Patient still having fevers but there does not appear to me any areas of undrained abscess on the right buttock region. Continue current antibiotics and await culture results. (2) Abscess, gluteal, right: Code(s): L02.31 - Cutaneous abscess of buttock Status: Acute Assessment and Plan: Really more of a large carbuncle, limited to the skin. Etiology supposedly Hidradenitis per patient. wounds from unroofing abscess tracts yesterday look good, no bleeding, no purulent fluid. Has several other pinpoint areas where purulent fluid can be expressed. I checked several of these and found no tracking. Will start dressing changes and packing daily. If fevers persist over weekend, can take patient back to search for more undermined or tunneled abscesses. (3) Hidradenitis suppurativa: Onset Date: Unknown Code(s): L73.2 - Hidradenitis suppurativa Status: Chronic Assessment and Plan: diagnosis per patient, not sure how this was diagnosed--biopsy? Subjective Subjective Date/Time Seen: 05/26/25 12:10 Interval history: Tolerating dressing changes. Patient states that he is feeling more comfortable and able to sit without as much pain. Still having fevers. Exam Skin: Other: Right buttock region with 2 open wounds from recent incision and drainage of abscess. No purulence drainage. Mild induration but no evidence of fluctuance or worsening erythema. Objective Data Vital Signs Vital Signs: Vital Signs - 24 hr 05/25/25 15:42 05/25/25 20:00 05/25/25 22:24 Temperature 98.4 F 97.5 F L Pulse Rate 93 82 Respiratory Rate 20 16 Blood Pressure 128/83 116/73 Pulse Oximetry 96 95 97 Oxygen Delivery Nasal Cannula Oxygen Flow Rate 3 05/26/25 05:27 05/26/25 05:34 05/26/25 07:54 Temperature 101.5 F H 101.5 F H 99.3 F Pulse Rate 103 H Respiratory Rate 18 Blood Pressure 147/73 H Pulse Oximetry 92 Oxygen Delivery Oxygen Flow Rate 05/26/25 08:10 05/26/25 08:27 Temperature Pulse Rate 86 Respiratory Rate Blood Pressure 120/74 Pulse Oximetry 97 97 Oxygen Delivery Nasal Cannula Oxygen Flow Rate 3 Intake/Output Intake/Output: Intake & Output 05/23/25 05/24/25 05/25/25 05/26/25 23:59 23:59 23:59 23:59 Intake Total 3500 350 2960 520 Output Total 0 3150 1900 Balance 3500 350 -190 -1380 Meds/Results Medications: Active Medications Generic Name Dose Route Start Last Admin Trade Name Freq PRN Reason Stop Dose Admin Acetaminophen 650 mg 05/23/25 21:23 05/26/25 05:34 Acetaminophen 325 Mg Tablet PO 650 mg Q4H PRN Administration Mild Pain (1-3) or Fever Amlodipine Besylate 10 mg 05/24/25 09:00 05/26/25 08:29 Amlodipine Besylate 10 Mg Tablet PO 10 mg Q12HR RADHA Administration Enoxaparin Sodium 40 mg 05/24/25 09:00 05/26/25 08:48 Enoxaparin 40 Mg/0.4 Ml Syringe SUB-Q Not Given DAILY RADHA Famotidine 20 mg 05/24/25 21:00 05/26/25 08:29 Famotidine 20 Mg Tablet PO 20 mg Q12HR RADHA Administration Gabapentin 300 mg 05/24/25 09:00 05/26/25 08:29 Gabapentin 300 Mg Capsule PO 300 mg DAILY RADHA Administration Hydromorphone HCl 1 mg 05/23/25 21:13 05/24/25 03:44 Hydromorphone Hcl Inj (*Crx) 1 Mg/Ml Syr IV PUSH 1 mg Q3H PRN Administration Breakthrough Pain Piperacillin Sod/Tazobactam 50 mls @ 100 mls/hr 05/24/25 05:00 05/26/25 11:52 Sod 3.375 gm/ Sodium Chloride IVPB 100 mls/hr Q6HR RADHA Administration Doxycycline Hyclate 100 mg/ 100 mls @ 100 mls/hr 05/24/25 09:20 05/26/25 08:29 Sodium Chloride IVPB 100 mls/hr Q12HR RADHA Administration Ibuprofen 400 mg 05/25/25 17:27 05/26/25 11:51 Ibuprofen 400 Mg Tablet PO 400 mg Q6H PRN Administration Pain Rated 4-6 Ondansetron HCl 4 mg 05/24/25 00:18 05/25/25 17:59 Ondansetron Inj 4 Mg/2 Ml Vial IV PUSH 4 mg Q4H PRN Administration Nausea And Vomiting Oxycodone/Acetaminophen 1 tablet 05/24/25 17:51 05/24/25 18:17 Oxycodone/Acetaminophen (*Crx) 5-325 Mg Tablet PO 1 tablet Q4H PRN Administration Pain Rated 7-10 Perflutren Lipid Microsphere 0 ml 05/25/25 08:50 Perflutren Lipid Microspheres 1.5 Ml Vial Diluted To 10 Ml Total Volume IV PUSH 05/28/25 08:50 ONCE PRN adequate visualization Protocol Radiology Results: ITS Impressions Chest/Abdomen/Pelvis CT 05/23/25 18:44 IMPRESSION: 1. Extensive abnormal skin thickening and subcutaneous fatty infiltration of the right gluteal region extending to the gluteal cleft. Findings most consistent with cellulitis and panniculitis, possibly due to bacterial soft tissue infection. No organized or drainable abscess identified. Differential diagnosis includes malignancy. 2: Right inguinal and pelvic lymphadenopathy, likely reactive in the setting of adjacent soft tissue inflammation/infection. Chest X-Ray 05/25/25 08:15 Impression: Bilateral pneumonia Labs Labs: Laboratory Results - last 24 hr 05/23/25 05/26/25 17:17 06:13 WBC 9.4 RBC 3.22 L Hgb 9.2 L Hct 29.3 L MCV 91.0 MCH 28.6 MCHC 31.4 L RDW 15.9 H Plt Count 289 MPV 9.4 Immature Gran % (Auto) 0.6 H Neut % (Auto) 81.2 H Lymph % (Auto) 12.6 L [place] % (Auto) 4.3 Eos % (Auto) 1.1 Baso % (Auto) 0.2 Lymph # (Auto) 1.18 [place] # (Auto) 0.4 Eos # (Auto) 0.1 Baso # (Auto) 0.0 Abs Immat Gran (auto) 0.06 H Absolute Neuts (auto) 7.6 H Absolute Nucleated RBC 0.020 H Nucleated RBC % 0.2 Hemoglobin Solubility Negative Sodium 137 Potassium 3.1 L Chloride 103 Carbon Dioxide 29 Anion Gap 5 BUN < 2 L Creatinine 0.91 Estim Creat Clear Calc 94 Estimated GFR > 60 Glucose 111 H Calcium 7.9 L Magnesium 1.7 C-Reactive Protein 24.7 H
--- NOTE | 2025-05-26 16:22 | PM.IMPN ---
Progress Note: A&P Assessment and Plan (1) Acute respiratory failure with hypoxia: Code(s): J96.01 - Acute respiratory failure with hypoxia Status: Acute Assessment and Plan: Patient developed hypoxia the other night and having recurrent fevers. WBC trending down 16 -> Normal CT chest on admission (05/23) showing no focal airspace disease. MRSA nasal swab negative. Currently on Doxycycline and Zosyn. CXR 05/25 showing bilateral PNA worse in the left upper lobe. No CMG. Echo with EF 60-65%, normal diastolic fxn. ABG 7.46/36/64 on 3L. Lactic normal. PCT 29. CRP 28. Suspect patient developed PNA resulting in his acute change. Pulm edema seems less likely. IV fluids stopped Still fluid positive +2.2L. Continue IV abx. Wean O2 as tolerated. Encouraged incentive spirometry use. Encourage him to be OOB. Start PT/OT (2) Sepsis: Qualifiers: Sepsis type: sepsis due to unspecified organism Sepsis acute organ dysfunction status: without acute organ dysfunction Qualified Code(s): A41.9 - Sepsis, unspecified organism Code(s): A41.9 - Sepsis, unspecified organism Status: Acute Assessment and Plan: Sepsis present on admission due to infected hidradenitis suppurative lesion with large amount of purulence drainage from right gluteal wound suggesting underlying abscess. Patient received 30 mL/kg fluid bolus in the ER. BCx NGTD. Patient was started on Zosyn and vancomycin. Vanco changed to Doxy GenSurg consulted now s/p debridement 05/24 WCx pending. Continue IV abx. Otherwise as above. (3) Pneumonia: Code(s): J18.9 - Pneumonia, unspecified organism Status: Acute Assessment and Plan: Possible new PNA vs pulm edema. As above (4) Abscess, gluteal, right: Code(s): L02.31 - Cutaneous abscess of buttock Status: Acute Assessment and Plan: As above (5) TRAE (acute kidney injury): Code(s): N17.9 - Acute kidney failure, unspecified Status: Acute Assessment and Plan: Cr increased to 1.2 but was voiding normally UOP good and Cr trending down to 0.9 [place] TRAE related to sepsis. Consider also contrast induced nephropathy since no UOP documented until this morning Consider related to abx as well (Vanco changed to Doxy). Pulm edema related to poor UOP? Follow (6) Hidradenitis suppurativa: Onset Date: Unknown Code(s): L73.2 - Hidradenitis suppurativa Status: Chronic Assessment and Plan: As above. (7) Chronic pain: Qualifiers: Chronic pain type: other chronic pain Qualified Code(s): G89.29 - Other chronic pain Code(s): G89.29 - Other chronic pain Status: Acute Assessment and Plan: Stable. Pain management as written (8) Tobacco use: Code(s): Z72.0 - Tobacco use Status: Acute Assessment and Plan: Tobacco cessation education has been provided. Nicotine patch has been offered but patient declined. Patient has been educated that he cannot vape while he is in the hospital. (9) Anemia: Code(s): D64.9 - Anemia, unspecified Status: Acute Assessment and Plan: Patient does have acute on chronic anemia. Iron studies normal except for low TIBC at 176. Normal urine protein. B12, foalte levels normal. Probable anemia of chronic disease. 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 Continue PPI. Follow HH (10) Sickle cell trait: Code(s): D57.3 - Sickle-cell trait Status: Acute Assessment and Plan: The patient reports diagnosis of sickle cell anemia but in the past has been documented as sickle cell trait previously. Reticulocyte count does not suggest findings consistent with sickle cell, CBC with diff does not suggest this and bilirubin is normal. Patient's pain is likely due to chronic pain exacerbated by fever and sepsis. Tylenol, Toradol and Dilaudid have been ordered to be given per pain scale. Plan Elevated LFT - Hepatitis panel negative. TCK normal. Probably related to sepsis picture. Follow DVT Prophylaxis - lovenox Code status - full Subjective Date/time seen: 05/26/25 16:22 Interval history: 39-year-old male with a past medical history of sickle cell trait and hidradenitis suppurative who presented to the ER with having extreme pain everywhere. Again with fever this morning with SOB. Cough is nonproductive. No n/v. Not out of bed. Complains of lower bilateral anterior chest pain with cough Exam Narrative: Tm 101.5 99.3 120/74 86 18 97% 3L Gen - NARD Chest - dull left lower lung field with bibasilar crackles. nml RR CV - RRR S1/S2 Abd - Soft, ND/NT Ext - No pedal edema Psych - normal mood. Skin - right buttock dressing clean and dry. Objective Data Vital Signs Vital Signs: Vital Signs - 24 hr 05/25/25 20:00 05/25/25 22:24 05/26/25 05:27 Temperature 97.5 F L 101.5 F H Pulse Rate 82 103 H Respiratory Rate 16 18 Blood Pressure 116/73 147/73 H Pulse Oximetry 95 97 92 Oxygen Delivery Nasal Cannula Oxygen Flow Rate 3 05/26/25 05:34 05/26/25 07:54 05/26/25 08:10 Temperature 101.5 F H 99.3 F Pulse Rate Respiratory Rate Blood Pressure Pulse Oximetry 97 Oxygen Delivery Nasal Cannula Oxygen Flow Rate 3 05/26/25 08:27 Temperature Pulse Rate 86 Respiratory Rate Blood Pressure 120/74 Pulse Oximetry 97 Oxygen Delivery Oxygen Flow Rate Intake/Output Intake/Output: Intake & Output 05/23/25 05/24/25 05/25/25 05/26/25 23:59 23:59 23:59 23:59 Intake Total 3500 350 2960 520 Output Total 0 3150 1900 Balance 3500 350 -190 -1380 Meds/Results Medications: Active Medications Generic Name Dose Route Start Last Admin Trade Name Freq PRN Reason Stop Dose Admin Acetaminophen 650 mg 05/23/25 21:23 05/26/25 05:34 Acetaminophen 325 Mg Tablet PO 650 mg Q4H PRN Administration Mild Pain (1-3) or Fever Amlodipine Besylate 10 mg 05/24/25 09:00 05/26/25 08:29 Amlodipine Besylate 10 Mg Tablet PO 10 mg Q12HR RADHA Administration Enoxaparin Sodium 40 mg 05/24/25 09:00 05/26/25 08:48 Enoxaparin 40 Mg/0.4 Ml Syringe SUB-Q Not Given DAILY RADHA Famotidine 20 mg 05/24/25 21:00 05/26/25 08:29 Famotidine 20 Mg Tablet PO 20 mg Q12HR RADHA Administration Gabapentin 300 mg 05/24/25 09:00 05/26/25 08:29 Gabapentin 300 Mg Capsule PO 300 mg DAILY RADHA Administration Hydromorphone HCl 1 mg 05/23/25 21:13 05/24/25 03:44 Hydromorphone Hcl Inj (*Crx) 1 Mg/Ml Syr IV PUSH 1 mg Q3H PRN Administration Breakthrough Pain Piperacillin Sod/Tazobactam 50 mls @ 100 mls/hr 05/24/25 05:00 05/26/25 11:52 Sod 3.375 gm/ Sodium Chloride IVPB 100 mls/hr Q6HR RADHA Administration Doxycycline Hyclate 100 mg/ 100 mls @ 100 mls/hr 05/24/25 09:20 05/26/25 08:29 Sodium Chloride IVPB 100 mls/hr Q12HR RADHA Administration Ibuprofen 400 mg 05/25/25 17:27 05/26/25 11:51 Ibuprofen 400 Mg Tablet PO 400 mg Q6H PRN Administration Pain Rated 4-6 Ondansetron HCl 4 mg 05/24/25 00:18 05/25/25 17:59 Ondansetron Inj 4 Mg/2 Ml Vial IV PUSH 4 mg Q4H PRN Administration Nausea And Vomiting Oxycodone/Acetaminophen 1 tablet 05/24/25 17:51 05/24/25 18:17 Oxycodone/Acetaminophen (*Crx) 5-325 Mg Tablet PO 1 tablet Q4H PRN Administration Pain Rated 7-10 Perflutren Lipid Microsphere 0 ml 05/25/25 08:50 Perflutren Lipid Microspheres 1.5 Ml Vial Diluted To 10 Ml Total Volume IV PUSH 05/28/25 08:50 ONCE PRN adequate visualization Protocol Radiology Results: ITS Impressions Chest/Abdomen/Pelvis CT 05/23/25 18:44 IMPRESSION: 1. Extensive abnormal skin thickening and subcutaneous fatty infiltration of the right gluteal region extending to the gluteal cleft. Findings most consistent with cellulitis and panniculitis, possibly due to bacterial soft tissue infection. No organized or drainable abscess identified. Differential diagnosis includes malignancy. 2: Right inguinal and pelvic lymphadenopathy, likely reactive in the setting of adjacent soft tissue inflammation/infection. Chest X-Ray 05/25/25 08:15 Impression: Bilateral pneumonia Labs Labs: Laboratory Results - last 24 hr 05/26/25 06:13 WBC 9.4 RBC 3.22 L Hgb 9.2 L Hct 29.3 L MCV 91.0 MCH 28.6 MCHC 31.4 L RDW 15.9 H Plt Count 289 MPV 9.4 Immature Gran % (Auto) 0.6 H Neut % (Auto) 81.2 H Lymph % (Auto) 12.6 L [place] % (Auto) 4.3 Eos % (Auto) 1.1 Baso % (Auto) 0.2 Lymph # (Auto) 1.18 [place] # (Auto) 0.4 Eos # (Auto) 0.1 Baso # (Auto) 0.0 Abs Immat Gran (auto) 0.06 H Absolute Neuts (auto) 7.6 H Absolute Nucleated RBC 0.020 H Nucleated RBC % 0.2 Sodium 137 Potassium 3.1 L Chloride 103 Carbon Dioxide 29 Anion Gap 5 BUN < 2 L Creatinine 0.91 Estim Creat Clear Calc 94 Estimated GFR > 60 Glucose 111 H Calcium 7.9 L Magnesium 1.7 C-Reactive Protein 24.7 H
[2025-05-27] VITALS (8 sets, daily range): BP systolic 125–138; BP diastolic 75–87; PULSE 68–92; RESP 14–18; TEMP 36.2–36.8; O2SAT 84–98
[2025-05-27] MEDS: PIPERACILLIN/TAZOBACTAM SOD 3.375 GM in SODIUM CHLORIDE 0.9% IV 50 ML 100 ML IVPB ×4 (06:04→23:39)
[2025-05-27 06:35] LABS: Hematocrit 30.1 % (42.0-52.0); Hemoglobin 9.4 g/dL (14.0-18.0); Immature Granulocyte Percent A 0.4 % (0-0.5); Lymphocytes Absolute Auto 1.99 K/mm3 (0.9-3.2); Mean Corpuscular HGB Conc 31.2 g/dl (32-36); Mean Corpuscular Hemoglobin 28.5 pg (26-34); Mean Corpuscular Volume 91.2 fl (80-100); Nucleated Red Blood Cells Absolute Auto 0.030 K/mm3 (0.0-0.012); Nucleated Red Blood Cells Perc 0.4 % (0.0-0.2); Platelet Count Result 309 k/mm3 (150-375); Red Blood Count 3.30 M/mm3 (4.6-6.20); White Blood Count 6.7 K/mm3 (4.5-10.0)
[2025-05-27 06:57] LABS: Alanine Aminotransferase 63 U/L (6-50); Albumin Level 3.1 g/dL (3.5-5.1); Alkaline Phosphatase 237 U/L (38-126); Anion Gap 6 mmol/L (4-12); Aspartate Amino Transferase 74 U/L (17-59); Bilirubin,Total 0.3 mg/dL (0.2-1.3); Blood Urea Nitrogen 3 mg/dL (9-20); Calcium 8.2 mg/dL (8.4-10.2); Carbon Dioxide 31 mmol/L (22-30); Chloride 103 mmol/L (98-107); Estimated CRCL calculation 106 ml/min; Estimated Glomerular Filt Rate > 60; Glucose 102 mg/dL (65-110); Magnesium 2.0 mg/dL (1.6-2.3); Potassium 3.3 mmol/L (3.4-5.0); Sodium 140 mmol/L (137-145); Total Protein 7.9 g/dL (6.3-8.2)
[2025-05-27 07:14] LABS: CRP 19.3 mg/dL (<1.0)
[2025-05-27 07:51] LABS: Hypochromasia 1+; Schistocytes None Seen
[2025-05-27] MEDS: ACETAMINOPHEN 325 MG TABLET 650 MG PO (09:36)
[2025-05-27] MEDS: ENOXAPARIN 40 MG/0.4 ML SYRINGE SUB-Q (09:38)
[2025-05-27] MEDS: FAMOTIDINE 20 MG TABLET PO ×2 (09:38→20:48)
[2025-05-27] MEDS: DOXYCYCLINE IV 100 MG in SODIUM CHLORIDE 0.9% IV 100 ML IVPB ×2 (09:38→21:00)
[2025-05-27] MEDS: GABAPENTIN 300 MG CAPSULE PO (09:38)
[2025-05-27] MEDS: POTASSIUM CHLORIDE 20 MEQ ER TABLET 40 MEQ PO (09:38)
--- NOTE | 2025-05-27 16:10 | PM.IMPN ---
Progress Note: A&P Assessment and Plan (1) Acute respiratory failure with hypoxia: Code(s): J96.01 - Acute respiratory failure with hypoxia Status: Acute Assessment and Plan: Patient developed hypoxia the other night and was having recurrent fevers. WBC trending down 16 -> Normal CT chest on admission (05/23) showing no focal airspace disease. MRSA nasal swab negative. Influenza, RSV and COVID PCR negative. Currently on Doxycycline and Zosyn. CXR 05/25 showing bilateral PNA worse in the left upper lobe. No CMG. Echo with EF 60-65%, normal diastolic fxn. ABG 7.46/36/64 on 3L. Lactic normal. PCT 29. CRP 28. Suspect patient developed PNA resulting in his acute change. Pulm edema seems less likely. IV fluids stopped Still fluid positive +2.7L. Wean to room air now Continue IV abx. Encouraged incentive spirometry use. Encourage him to be OOB. PT/OT ordered (2) Sepsis: Qualifiers: Sepsis acute organ dysfunction status: without acute organ dysfunction Sepsis type: sepsis due to unspecified organism Qualified Code(s): A41.9 - Sepsis, unspecified organism Code(s): A41.9 - Sepsis, unspecified organism Status: Acute Assessment and Plan: Sepsis present on admission due to infected hidradenitis suppurative lesion with large amount of purulence drainage from right gluteal wound suggesting underlying abscess. May also had PNA on admission. Patient received 30 mL/kg fluid bolus in the ER. BCx NGTD. Patient was started on Zosyn and vancomycin. Vanco changed to Doxy GenSurg consulted now s/p debridement 05/24 WCx pending. Fever curve much improved. WBC normal now. Continue IV abx. Otherwise as above. Hopefully home tomorrow. (3) Pneumonia: Code(s): J18.9 - Pneumonia, unspecified organism Status: Acute Assessment and Plan: Possible new PNA vs less likely pulm edema. As above (4) Abscess, gluteal, right: Code(s): L02.31 - Cutaneous abscess of buttock Status: Acute Assessment and Plan: As above (5) TRAE (acute kidney injury): Code(s): N17.9 - Acute kidney failure, unspecified Status: Acute Assessment and Plan: Cr increased to 1.2 but was voiding normally UOP good and Cr trending down to 0.8 [place] TRAE related to sepsis. Consider also contrast induced nephropathy since marked decreased UOP but resolved quickly Consider related to abx as well (Vanco + Zosyn; Vanco changed to Doxy). Pulm edema related to poor UOP? Follow (6) Hidradenitis suppurativa: Onset Date: Unknown Code(s): L73.2 - Hidradenitis suppurativa Status: Chronic Assessment and Plan: As above. (7) Chronic pain: Qualifiers: Chronic pain type: other chronic pain Qualified Code(s): G89.29 - Other chronic pain Code(s): G89.29 - Other chronic pain Status: Acute Assessment and Plan: Stable. Pain management as written (8) Tobacco use: Code(s): Z72.0 - Tobacco use Status: Acute Assessment and Plan: Tobacco cessation education has been provided. Nicotine patch has been offered but patient declined. Patient has been educated that he cannot vape while he is in the hospital. (9) Anemia: Code(s): D64.9 - Anemia, unspecified Status: Acute Assessment and Plan: Patient does have acute on chronic anemia. Iron studies normal except for low TIBC at 176. Normal urine protein. B12, folate levels normal. Probable anemia of chronic disease. 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 Continue PPI. Follow HH (10) Sickle cell trait: Code(s): D57.3 - Sickle-cell trait Status: Acute Assessment and Plan: The patient reports diagnosis of sickle cell anemia but in the past has been documented as sickle cell trait previously. Reticulocyte count does not suggest findings consistent with sickle cell, CBC with diff does not suggest this and bilirubin is normal. Patient's pain is likely due to chronic pain exacerbated by fever and sepsis. Tylenol, Toradol and Dilaudid have been ordered to be given per pain scale. Plan Elevated LFT - Hepatitis panel negative. TCK normal. Probably related to sepsis picture. Follow DVT Prophylaxis - lovenox Code status - full Subjective Date/time seen: 05/27/25 16:10 Interval history: 39-year-old male with a past medical history of sickle cell trait and hidradenitis suppurative who presented to the ER with having extreme pain everywhere. Feeling better. Slept poorly last night. Eating okay. No BM. Walked in room yesterday. Cough is nonproductive. His is a RN and can help with dressing changes. Exam Narrative: AF 97.2 138/87 81 18 94% RA Gen - NARD Chest - decreased BS bibasilar L>R CV - RRR S1/S2 Abd - Soft, ND/NT Ext - No pedal edema Psych - normal mood. Skin - right buttock dressing clean and dry. Objective Data Vital Signs Vital Signs: Vital Signs - 24 hr 05/26/25 17:36 05/26/25 21:20 05/26/25 22:51 Temperature 97.9 F 98.2 F Pulse Rate 80 72 Respiratory Rate 20 18 Blood Pressure 119/74 125/81 Pulse Oximetry 96 96 96 Oxygen Delivery Nasal Cannula Oxygen Flow Rate 3 05/27/25 00:46 05/27/25 07:22 05/27/25 09:18 Temperature 97.5 F L 98.2 F Pulse Rate 74 92 Respiratory Rate 18 14 Blood Pressure 125/75 Pulse Oximetry 98 84 L Oxygen Delivery Room Air Oxygen Flow Rate 05/27/25 09:19 05/27/25 10:00 05/27/25 14:10 Temperature Pulse Rate 92 Respiratory Rate 14 Blood Pressure Pulse Oximetry 93 97 Oxygen Delivery Nasal Cannula Nasal Cannula Room Air Oxygen Flow Rate 2 2 05/27/25 14:54 Temperature 97.2 F L Pulse Rate 81 Respiratory Rate 18 Blood Pressure 138/87 Pulse Oximetry 94 Oxygen Delivery Oxygen Flow Rate Intake/Output Intake/Output: Intake & Output 05/24/25 05/25/25 05/26/25 05/27/25 23:59 23:59 23:59 23:59 Intake Total 350 2960 1560 340 Output Total 0 3150 1900 1000 Balance 350 -190 -340 -660 Meds/Results Medications: Active Medications Generic Name Dose Route Start Last Admin Trade Name Freq PRN Reason Stop Dose Admin Acetaminophen 650 mg 05/23/25 21:23 05/27/25 09:36 Acetaminophen 325 Mg Tablet PO 650 mg Q4H PRN Administration Mild Pain (1-3) or Fever Amlodipine Besylate 10 mg 05/24/25 09:00 05/27/25 09:38 Amlodipine Besylate 10 Mg Tablet PO 10 mg Q12HR RADHA Administration Enoxaparin Sodium 40 mg 05/24/25 09:00 05/27/25 09:38 Enoxaparin 40 Mg/0.4 Ml Syringe SUB-Q 40 mg DAILY RADHA Administration Famotidine 20 mg 05/24/25 21:00 05/27/25 09:38 Famotidine 20 Mg Tablet PO 20 mg Q12HR RADHA Administration Gabapentin 300 mg 05/24/25 09:00 05/27/25 09:38 Gabapentin 300 Mg Capsule PO 300 mg DAILY RADHA Administration Hydromorphone HCl 1 mg 05/23/25 21:13 05/24/25 03:44 Hydromorphone Hcl Inj (*Crx) 1 Mg/Ml Syr IV PUSH 1 mg Q3H PRN Administration Breakthrough Pain Piperacillin Sod/Tazobactam 50 mls @ 100 mls/hr 05/24/25 05:00 05/27/25 12:39 Sod 3.375 gm/ Sodium Chloride IVPB 100 mls/hr Q6HR RDAHA Administration Doxycycline Hyclate 100 mg/ 100 mls @ 100 mls/hr 05/24/25 09:20 05/27/25 09:38 Sodium Chloride IVPB 100 mls/hr Q12HR RADHA Administration Ibuprofen 400 mg 05/25/25 17:27 05/26/25 21:20 Ibuprofen 400 Mg Tablet PO 400 mg Q6H PRN Administration Pain Rated 4-6 Ondansetron HCl 4 mg 05/24/25 00:18 05/25/25 17:59 Ondansetron Inj 4 Mg/2 Ml Vial IV PUSH 4 mg Q4H PRN Administration Nausea And Vomiting Oxycodone/Acetaminophen 1 tablet 05/24/25 17:51 05/24/25 18:17 Oxycodone/Acetaminophen (*Crx) 5-325 Mg Tablet PO 1 tablet Q4H PRN Administration Pain Rated 7-10 Perflutren Lipid Microsphere 0 ml 05/25/25 08:50 Perflutren Lipid Microspheres 1.5 Ml Vial Diluted To 10 Ml Total Volume IV PUSH 05/28/25 08:50 ONCE PRN adequate visualization Protocol Radiology Results: ITS Impressions Chest/Abdomen/Pelvis CT 05/23/25 18:44 IMPRESSION: 1. Extensive abnormal skin thickening and subcutaneous fatty infiltration of the right gluteal region extending to the gluteal cleft. Findings most consistent with cellulitis and panniculitis, possibly due to bacterial soft tissue infection. No organized or drainable abscess identified. Differential diagnosis includes malignancy. 2: Right inguinal and pelvic lymphadenopathy, likely reactive in the setting of adjacent soft tissue inflammation/infection. Chest X-Ray 05/27/25 10:31 IMPRESSION: 1. Improving but persistent left lung airspace disease. Labs Labs: Laboratory Results - last 24 hr 05/27/25 06:23 WBC 6.7 RBC 3.30 L Hgb 9.4 L Hct 30.1 L MCV 91.2 MCH 28.5 MCHC 31.2 L RDW 15.9 H Plt Count 309 MPV 9.2 Immature Gran % (Auto) 0.4 Neut % (Auto) 59.6 Lymph % (Auto) 29.7 [place] % (Auto) 7.6 Eos % (Auto) 2.4 Baso % (Auto) 0.3 Lymph # (Auto) 1.99 [place] # (Auto) 0.5 Eos # (Auto) 0.2 Baso # (Auto) 0.0 Abs Immat Gran (auto) 0.03 Absolute Neuts (auto) 4.0 Absolute Nucleated RBC 0.030 H Band Neutrophils % Not Reportable Nucleated RBC % 0.4 H Atypical Lymphocytes Present Platelet Estimate Adequate Hypochromasia 1+ Schistocytes None seen Sodium 140 Potassium 3.3 L Chloride 103 Carbon Dioxide 31 H Anion Gap 6 BUN 3 L Creatinine 0.80 Estim Creat Clear Calc 106 Estimated GFR > 60 Glucose 102 Calcium 8.2 L Magnesium 2.0 Total Bilirubin 0.3 AST 74 H ALT 63 H Alkaline Phosphatase 237 H C-Reactive Protein 19.3 H Total Protein 7.9 Albumin 3.1 L
[2025-05-27] MEDS: IBUPROFEN 400 MG TABLET PO (17:21)
[2025-05-27] MEDS: MELATONIN 3 MG TABLET PO (23:31)
[2025-05-27] MEDS: SENNA/DOCUSATE SODIUM TABLET 1 TAB PO (23:31)
[2025-05-28] MEDS: ACETAMINOPHEN 325 MG TABLET 650 MG PO ×2 (04:49→13:56)
[2025-05-28] MEDS: PIPERACILLIN/TAZOBACTAM SOD 3.375 GM in SODIUM CHLORIDE 0.9% IV 50 ML 100 ML IVPB ×2 (05:51→11:16)
[2025-05-28 05:56] VITALS: BP 137/77; PULSE 63; RESP 16; TEMP 36.5; O2SAT 94
[2025-05-28 06:40] LABS: Hematocrit 29.7 % (42.0-52.0); Hemoglobin 9.3 g/dL (14.0-18.0); Immature Granulocyte Percent A 0.6 % (0-0.5); Lymphocytes Absolute Auto 2.32 K/mm3 (0.9-3.2); Mean Corpuscular HGB Conc 31.3 g/dl (32-36); Mean Corpuscular Hemoglobin 28.3 pg (26-34); Mean Corpuscular Volume 90.3 fl (80-100); Nucleated Red Blood Cells Absolute Auto 0.020 K/mm3 (0.0-0.012); Nucleated Red Blood Cells Perc 0.3 % (0.0-0.2); Platelet Count Result 370 k/mm3 (150-375); Red Blood Count 3.29 M/mm3 (4.6-6.20); White Blood Count 6.7 K/mm3 (4.5-10.0)
[2025-05-28 07:08] LABS: Hypochromasia 1+; Schistocytes Occasional
[2025-05-28 07:15] LABS: NT Pro B Type Natriuretic Pept 474 pg/mL (19.9-100)
[2025-05-28 07:16] LABS: Alanine Aminotransferase 45 U/L (6-50); Albumin Level 3.2 g/dL (3.5-5.1); Alkaline Phosphatase 204 U/L (38-126); Anion Gap 9 mmol/L (4-12); Aspartate Amino Transferase 48 U/L (17-59); Bilirubin,Total 0.2 mg/dL (0.2-1.3); Blood Urea Nitrogen 3 mg/dL (9-20); CRP 8.3 mg/dL (<1.0); Calcium 8.5 mg/dL (8.4-10.2); Carbon Dioxide 29 mmol/L (22-30); Chloride 102 mmol/L (98-107); Estimated CRCL calculation 104 ml/min; Estimated Glomerular Filt Rate > 60; Glucose 99 mg/dL (65-110); Potassium 3.1 mmol/L (3.4-5.0); Sodium 140 mmol/L (137-145); Total Protein 7.9 g/dL (6.3-8.2)
[2025-05-28] MEDS: GABAPENTIN 300 MG CAPSULE PO (08:31)
[2025-05-28] MEDS: FAMOTIDINE 20 MG TABLET PO (08:31)
[2025-05-28] MEDS: DOXYCYCLINE IV 100 MG in SODIUM CHLORIDE 0.9% IV 100 ML IVPB (08:32)
[2025-05-28] MEDS: POTASSIUM CHLORIDE 20 MEQ ER TABLET 40 MEQ PO (08:32)
--- NOTE | 2025-05-28 13:50 | PM.DS ---
DS: Admitting Diagnosis Discharge Date 05/28/25 Admitting Diagnosis Diffuse pain DS: Discharge Diagnosis Discharge Diagnosis (1) Acute respiratory failure with hypoxia: Code(s): J96.01 - Acute respiratory failure with hypoxia Status: Acute (2) Sepsis: Qualifiers: Sepsis acute organ dysfunction status: without acute organ dysfunction Sepsis type: sepsis due to unspecified organism Qualified Code(s): A41.9 - Sepsis, unspecified organism Code(s): A41.9 - Sepsis, unspecified organism Status: Acute (3) Pneumonia: Code(s): J18.9 - Pneumonia, unspecified organism Status: Acute (4) Abscess, gluteal, right: Code(s): L02.31 - Cutaneous abscess of buttock Status: Acute Assessment and Plan: As above (5) TRAE (acute kidney injury): Code(s): N17.9 - Acute kidney failure, unspecified Status: Acute (6) Hidradenitis suppurativa: Onset Date: Unknown Code(s): L73.2 - Hidradenitis suppurativa Status: Chronic (7) Chronic pain: Qualifiers: Chronic pain type: other chronic pain Qualified Code(s): G89.29 - Other chronic pain Code(s): G89.29 - Other chronic pain Status: Acute (8) Tobacco use: Code(s): Z72.0 - Tobacco use Status: Acute (9) Anemia: Code(s): D64.9 - Anemia, unspecified Status: Acute (10) Sickle cell trait: Code(s): D57.3 - Sickle-cell trait Status: Acute DS: Summary Hospital Course Reason for hospitalization: 39yo male with a past medical history of sickle cell trait and hidradenitis suppurative who presented to the ER with having extreme pain everywhere. Please see H&P for details. Hospital Course: Sepsis present on admission due to infected lesion with large amount of purulence drainage from right gluteal wound suggesting underlying abscess. Patient had stopped taking his doxycycline as outpatient. CTA Ch/Abd/Pelvis showing extensive abnormal skin thickening and SQ fatty infoltartion of right gluteal region and right inguinal lymphadenopathy. Patient received 30 mL/kg fluid bolus in the ER. Patient was started on Zosyn and vancomycin. Vanco changed to Doxycycline. GenSurg consulted now s/p incision and drainage right buttock carbuncle 05/24/25. BCx NGTD. WCx pending. Patient developed hypoxia the other night associated with recurrent fevers. WBC trended down 16K -> Normal. CT chest on admission (05/23) showing no focal airspace disease. MRSA nasal swab negative. Influenza, RSV and COVID PCR negative. Followup CXR showing improving but persistent left lung airspace disease. Echo with EF 60-65%, normal diastolic fxn. ABG 7.46/36/64 on 3L. Lactic normal. PCT 29. CRP 28 but trended down on repeat. Suspect patient developed PNA resulting in his acute change. Pulm edema seemed less likely. Able to be weaned to room air now. He was also having high fevers but this resolved. He also developed TRAE. Cr increased to 1.2 but was voiding normally. UOP good and Cr trended down to 0.8. [place] TRAE related to sepsis. Consider also contrast induced nephropathy or related to abx. Patient vapes. Tobacco/vaping cessation education was been provided. Patient was educated about the benefits of not vaping. Patient does have acute on chronic anemia. Iron studies normal except for low TIBC at 176. Normal urine protein. B12, folate levels normal. He does have a distant history of gastric erosions and was on PPI. The patient reports diagnosis of sickle cell anemia but in the past has been documented as sickle cell trait previously. Reticulocyte count does not suggest findings consistent with sickle cell, CBC with diff does not suggest this and bilirubin is normal. Patient's pain is likely due to chronic pain exacerbated by fever and sepsis. Elevated LFT noted. Hepatitis panel negative. TCK normal. Probably related to sepsis picture. Levels improved. He feels much better. He is requesting discharge. He overall did well and was able to be discharged home on 05/28/25. Discharge instructions discussed at length including side effects of medication. All questions answered. Status at Discharge Cognitive/behavioral status at discharge: stable Time Spent with Patient Time attestation: Total time spent providing and/or coordinating discharge services: 35 minutes Time spent: Greater than 30 minutes Exam Narrative: AF 97.7 137/77 63 16 94% RA Gen - NARD Chest - decreased BS left lower lung otherwise clear. nml RR CV - RRR S1/S2 Abd - Soft, ND/NT Ext - No pedal edema Psych - normal mood. Skin - right buttock dressing clean and dry. DS: Data Data Completed and Pending Labs on day of discharge: Labs from last 24 hours 05/28/25 06:03 WBC 6.7 RBC 3.29 L Hgb 9.3 L Hct 29.7 L MCV 90.3 MCH 28.3 MCHC 31.3 L RDW 16.0 H Plt Count 370 MPV 8.8 Immature Gran % (Auto) 0.6 H Neut % (Auto) 54.9 Lymph % (Auto) 34.9 [place] % (Auto) 6.9 Eos % (Auto) 2.4 Baso % (Auto) 0.3 Lymph # (Auto) 2.32 [place] # (Auto) 0.5 Eos # (Auto) 0.2 Baso # (Auto) 0.0 Abs Immat Gran (auto) 0.04 H Absolute Neuts (auto) 3.7 Absolute Nucleated RBC 0.020 H Band Neutrophils % Not Reportable Nucleated RBC % 0.3 H Atypical Lymphocytes Present Platelet Estimate Adequate Hypochromasia 1+ Schistocytes Occasional Sodium 140 Potassium 3.1 L Chloride 102 Carbon Dioxide 29 Anion Gap 9 BUN 3 L Creatinine 0.82 Estim Creat Clear Calc 104 Estimated GFR > 60 Glucose 99 Calcium 8.5 Total Bilirubin 0.2 AST 48 ALT 45 Alkaline Phosphatase 204 H C-Reactive Protein 8.3 H NT-Pro-B Natriuret Pep 474 H Total Protein 7.9 Albumin 3.2 L Preliminary micro results at discharge 05/23/25 21:24 Blood Culture - Preliminary Blood 05/23/25 21:24 Blood Culture - Preliminary Blood Discharge Plan Discharge Attending physician on discharge: Lobo Schwab Consulting providers: Lb Johnson Discharging Clinician: Lobo Schwab Anticipated Discharge Date/Time: 05/28/25 14:12 Patient Disposition: Home Activity: as tolerated Diet: regular Discharge Instructions: Stop Vaping. Continue current dressing changes as instructed. Please complete your antibiotic course even if you are starting to feel well. Contact your doctor or call 911 and come to the Emergency Room if you fevers, worsening pain/drainage from wound or other worrisome symptoms. Avoid NSAIDs (ibuprofen, naproxen, Aleve). Tylenol is safe to take. . Follow-up with your primary care provider in 1-2 weeks. Please call for appointment. Call Dermatology and Plastic Surgery at [facility] to schedule a follow-up after this hospitalization. They will manage your Hidradenitis moving forward. Wound care: Apply silver gel to right buttock wounds, then cover with 4x4 gauze and ABD pad with tape. Change daily. You may shower once you remove your dressing and wash over the wounds with mild soap and water. Thank you for using [facility] for your health care needs. Patient Instructions: Antibiotic Form, How to Stop Smoking (DC) Patient Language: Tongan Stand Alone Forms: General Discharge Information Follow-up/Referrals: Adi,Camelia Kapadia, [facility]- [Primary Care Provider, Unknown] - Call for Appointment Discharge Medications: New amoxicillin-pot clavulanate 875-125 mg tablet 1 tablet PO Q12H Qty: 5 0RF doxycycline hyclate 100 mg Tablet 100 mg PO Q12HR Qty: 60 3RF Continued gabapentin 300 mg capsule 300 mg PO DAILY amlodipine 10 mg tablet 10 mg PO BID Qty: 60 0RF Discontinued clobetasol 0.05 % ointment 1 applic TOPICAL DAILY doxycycline hyclate 100 mg tablet Patient Comments: PATIENT STOPPED TAKING MONTHS AGO Date of admission: 05/23/25 20:55 Primary Care Provider: AdiCamelia Admitting Provider: Yohana Ly Attending physician on admission: Yohana Ly Condition: Stable Hospitalist MIPS Heart Failure (Exclusion) Patient has history of Heart Transplant or Left Ventricular Assistive Device?: No IF YES, STOP HERE Heart Failure (Qualifier) Patient has current or prior documentation of LVEF less than or equal to 40%, or mod/servere depressed LVSF?: No IF NO, STOP HERE
[2025-05-28 14:00] VITALS: BP 143/80; PULSE 79; RESP 18; TEMP 35.9; O2SAT 97
--- NOTE | 2025-05-28 14:55 | PM.PNGS ---
Progress Note: A&P Assessment and Plan (1) Fever: Qualifiers: Fever type: post-procedural Qualified Code(s): R50.82 - Postprocedural fever Code(s): R50.9 - Fever, unspecified Status: Acute Assessment and Plan: Resolved. Afebrile yesterday and today. Continue p.o. antibiotic course until seen by Dermatology or Plastic surgery and advised otherwise. (2) Abscess, gluteal, right: Code(s): L02.31 - Cutaneous abscess of buttock Status: Acute Assessment and Plan: This seems as though it is more of a large carbuncle, limited to the skin. However, patient states that he is diagnosed with hidradenitis. Wounds today appear stable with some expected drainage from the 2 tracking areas that were opened in the OR. Other satellite lesions with no purulence drainage. Okay to discontinue iodoform gauze. Apply silver gel to the wounds daily and cover with 4 x 4 gauze and ABDs. Secure with Medipore tape. Instructed patient to follow up with Plastic surgery and Dermatology at [facility], who he was previously being treated by. Continue oral antibiotics until seen by them. Surgically stable for discharge. (3) Hidradenitis suppurativa: Onset Date: Unknown Code(s): L73.2 - Hidradenitis suppurativa Status: Chronic Assessment and Plan: diagnosis per patient, not sure how this was diagnosed--biopsy? Plan Discussed patient's case and plan of care with Dr. Johnson. Subjective Subjective Date/Time Seen: 05/28/25 14:55 Post Op day: 4 Patient reports: no new complaints, feels better, voiding w/o difficulty and bowel movement Interval history: Patient is doing well today. No new complaints. Normal WBC. Afebrile. Exam Skin: General skin exam: normal color Other: Right buttock region with 2 open draining wounds from recent incision and drainage of abscess. No purulence drainage. Mild induration but no evidence of fluctuance or worsening erythema. Other pinpoint areas with no purulence expressed. Objective Data Vital Signs Vital Signs: Vital Signs - 24 hr 05/27/25 20:06 05/27/25 20:48 05/28/25 05:56 Temperature 97.9 F 97.7 F Pulse Rate 68 63 Respiratory Rate 16 16 Blood Pressure 128/79 137/77 Pulse Oximetry 96 94 Oxygen Delivery Room Air 05/28/25 08:00 05/28/25 09:40 Temperature Pulse Rate Respiratory Rate Blood Pressure Pulse Oximetry Oxygen Delivery Room Air Room Air Intake/Output Intake/Output: Intake & Output 05/25/25 05/26/25 05/27/25 05/28/25 23:59 23:59 23:59 23:59 Intake Total 2960 1560 1860 1140 Output Total 3150 1900 1999 Balance -190 -340 -140 1140 Meds/Results Medications: Active Medications Generic Name Dose Route Start Last Admin Trade Name Freq PRN Reason Stop Dose Admin Acetaminophen 650 mg 05/23/25 21:23 05/28/25 13:56 Acetaminophen 325 Mg Tablet PO 650 mg Q4H PRN Administration Mild Pain (1-3) or Fever Amlodipine Besylate 10 mg 05/24/25 09:00 05/28/25 08:32 Amlodipine Besylate 10 Mg Tablet PO 10 mg Q12HR RADHA Administration Amoxicillin/Clavulanate Potassium 1 tablet 05/28/25 21:00 Amoxicillin/Clavulanate K 875-125 Mg Tab PO 05/30/25 21:01 Q12HR RADHA Doxycycline Hyclate 100 mg 05/28/25 21:00 Doxycycline Hyclate 100 Mg Tablet PO 08/22/25 21:01 Q12HR RADHA Enoxaparin Sodium 40 mg 05/24/25 09:00 05/28/25 08:32 Enoxaparin 40 Mg/0.4 Ml Syringe SUB-Q Not Given DAILY RADHA Famotidine 20 mg 05/24/25 21:00 05/28/25 08:31 Famotidine 20 Mg Tablet PO 20 mg Q12HR RADHA Administration Gabapentin 300 mg 05/24/25 09:00 05/28/25 08:31 Gabapentin 300 Mg Capsule PO 300 mg DAILY RADHA Administration Hydromorphone HCl 1 mg 05/23/25 21:13 05/24/25 03:44 Hydromorphone Hcl Inj (*Crx) 1 Mg/Ml Syr IV PUSH 1 mg Q3H PRN Administration Breakthrough Pain Ibuprofen 400 mg 05/25/25 17:27 05/27/25 17:21 Ibuprofen 400 Mg Tablet PO 400 mg Q6H PRN Administration Pain Rated 4-6 Melatonin 3 mg 05/27/25 21:00 05/27/25 23:31 Melatonin 3 Mg Tablet PO 3 mg HS RADHA Administration Ondansetron HCl 4 mg 05/24/25 00:18 05/25/25 17:59 Ondansetron Inj 4 Mg/2 Ml Vial IV PUSH 4 mg Q4H PRN Administration Nausea And Vomiting Oxycodone/Acetaminophen 1 tablet 05/24/25 17:51 05/24/25 18:17 Oxycodone/Acetaminophen (*Crx) 5-325 Mg Tablet PO 1 tablet Q4H PRN Administration Pain Rated 7-10 Polyethylene Glycol 17 gm 05/27/25 22:53 Polyethylene Glycol 3350 17 Gm Powd.Pack PO QAM PRN Constipation Senna/Docusate Sodium 1 tab 05/27/25 22:53 05/27/25 23:31 Senna/Docusate Sodium Tablet PO 1 tab HS PRN Administration Constipation Radiology Results: ITS Impressions Chest/Abdomen/Pelvis CT 05/23/25 18:44 IMPRESSION: 1. Extensive abnormal skin thickening and subcutaneous fatty infiltration of the right gluteal region extending to the gluteal cleft. Findings most consistent with cellulitis and panniculitis, possibly due to bacterial soft tissue infection. No organized or drainable abscess identified. Differential diagnosis includes malignancy. 2: Right inguinal and pelvic lymphadenopathy, likely reactive in the setting of adjacent soft tissue inflammation/infection. Chest X-Ray 05/27/25 10:31 IMPRESSION: 1. Improving but persistent left lung airspace disease. Labs Labs: Laboratory Results - last 24 hr 05/28/25 06:03 WBC 6.7 RBC 3.29 L Hgb 9.3 L Hct 29.7 L MCV 90.3 MCH 28.3 MCHC 31.3 L RDW 16.0 H Plt Count 370 MPV 8.8 Immature Gran % (Auto) 0.6 H Neut % (Auto) 54.9 Lymph % (Auto) 34.9 [place] % (Auto) 6.9 Eos % (Auto) 2.4 Baso % (Auto) 0.3 Lymph # (Auto) 2.32 [place] # (Auto) 0.5 Eos # (Auto) 0.2 Baso # (Auto) 0.0 Abs Immat Gran (auto) 0.04 H Absolute Neuts (auto) 3.7 Absolute Nucleated RBC 0.020 H Band Neutrophils % Not Reportable Nucleated RBC % 0.3 H Atypical Lymphocytes Present Platelet Estimate Adequate Hypochromasia 1+ Schistocytes Occasional Sodium 140 Potassium 3.1 L Chloride 102 Carbon Dioxide 29 Anion Gap 9 BUN 3 L Creatinine 0.82 Estim Creat Clear Calc 104 Estimated GFR > 60 Glucose 99 Calcium 8.5 Total Bilirubin 0.2 AST 48 ALT 45 Alkaline Phosphatase 204 H C-Reactive Protein 8.3 H NT-Pro-B Natriuret Pep 474 H Total Protein 7.9 Albumin 3.2 L
--- NOTE | 2025-05-29 09:22 | PC.NURSE ---
Wound cx shows not growth. Dr. Schwab aware.
--- NOTE | 2025-06-06 09:10 | PC.NURSE ---
Blood cx shows no growth. Dr. Josselin solomon.
== END 2025-05-28 16:03 | disposition home or self-care (01) | DRG 710 ==
LOC: ANHED 20:53 → ANH3MEDSUR 21:43
PROVIDERS: Nurse Practitioner Family; Surgery; Admitting Provider Internal Medicine; Emergency Provider Emergency Medicine; PCP Nurse Practitioner Family; Visit Provider Internal Medicine
PROC: 0J990ZZ Drainage of Buttock Subcutaneous Tissue and Fascia, Open Approach (ICD-10-PCS; CPT 46040; principal; 2025-05-24 15:00)
DX: A41.9 Sepsis, unspecified organism (principal); L73.2 Hidradenitis suppurativa; L03.317 Cellulitis of buttock; D64.9 Anemia, unspecified; D57.3 Sickle-cell trait; L02.31 Cutaneous abscess of buttock; J96.01 Acute respiratory failure with hypoxia; J18.9 Pneumonia, unspecified organism; N17.9 Acute kidney failure, unspecified; R50.82 Postprocedural fever; R73.03 Prediabetes; F17.290 Nicotine dependence, other tobacco product, uncomplicated; Z20.822 Contact with and (suspected) exposure to COVID-19; Z87.11 Personal history of peptic ulcer disease
CPT/HCPCS: 36415; 36600; 71045; 71260; 74177; 80048; 80053; 80074; 81001; 82550; 82607; 82728; 82746; 82805; 83010; 83036; 83540; 83550; 83605; 83615; 83690; 83735; 83880; 84145; 84439; 84443; 84480; 85018; 85025; 85046; 85660; 86140; 87040; 87075; 87205; 87637; 87641; 93005; 93306; 96361; 96374; 96375; 97162; 97165; 99285; A9270; J1171; J1650; J1885; J2003; J2250; J2405; J2470; J2543; J2704; J3010; J3373; J3475; J3480; J7030; J7040; J7120; Q9967

== ENCOUNTER 2025-08-04 04:46 | Emergency (ER) | payer OTHER, SELFPAY ==
[2025-08-04] VITALS (11 sets, daily range): BP systolic 116–148; BP diastolic 60–94; PULSE 85–103; RESP 16–96; TEMP 37.9–38.6; O2SAT 21–97
--- NOTE | ~2025-08-04 | CT_ITS ---
CT abdomen pelvis w con Clinical History: cellulitis, abscess, sepsis . Comparison: 05/23/2025 Technique: Axial images lung bases to symphysis pubis IV contrast information not listed in PACS Coronal, sagittal reformats CT images acquired with automatic exposure control for dose reduction DLP: 536 mGy-cm Findings: Lung bases: Clear. Visualized heart and pericardium: Unremarkable. Liver: Enlarged. Steatosis. Gallbladder: Unremarkable. Spleen: Unremarkable. Pancreas: Unremarkable. Adrenal glands: Unremarkable. Kidneys: Right kidney- No hydronephrosis. No renal stones. Left kidney- No hydronephrosis. No renal stones. Distal esophagus/stomach: Unremarkable. Small bowel loops: Normal caliber and wall thickness. Colon: Normal caliber and wall thickness. Normal RLQ appendix. Nodes: Prominent inguinal and iliac chain nodes. Peritoneum: No ascites. No free air. Urinary bladder: Unremarkable. Prostate: Unremarkable. Bones: No acute bony abnormality. Soft tissues: Severe skin thickening right buttocks. Areas of hypodensity but no discrete abscess. Less severe skin thickening right groin and bilateral medial buttocks. Aorta: No aneurysm or dissection. IVC: Unremarkable. Main portal vein/SMV/splenic vein: Patent. IMPRESSION: 1. Severe cellulitis right buttocks. Areas of necrosis possible. No discrete abscess. 2. Less severe cellulitis left groin and bilateral medial buttocks. Reviewed, dictated and finalized at location [facility] IMPRESSION: 1. Severe cellulitis right buttocks. Areas of necrosis possible. No discrete a bscess. 2. Less severe cellulitis left groin and bilateral medial buttocks.
--- OUTSIDE RECORDS SUMMARY | 2025-08-04 04:48 | XMS_ITS | Clinical Summary ---
Author Organization [facility] Address [address] [place] [address] Care Team Providers Care Street Vendor Name Role Phone Unavailable Primary Care Provider [...] Immunization (1 - 3-dose SCDM series) 2014 Influenza Immunization (#1) 2025 SARS-COV-2 Immunization (3 - 2024- season) 2025 06/12/2021, 03/22/2021 Respiratory Syncytial Virus (RSV) Immunization [...]
--- OUTSIDE RECORDS SUMMARY | 2025-08-04 04:48 | XMS_ITS | Clinical Summary ---
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 Gender Identity Not on file Sexual Orientation [...] SCDM series) 2014 Covid-19 Vaccine (3 - 2024- season) 2025 06/12/2021, 03/22/2021 Influenza Vaccine (#1) 2025 02/18/2024 DTaP/Tdap/Td Vaccine (7 - Td or Tdap) 06/18/2032 06/18/2022, 03/23/1996, 08/28/1993, Additional history exists Hepatitis B Screening Completed 11/06/1996 , 11/06/1996, 06/12/1996, Additional history exists Pneumococcal vaccine <65 Aged Out 02/18/2024 No longer eligible based on patient's age to complete this topic Insurance [facility] Care Teams Geriatrician Relationship Specialty Start Date End Date Unknown, Notinfile PCP - General 07/05/17
--- OUTSIDE RECORDS SUMMARY | 2025-08-04 04:48 | XMS_ITS | Clinical Summary ---
Author Organization [email or web address] Address [address] [place] [address] Care Team Providers Care Cotton Breeder Name Role Phone Unavailable Primary Care Provider Unavailabl e Source Comments [facility],non-owned Affiliates and Associated Physician Practices is amultiple site organization consisting of ambulatory clinics and hospital sitesin [place], [place], [place] and [place]. This disclosure is being madepursuant to the Care Everywhere program and may not contain all information available regarding this patient. Last updated 18.[email or web address] Allergies Active Allergy Reactions Criticality Noted Date [...] MD 11/03/2019 9:54 AM Dept. Of Surgery, [facility] phone: [phone] Beeper: [phone] Abscess 09/01/2019 Overview (09/01/2019): 33 y/o male [...] MD 09/01/2019 10:10 AM Dept. Of Surgery, [facility] phone: [phone] Beeper: [phone] Social History Tobacco Use Types Packs/Day Years Used Date Smoking Tobacco: Every Day Cigarettes Smokeless Tobacco: Never Alcohol Use Standard Drinks/Week Comments Yes 0 (1 standard drink = 0.6 oz pur e alcohol) occasionally Sex and Gender Information Value Date Recorded Sex Assigned at Not on file Legal Sex Male 6:20 AM RISK ASSESSOR Gender Identity Not on file Sexual Orientation Not on file Last Filed Vital Signs Vital Sign Reading Time Taken Comments Blood Pressure 121/74 11/03/2019 9:10 AM RISK ASSESSOR Pulse 77 11/03/2019 9:10 AM RISK ASSESSOR Temperature 36.2 C (97.1 F) 11/03/2019 9:10 AM RISK ASSESSOR Respiratory Rate 18 07/31/2019 5:24 PM RISK ASSESSOR Oxygen Saturation 96% 11/03/2019 9:10 AM RISK ASSESSOR Inhaled Oxygen Concentration - - Weight 71.7 kg (158 lb) 11/03/2019 9:10 AM RISK ASSESSOR Height 170.2 cm (5' 7) 11/03/2019 9:10 AM RISK ASSESSOR Body Mass Index 24.75 11/03/2019 9:10 AM RISK ASSESSOR Plan of Treatment Health Maintenance Due Date [...] age to complete [place] [id number] [facility]
--- OUTSIDE RECORDS SUMMARY | 2025-08-04 04:48 | XMS_ITS | Clinical Summary ---
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 Legal Sex Male 6:04 PM CDT Gender Identity Not on file Sexual Orientation Not on file Last Filed Vital Signs Vital Sign Reading Time Taken Comments Blood Pressure 109/78 10/19/2024 12:09 PM WOOD MILLING MACHINE OPERATOR Pulse 74 10/19/2024 12:09 PM WOOD MILLING MACHINE OPERATOR Temperature 36.6 C (97.8 F) 10/19/2024 11:10 AM WOOD MILLING MACHINE OPERATOR Respiratory Rate 18 10/19/2024 12:0 9 PM WOOD MILLING MACHINE OPERATOR Oxygen Saturation 95% 10/19/2024 12: 09 PM WOOD MILLING MACHINE OPERATOR Inhaled Oxygen Concentration - - Weight 76.1 kg (167 lb 12.3 oz) 025 11:10 AM WOOD MILLING MACHINE OPERATOR Height 170.2 cm (5' 7) 10/19/2024 11:1 0 AM WOOD MILLING MACHINE OPERATOR Body Mass Index 26.28 10/19/2024 11:10 AM WOOD MILLING MACHINE OPERATOR Plan of Treatment Health Maintenance Due Date Last Done Comments Annual Physical 1990 Hepatitis C 2005 HPV Vaccines (1 - 3-dose SCDM series) 2014 Pneumococcal Vaccine: Pediatrics (0 to 5 Years) and At-Risk Patients (6 to 49 Years) (2 of 2 - PCV) 02/17/2025 02/18/2024 COVID-19 Vaccine (3 - season) 2025 06/12/2021, 03/22/2021 Influenza Adult (#1) 2025 02/18/2024 DTaP, Tdap and Td Vaccines (7 - Td or Tdap) 06/18/2032 06/18/2022, 03/23/1996, 08/28/1993, Additional history exists Hepatitis B Vaccines Completed 11/06/1996, 06/12/1996, 03/23/1996 Hepatitis A Vaccines Aged Out No long er eligible based on patient's age to complete this topic Meningococcal B Vaccine Aged Out No l onger eligible based on patient's age to complete this topic Meningococcal Vaccine Aged Out No severo tiffany eligible based on patient's age to complete this topic RSV Immunizations Under 20 Months Aged Out No longer eligible based on patient's age to complete this topic Insurance [employer] Care Teams Mines Inspector Relationship Specialty Start Date End Date Camelia Van, [employer]- [address] [place] [address] PCP - General NURSE PRACTITIONER 10/19/24
--- OUTSIDE RECORDS SUMMARY | 2025-08-04 04:48 | XMS_ITS | Data Portability ---
Author Organization [place] [facility] [employer] Address [address] [place] [address] Care Team Providers Care Explosive Ordnance Technician Name Role Phone [facility] Ophthalmologist Assessment Encounter Date Assessment Date Assessment LastModified by Organization Details LastModified Time 02/22/2024 02/22/2024 Medication Saeed es Doxycycline - Antibiotics are used to decrease [...] reapply sunblock frequently. Hidradenitis Suppurativa Hidradenitis suppurativa (wq-odun-le-NI-tis wqg-n-th-TI-va, HS) is a chronic skin inflammation in [...] 20 mg twice a day, or a long-acting/enteric- coated product (e.g. Acticlate). Note: these products can be more expensive. Oral retinoid medication (e.g. isotretinoin); this medication is a very effective treatment for severe acne, less so for HS. It is taken once a day for several months and requires regular blood test monitoring. Nonsteroidal anti-inflammatory drugs (e.g. Advil, Aleve, and/or Motrin) taken [...] when to seek further care reviewed with patient/caregiver/[facility]/facility staff. Patient to follow up with primary care provider or return to clinic for any worsening signs and symptoms. Always present to ER or Urgent Care with any progression of/alarming symptoms, significant changes in symptoms or any concerning or urgent matters. Patient/caregiver/[facility]/facility staff verbalized agreement and understanding of treatment plan. F/U 6 months, sooner if needed My total encounter time was 30 minutes which was spent in the activities documented in the note. This includes time spent prior to the visit, performing a medically appropriate examination with evaluation, and after the visit in direct care of the patient (history and exam; ordering prescriptions/labs/i maging/home health/therapy/speci alists; communicating results to patient and/or other relative individuals; counseling/educating patient; documenting clinical information in patient s chart; coordination of care for the patient). This time does not include time spent in any separately reportable services. [email or web address] Not available 02/22/2024 18:57:22 09/11/2024 09/11/2024 Eczema [...] a recent visit to a surgeon in [place]. Current BP reading of 128/85 noted as [...] when to seek further care reviewed with patient/caregiver/[facility]/facility staff. Patient to follow up with primary care provider or return to clinic for any worsening signs and symptoms. Always present to ER or Urgent Care with any progression of/alarming symptoms, significant changes in symptoms or any concerning or urgent matters. Patient/caregiver/[facility]/facility staff verbalized agreement and understanding of treatment plan. F/U 6 months, sooner if needed My total encounter time was 30 minutes which was spent in the activities documented in the note. This includes time spent prior to the visit, performing a medically appropriate examination with evaluation, and after the visit in direct care of the patient (history and exam; ordering prescriptions/labs/i maging/home health/therapy/speci alists; communicating results to patient and/or other relative individuals; counseling/educating patient; documenting clinical information in patient s chart; coordination of care for the patient). This time does not include time spent in any separately reportable services. [email or web address] Not available 09/11/2024 16:39:19 11/28/2024 11/28/2024 Hypertension: [...] when to seek further care reviewed with [facility]. Patient to follow up with primary care provider or return to clinic for any worsening signs and symptoms. Always present to ER or Urgent Care with any progression of/alarming symptoms, significant changes in symptoms or any concerning or urgent matters. Patient/caregiver/[facility]/facility staff verbalized agreement and understanding of treatment plan. F/U as directed, sooner if needed My total encounter time was 30-39 minutes which was spent in the activities documented in the note. This includes time spent prior to the visit, performing a medically appropriate examination with evaluation, and after the visit in direct care of the patient (history and exam; ordering prescriptions/labs/i maging/home health/therapy/speci alists; communicating results to patient and/or other relative individuals; counseling/educating patient; documenting clinical information in patient s chart; coordination of care for the patient). This time does not include time spent in any separately reportable services. [email or web address] Not available 11/28/2024 15:46:30 02/06/2025 02/06/2025 Costochondritis - Consistent with localized anterior chest wall pain exacerbated by movement, sneezing, and coughing. - No evidence of cardiac or pulmonary pathology based on prior imaging and cardiac workup. - Pain described as sharp, migratory, and reproducible on palpation. - Start prednisone short course (5 7 days) in the morning to reduce localized inflammation. Patient presents with chest wall pain consistent with costochondritis, characterized by localized tenderness over the costosternal joints without signs of cardiac involvement. After clinical assessment and ruling out cardiac or pulmonary causes, a diagnosis of costochondritis was made. To reduce inflammation and alleviate discomfort, a Medrol Dose Pack (methylprednisolone) has been initiated. This corticosteroid is prescribed in a tapering dosage over six days to suppress the inflammatory response, relieve pain, and promote functional recovery. The purpose of methylprednisolone is to decrease inflammation by inhibiting the release of pro-inflammatory mediators and reducing immune activity in the affected tissues. The goal of therapy is to achieve rapid symptom relief, reduce swelling and tenderness at the costosternal junctions, and improve the patient's ability to perform daily activities without pain. Potential benefits include marked improvement in pain, swelling, and range of motion, usually within 24 4 8 hours of initiation. However, patients are counseled on risks and side effects, which may include elevated blood sugar, insomnia, irritability, mood changes, fluid retention, increased appetite, and gastrointestinal upset. The adverse reactions to monitor for include signs of infection (as corticosteroids may suppress the immune system), allergic reaction, or gastrointestinal bleeding, particularly in patients with a history of ulcers or on concurrent NSAIDs. The patient was advised that corticosteroids are not a long-term solution and that the Medrol Dose Pack is intended as a short course to manage acute inflammation. Supportive care, including the use of heat/ice, rest, and avoidance of activities that exacerbate chest wall strain, was also recommended. If symptoms do not resolve after completion of the dose pack or worsen, follow-up will be necessary to reassess for alternate diagnoses or consider referral for imaging or specialty care. Patient verbalized understanding of the treatment plan, medication taper schedule, potential side effects, and the importance of reporting any signs of infection or severe adverse effects. The anticipated outcome is resolution or significant reduction of pain and inflammation within one week. - Educate patient on the benign, self-limited nature of costochondritis. - Recommend avoiding activities that exacerbate pain. - Supportive care: ice/heat application, rest, and [id number] on affected side when sleeping. Suspected Intercostal Neuralgia / Neuropathic Pain - Radiating pain pattern across thorax and back, worsened by specific positions and movements. - Persistent pain despite resolution of muscular symptoms; may involve nerve irritation or inflammation. - Initiate Gabapentin 100 mg PO at bedtime to target neuropathic pain and aid sleep. The patient presents with persistent chest wall pain consistent with costochondritis that has not adequately responded to first-line treatments such as NSAIDs and physical therapy. After reviewing the clinical course and current symptom burden, Gabapentin is being initiated as an off-label option to address suspected neuropathic pain components contributing to the chronicity and severity of discomfort. Gabapentin, an anticonvulsant and neuromodulator, is used to modulate abnormal nerve signaling and decrease pain sensitivity in conditions involving nerve irritation or central sensitization. The starting dose will be Gabapentin 100 mg at bedtime, with plans to gradually titrate based on response and tolerance. The purpose of this therapy is to reduce neuropathic pain, improve sleep, and enhance daily functioning by decreasing discomfort during rest and activity. Benefits include reduced pain intensity, improved quality of life, and decreased reliance on NSAIDs, which carry their own gastrointestinal and renal risks. Risks and common side effects of Gabapentin were discussed, including dizziness, drowsiness, fatigue, peripheral edema, and cognitive slowing. Less common but serious adverse effects include mood changes, suicidal ideation, hypersensitivity reactions, and respiratory depression, particularly when combined with other sedating medications or in individuals with compromised pulmonary function. The patient was advised to avoid operating heavy machinery until the effects of the medication are known and to report any concerning symptoms, such as rash, swelling, worsening mood, or difficulty breathing. The treatment goal is a 30 5 0% reduction in pain severity, improved ability to participate in daily activities, and better sleep quality. The patient was educated on the importance of consistent dosing and avoiding abrupt discontinuation, which can result in withdrawal symptoms or seizure risk. Follow-up is scheduled in 2 4 weeks to assess tolerability, symptom improvement, and need for dosage adjustment. The patient verbalized understanding of the treatment plan and expressed willingness to proceed with Gabapentin trial for costochondritis-rela marine pain. - Monitor for sedation or adverse effects; adjust dosage as clinically appropriate. - If no improvement in 2 4 weeks, consider MRI thoracic spine and/or nerve conduction studies. - Reinforce importance of sleep hygiene and adherence to medication regimen. Musculoskeletal Pain / Myofascial Strain (Resolved but contributory) - Initial symptoms responded to muscle relaxants; likely muscle strain or spasm component. - May have overlapped or contributed to current presentation. - Continue muscle relaxant (e.g., cyclobenzaprine) only as needed for recurrent spasms. - Encourage gentle stretching and mobility exercises to reduce muscle tension and stiffness. - Avoid heavy lifting or poor posture which may exacerbate symptoms. 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 - Gabapentin at night also serves to improve sleep initiation and maintenance. - Educate on importance of circadian rhythm, sleep positioning, and avoidance of late steroid dosing. - Monitor sleep response over next 1 2 weeks Medication Changes: - Start prednisone short course (5 7 days) in the morning to reduce localized inflammation. - Initiate Gabapentin 100 mg PO at bedtime to target neuropathic pain and aid sleep. Signs and symptoms of when to seek further care reviewed with patient/caregiver/[facility]/facility staff. Patient to follow up with primary care provider or return to clinic for any worsening signs and symptoms. Always present to ER or Urgent Care with any progression of/alarming symptoms, significant changes in symptoms or any concerning or urgent matters. Patient/caregiver/[facility]/facility staff verbalized agreement and understanding of treatment plan. F/U 6 months, sooner if needed My total encounter time was 35 minutes which was spent in the activities documented in the note. This includes time spent prior to the visit, performing a medically appropriate examination with evaluation, and after the visit in direct care of the patient (history and exam; ordering prescriptions/labs/i maging/home health/therapy/speci alists; communicating results to patient and/or other relative individuals; counseling/educating patient; documenting clinical information in patient s chart; coordination of care for the patient). This time does not include time spent in any separately reportable services. [email or web address] Not available 02/06/2025 17:13:50 02/26/2025 02/26/2025 Chronic Pain Syndrome (likely mixed nociceptive and neuropathic components): - Pain appears multifactorial with musculoskeletal, post-traumatic, and neuropathic features - Symptoms impact both function and sleep; likely exacerbated by deconditioning - Increased gabapentin to 300 mg qHS; discussed risks of dizziness and sedation - Advised gentle, [id number] stretching and to consider PT after surgical evaluation Costochondritis: - Ongoing anterior chest wall tenderness consistent with diagnosis - Symptoms likely aggravated by physical inactivity - Recommended acetaminophen as adjunct pain control - Reassured patient that healing is expected to be gradual Essential Hypertension (well controlled): - Blood pressure remains stable on current regimen - No signs of end-organ damage - continue amlodipine 10 mg daily - Reinforced importance of regular home BP monitoring Eczema: - Condition is stable with no active lesions or infection - Patient tolerating topical treatment well - Renewed clobetasol prescription with usage instructions - Continue current topical management Sickle Cell Disease (chronic, no acute symptoms): - Acknowledged as a risk factor for surgery and healing - No current sickle-related complications - Clearance obtained from hematology and dermatology - Monitor for delayed wound healing postoperatively Surgical Planning: - Cleared for upcoming orthopedic procedure - Awaiting consult scheduled for 04/02/25 - Emphasized role of surgery in long-term pain control - Encouraged follow-through with surgical team Insomnia: - Likely secondary to chronic pain - Gabapentin titration may improve sleep - Will reassess benefit at next visit - Avoided sedative-hypnotics due to comorbid risks Signs and symptoms of when to seek further care reviewed with patient/caregiver/[facility]/facility staff. Patient to follow up with primary care provider or return to clinic for any worsening signs and symptoms. Always present to ER or Urgent Care with any progression of/alarming symptoms, significant changes in symptoms or any concerning or urgent matters. Patient/caregiver/[facility]/facility staff verbalized agreement and understanding of treatment plan. F/U 12 weeks, sooner if needed My total encounter time was 30 minutes which was spent in the activities documented in the note. This includes time spent prior to the visit, performing a medically appropriate examination with evaluation, and after the visit in direct care of the patient (history and exam; ordering prescriptions/labs/i maging/home health/therapy/speci alists; communicating results to patient and/or other relative individuals; counseling/educating patient; documenting clinical information in patient s chart; coordination of care for the patient). This time does not include time spent in any separately reportable services. [email or web address] Not available 02/26/2025 16:17:27 Plan of Treatment Reminders Order Date Submit Date Provider Last Modified By Organization Details Last Modified Time Details Appointments None recorded. Lab CMP, serum or plasma 2024 025 [facility], [address] [place], [address], 5 12:28:43 CBC 2024 025 [email or web address], [address] [place], [address], 5 12:36:37 magnesium, serum or plasma 2024 025 [facility], [address] [place], [address], 12:28:42 Referral None recorded. Procedures None recorded. Surgeries None recorded. Imaging None recorded. Medication Orders clobetasol 0.05 % topical ointment 2024 025 [facility] #10184, [address], [place], [id number], 5 14:59:08 gabapentin 300 mg capsule 2024 025 [facility] #34586, [address], [place], [id number], 14:59:15 amlodipine 10 mg tablet 2024 025 [email or web address] #12636, [address], [place], [id number], 17:06:24 gabapentin 100 mg capsule 2024 025 [facility] #69610, [address], [place], [id number], 5 14:58:11 Medrol (Adrian) 4 mg tablets in a dose pack [email or web address] [place] [address] [address]98149, [address], [place], [id number], 5 14:55:42 amlodipine 10 mg tablet 2024 025 [facility] #89916, [address], [place], [id number], 15:16:58 clobetasol 0.05 % topical ointment 2024 025 [facility] #85875, [address], [place], [id number], 5 15:16:26 doxycycline hyclate 100 mg tablet 2023 025 [email or web address] [facility] #02729, [address], [place], [id number], 14:11:52 amlodipine 10 mg tablet 2023 024 [facility] #00607, [address], [place], [id number], 4 19:00:05 clobetasol 0.05 % topical ointment 2023 [facility] #33108, [address], [place], [id number], 19:00:06 Patient TargetsNo targets recorded. Patient InstructionsNo instructions recorded. Reason for Referral None Reported. Results Created Date Observation Date Name Description Value Unit Range Abnormal Flag Note LastModifiedBy Organization Detail LastModifiedTime 09/11/1909/12/2024 MAGNE SIUM magnesium 2.0 mg/dL 1.5-2. 5 normal Not Available [facility] [address] [place], [address], 09/12/2024 12:28:41 09/11/1909/12/2024 COMPR EHENS CHRISTINE METAB OLIC PANEL glucose 100 mg/dL 65-99 high Fasti ng refer ence inter yun For someo ne witho ut known diabe wayne, a gluco se value betwe en 100 and 125 mg/dL is consi stent with predi abete s and shoul d be confi rmed with a follo w-up test. Not Available [facility] [address] [place], [address], 09/12/2024 12:28:43 09/11/1909/1209/12/2024 COMPR EHENS CHRISTINE METAB OLIC PANEL urea nitrogen (BUN) 9 mg/dL 7-25 normal Not Available [address], [address], 09/12/2024 12:28:43 09/11/19 25 09/12/2024 COMPR EHENS CHRISTINE METAB OLIC PANEL creatinine 0.82 mg/dL 0.60-1 .26 normal Not Available [address], [address], 09/12/2024 12:28:43 09/11/19 25 09/12/2024 COMPR EHENS CHRISTINE METAB OLIC PANEL eGFR 117 mL/mi n/1.7 3m2 > or = 60 normal Not Available [address], [address], 09/12/2024 12:28:43 09/11/19 25 09/12/2024 COMPR EHENS CHRISTINE METAB OLIC PANEL BUN/creatini ne ratio SEE NOTE: (calc ) 6-22 Not Repor marine: BUN and Creat inine are withi n refer ence range . Not Available [address], [address], 09/12/2024 12:28:43 09/11/19 25 09/12/2024 COMPR EHENS CHRISTINE METAB OLIC PANEL sodium 139 mmol/ L 135-14 6 normal Not Available [address], [address], 09/12/2024 12:28:43 09/11/19 25 09/12/2024 COMPR EHENS CHRISTINE METAB OLIC PANEL potassium 4.0 mmol/ L 3.5-5. 3 normal Not Available [address], [address], 09/12/2024 12:28:43 09/11/19 25 09/12/2024 COMPR EHENS CHRISTINE METAB OLIC PANEL chloride 105 mmol/ L 98-110 normal Not Available [address], [address], 09/12/2024 12:28:43 09/11/19 25 09/12/2024 COMPR EHENS CHRISTINE METAB OLIC PANEL carbon dioxide 26 mmol/ L 20-32 normal Not Available [address], [address], 09/12/2024 12:28:43 09/11/19 25 09/12/2024 COMPR EHENS CHRISTINE METAB OLIC PANEL calcium 9.4 mg/dL 8.6-10 .3 normal Not Available [address], [address], 09/12/2024 12:28:43 09/11/19 25 09/12/2024 COMPR EHENS CHRISTINE METAB OLIC PANEL protein, total 7.7 g/dL 6.1-8. 1 normal Not Available [address], [address], 09/12/2024 12:28:43 09/11/19 25 09/12/2024 COMPR EHENS CHRISTINE METAB OLIC PANEL albumin 4.6 g/dL 3.6-5. 1 normal Not Available [address], [address], 09/12/2024 12:28:43 09/11/19 25 09/12/2024 COMPR EHENS CHRISTINE METAB OLIC PANEL globulin 3.1 g/dL_ (calc ) 1.9-3. 7 normal Not Available [address], [address], 09/12/2024 12:28:43 09/11/19 25 09/12/2024 COMPR EHENS CHRISTINE METAB OLIC PANEL albumin/glob ulin ratio 1.5 (calc ) 1.0-2. 5 normal Not Available [address], [address], 09/12/2024 12:28:43 09/11/19 25 09/12/2024 COMPR EHENS CHRISTINE METAB OLIC PANEL bilirubin, total 0.3 mg/dL 0.2-1. 2 normal Not Available [address], [address], 09/12/2024 12:28:43 09/11/19 25 09/12/2024 COMPR EHENS CHRISTINE METAB OLIC PANEL alkaline phosphatase 100 U/L 36-130 normal Not Available [address], [address], 09/12/2024 12:28:43 09/11/19 25 09/12/2024 COMPR EHENS CHRISTINE METAB OLIC PANEL AST 22 U/L 10-40 normal Not Available [address], [address], 09/12/2024 12:28:43 09/11/19 25 09/12/2024 COMPR EHENS CHRISTINE METAB OLIC PANEL ALT 20 U/L 9-46 normal Not Available [address], [address], 09/12/2024 12:28:43 09/11/19 25 09/12/2024 CBC (H/H, RBC, INDIC ES, WBC, PLT) white blood cell count 6.0 thous and/u L 3.8-10 .8 normal Not Available [address], [address], 09/12/2024 13:37:01 09/11/1909/12/2024 CBC (H/H, RBC, INDIC ES, WBC, PLT) red blood cell count 4.21 mariola on/uL 4.20-5 .80 normal Not Available [address], [address], 09/12/2024 13:37:01 09/11/19 25 09/12/2024 CBC (H/H, RBC, INDIC ES, WBC, PLT) hemoglobin 12.9 g/dL 13.2-1 7.1 low Not Available [address], [address], 09/12/2024 13:37:01 09/11/19 25 09/12/2024 CBC (H/H, RBC, INDIC ES, WBC, PLT) hematocrit 37.0 % 38.5-5 0.0 low Not Available [address], [address], 09/12/2024 13:37:09/11/1909/12/2024 CBC (H/H, RBC, INDIC ES, WBC, PLT) MCV 87.9 fL 80.0-1 00.0 normal Not Available [facility] [address], [address], 09/12/2024 13:37:01 09/11/19 25 09/12/2024 CBC (H/H, RBC, INDIC ES, WBC, PLT) MCH 30.6 pg 27.0-3 3.0 normal Not Available [address], [address], 09/12/2024 13:37:01 09/11/1909/12/2024 CBC (H/H, RBC, INDIC ES, WBC, PLT) MCHC 34.9 g/dL 32.0-3 6.0 normal For adult s, a sligh t decre ase in the calcu lated MCHC value (in the range of 30 to 32 g/dL) is most likel y not clini usman tate t; viral er, it shoul d be inter prete d with cauti on in virtua voorhees n with other red cell ana eters and the patie nt's clini avtar condi tion. Not Available [facility] [address], [address], 09/12/2024 13:37:01 09/11/19 25 09/12/2024 CBC (H/H, RBC, INDIC ES, WBC, PLT) RDW 13.8 % 11.0-1 5.0 normal Not Available [address], [address], 09/12/2024 13:37:01 09/11/19 25 09/12/2024 CBC (H/H, RBC, INDIC ES, WBC, PLT) platelet count 339 thous and/u L 140-40 0 normal Not Available [address], [address], 09/12/2024 13:37:01 09/11/19 25 09/12/2024 CBC (H/H, RBC, INDIC ES, WBC, PLT) MPV 9.7 fL 7.5-12 .5 normal Not Available [address], [address], 09/12/2024 13:37:01 09/14/19 25 09/13/2024 XR, chest , 1 view No observ ation record ed. [address], [address], 09/14/2024 09:28:48 10/17/19 25 10/17/2024 XR, chest , 2 view No observ ation record ed. [email or web address] [address], [address], 10/17/2024 12:52:45 05/24/20 25 05/23/2025 CT, chest + abdom en + pelvi s, w/ contr ast No observ ation record ed. [address] [address], [place], [address], 05/24/2025 12:57:10 05/24/20 25 05/23/2025 CT, chest + abdom en + pelvi s, w/ contr ast No observ ation record ed. [place] [address] [facility] [address], [place], [address], 05/24/2025 12:57:36 05/25/2005/25/2025 XR, chest , 4 or more view No observ ation record ed. [facility] [address] [facility] [address], [place], [address], 05/25/2025 14:16:56 06/04/2005/25/2025 US, doppl er echoc ardio gram, w/ color flow No observ ation record ed. [address] [facility] [address], [place], [address], 06/04/2025 15:43:28 06/27/2006/27/2025 XR, shoul misa No observ ation record ed. [email or web address] [facility] [address] [place], [address], 06/28/2025 06:41:20 Result Notes None recorded. Problems Name Problem SNOMED Code Status Onset Date Resolution Date Notes Provider Name and Address Organization Details Recorded Time History of sickle cell anemia 295769977 Active 2021 CHAYO Gill, PMHNP-BC [address] [place], [address], [facility] 3 15:54:14 Tobacco dependence caused by cigarettes [id number] 9107 Active 2021 CHAYO Gill, PMHNP-BC [address] [place], [address], [facility] 3 15:54:14 Eczema 95198086 Active 2021 CHAYO Gill, PMHNP-BC [address] [place], [address], [facility] 3 15:54:14 Gastroesoph ageal reflux disease without esophagitis 666954521 Active 2022 CHAYO Gill, PMHNP-BC [address] [place], [address], [facility] 3 15:54:14 Essential hypertensio n 29238791 Active 2022 Camelia Van, [facility] [address] [place], [address], [facility] 3 14:38:41 Problem Notes None recorded. Procedures Surgical History Date Name Laterality Status Provider Name and Address Organization Details Recorded Time esophagogastroduodenoscopy completed Kathy Hardwick [facility] 5 15:18:51 drainage of abscess completed India Garcia [facility] 2 16:42:21 Imaging Results None recorded. Procedure Notes None recorded. Medical Equipment None Reported. Allergies Allergen ID Allergen Name Allergen Category Reaction Reaction Severity Criticality Documentation Date Start Date Code Code System Note Provider Name and Address Organization Details Recorded Time 4776 morphine medicatio n hives Not available Not available 12/05/2021 7052 RxNorm Dannielle Estrada [facility] 2 15:42:55 4777 tramadol medicatio n hives Not available Not available 12/05/2021 20217 RxNorm Bronwynriri Estrada [facility] 2 15:44:03 5629 Bactrim medicatio n hives Not available low 08/25/2022 43108 9 RxNorm India Garcia [facility] 2 16:39:33 Medications Name Sig Start Date Stop Date Status Note LastModified by Organization Details LastModified Time cyclobenzap rine 10 mg tablet TAKE 1 TABLET BY MOUTH EVERY NIGHT AT BEDTIME NEEDED FOR SPASM active Not Available Not Available No t Available prednisone 10 mg tablet PLEASE SEE ATTACHED FOR DETAILED DIRECTION S 12/05 completed Not Available Not Available Not Available doxycycline hyclate 100 mg capsule Take 1 capsule twice a day by oral route as directed for 10 days. 11/28 completed Not Available Not Available Not Available clindamycin HCl 300 mg capsule Take 1 capsule every 6 hours by oral route. 2024 active Not Available Not Available Not Avai lable ibuprofen 800 mg tablet Take 1 tablet every 6 hours by oral route as needed. 2024 active Not Available Not Available Not Avai lable Lidocaine Viscous 2 % mucosal solution SWISH AND SPIT 15 ML BY MOUTH EVERY 6 TO 8 HOURS NEEDED 02/21 completed Not Available Not Available Not Available hydrocodone 5 mg-acetamin ophen 325 mg tablet Take 1 tablet every 8 hours by oral route as needed. 02/26 completed Not Available Not Available Not Available ondansetron HCl 4 mg tablet TAKE ONE TABLET BY MOUTH EVERY 6 HOURS NEEDED FOR NAUSEA 05/26 completed Not Available Not Available Not Available prednisone 20 mg tablet Take 2 tablets every day by oral route. 02/26 completed Not Available Not Available Not Available [...] Available Not Available amlodipine 10 mg tablet Take 1 tablet twice a day by oral route. 2024 active Not Available Not Available Not Avai lable doxycycline monohydrate 100 mg capsule TAKE 1 [...] Not Available Not Available Not Available ibuprofen 400 mg tablet TAKE 1 AND 1/2 TABLETS BY MOUTH EVERY 6 HRS NEEDED FOR PAIN 02/20 completed Not Available Not Available Not Available diclofenac potassium 50 mg tablet Take 1 tablet 3 times a day by oral route as needed. 2024 active Not Available Not Available Not Avai lable gabapentin 300 mg capsule TAKE 1 CAPSULE BY MOUTH EVERY DAY AT BEDTIME active Not Available Not Available No t Available hydroxyzine HCl 25 mg tablet TAKE ONE TABLET BY MOUTH EVERY 8 HOURS 05/26 completed Not Available Not Available Not Available gabapentin 100 mg capsule TAKE 1 CAPSULE BY MOUTH EVERY DAY AT BEDTIME 02/26 completed Not Available Not Available Not Available clobetasol 0.05 % topical ointment APPLY THIN LAYER TOPICALLY TO THE AFFECTED AREA TWICE DAILY FOR 14 DAYS active Not Available Not Available No t Available methylpredn isolone 4 mg tablets in a dose pack FOLLOW PACKAGE DIRECTION S 02/26 completed Not Available Not Available Not Available acetaminoph en 500 mg capsule Take 2 capsules every 6 hours by oral route as needed. 02/21 completed Not Available Not Available Not Available doxycycline hyclate 100 mg tablet TAKE 1 TABLET BY MOUTH EVERY 12 HOURS active Not Available Not Available No t Available amoxicillin 875 mg-potassiu m clavulanate 125 mg tablet TAKE 1 TABLET BY MOUTH TWICE DAILY 02/21 completed Not Available Not Available Not Available clindamycin phosphate 1 % topical solution APPLY TOPICALLY TO THE AFFECTED AREA TWICE DAILY active Not Available Not Available No t Available clindamycin 1 % lotion APPLY TOPICALLY TO THE AFFECTED AREA ON THE BUTTOCK DAILY active Not Available Not Available No [...] Not Available silver 200 mcg/gram topical gel Apply 1 applicati on every day by topical route. 2024 active Not Available Not Available Not Avai lable Eucrisa 2 % topical ointment APPLY A THIN LAYER TO THE AFFECTED AREA(S) BY TOPICAL ROUTE 2 TIMES PER DAY 02/25 completed Not Available Not Available Not Available Vitals Date Recorded Body height Body temperature Oxygen saturation Respiratory rate Heart rate Body mass index (BMI) Body weight Pain severity - 0-10 verbal numeric rating [Score] - Reported Systolic And Diastolic Provider Name and Address Organization Details Last Updated DateTime 5 171.45 cm 98.1 [degF] 98 % 18 /min 80 /min 26.5 kg/m2 16522.1 7 g 7 128/85 mm[Hg] Isaura Hernandez [facility] 5 15:04:24 Date Recorded Body height Pain severity - 0-10 verbal numeric rating [Score] - Reported Body mass index (BMI) Body weight Oxygen saturation Heart rate Respiratory rate Body temperature Systolic And Diastolic Provider Name and Address Organization Details Last Updated DateTime 5 171.45 cm 8 25.9 kg/m2 49259.5 2 g 98 % 94 /min 16 /min 97.9 [degF] 109/72 mm[Hg] Isaura Hernandez [facility] 5 14:14:24 Date Recorded Body height Pain severity - 0-10 verbal numeric rating [Score] - Reported Body temperature Oxygen saturation Heart rate Respiratory rate Body mass index (BMI) Body weight Systolic And Diastolic Provider Name and Address Organization Details Last Updated DateTime 5 170.18 cm 8 98.2 [degF] 97 % 76 /min 16 /min 26.4 kg/m2 57874.6 7 g 126/86 mm[Hg] Isaura Hernandez [facility] 5 14:49:32 Date Recorded Body height Body temperature Oxygen saturation Heart rate Respiratory rate Pain severity - 0-10 verbal numeric rating [Score] - Reported Body mass index (BMI) Body weight Systolic And Diastolic Provider Name and Address Organization Details Last Updated DateTime 4 171.45 cm 97.9 [degF] 99 % 87 /min 18 /min 8 26.2 kg/m2 17236.7 g 117/81 mm[Hg] Isaura Hernandez [facility] 4 16:00:52 Date Recorded Body height Pain severity - 0-10 verbal numeric rating [Score] - Reported Body temperature Heart rate Respiratory rate Oxygen saturation Body mass index (BMI) Body weight Systolic And Diastolic Provider Name and Address Organization Details Last Updated DateTime 5 170.18 cm 7 97.9 [degF] 82 /min 20 /min 98 % 26.4 kg/m2 80978.9 6 g 113/74 mm[Hg] Isaura Natalie [facility] 5 14:41:49 Social History Question Answer Notes LastModified by Organizat ion Details LastModified Time Tobacco Smoking Status Former Smoker Isaura Hernandez [facility] 09/11/2024 15:05:56 Do You Have An Advance Directive? No [email or web address] Information n ot available 12/05/2021 How Many Years Have You Consumed Alcohol? 21 Information not available 12/05/2021 Are You Currently Sexually Active With Anyone Who Has Traveled (within The Last 12 Weeks) To A Zika-affected Area? No [email or web address] Information not available 12/05/2021 Do You Wear A Helmet When Biking? Yes [email or web address] Information not available 12/05/2021 Are You Blind Or Do You Have Difficulty Seeing? No [email or web address] Information n ot available 12/05/2021 Is Blood Transfusion Acceptable In An Emergency? Yes [email or web address] Information not available 02/26/2025 What Is Your Level Of Caffeine Consumption? Moderate [email or web address] Information not available 12/05/2021 What Type Of Coffee Grinder Do You Use? None [email or web address] Information not available 12/05/2021 What Is Your Code Status? Full Code [email or web address] Information not available 12/05/2021 In The 14 Days Before Symptom Onset, Have You Had Close Contact With A Laboratory-confirm ed COVID-19 While That Case Was Ill? No Information n ot available 12/05/2021 In The 14 Days Before Symptom Onset, Have You Had Close Contact With A Person Who Is Under Investigation For COVID-19 While That Person Was Ill? No [email or web address] Information not available 12/05/2021 Have You Been To An Area Known To Be High Risk For COVID-19? No [email or web address] Information not available 12/05/2021 Are You Deaf Or Do You Have Serious Difficulty Hearing? No [email or web address] Information not available 12/05/2021 What Type Of Diet Are You Following? REGULAR iopxhyhbf28 Information n ot available 12/05/2021 Have You Processed Blood Or Body Fluids From An Ebola Virus Disease Patient Without Appropriate PPE? No [email or web address] Information not available 12/05/2021 Do You Reside In Or Have You Traveled To An Area Where Ebola Virus Transmission Is Active? No [email or web address] Information not available 12/05/2021 What Is The Highest Grade Or Level Of School You Have Completed Or The Highest Degree You Have Received? [id number] [email or web address] Information not available 12/05/2021 How Many Days Of Moderate To Strenuous Exercise, Like A Brisk Walk, Did You Do In The Last 7 Days? 5 [email or web address] Information not available 12/05/2021 Have There Been Any Changes To Your Family Or Social Situation? No [email or web address] Information no t available 12/05/2021 What Is The Fluoride Status Of Your Home? Unknown [email or web address] Information not available 12/05/2021 Are There Any Guns Present In Your Home? No [email or web address] Information not available 12/05/2021 Which Of Your Hands Is Dominant? Right [email or web address] Information n ot available 12/05/2021 Have You Recently Or Are You Planning To Travel To An Area With Zika Virus? No vxldglget47 Information not available 12/05/2021 Do You Use Insect Repellent Routinely? Yes [email or web address] Information not available 12/05/2021 Have You Jeffers Unsteady Or Fallen More Than Once In The Past Year? Yes [email or web address] Information not available 11/28/2024 Can You Switch A Light On/off Easily From Your Bed Without Fear Of Falling? Yes [email or web address] Information not available 11/28/2024 Are Floors And Walkways In Your Home Safe And In Good Repair? Yes [email or web address] Information not available 11/28/2024 Is It Difficult To Get Out Of Bed Without Assistance? No [email or web address] Information not available 11/28/2024 Is It Difficult To Get Up From Sitting In A Chair Without Assistance? No [email or web address] Information not available 11/28/2024 Is It Difficult To Get Up From Sitting On The Toilet Without Assistance? No [email or web address] Information not available 11/28/2024 Is The Lighting In Your Home Sufficient To See Safely? Yes yvutslbhjr996 Information not available 11/28/2024 Do You Have A History Of Falling? No [email or web address] Information not available 11/28/2024 Is Your Gait (walking Style) Regular? Yes Information not available 11/28/2024 Have You Had A Colonoscopy Or Colorectal Cancer Screening? If So What Was The Date? No [email or web address] Information n ot available 11/28/2024 Have You Had A Dexa (bone Density) Scan? If So What Was The Date? No [email or web address] Information not available 11/28/2024 Have You Had A Prostate Exam? If So What Was The Date? No [email or web address] Information not available 11/28/2024 Have You Had A Full Body Skin Cancer Exam? If So What Was The Date? No [email or web address] Information n ot available 11/28/2024 Have You Had A Hepatitis C Screening? If So What Was The Date? No [email or web address] Information n ot available 11/28/2024 Have You Had An Eye Exam? If So What Was The Date? No [email or web address] Information n ot available 11/28/2024 Do You Have A Medical Power Of Net Architect? No [email or web address] Information not available 12/05/2021 What Was The Date Of Your Most Recent Tobacco Screening? 02/06/2025 [email or web address] Information not available 02/06/2025 How Many Children Do You Have? 8 oyxftxozf36 Information not available 12/05/2021 Have You Ever Been Counseled For Unhealthy Alcohol Use? No Information not available 02/03/2023 Do You Have Any Pets? No yglpanrtl78 Information not available 12/05/2021 Do You Use Protection During Sex? Always omasiuenr90 Information not available 12/05/2021 What Is Your Relationship Status? Information not available 02/03/2023 Do You Use Your Seat Belt Or Car Seat Routinely? Yes fpvqkzoye65 Information not available 12/05/2021 Are You Sexually Active? Yes efhxguaje41 Information not available 12/05/2021 Do You Have Smoke And Carbon Monoxide Detectors In Your Home? Yes nfweegyvt85 Information not available 12/05/2021 At What Age Did You Start Smoking Tobacco? 14 [email or web address] Information not available 02/22/2024 Are You Passively Exposed To Smoke? No otynmokrz50 Information no t available 12/05/2021 How Much Tobacco Do You Smoke? 0.5 PPD ditiskghz54 Information not available 12/05/2021 Do You Participate In Social Media? Yes jarlhjwmxo090 Information not available 09/11/2024 What Types Of Sporting Activities Do You Participate In? Walking Information not available 12/05/2021 Do You Use Sunscreen Routinely? No [email or web address] Information not available 12/05/2021 How Many Years Have You Smoked Tobacco? 21 oaizlciqs16 Information not available 12/05/2021 Have You Recently Traveled Abroad? No wxsgxigpr69 Information not available 12/05/2021 Do You Have Difficulty Walking Or Climbing Stairs? No zjemqoijs10 Information not available 12/05/2021 Are You Currently In School? No Information not available 12/05/2021 Do You Have Any Dietary Restrictions? No gldkkhgev33 Information not available 12/05/2021 Sex: Male Functional Status Question Answer Note LastModified by Organizat ion Details LastModified Time How many times per week do you consume alcohol? Less than 1 time per week Information not available 02/03/2023 Do you use any illicit or recreational drugs? No ergwkuyjz72 Information not available 12/05/2021 Do you or have you ever used any other forms of tobacco or nicotine? No nsnxygtge73 Information not available 12/05/2021 What is your level of alcohol consumption? Occasional Information not available 12/05/2021 Are you currently employed? Yes povthgrzv93 Information not available 12/05/2021 Do you have transportation difficulties? No hqzmoajga58 Information not available 12/05/2021 Are you able to walk independently without assistance or assistive devices? YESWOREST rmysklahb54 Information not available 12/05/2021 Do you have difficulty doing errands alone? No fovnfromc61 Information not available 12/05/2021 Are you able to care for yourself independently? 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 No [email or web address] Information not available 12/05/2021 What is your exercise level? Moderate [email or web address] Information not available 12/05/2021 Mental Status Question Answer Note LastModified by Organizat ion Details LastModified Time Do you feel stressed (tense, restless, nervous, or anxious, or unable to sleep at night)? BV3493-7 umuacjlqf69 Information not available 12/05/2021 Do you have difficulty concentrating, remembering or making decisions? No hekwwwukx09 Information no t available 12/05/2021 Family History Relationship Description Onset Age of this Age Resolved Age Notes LastModified by Organization Details LastModified Time Mother Hypertensive disorder [email or web address] Not available 03/2022 11:20:16 Brother Diabetes mellitus [email or web address] Not available 03/2022 11:20:24 Paternal Aunt Sickle cell-hemoglo bin SS disease Not available 03/2022 11:20:44 Medical History Condition Response Musculoskeletal Diseases / Disorders Y Nicotine / Tobacco Dependence Y Hospitalizations Y Infectious Disease/Disorders/Virus Skin Diseases / Disorders Y Hematological Diseases / Disorders Y Cellulitis Y Cardiac Diseases / Disorders Y Sepsis Y Anemia Y Diabetes Gastrointestinal Diseases / Disorders Y Immunizations Vaccine Type Date Status Note Provider Nam e and Address Organization Details Recorded Time Tdap completed Not Available [facility] 06/18/2022 17:11:23 DTP 8 completed Rae Rob[place], [place] [facility] 06/02/2022 10:26:20 DTP 9 [place] [facility] 06/02/2022 10:26:40 DTP 9 completed [place] [facility] 06/02/2022 10:26:51 DTP 0 completed [place] [facility] 06/02/2022 10:27:07 DTP 3 completed [place] [facility] 06/02/2022 10:27:18 Hib, unspecified formulation 9 completed [place] [facility] 06/02/2022 10:28:01 Hep B, unspecified formulation 6 completed [place] [facility] 06/02/2022 10:28:45 Hep B, unspecified formulation 6 completed [place] [facility] 06/02/2022 10:28:57 Hep B, unspecified formulation 7 completed [place] [facility] 06/02/2022 10:29:11 MMR 9 completed [place] [facility] 06/02/2022 10:29:50 MMR 6 completed [place] [facility] 06/02/2022 10:30:04 polio, unspecified formulation 8 completed [place] [facility] 06/02/2022 10:30:31 polio, unspecified formulation 9 completed [place] [facility] 06/02/2022 10:30:46 polio, unspecified formulation 0 completed [place] [facility] 06/02/2022 10:31:14 polio, unspecified formulation 6 completed [place] [facility] 06/02/2022 10:31:42 Td (adult), 2 Lf tetanus toxoid, preservative free, adsorbed 6 completed [place] [facility] 06/02/2022 10:32:55 COVID-19, mRNA, LNP-S, PF, 30 mcg/0.3 mL dose 1 completed [place] [facility] 06/02/2022 10:33:30 COVID-19, mRNA, LNP-S, PF, 30 mcg/0.3 mL dose 1 completed [place] [facility] 06/02/2022 10:33:41 Past Encounters Encounter ID Performer Location Encounter Start Date Encounter Closed Date Diagnosis/Indication Diagnosis SNOMED-CT Code Diagnosis ICD10 Code Diagnosis IMO Codes [id number] Main Office [address] [place] [address] 12/05/2021 11:09:13 12/05/2021 13:40:48 Adult health examination 030460989 Z00.00 labs ordered to evaluate levels. Glucose le alec outside reference range 043893172 R73.09 labs ordered to evaluate levels. History of sickle cell anemia 027453055 Z86.2 Anemia 781134341 D64.9 labs ordered to evaluate levels. Tobacco de pendence caused by cigarettes 5588240062 7746412 F17.210 Does not want to quit [id number] [facility] Main Office [address] [place] [address] 02/05/2022 13:58:54 02/05/2022 15:32:44 Staphylococcal infection of skin 446110846 B95.8 Counseled on using plain dove to cleanse skin. Do not use anything with additives, perfumes, lotions. Eczema 05614146 L30.9 Counseled on using plain dove to cleanse skin. Do not use anything with additives, perfumes, lotions. Body mass index 25-29 - overweight 091291908 Z68.25 [id number] Camelia Van [facility], [facility] Main Office [address] [place] [address] 04/24/2022 09:14:23 04/24/2022 11:10:51 Eczema 36131473 L30.9 Counseled on using plain dove to cleanse skin. Do not use anything with additives, perfumes, lotions.Co unseled on using the Clobetasol no more than 2 weeks. Taking a break for 1-2 weeks before starting again. If does not help to contact office. He v/u Allergic reaction 005908 005 T78.40XA Allergic reaction noted of R eye. Was fine before work. Walked into bathroom and eye started bothering, rubbed it, and worsened. Given ABX given the pain and redness.Me drol dose pack given and explained. Swelling o f structure of right eye 0012690443 8544013 R22.0 [id number] CHAYO Gill, [facility] Main Office [address] [place] [address] 06/18/2022 13:59:06 06/18/2022 15:15:19 Eczema 12784743 L30.9 Has had to use the Clobetasol more frequent and once stop using it worsens. Will do Eucrisa as this can be given daily without thinning the skin. Sickle cell trait 179067 00 D57.3 labs to evaluate levels. Hidradenit is suppurativa 69752303 L73.2 has tried ABX and multiple other modalities without success. Administra tion of diphtheria, pertussis, and tetanus vaccine 677384577 Z23 Hypoglycemia 972280520 E 16.2 labs to eval [id number] CHAYO Gill, [facility] Main Office [address] [place] [address] 09/25/2022 09:00:20 09/25/2022 14:58:24 Gastroesophageal reflux disease without esophagitis 882145697 K21.9 Lifestyle modificati ons with wt loss, avoid meals 2-3h before HS. Consider eliminatin g food triggers: chocolate, caffeine, ETOH, acid/spicy food. Started Omeprazole and referring to GI. Patient has history of peptic ulcer disease. Had previously seen Dr. New. Eczema 38000362 L30.9 History of peptic ulcer 239410326 Z87.11 [id number] Camelia Van [facility], [facility] Main Office [address] [address] 4 02/03/2023 15:32:03 02/03/2023 19:16:07 Eczema 50201482 L30.9 Left upper quadrant pain 855948118 R10.12 Body mass index 25-29 - overweight 540045544 Z68.27 Tobacco de pendence caused by cigarettes 2987917788 6734875 F17.210 [id number] Camelia Van [facility], [facility] Main Office [address] [address] 02/25/2023 08:55:58 02/25/2023 10:51:59 Eczema 74686941 L30.9 Essential hypertension 17319554 I10 Steatotic liver disease 001991862 K76.0 Printed out fatty liver patient education booklet [email or web address]/ sites/lurdes weber/[email or web address]/ a-guide-to -what-and- how-to-eat -non-alcoh olic-fatty -liver-dis ease.pdf [id number] Camelia Van [facility], [facility] Main Office [address] [address] 4 05/26/2023 14:26:41 05/26/2023 18:40:57 Eczema 98826508 L30.9 Postoperative care 96803 9007 Z48.89 Essential hypertension 22907043 I10 [id number] Camelia Van [facility] Main Office [address] [place] [address] 08/05/2023 11:35:00 08/05/2023 14:31:51 Essential hypertension 43803051 I10 [id number] Camelia Van [facility], [facility] Main Office [address] [address] 4 11/29/2023 14:19:51 11/29/2023 15:13:47 Essential hypertension 66355586 I10 Venereal d isease screening [id number] Z11.3 Adult heal th examination [id number] Z00.00 [id number] Camelia Kapadia Rehan [facility], [facility] Main Office [address] [place] [address] 02/22/2024 15:34:50 02/22/2024 22:42:37 Essential hypertension [id number] I10 at goal with BP. Continue Amlodipine . Eczema [id number] L30.9 has been helpful to clear up areas. Hidradenit is suppurativa [id number] L73.2 has tried ABX and multiple other modalities without success. [id number] Camelia Kapadia Rehan [facility], [facility] Main Office [address] [place] [address] 09/11/2024 14:58:20 09/11/2024 16:43:20 Essential hypertension [id number] I10 Eczema [id number] L30.9 [id number] Camelia Van [facility], [facility] Main Office [address] [place] [address] 11/28/2024 14:04:26 11/28/2024 16:13:44 Essential hypertension [id number] I10 Headache [id number] R51.9 [id number] Camelia Van [facility] Main Office [address] [place] [address] 02/06/2025 14:44:35 02/06/2025 17:54:56 Costal chondritis [id number] M94.0 [id number] Essential hypertension 19111968 I10 [id number] Camelia Van [facility] Main Office [address] [place] [address] 02/26/2025 14:37:52 02/26/2025 16:41:03 Essential hypertension [id number] I10 Eczema 92267826 L30.9 Costal chondritis 896652 04 M94.0 Health Concerns Section Related Observation LastModified by Organization Detai ls LastModified Time None Recorded Concern Status LastModified by Organization Details LastModified Time None Recorded Advance Directives Directive N: Payers Insurance Date Sequence Insurance Name Policy Number Policy Baez Covered Member ID Baez Member ID Guarantor Name 12/01/2023 1 [facility] [id number] Sorin Barnhart [id number] Sorin Barnhart 12/01/2023 1 [place]: [place] [employer] [place] [employer] Sorin Barnhart [id number] Sorin Barnhart 12/01/2023 1 [facility] (O) [id number] Sorin Barnhart [id number] Sorin Barnhart 05/28/2025 1 [facility] (MEDICAID HMO) [id number] Sorin Barnhart [id number] Sorin Barnhart 02/05/2022 1 *SELF PAY* Jordon Barnhart Notes Date Note Type Note Provider Name and Address Organization Details Recorded Time 02/22/2024 text/html HTN - Compliant with medications. Does not report any blurry vision, dizziness, CP, SOB, or palpitations. Eczema - has been out of medication and thus having flare up. Hidradenitis suppurativa - having some starting flare ups and out of medication from dermatology at [facility]. Camelia Van, [employer], PMHNP-BC [address] [place] [address], [phone], [facility] 02/22/2024 18:59:59 09/11/2024 text/html Sorin is a 38-year-old male presenting for a follow-up appointment for [...] is unsure about further management, as the technical sales support manager has not followed up. He has had [...] not yet sought formal cessation support. Camelia Kang CHRISTIE Van-[place], [facility] [address] [place], [address], [facility] 09/11/2024 16:39:32 11/28/2024 text/html Sorin is a 39-year-old male who presents for an acute primary [...] with meals to avoid gastrointestinal discomfort. Camelia Kapadia Rehan, CHRISTIE-[place], [facility]- [address] [place], [address], [facility] 11/28/2024 15:46:49 02/06/2025 text/html Sorin is a 39-year-old male presenting for an acute primary care evaluation with a complex constellation of musculoskeletal and possibly neuropathic symptoms that have persisted and progressed over the past month. He reports initially experiencing severe pain in his posterior thoracic region that he attributed to back spasms. He was empirically treated with a muscle relaxant (possibly cyclobenzaprine, though exact agent is uncertain), which provided only partial and temporary relief. After the muscle spasms resolved, he began to experience a persistent, migrating pain across the chest wall, back, ribs, and shoulders. The pain started on the left side of his chest and progressively radiated to the right, including mid-chest and right shoulder. He now describes an inability to sleep due to positional discomfort, noting that he cannot roll over or get out of bed normally. He describes the pain as constant and deep, with occasional exacerbation during sneezing or coughing, suggesting a pleuritic or myofascial component. He denies any recent trauma or lifting but suspects a possible underlying inflammatory condition. He has undergone chest imaging including a multi-view chest X-ray which was reportedly unremarkable for cardiopulmonary pathology. Cardiac workup has also returned negative. Despite these findings, the patient reports continued dyspnea (subjective heavy breathing), persistent non-positional pain, and significant disruption to sleep hygiene, often not falling asleep until 7 AM due to the discomfort. He denies fever, chills, weight loss, smoking history, or recent upper respiratory infections. The pain is not associated with meals or activity. He reports that it worsens with deep inspiration, coughing, or sneezing and has been affecting his functional status. He additionally reports concurrent low back and leg pain, compounding his distress. Camelia Van, [employer], PMHNP-BC [address] [place] [address], [phone], [facility] 02/06/2025 17:18:30 02/26/2025 text/html Sorin is a 49-year-old male presenting for a primary care follow-up. He has a history of essential hypertension, hidradenitis suppurativa, sickle cell disease, chronic pain, and recent episodes of costochondritis. He reports that his chronic musculoskeletal pain particularly chest wall pain related to costochondritis has been severely limiting his function. He describes himself as b roken to pieces, unable to engage in physical activity due to back and leg pain, and states that prior short courses of steroids were the only interventions that provided meaningful relief. He ran out of those medications and is requesting a refill, noting t his is the only thing that s helping. Sorin endorses poor sleep, attributing it partly to pain. He has been on gabapentin 100 mg at bedtime without benefit and reports continued insomnia. Gabapentin has been increased to 300 mg at bedtime. He denies new neurologic symptoms, but expresses significant frustration with the chronicity of his condition and the impact on quality of life. His blood pressure is well controlled (today: 113/74 mmHg) on amlodipine 10 mg daily. Dermatologic symptoms of eczema are currently managed with topical clobetasol and are stable. Sorin also reports that he obtained surgical and dermatologic clearance for a pending operation, likely orthopedic, aimed at addressing ongoing structural issues contributing to his pain. He is scheduled to follow up with the surgical team on April 02. He emphasizes the urgency of surgical intervention, citing deteriorating physical function and emotional strain. He denies fever, chest pain, palpitations, bowel or bladder changes, or signs of infection. Camelia Van, [employer]BC, PMHNP-BC [address] [place], [address], [facility] 02/26/2025 16:17:43
--- NOTE | 2025-08-04 05:47 | ECG_ITS ---
Test Date: 2025-08-04 06:41:32 Measurements Intervals [place] Rate: 97 P: 53 NM: 163 QRS: 66 QRSD: 95 T: 27 QT: 314 QTc: 400 Interpretive Statements SINUS RHYTHM INCOMPLETE RIGHT BUNDLE BRANCH BLOCK BORDERLINE ST-T WAVE ABNORMALITY- INFERIOR LEADS BASELINE ARTIFACT- I, II, III, AVR, AVL ,AVF, V1-V4 BORDERLINE ECG Compared to ECG 05/23/2025 16:58:40 HEART RATE HAS DECREASED Electronically Signed On 08-04-2025 09:23:09 VIDEO SURVEILLANCE TECHNICIAN by Tai Chaparro D.O.
--- NOTE | 2025-08-04 05:47 | ED.SKABFB ---
HPI - Skin/Abscess/Foreign Bdy General Chief complaint: Fever <DO Bernardo Preciado Last Filed: 08/04/25 07:22> Stated complaint: fever, chills <DO Bernardo Preciado Last Filed: 08/04/25 07:22> Time Seen by Provider: 08/04/25 04:51 <Stanislaw Cooley DO - Last Filed: 08/04/25 07:22> Source: patient and family <DO Bernardo Preciado Last Filed: 08/04/25 07:22> Mode of arrival: ambulatory <Stanislaw Cooley DO - Last Filed: 08/04/25 07:22> Limitations: no limitations <DO Bernardo Preciado Last Filed: 08/04/25 07:22> History of Present Illness HPI narrative: Patient is a 39-year-old male presents to the emergency department complaining of fever, chills, buttock pain and wound. Patient's he has been having fever and chills on and off since . Patient notes that he has hidradenitis suppurative a, as noted surgery here, last had intervention performed and May. Patient is on chronic doxycycline to take as prescribed. Patient denies any nasal congestion, cough, sore throat, nausea, vomiting, dysuria, urinary frequency, urinary urgency, abdominal pain. Patient notes that his wound on his buttock has been getting more painful lately and he started to have a lot of leaking blood discharge with a foul odor since Wednesday or . <DO Bernardo Preciado Last Filed: 08/04/25 07:22> Related Data Home medications: Home Medications ?Medication ?Instructions ?Recorded ?Confirmed ?Last Taken ?Type gabapentin 300 mg capsule 300 mg PO DAILY 05/23/25 05/23/25 Unknown History <DO Bernardo Preciado Last Filed: 08/04/25 07:22> Allergies/Adverse reactions: Allergies Allergy/AdvReac Type Severity Reaction Status Date / Time Influenza Virus Vaccines Allergy Intermediate Hives Verified 08/04/25 04:47 Opioids - Morphine Analogues Allergy Intermediate Rash Verified 08/04/25 04:47 sulfamethoxazole (From Allergy Intermediate Rash Verified 08/04/25 04:47 Bactrim) tramadol Allergy Intermediate Rash Verified 08/04/25 04:47 trimethoprim (From Bactrim) Allergy Intermediate Rash Verified 08/04/25 04:47 <Stanislaw Cooley DO - Last Filed: 08/04/25 07:22> Review of Systems Review of Systems: A 10 system review of systems was completed on the patient and is negative except for what is stated in the HPI. Nursing and ancillary documentation was reviewed. <Stanislaw Cooley DO - Last Filed: 08/04/25 07:22> [facility] Past Medical History Medical History: Medical History (Updated 08/04/25 @ 17:43 by Davin Blackburn MD) Borderline diabetes Anemia due to acute blood loss Gastric ulceration Gastritis and gastric erosions noted on EGD 05/2020 Tobacco use Sickle cell trait Hidradenitis suppurativa (Unknown) <Stanislaw Cooley DO - Last Filed: 08/04/25 07:22> Surgical History Surgical History: Surgical History History of esophagogastroduodenoscopy (EGD) (05/2020) <Stanislaw Cooley DO - Last Filed: 08/04/25 07:22> Family History Family History: Family History Mother Hypertension <Stanislaw Cooley DO - Last Filed: 08/04/25 07:22> Social History Social History: Social History Social History: Patient presents with his of 3 years at bedside. He has 2 children from a prior and 5 step children. He is currently on workman's comp. He has smoked up to a pack of cigarettes per day since he was a teenager but switched to vaping proximally 2022. He smokes marijuana daily. He drinks alcohol about once a month in moderation. Surrogate decision maker: Code status: Full code. Smoking packs per day: 1 Smoking cigarettes per day: 20.0 Years smoked: 20 Smoking pack-years: 20.00 Smoking status: Current every day smoker Tobacco type: cigarettes Alcohol intake: current Drinks per week: 9 Alcohol use details: occasional Substance use: current Substance use type: marijuana Last use: Daily Lack of Transportation: No Lack of Food: Never True Current Housing: I Have Housing Concerned About Future Housing: No Difficulty Paying Gas/Electric Bills: No Difficulty Paying for Meds: No Currently Unemployed: No Education: High School Diploma/GED Difficulty w/ Childcare or Family Care: No Living arrangements: with family 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 Gender identity (if verbalized by the patient): Male Spiritual care concerns: No <Stanislaw Cooley DO - Last Filed: 08/04/25 07:22> Exam Narrative: CONST: No acute distress. Well nourished. HENMT: Head is normocephalic and atraumatic. Moist mucous membranes. No posterior oropharynx erythema. EYES: No scleral icterus. No conjunctival injection or pallor. PERRL. NECK: No meningeal signs. No palpable cervical lymphadenopathy. RESP: Able to speak in full sentences. Normal respiratory effort. CTAB. CARDIO: Borderline tachycardic rate. Regular rhythm. 2+ DP and radial pulses bilaterally. GI: Nondistended. No tenderness to palpation. Soft. : No CVA tenderness to palpation. SKIN: Right buttock region with multiple open wounds with scant purulent discharge, diffuse mild induration, warmth is also present, mild tenderness to palpation, variable regions of fluctuance present, no palpable crepitus, diffuse erythema present. NEURO: Oriented x3. Moves all extremities. No focal neurological deficits. EXTREM/MSK/BACK: No pedal edema. PSYCH: Normal affect. <Stanislaw Cooley DO - Last Filed: 08/04/25 07:22> Course Vital Signs Vital signs: Vital Signs Temperature 100.6 F H 08/04/25 04:56 Pulse Rate 103 H 08/04/25 04:56 Respiratory Rate 18 08/04/25 04:56 Blood Pressure 116/60 08/04/25 04:56 Pulse Oximetry 96 08/04/25 04:56 Oxygen Delivery Room Air 08/04/25 04:56 Temperature 100.2 F H 08/04/25 16:45 Pulse Rate 92 08/04/25 16:45 Respiratory Rate 21 H 08/04/25 16:45 Blood Pressure 142/83 H 12/06/25 16:45 Pulse Oximetry 95 08/04/25 16:45 Oxygen Delivery Room Air 08/04/25 04:56 <Stanislaw Cooley DO - Last Filed: 08/04/25 07:22> Vital Signs Temperature 100.6 F H 08/04/25 04:56 Pulse Rate 103 H 08/04/25 04:56 Respiratory Rate 18 08/04/25 04:56 Blood Pressure 116/60 08/04/25 04:56 Pulse Oximetry 96 08/04/25 04:56 Oxygen Delivery Room Air 08/04/25 04:56 Temperature 100.2 F H 08/04/25 16:45 Pulse Rate 92 08/04/25 16:45 Respiratory Rate 21 H 08/04/25 16:45 Blood Pressure 142/83 H 08/04/25 16:45 Pulse Oximetry 95 08/04/25 16:45 Oxygen Delivery Room Air 08/04/25 04:56 <Davin Blackburn MD - Last Filed: 08/04/25 17:43> MDM MDM Narrative Medical decision making narrative: Patient presents with the above complaint. Initial vitals are remarkable for tachycardia and fever. Physical examination as noted above. Plan discussed: Laboratory analysis, CT abdomen pelvis, 30 cc/kg IV fluid bolus, blood cultures, empiric antibiotics, wound culture, NPO, general surgery consultation. I spoke with General surgery on-call Dr. Johnson who is familiar with the patient and notes that the patient exceeds our capacity and recommends transfer to higher level of care as the patient likely requires extensive debridement and excision and skin grafting and plastic surgery and given his knowledge of the patient he does not feel that we would be able to provide the care he needs here. Patient signed out to oncoming physician Dr. Blackburn at shift change. <Stanislaw Cooley DO - Last Filed: 08/04/25 07:22> Patient presents with the above complaint. Initial vitals are remarkable for tachycardia and fever. Physical examination as noted above. Plan discussed: Laboratory analysis, CT abdomen pelvis, 30 cc/kg IV fluid bolus, blood cultures, empiric antibiotics, wound culture, NPO, general surgery consultation. I spoke with General surgery on-call Dr. Johnson who is familiar with the patient and notes that the patient exceeds our capacity and recommends transfer to higher level of care as the patient likely requires extensive debridement and excision and skin grafting and plastic surgery and given his knowledge of the patient he does not feel that we would be able to provide the care he needs here. Patient signed out to oncoming physician Dr. Blackburn at shift change. --- Case was discussed with the hospitalist, Dr Lyle, at [facility] and patient was accepted for transfer. Patient was well-appearing at time of transfer. Patient family were updated on results of the workup and need for transfer. All questions concerns were addressed. <Davin Blackburn MD - Last Filed: 08/04/25 17:43> Differential Diagnosis Differential Diagnosis: Sepsis, cellulitis, abscess, necrotizing fasciitis, hidradenitis suppurativa, metabolic derangement, electrolyte derangement. <Stanislaw Cooley DO - Last Filed: 08/04/25 07:22> Medical Records I have reviewed the following patient records and this information was taken into consideration when formulating the assessment and plan.: previous ER visits <Stanislaw Cooley DO - Last Filed: 08/04/25 07:22> Lab Data MDM Lab Attestation statement: I personally reviewed the patient's lab results. <Davin Blackburn MD - Last Filed: 08/04/25 17:43> Result diagrams: 08/04/25 06:17 08/04/25 06:17 <Stanislaw Cooley DO - Last Filed: 08/04/25 07:22> Labs: Lab Results 08/04/25 08/04/25 08/04/25 Range/Units 06:17 07:31 09:14 WBC 9.3 (4.5-10.0) K/mm3 RBC 3.42 L (4.6-6.20) M/mm3 Hgb 9.1 L (14.0-18.0) g/dL Hct 28.5 L (42.0-52.0) % MCV 83.3 (80-100) fl MCH 26.6 (26-34) pg MCHC 31.9 L (32-36) g/dl RDW 15.8 H (11.5-14.5) % Plt Count 305 (150-375) k/mm3 MPV 8.1 (7.4-10.4) fl Immature Gran % (Auto) 0.3 (0-0.5) % Neut % (Auto) 79.2 H (45.5-73.1) % Lymph % (Auto) 16.1 L (18.3-44.2) % [place] % (Auto) 3.9 (2.6-8.5) % Eos % (Auto) 0.4 (0-4.4) % Baso % (Auto) 0.1 L (0.2-1.2) % Lymph # (Auto) 1.50 (0.9-3.2) K/mm3 [place] # (Auto) 0.4 (0.1-0.6) K/mm3 Eos # (Auto) 0.0 (0-0.3) K/mm3 Baso # (Auto) 0.0 (0.0-0.1) K/mm3 Abs Immat Gran (auto) 0.03 (0.00-0.031) K/mm3 Absolute Neuts (auto) 7.4 H (1.3-6.7) K/mm3 Absolute Nucleated RBC 0.000 (0.0-0.012) K/mm3 Nucleated RBC % 0.0 (0.0-0.2) % PT 15.2 H (11.1-14.7) Seconds INR 1.2 APTT 31.3 (22.3-36.8) Seconds Sodium 136 L (137-145) mmol/L Potassium 3.0 L (3.4-5.0) mmol/L Chloride 100 (98-107) mmol/L Carbon Dioxide 28 (22-30) mmol/L Anion Gap 8 (4-12) mmol/L BUN 8 L D (9-20) mg/dL Creatinine 0.91 (0.7-1.3) mg/dL Estim Creat Clear Calc 91 ml/min Estimated GFR > 60 (59 - ) Glucose 98 (65-110) mg/dL Lactic Acid 0.7 (0.7-2.0) mmol/L Calcium 8.7 (8.4-10.2) mg/dL Magnesium 1.6 (1.6-2.3) mg/dL Total Bilirubin 0.5 (0.2-1.3) mg/dL AST 44 (17-59) U/L ALT 25 (6-50) U/L Alkaline Phosphatase 100 (38-126) U/L C-Reactive Protein 13.8 H (<1.0) mg/dL Total Protein 8.6 H (6.3-8.2) g/dL Albumin 3.8 (3.5-5.1) g/dL Lipase 34 (23-300) U/L Urine Color Yellow (Yellow) Urine Appearance Cloudy H (Clear) Urine pH 5.5 (5.0-9.0) Ur Specific [place] 1.014 (1.001-1.035) Urine Protein Negative (Negative) mg/dL Urine Glucose (UA) Negative (Negative) mg/dL Urine Ketones Trace H (Negative) mg/dL Ur Blood (Man) Negative (Negative) Urine Nitrate Negative (Negative) Urine Bilirubin Negative (Negative) Urine Urobilinogen 0.2 (<2.0) mg/dL Leukocyte Esterase Rfl Negative (Negative) SILVERIO/UL Urine RBC 0-2 (0-2) /hpf Urine WBC 0-5 (0-3) /hpf Ur Squamous Epith Cells None seen (Few) /hpf Urine Bacteria None seen /hpf Urine Casts 0-2 Nasal MRSA (PCR) Not detected (NOT DETECTE) Influenza A (RT-PCR) Negative (Negative) Influenza B (RT-PCR) Negative (Negative) RSV (RT-PCR) Negative (Negative) SARS-CoV-2 RNA (RT-PCR) Negative (Negative) <Stanislaw Cooley, DO - Last Filed: 08/04/25 07:22> Lab Results 08/04/25 08/04/25 08/04/25 Range/Units 06:17 07:31 09:14 WBC 9.3 (4.5-10.0) K/mm3 RBC 3.42 L (4.6-6.20) M/mm3 Hgb 9.1 L (14.0-18.0) g/dL Hct 28.5 L (42.0-52.0) % MCV 83.3 (80-100) fl MCH 26.6 (26-34) pg MCHC 31.9 L (32-36) g/dl RDW 15.8 H (11.5-14.5) % Plt Count 305 (150-375) k/mm3 MPV 8.1 (7.4-10.4) fl Immature Gran % (Auto) 0.3 (0-0.5) % Neut % (Auto) 79.2 H (45.5-73.1) % Lymph % (Auto) 16.1 L (18.3-44.2) % [place] % (Auto) 3.9 (2.6-8.5) % Eos % (Auto) 0.4 (0-4.4) % Baso % (Auto) 0.1 L (0.2-1.2) % Lymph # (Auto) 1.50 (0.9-3.2) K/mm3 [place] # (Auto) 0.4 (0.1-0.6) K/mm3 Eos # (Auto) 0.0 (0-0.3) K/mm3 Baso # (Auto) 0.0 (0.0-0.1) K/mm3 Abs Immat Gran (auto) 0.03 (0.00-0.031) K/mm3 Absolute Neuts (auto) 7.4 H (1.3-6.7) K/mm3 Absolute Nucleated RBC 0.000 (0.0-0.012) K/mm3 Nucleated RBC % 0.0 (0.0-0.2) % PT 15.2 H (11.1-14.7) Seconds INR 1.2 APTT 31.3 (22.3-36.8) Seconds Sodium 136 L (137-145) mmol/L Potassium 3.0 L (3.4-5.0) mmol/L Chloride 100 (98-107) mmol/L Carbon Dioxide 28 (22-30) mmol/L Anion Gap 8 (4-12) mmol/L BUN 8 L D (9-20) mg/dL Creatinine 0.91 (0.7-1.3) mg/dL Estim Creat Clear Calc 91 ml/min Estimated GFR > 60 (59 - ) Glucose 98 (65-110) mg/dL Lactic Acid 0.7 (0.7-2.0) mmol/L Calcium 8.7 (8.4-10.2) mg/dL Magnesium 1.6 (1.6-2.3) mg/dL Total Bilirubin 0.5 (0.2-1.3) mg/dL AST 44 (17-59) U/L ALT 25 (6-50) U/L Alkaline Phosphatase 100 (38-126) U/L C-Reactive Protein 13.8 H (<1.0) mg/dL Total Protein 8.6 H (6.3-8.2) g/dL Albumin 3.8 (3.5-5.1) g/dL Lipase 34 (23-300) U/L Urine Color Yellow (Yellow) Urine Appearance Cloudy H (Clear) Urine pH 5.5 (5.0-9.0) Ur Specific [place] 1.014 (1.001-1.035) Urine Protein Negative (Negative) mg/dL Urine Glucose (UA) Negative (Negative) mg/dL Urine Ketones Trace H (Negative) mg/dL Ur Blood (Man) Negative (Negative) Urine Nitrate Negative (Negative) Urine Bilirubin Negative (Negative) Urine Urobilinogen 0.2 (<2.0) mg/dL Leukocyte Esterase Rfl Negative (Negative) SILVERIO/UL Urine RBC 0-2 (0-2) /hpf Urine WBC 0-5 (0-3) /hpf Ur Squamous Epith Cells None seen (Few) /hpf Urine Bacteria None seen /hpf Urine Casts 0-2 Nasal MRSA (PCR) Not detected (NOT DETECTE) Influenza A (RT-PCR) Negative (Negative) Influenza B (RT-PCR) Negative (Negative) RSV (RT-PCR) Negative (Negative) SARS-CoV-2 RNA (RT-PCR) Negative (Negative) <Davin Blackburn MD - Last Filed: 08/04/25 17:43> Imaging Data Radiologist's impression: ITS Impressions Abdomen/Pelvis CT 08/04/25 08:25 IMPRESSION: 1. Severe cellulitis right buttocks. Areas of necrosis possible. No discrete abscess. 2. Less severe cellulitis left groin and bilateral medial buttocks. <Stanislaw Cooley DO - Last Filed: 08/04/25 07:22> ITS Impressions Abdomen/Pelvis CT 08/04/25 08:25 IMPRESSION: 1. Severe cellulitis right buttocks. Areas of necrosis possible. No discrete abscess. 2. Less severe cellulitis left groin and bilateral medial buttocks. <Davin Blackburn MD - Last Filed: 08/04/25 17:43> Discharge Plan Discharge Clinical Impression: Sepsis, Cellulitis <Stanislaw Cooley DO - Last Filed: 08/04/25 07:22> Patient Disposition: Acute Care Hospital <Stanislaw Cooley DO - Last Filed: 08/04/25 07:22> Condition: Serious <Stanislaw Cooley DO - Last Filed: 08/04/25 07:22> Patient Language: Malay <Stanislaw Cooley DO - Last Filed: 08/04/25 07:22> Prescriptions: No Action gabapentin 300 mg capsule 300 mg PO DAILY amoxicillin-pot clavulanate 875-125 mg tablet 1 tablet PO Q12H Qty: 5 0RF doxycycline hyclate 100 mg Tablet 100 mg PO Q12HR Qty: 60 3RF amlodipine 10 mg tablet 10 mg PO BID Qty: 60 0RF <Stanislaw Cooley DO - Last Filed: 08/04/25 07:22> Follow-up/Referrals: Stone,Camelia Kapadia, [employer] [Primary Care Provider, Unknown] <DO Bernardo Preciado Last Filed: 08/04/25 07:22>
[2025-08-04 06:24] LABS: Hematocrit 28.5 % (42.0-52.0); Hemoglobin 9.1 g/dL (14.0-18.0); Immature Granulocyte Percent A 0.3 % (0-0.5); Lymphocytes Absolute Auto 1.50 K/mm3 (0.9-3.2); Mean Corpuscular HGB Conc 31.9 g/dl (32-36); Mean Corpuscular Hemoglobin 26.6 pg (26-34); Mean Corpuscular Volume 83.3 fl (80-100); Nucleated Red Blood Cells Absolute Auto 0.000 K/mm3 (0.0-0.012); Nucleated Red Blood Cells Perc 0.0 % (0.0-0.2); Platelet Count Result 305 k/mm3 (150-375); Red Blood Count 3.42 M/mm3 (4.6-6.20); White Blood Count 9.3 K/mm3 (4.5-10.0)
[2025-08-04 06:34] LABS: INR 1.2; Prothrombin Time 15.2 Seconds (11.1-14.7)
[2025-08-04 06:36] LABS: Partial Thromboplastin Time 31.3 Seconds (22.3-36.8)
[2025-08-04] MEDS: MEROPENEM 1 GM in SODIUM CHLORIDE 0.9% IV 100 ML 200 ML IVPB ×2 (06:41→15:00)
[2025-08-04] MEDS: SODIUM CHLORIDE 0.9% IV 1,000 ML 999 ML IV CONT ×2 (06:41)
[2025-08-04] MEDS: SODIUM CHLORIDE 0.9% IV 200 ML 999 ML IV CONT (06:42)
[2025-08-04] MEDS: KETOROLAC 15 MG/ML VIAL (*BKC) IV PUSH ×2 (06:42→17:14)
[2025-08-04 06:50] LABS: Alanine Aminotransferase 25 U/L (6-50); Albumin Level 3.8 g/dL (3.5-5.1); Alkaline Phosphatase 100 U/L (38-126); Anion Gap 8 mmol/L (4-12); Aspartate Amino Transferase 44 U/L (17-59); Bilirubin,Total 0.5 mg/dL (0.2-1.3); Blood Urea Nitrogen 8 mg/dL (9-20); Calcium 8.7 mg/dL (8.4-10.2); Carbon Dioxide 28 mmol/L (22-30); Chloride 100 mmol/L (98-107); Estimated CRCL calculation 91 ml/min; Estimated Glomerular Filt Rate > 60; Glucose 98 mg/dL (65-110); Lipase 34 U/L (23-300); Magnesium 1.6 mg/dL (1.6-2.3); Potassium 3.0 mmol/L (3.4-5.0); Sodium 136 mmol/L (137-145); Total Protein 8.6 g/dL (6.3-8.2)
[2025-08-04 07:04] LABS: Influenza A QL RT-PCR Negative (Negative); Influenza B QL RT-PCR Negative (Negative); RSV RNA, RT-PCR Negative (Negative); SARS-CoV-2 RNA PCR Negative (Negative)
[2025-08-04 07:15] LABS: CRP 13.8 mg/dL (<1.0)
[2025-08-04] MEDS: CLINDAMYCIN 900 MG/D5W 50 ML 900 MG/50 ML PIGGYBACK 50 MG IVPB ×2 (07:33→16:16)
[2025-08-04 07:47] LABS: Add Urine Microscopic? YES; Appearance Urine Cloudy (Clear); Glucose Urine UA Negative (Negative); Leukocyte Esterase Ur Negative LEU/UL (Negative); Nitrate Urine Negative (Negative); Non Pathogenic Casts 0-2; Specific Grav Ur 1.014 (1.001-1.035)
[2025-08-04] MEDS: VANCOMYCIN 1,750 MG/NS 500 ML 1,750 MG/500 ML BAG 250 MG IVPB (08:26)
[2025-08-04 10:30] LABS: MRSA (PCR) NOT DETECTED (NOT DETECTE)
[2025-08-04] MEDS: ACETAMINOPHEN 500 MG TABLET 1000 MG PO (10:49)
[2025-08-04] MEDS: ACETAMINOPHEN 325 MG TABLET 650 MG PO (17:15)
== END 2025-08-04 17:22 | disposition short-term general hospital (02) ==
PROVIDERS: Emergency Provider Student in an Organized Health Care Education/Training Program; PCP Nurse Practitioner Family
DX: A41.9 Sepsis, unspecified organism (principal); L03.314 Cellulitis of groin; L03.317 Cellulitis of buttock; Z20.822 Contact with and (suspected) exposure to COVID-19; R73.03 Prediabetes; D57.3 Sickle-cell trait; F17.290 Nicotine dependence, other tobacco product, uncomplicated; I45.10 Unspecified right bundle-branch block; R94.31 Abnormal electrocardiogram [ECG] [EKG]
CPT/HCPCS: 36415; 74177; 80053; 81001; 83605; 83690; 83735; 85025; 85610; 85730; 86140; 87070; 87075; 87186; 87637; 87641; 93005; 96361; 96365; 96366; 96367; 96375; 96376; 99285; A9270; J1885; J2185; J3373; J7030; Q9967